=== PATIENT | male | born 1950 | race Caucasian/White ===

== ENCOUNTER 2018-12-04 14:00 | Inpatient (IN) | payer MEDICARE ==
[2018-12-04 21:46] LABS: Glucose,Whole Blood 82 mg/dL (75-99)
[2018-12-04] MEDS ORDERED: NITROGLYCERIN SL TABS 0.4 MG TAB SUBLINGUAL PRN (22:15)
[2018-12-04] MEDS ORDERED: HEPARIN SODIUM,PORCINE 5,000 UNIT/ML 1 ML VIAL IV PRN (22:59)
[2018-12-04] MEDS ORDERED: HEPARIN SOD,PORK IN 0.45% NACL 25,000 UNIT in 0.45% NACL 1 250ML.BAG IV SCH (23:00)
[2018-12-04 23:34] LABS: Basophils # (A) 0.1 k/uL (0-0.2); Basophils % (A) 1 %; Eosinophils # (A) 0.1 k/uL (0-0.7); Eosinophils % (A) 1 %; HCT 42.8 % (39.0-53.0); HGB 13.9 gm/dL (13.0-17.5); Lymphocytes # (A) 1.5 k/uL (1.0-4.8); Lymphocytes % (A) 23 %; MCH 29.4 pg (25.0-35.0); MCHC 32.4 g/dL (31.0-37.0); MCV 90.8 fL (80.0-100.0); Mean Platelet Volume 8.1; Monocytes # (A) 0.5 k/uL (0-1.0); Monocytes % (A) 7 %; Neutrophils # (A) 4.4 k/uL (1.3-7.7); Neutrophils % (A) 66 %; Platelet Count 186 k/uL (150-450); RBC 4.72 m/uL (4.30-5.90); RDW 13.9 % (11.5-15.5); WBC 6.7 k/uL (3.8-10.6)
[2018-12-04 23:40] LABS: Partial Thromboplastin Time 26.5 sec (22.0-30.0); Prothrombin Time 10.5 sec (9.0-12.0)
[2018-12-04 23:51] LABS: African American GFR (CKD) >90 (>60 ml/min/1.73 sqM); Anion Gap 9 mmol/L; Blood Urea Nitrogen 17 mg/dL (9-20); Calcium 9.2 mg/dL (8.4-10.2); Carbon Dioxide 25 mmol/L (22-30); Chloride 105 mmol/L (98-107); Glucose 84 mg/dL (74-99); Potassium 3.9 mmol/L (3.5-5.1); Sodium 139 mmol/L (137-145)
[2018-12-05 06:07] LABS: Basophils # (A) 0.1 k/uL (0-0.2); Basophils % (A) 1 %; Eosinophils # (A) 0.1 k/uL (0-0.7); Eosinophils % (A) 1 %; HCT 43.4 % (39.0-53.0); HGB 13.7 gm/dL (13.0-17.5); Lymphocytes # (A) 1.4 k/uL (1.0-4.8); Lymphocytes % (A) 19 %; MCH 28.2 pg (25.0-35.0); MCHC 31.5 g/dL (31.0-37.0); MCV 89.4 fL (80.0-100.0); Mean Platelet Volume 8.7; Monocytes # (A) 0.4 k/uL (0-1.0); Monocytes % (A) 6 %; Neutrophils # (A) 5.1 k/uL (1.3-7.7); Neutrophils % (A) 71 %; Platelet Count 184 k/uL (150-450); RBC 4.86 m/uL (4.30-5.90); RDW 15.2 % (11.5-15.5); WBC 7.1 k/uL (3.8-10.6)
[2018-12-05 06:21] LABS: Glucose,Whole Blood 128 mg/dL (75-99)
[2018-12-05] MEDS: INSULIN ASPART (NovoLOG) 100 UNIT/ML VIAL SQ SCH ×4 (06:22→21:18)
[2018-12-05] MEDS ORDERED: MD COMMUNICATION TO PHARMACY 1 EACH MISC PO ONE ×4 (06:31)
[2018-12-05 07:00] LABS: ALT 27 U/L (21-72); AST 28 U/L (17-59); African American GFR (CKD) >90 (>60 ml/min/1.73 sqM); Albumin 4.1 g/dL (3.5-5.0); Alkaline Phosphatase 118 U/L (38-126); Anion Gap 8 mmol/L; Blood Urea Nitrogen 13 mg/dL (9-20); Calcium 9.3 mg/dL (8.4-10.2); Carbon Dioxide 28 mmol/L (22-30); Chloride 105 mmol/L (98-107); Cholesterol 164 mg/dL (<200); Glucose 134 mg/dL (74-99); HDL Cholesterol 42 mg/dL (40-60); LDL Cholesterol,Calculated 95 mg/dL (0-99); Magnesium 2.1 mg/dL (1.6-2.3); Potassium 4.2 mmol/L (3.5-5.1); Prothrombin Time 10.9 sec (9.0-12.0); Sodium 141 mmol/L (137-145); Total Bilirubin 0.7 mg/dL (0.2-1.3); Total Protein 7.1 g/dL (6.3-8.2); Triglycerides 135 mg/dL (<150)
--- NOTE | 2018-12-05 08:08 | XR ---
EXAMINATION TYPE: XR chest 2V DATE OF EXAM: 12/05/2018 COMPARISON: NONE HISTORY: Shortness of breath TECHNIQUE: Frontal and lateral views of the chest are obtained. FINDINGS: Scattered senescent parenchymal changes noted. Hyperinflation compatible with COPD. No evidence for infiltrate. No evidence for atelectasis. Heart size is stable. Mediastinal structures are stable and grossly unremarkable. No evidence for hilar prominence. Degenerative changes dorsal spine. IMPRESSION: 1. No evidence for acute pulmonary disease.
[2018-12-05] MEDS ORDERED: METOPROLOL TARTRATE 12.5 MG TAB PO SCH (09:00)
[2018-12-05] MEDS ORDERED: MELOXICAM 7.5 MG TAB PO SCH (09:00)
[2018-12-05] MEDS ORDERED: HEPARIN SODIUM,PORCINE 5,000 UNIT/ML 1 ML VIAL SQ SCH (09:00)
[2018-12-05] MEDS: ASPIRIN 325 MG TAB PO SCH (09:12)
[2018-12-05] MEDS: PANTOPRAZOLE 40 MG TABLET PO SCH (09:12)
[2018-12-05] MEDS: GABAPENTIN 300 MG CAP PO SCH ×3 (09:12→21:19)
--- NOTE | 2018-12-05 11:23 | P.HPIM ---
History of Present Illness H&P Date: 12/05/18 Chief Complaint: Chest pain This is a 68-year-old male, a patient of Dr. Haddad. He has a known past medical history of diabetes mellitus type 2, hyperlipidemia, vitamin D d eficiency and a family history of coronary artery disease. Patient initially presented to [facility] emergency room yesterday with complaints of chest pain along the breast bone that had started earlier yesterday morning. Pain did not radiate. Symptoms have lasted for about a half hour and then recurred 2 more times. He then came to the ER. For further evaluation and treatment. Patient's first troponin was negative EKG showing a normal sinus rhythm with an old inferior infarct and chest x-ray showing scattered interstitial densities and peribronchial thickening without acute parenchymal infiltrate or vascular decompensation. No pneumothorax. Patient initially started on Rocephin and azithromycin in the ER for concerns of possible pneumonia. Cardiology also on consult regarding chest pain. Second troponin came back elevated and then patient went for a heart catheterization that revealed triple-vessel disease. He was then transferred to [facility] for further evaluation by cardiothoracic surgeon. Patient is currently on IV heparin. He currently has no chest pressure. The chest x-ray done here [facility] shows no acute pulmonary process. Patient is still on the Rocephin most likely due to bronchitis doubt pneumonia. Patient's also had had upper respiratory symptoms with the last 2 weeks with sinus congestion and drainage. He denies any fever, chills, sweats, nausea or vomiting, bowel movement changes or urinary symptoms. Review of Systems Please refer to HPI otherwise unremarkable Past Medical History Past Medical History: Diabetes Mellitus, Hearing Disorder / Deafness, Hyperlipidemia History of Any Multi-Drug Resistant Organisms: None Reported Past Surgical History: No Surgical Hx Reported Past Anesthesia/Blood Transfusion Reactions: No Reported Reaction Past Psychological History: No Psychological Hx Reported Smoking Status: Former smoker Past Alcohol Use History: None Reported Past Drug Use History: None Reported Medications and Allergies Home Medications Medication Instructions Recorded Confirmed Type Ergocalciferol (Vitamin D2) 50,000 units PO BONILLA 11/01/17 12/04/18 History [Vitamin D2] Meloxicam 15 mg PO DAILY 11/01/17 12/04/18 History sitaGLIPtin [Januvia] 100 mg PO DAILY 11/01/17 12/04/18 History Escitalopram [Lexapro] 5 mg PO DAILY 12/04/18 12/04/18 History Glimepiride [Amaryl] 2 mg PO DAILY 12/04/18 12/04/18 History Omeprazole [PriLOSEC] 20 mg PO DAILY 12/04/18 12/04/18 History Pioglitazone HCl [Actos] 30 mg PO DAILY 12/04/18 12/04/18 History Pravastatin Sodium [Pravachol] 20 mg PO HS 12/04/18 12/04/18 History Allergies Allergy/AdvReac Type Severity Reaction Status Date / Time No Known Allergies Allergy Verified 12/04/18 22:49 Physical Exam Vitals: Vital Signs Temp Pulse Resp BP Pulse Ox 12/05/18 09:10 97.8 F 70 16 143/78 93 L 12/05/18 04:00 62 16 134/78 96 12/05/18 00:00 97.9 F 68 18 127/73 98 12/04/18 21:40 98.2 F 71 18 141/68 97 Intake and Output 12/04/18 12/05/18 12/05/18 22:59 06:59 14:59 Intake Total 230.299 Balance 230.299 Intake: Intake, IV Titration 110.299 Amount Heparin Sod,Pork in 0.45% 110.299 NaCl 25,000 unit In 0.45 % NaCl 1 250ml.bag @ 12 UNITS/KG/HR 9.253 mls/hr IV .Q24H [facility] Rx#: [id number] Oral 120 Other: Voiding Method Toilet # Voids 2 Weight 77.111 kg 77 kg Head normocephalic Neck supple Lungs clear to auscultation bilaterally no wheezing or crackles Heart regular rate and rhythm S1-S2, no rub or gallop Abdomen is soft nontender nondistended positive bowel sounds no hepatosplenomegaly Extremities no edema Neuro alert and orientated to 3 Results CBC & Chem 7: 12/05/18 05:45 12/05/18 05:45 Labs: Abnormal Lab Results - Last 24 Hours (Table) 12/05/18 12/05/18 12/05/18 Range/Units 05:45 05:45 06:19 APTT 41.3 H (22.0-30.0) sec Glucose 134 H (74-99) mg/dL POC Glucose (mg/dL) 128 H (75-99) mg/dL Thrombosis Risk Factor Assmnt - Choose All That Apply Other Risk Factors: Yes Each Risk Factor Represents 2 Points: Age 61-74 years Other congenital or acquired thrombophilia - If yes, enter type in comment: No Thrombosis Risk Factor Assessment Total Risk Factor Score: 2 Thrombosis Risk Factor Assessment Level: Low Risk Assessment and Plan Assessment: 1. Chest pain with heart catheterization revealing triple-vessel disease. Patient was a transfer from [facility]. Cardiothoracic surgery and cardiology consult has been placed. Patient currently on IV heparin. Patient scheduled for echo arterial ultrasound carotid ultrasound and vein mapping ultrasound 2. Elevated d-dimer at [facility] with right calf pain: venous Doppler was negative for DVT and CTA of the chest was negative for PE. Calf pain now resolved 3. Acute tracheobronchitis: doubt pneumonia. chest x-ray from today showing no acute pulmonary process. Continue Rocephin. Check sputum culture. Consult pulmonary service for clearance for possible CABG 4. Diabetes mellitus type 2 resume patient's oral hypoglycemics and add sliding scale coverage 5. Hyperlipidemia continue statin 6. GI prophylaxis Protonix and DVT prophylaxis IV heparin Time with Patient: Greater than 30 (Greater than 50% of the total time spent in counseling and coordination of care.I performed an examination of the patient and discussed their management with the physician Pet House Sitter. I have reviewed the Physician Pet House Sitter's notes and agree with the documented findings and plan of care)
[2018-12-05 11:32] LABS: Glucose,Whole Blood 134 mg/dL (75-99)
[2018-12-05 11:47] LABS: Appearance,Urine Clear (Clear); Bilirubin,Urine Negative (Negative); Blood,Urine Negative (Negative); Color,Urine Light Yellow; Glucose,Urine (UA) 2+ (Negative); Ketones,Urine Negative (Negative); Leukocyte Esterase,Urine Negative (Negative); Nitrite,Urine Negative (Negative); PH, Urine 6.5 (5.0-8.0); Protein,Urine Negative (Negative); Specific Gravity,Urine 1.011 (1.001-1.035); Urobilinogen,Urine <2.0 mg/dL (<2.0)
[2018-12-05] MEDS: LINAGLIPTIN 5 MG TABLET PO SCH (12:00)
[2018-12-05 12:27] LABS: Hepatitis A Antibody IgM Non-Reactive (Non-Reactive); Hepatitis B Core IgM Non-Reactive (Non-Reactive)
--- NOTE | 2018-12-05 12:51 | ECHOF ---
Referral Reason:Pre op CABG MEASUREMENTS -------- HEIGHT: 167.6 cm WEIGHT: 76.7 kg BP: 134/78 RVIDd: 3.3 cm (< 3.3) IVSd: 1.5 cm (0.6 - 1.1) LVIDd: 4.0 cm (3.9 - 5.3) LVPWd: 1.3 cm (0.6 - 1.1) IVSs: 1.9 cm LVIDs: 2.5 cm LVPWs: 1.8 cm LAESV Index (A-L): 17.83 ml/m Ao Diam: 3.3 cm (2.0 - 3.7) AV Cusp: 1.9 cm (1.5 - 2.6) LA Diam: 3.7 cm (2.7 - 3.8) MV EXCURSION: 9.371 mm (> 18.000) MV EF SLOPE: 40 mm/s (70 - 150) EPSS: 1.1 cm MV E Charlie: 0.94 m/s MV DecT: 279 ms MV A Charlie: 1.14 m/s MV E/A Ratio: 0.82 RAP: 5.00 mmHg RVSP: 30.47 mmHg FINDINGS -------- Sinus rhythm. This was a technically adequate study. The left ventricular size is normal. There is moderate concentric left ventricular hypertrophy. O verall left ventricular systolic function is normal with, an EF between 55 - 60 %. The right ventricle is mildly enlarged. Normal LA size by volume 22+/-6 ml/m2. The right atrial size is normal. Interatrial and interventricular septum intact. The aortic valve is trileaflet and appears structurally normal. Mild mitral regurgitation is present. Mild tricuspid regurgitation present. There is no evidence of pulmonary hypertension. The right v entricular systolic pressure, as measured by Doppler, is 30.47mmHg. There is no pulmonic regurgitation present. The aortic root size is normal. Normal inferior vena cava with normal inspiratory collapse consistent with estimated right atrial pre ssure of 5 mmHg. There is no pericardial effusion. CONCLUSIONS -------- 1. Sinus rhythm. 2. This was a technically adequate study. 3. The left ventricular size is normal. 4. There is moderate concentric left ventricular hypertrophy. 5. Overall left ventricular systolic function is normal with, an EF between 55 - 60 %. 6. The right ventricle is mildly enlarged. 7. Normal LA size by volume 22+/-6 ml/m2. 8. The right atrial size is normal. 9. Interatrial and interventricular septum intact. 10. The aortic valve is trileaflet and appears structurally normal. 11. Mild mitral regurgitation is present. 12. Mild tricuspid regurgitation present. 13. There is no evidence of pulmonary hypertension. 14. The right ventricular systolic pressure, as measured by Doppler, is 30.47mmHg. 15. There is no pulmonic regurgitation present. 16. The aortic root size is normal. 17. Normal inferior vena cava with normal inspiratory collapse consistent with estimated right atrial pressure of 5 mmHg. 18. There is no pericardial effusion. MANAGER PRODUCTION: Olive Macario RDCS
--- NOTE | 2018-12-05 13:09 | PN ---
PROGRESS NOTE Mr. Solo is a 68-year-old gentleman, history of type 2 diabetes, hypertension, hyperlipidemia, who was seen and evaluated by Dr. Dolan at [facility]. He underwent a cardiac cath which revealed a triple-vessel disease. He has a right dominant system. No significant disease in the RCA. LAD, obtuse marginal and ramus have significant disease. He was advised aortocoronary bypass surgery and transferred here. He is going to be seen by Dr. Monroe for possible bypass surgery in the next couple of days. At this time, he is resting comfortably. Denies any chest discomfort. His vital signs are stable. S1-S2 heard normally. Lungs are clear. Abdomen and lower extremity exam unchanged. I am recommending that we switch him from IV heparin to subcu heparin. Continue his other medications, increase the beta reg to 25 mg in the morning and 12.5 mg in the evening. I discussed my thoughts in detail with the patient and I will await input from Dr. Monroe. MMODL / IJN: [id number] /
[2018-12-05] MEDS: ESCITALOPRAM 5 MG TAB PO SCH (13:38)
[2018-12-05] MEDS: PIOGLITAZONE 30 MG TAB PO SCH (13:38)
--- NOTE | 2018-12-05 14:33 | CONS ---
CONSULTATION This is a 68-year-old male who I am asked to see her for anticipation of a bypass grafting. He sees Dr. Haddad as a primary. He has a history of diabetes type 2, hyperlipidemia, vitamin D deficiency and a family history of CAD. He presented to [facility] with complaints of chest pain. It was mostly in the center of his chest. It did not radiate. They lasted a number of minutes, even to the point of 30 minutes or more. For that reason, he came to the ER. He apparently was evaluated there. EKG showed normal sinus rhythm with an old inferior wall [place]. He also had an negative 1st troponin. Subsequent to that, the patient was further evaluated by Cardiology. Second troponin came back elevated and the patient went for heart catheterization and revealed triple-vessel disease. He is transferred to [facility] for further evaluation and consultation by Cardiothoracic Surgery, I believe Dr. Monroe. The patient was placed on IV heparin and had a basic IV. Currently, he is sitting up in a chair. I asked him about lung issues. He denies any history of any lung disease. He only smoked 1 year when he was 18 years of age. 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 Denies any COPD, emphysema, asthma, or anything else for that matter. He is suffering from a bit of an upper respiratory tract infection. Apparently was treated at the other hospital for that. His past medical history is positive for hyperlipidemia, diabetes, vitamin D deficiency and deafness. SURGICAL HISTORY: Negative. SOCIAL HISTORY: Positive for one year of tobacco use when he was 18 years of age. Denies any alcohol or illicit drug use. Occupational history is noncontributory. 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 HOME MEDICATIONS: Include vitamin D, meloxicam, Januvia, Lexapro, Amaryl, Prilosec, Actos, Pravachol. ALLERGIES: Denied. FAMILY HISTORY: Essentially not too remarkable. Mother and father are both . There is a family history of cardiac disease. I believe in his father. Mother apparently did not have any heart disease. There was some arthritis in the family as well as according to the medical records. REVIEW OF SYSTEMS: CONSTITUTIONAL: Negative. NEUROLOGIC: Negative. HEENT: Negative. CARDIOVASCULAR: Chest pain. PULMONARY: Negative. GI: Negative. : Negative. RHEUMATOLOGIC: Negative. IMMUNOLOGIC: Negative. ENDOCRINOLOGIC: Negative. DERMATOLOGIC: Also negative, except for diabetes. Current vital signs are reviewed. Temperature is 97.8, heart rate 70, respiratory rate is 16, blood pressure 143/70, mean 99, room air saturation 97%. Appears in no acute distress. HEENT: Examination is grossly unremarkable. Mucous membranes are moist. No oral lesions. NECK: Supple. Full range of motion. No adenopathy. Neck veins are flat. CARDIOVASCULAR: Examination reveals regular rhythm and rate. S1, S2 normal. Heart rate 70. No murmur. LUNGS: Reveal clear breath sounds. No wheezes, rhonchi, or crackles. ABDOMEN: Soft. Bowel sounds are heard. EXTREMITIES: Intact. No cyanosis, clubbing, or edema. SKIN: Without rash. NEUROLOGIC: Examination is brief, but nonfocal. Patient had a chest x-ray. The chest x-ray was negative. LABS: Reviewed. CBC is completely normal. PT, INR normal. PTT is 41.3. Sodium, potassium, chloride, CO2 all normal. Anion gap normal, kidney function normal. His urine is negative. His hepatitis serologies are negative. His medications are reviewed. They are appropriate. The patient is on Rocephin. That can be discontinued. ASSESSMENT: 1. Three-vessel coronary artery disease, recently discovered. 2. History of hyperlipidemia. 3. History of diabetes mellitus. 4. Remote 1 year history of tobacco use without evidence of any chronic lung disease. 5. Mild upper respiratory tract infection, probably viral. 6. Deafness. PLAN: The patient doing well. He should have a bedside spirometry. I doubt any significant pulmonary disease. Will discontinue the IV antibiotics as I do not believe he needs him at this time. Additional recommendations and suggestions are forthcoming. Based on his history, the patient should do well after bypass grafting, should have her early extubation and should be able to be discharged relatively quickly from the hospital, if everything goes well. Will continue to follow. Prognosis is good. MMODL / IJN: [id number] /
[2018-12-05 14:36] LABS: Hemoglobin A1C 7.5 % (4.0-6.0)
--- NOTE | 2018-12-05 14:44 | US ---
EXAMINATION TYPE: US carotid duplex BILAT DATE OF EXAM: 12/05/2018 COMPARISON: NONE CLINICAL HISTORY: Pre-Op Cardiac Surgery. pre OP EXAM MEASUREMENTS: RIGHT: Peak Systolic Velocity (PSV) cm/sec ----- Right CCA: 111.4 ----- Right ICA: 88.7 ----- Right ECA: 125.3 ICA/CCA ratio: 0.8 RIGHT: End Diastole cm/sec ----- Right CCA: 14.0 ----- Right ICA: 31.1 ----- Right ECA: 5.8 LEFT: Peak Systolic Velocity (PSV) cm/sec ----- Left CCA: 107.4 ----- Left ICA: 77.0 ----- Left ECA: 110.2 ICA/CCA ratio: 0.7 LEFT: End Diastole cm/sec ----- Left CCA: 17.9 ----- Left ICA: 22.9 ----- Left ECA: 6.9 VERTEBRALS (direction of flow): Right Vertebral: Antegrade Left Vertebral: Antegrade Rhythm: Normal IMPRESSION: Mild homogeneous plaque seen with no stenosis Criteria for Assigning % of Stenosis / Diameter reduction (Estimation based on the indirect measurements of the internal carotid artery velocities (ICA PSV). 1. Normal (no stenosis)=ICA PSV < 125 cm/s: ratio < 2.0: ICA EDV<40 cm/s. 2. Less than 50% stenosis=ICA PSV < 125 cm/s: ratio < 2.0: ICA EDV<40 cm/s. 3. 50 to 69% stenosis=ICA PSV of 125 to 230 cm/s: ration 2.0 ? 4.0: ICA EDV 40-100 cm/s. 4. Greater than 70% stenosis to near occlusion= ICA PSV > 230 cm/s: ratio > 4.0: ICA EDV > 100 cm/s. 5. Near occlusion= ICA PSV velocities may be low or undetectable: variable ratio and ICA EDV. 6. Total occlusion=unable to detect flow.
[2018-12-05 16:43] LABS: Glucose,Whole Blood 160 mg/dL (75-99)
--- NOTE | 2018-12-05 17:35 | P.GSCN ---
History of Present Illness Consult date: 12/05/18 Reason for Consult: severe triple vessel coronary artery disease, non-ST elevated myocardial infarction. Requesting physician: David Dolan History of present illness: This is a 68-year-old gentleman who is followed by Dr. Haddad an outpatient basis. He is a past medical history significant for type 2 diabetes mellitus, hypertension, hyperlipidemia, family history of premature coronary artery disease with his mother being diagnosed with a myocardial infarction at age 52, vocal cord disorder, tinnitus and a very remote history of tobacco dependence. Yesterday morning on 12/04/2018 around 6:30 AM the patient developed some complaints of chest pressure. The patient reports the chest pressure came on while at rest and he initially thought it was indigestion. He denies any complaints of nausea, vomiting, presyncope, syncope or diaphoresis. Due to the chest pain and complains of pain to his right calf muscle, he decided to present to the emergency department at [facility]. In the emergency d epartment a 12-lead EKG was completed which showed the patient to be in normal sinus rhythm without any significant ST or T wave abnormalities. He also underwent a chest x-ray which was negative for any acute cardiopulmonary abnormalities. Lab work was completed which showed a WBC count of 6.2, Hgb 14.7, platelets 184, BUN 21, creatinine 0.8, random glucose 182 and an initial troponin of less than 0.017. A repeat troponin showed an elevation of 0.438 ruling the patient in for a non-ST elevated myocardial infarction. Due to the patient's presenting symptoms and elevated troponins a consult was placed to Dr. Dolan from cardiology associates.the patient was admitted to [facility] for further workup and evaluation and a cardiac catheterization was recommended. The patient underwent a cardiac catheterization which demonstrated severe triple-vessel coronary artery disease. The cardiac catheterization results were reviewed with the patient and his by Dr. Dolan. Dr. Dolan's recommendations were to transfer the patient to [facility] to be seen by a cardiothoracic surgery for further evaluation and treatment recommendations, the patient and his were agreeable. Review of Systems A 14 point review of systems was completed and was negative except as mentioned in the HPI. Past Medical History Past Medical History: Diabetes Mellitus, GERD/Reflux, Hearing Disorder / Deafness (tinnitus), Hyperlipidemia, Hypertension Additional Past Medical History / Comment(s): The patient reports she has been recently seen by an ear nose and throat doctor and was diagnosed with a paralyzed vocal cord. History of Any Multi-Drug Resistant Organisms: None Reported Past Surgical History: No Surgical Hx Reported Past Anesthesia/Blood Transfusion Reactions: No Reported Reaction Past Psychological History: No Psychological Hx Reported Smoking Status: Former smoker Past Alcohol Use History: None Reported Past Drug Use History: None Reported - Past Family History Mother Family Medical History: Diabetes Mellitus, Myocardial Infarction (PA) Additional Family Medical History / Comment(s): from a myocardial infa rction at age 52 Father Family Medical History: Diabetes Mellitus Brother(s) Family Medical History: Coronary Artery Disease (CAD) Medications and Allergies Home Medications Medication Instructions Recorded Confirmed Type Ergocalciferol (Vitamin D2) 50,000 units PO BONILLA 11/01/17 12/04/18 History [Vitamin D2] Meloxicam 15 mg PO DAILY 11/01/17 12/04/18 History sitaGLIPtin [Januvia] 100 mg PO DAILY 11/01/17 12/04/18 History Escitalopram [Lexapro] 5 mg PO DAILY 12/04/18 12/04/18 History Glimepiride [Amaryl] 2 mg PO DAILY 12/04/18 12/04/18 History Omeprazole [PriLOSEC] 20 mg PO DAILY 12/04/18 12/04/18 History Pioglitazone HCl [Actos] 30 mg PO DAILY 12/04/18 12/04/18 History Pravastatin Sodium [Pravachol] 20 mg PO HS 12/04/18 12/04/18 History Allergies Allergy/AdvReac Type Severity Reaction Status Date / Time No Known Allergies Allergy Verified 12/04/18 22:49 Surgical - Exam Vital Signs Temp Pulse Resp BP Pulse Ox 98.2 F 71 18 141/68 97 12/04/18 21:40 12/04/18 21:40 12/04/18 21:40 12/04/18 21:40 12/04/18 21:40 - General well developed, well nourished, no distress, no pain, obese - Eyes PERRL, normal ocular movement - ENT normal pinna, normal nares, normal mucosa, no hearing loss (ringing in the ears), no congestion - Neck neck is supple, no lymphadenopathy, no thyromegaly no masses, no bruits, trachea midline, no venous distension - Respiratory lung sounds are essentially clear throughout. Respirations are symmetrical and nonlabored. No wheezing, crackles or rhonchi. - Cardiovascular regular rhythm and rate. S1 and S2 present, negative for S3, gallop or murmur. No edema present. - Abdomen Abdomen is soft, nontender and nondistended. No guarding or rigidity. No organomegaly. Active bowel sounds all 4 abdominal quadrants. - Genitourinary deferred - Rectum deferred - Integumentary no rash, no growths, no abnormal pigmentation - Neurologic normal coordination, normal sensation - Musculoskeletal normal gait, normal posture - Psychiatric oriented to time, oriented to person, oriented to place, speech is normal, memory intact Results - Labs 12/05/18 05:45 12/05/18 05:45 Abnormal Lab Results - Last 24 Hours (Table) 12/05/18 12/05/18 12/05/18 Range/Units 05:45 05:45 06:19 APTT 41.3 H (22.0-30.0) sec Glucose 134 H (74-99) mg/dL POC Glucose (mg/dL) 128 H (75-99) mg/dL Urine Glucose (UA) (Negative) 12/05/18 12/05/18 Range/Units 11:05 11:29 APTT (22.0-30.0) sec Glucose (74-99) mg/dL POC Glucose (mg/dL) 134 H (75-99) mg/dL Urine Glucose (UA) 2+ H (Negative) Diabetes panel 12/04/18 12/05/18 Range/Units 23:06 05:45 Sodium 139 141 (137-145) mmol/L Potassium 3.9 4.2 (3.5-5.1) mmol/L Chloride 105 105 (98-107) mmol/L Carbon Dioxide 25 28 (22-30) mmol/L BUN 17 13 (9-20) mg/dL Creatinine 0.75 0.77 (0.66-1.25) mg/dL Glucose 84 134 H (74-99) mg/dL Calcium 9.2 9.3 (8.4-10.2) mg/dL AST 28 (17-59) U/L ALT 27 (21-72) U/L Alkaline Phosphatase 118 (38-126) U/L Total Protein 7.1 (6.3-8.2) g/dL Albumin 4.1 (3.5-5.0) g/dL Triglycerides 135 (<150) mg/dL HDL Cholesterol 42 (40-60) mg/dL Thyroid panel 12/05/18 Range/Units 05:45 TSH 1.170 (0.465-4.680) mIU/L Calcium panel 12/04/18 12/05/18 Range/Units 23:06 05:45 Calcium 9.2 9.3 (8.4-10.2) mg/dL Albumin 4.1 (3.5-5.0) g/dL Pituitary panel 12/04/18 12/05/18 Range/Units 23:06 05:45 Sodium 139 141 (137-145) mmol/L Potassium 3.9 4.2 (3.5-5.1) mmol/L Chloride 105 105 (98-107) mmol/L Carbon Dioxide 25 28 (22-30) mmol/L BUN 17 13 (9-20) mg/dL Creatinine 0.75 0.77 (0.66-1.25) mg/dL Glucose 84 134 H (74-99) mg/dL Calcium 9.2 9.3 (8.4-10.2) mg/dL TSH 1.170 (0.465-4.680) mIU/L Adrenal panel 12/04/18 12/05/18 Range/Units 23:06 05:45 Sodium 139 141 (137-145) mmol/L Potassium 3.9 4.2 (3.5-5.1) mmol/L Chloride 105 105 (98-107) mmol/L Carbon Dioxide 25 28 (22-30) mmol/L BUN 17 13 (9-20) mg/dL Creatinine 0.75 0.77 (0.66-1.25) mg/dL Glucose 84 134 H (74-99) mg/dL Calcium 9.2 9.3 (8.4-10.2) mg/dL Total Bilirubin 0.7 (0.2-1.3) mg/dL AST 28 (17-59) U/L ALT 27 (21-72) U/L Alkaline Phosphatase 118 (38-126) U/L Total Protein 7.1 (6.3-8.2) g/dL Albumin 4.1 (3.5-5.0) g/dL - Imaging EKG: image reviewed Additional studies: Cardiac catheterization report reviewed. Assessment and Plan Assessment: 1. Severe triple-vessel coronary artery disease 2. Non-ST elevated myocardial infarction 3. Hypertension 4. Hyperlipidemia 5. Diabetes mellitus type 2 6. Tinnitus 7. Family history of premature coronary artery disease 8. Remote history of nicotine dependence, in remission 9. Vocal cord disorder Plan: The patient was seen and examined at the bedside on the cardiac stepdown unit. His chart and diagnostics were reviewed. He was seen and examined by Dr. Sue Monroe from cardiothoracic surgery. The usual preoperative testing and preoperative teaching was initiated. Continue to optimize with the medical management, continue his statin and heparin drip. We will start the patient on metoprolol 12.5 mg by mouth twice a day and aspirin 325 mg by mouth daily. A 2- D echocardiogram has been ordered to evaluate his LV function and valves. A 5 minute walk test has been completed by cardiac rehab, time 1:4.0 seconds, time 2: 3.7 seconds, time 3:3.[address] Monroe met with the patient and his after risks viewing the hernia catheterization films. Dr. Monroe discussed the findings of the cardiac catheterization films with the patient and his and with Dr. Dolan. Dr. Dolan and Dr. Monroe are in agreement of repeating a heart catheterization and doing an FFR of the LAD. At this time it was felt the patient will better benefit from PCI over myocardial revascularization surgery. This has been discussed with the patient and his and they are in agreement and wish to proceed with the heart catheterization. More recommendations to follow based on patient's clinical course. Thank you Dr. Dolan for this consult and we will look for to working with you in the care of your patient. Time with Patient: Greater than 30
[2018-12-05] MEDS: HEPARIN SODIUM,PORCINE 5,000 UNIT/ML 1 ML VIAL SQ SCH (18:34)
[2018-12-05 21:16] LABS: Glucose,Whole Blood 92 mg/dL (75-99)
[2018-12-05] MEDS: MUPIROCIN 2% OINT 22 GM TUBE NASAL SCH (21:19)
[2018-12-05] MEDS: ATORVASTATIN 20 MG TAB PO SCH (21:19)
[2018-12-05] MEDS: METOPROLOL TARTRATE 12.5 MG TAB PO SCH (21:19)
[2018-12-05] MEDS ORDERED: HEPARIN SODIUM,PORCINE 5,000 UNIT/ML 1 ML VIAL ONE (23:47)
[2018-12-06] MEDS: HEPARIN SODIUM,PORCINE 5,000 UNIT/ML 1 ML VIAL SQ SCH ×3 (04:57→16:12)
[2018-12-06 06:12] LABS: Glucose,Whole Blood 152 mg/dL (75-99)
[2018-12-06] MEDS: MUPIROCIN 2% OINT 22 GM TUBE NASAL SCH ×2 (06:43→20:27)
[2018-12-06] MEDS: GABAPENTIN 300 MG CAP PO SCH ×3 (06:43→20:27)
[2018-12-06] MEDS: ESCITALOPRAM 5 MG TAB PO SCH (06:44)
[2018-12-06] MEDS: ASPIRIN 325 MG TAB PO SCH (06:44)
[2018-12-06] MEDS: METOPROLOL TARTRATE 25 MG TAB PO SCH (06:44)
[2018-12-06] MEDS: PANTOPRAZOLE 40 MG TABLET PO SCH (06:44)
[2018-12-06] MEDS: INSULIN ASPART (NovoLOG) 100 UNIT/ML VIAL SQ SCH ×4 (06:50→20:28)
[2018-12-06 07:58] LABS: Basophils # (A) 0.1 k/uL (0-0.2); Basophils % (A) 1 %; Eosinophils # (A) 0.1 k/uL (0-0.7); Eosinophils % (A) 1 %; HCT 44.4 % (39.0-53.0); HGB 14.5 gm/dL (13.0-17.5); Lymphocytes # (A) 1.4 k/uL (1.0-4.8); Lymphocytes % (A) 18 %; MCH 29.4 pg (25.0-35.0); MCHC 32.6 g/dL (31.0-37.0); MCV 89.9 fL (80.0-100.0); Mean Platelet Volume 8.8; Monocytes # (A) 0.5 k/uL (0-1.0); Monocytes % (A) 6 %; Neutrophils # (A) 5.6 k/uL (1.3-7.7); Neutrophils % (A) 73 %; Platelet Count 183 k/uL (150-450); RBC 4.94 m/uL (4.30-5.90); RDW 15.3 % (11.5-15.5); WBC 7.6 k/uL (3.8-10.6)
[2018-12-06 08:01] LABS: ALT 18 U/L (21-72); AST 25 U/L (17-59); African American GFR (CKD) >90 (>60 ml/min/1.73 sqM); Albumin 4.3 g/dL (3.5-5.0); Alkaline Phosphatase 115 U/L (38-126); Anion Gap 10 mmol/L; Blood Urea Nitrogen 19 mg/dL (9-20); Calcium 9.7 mg/dL (8.4-10.2); Carbon Dioxide 27 mmol/L (22-30); Chloride 103 mmol/L (98-107); Glucose 145 mg/dL (74-99); Potassium 4.4 mmol/L (3.5-5.1); Sodium 140 mmol/L (137-145); Total Bilirubin 0.7 mg/dL (0.2-1.3); Total Protein 7.4 g/dL (6.3-8.2)
--- NOTE | 2018-12-06 10:19 | P.PN ---
Subjective Progress Note Date: 12/06/18 This is a 68-year-old male, a patient of Dr. Haddad. He has a known past medical history of diabetes mellitus type 2, hyperlipidemia, vitamin D deficiency and a family history of coronary artery disease. Patient initially presented to [facility] emergency room yesterday with complaints of chest pain along the breast bone that had started earlier yesterday morning. Pain did not radiate. Symptoms have lasted for about a half hour and then recurred 2 more times. He then came to the ER. For further evaluation and treatment. Patient's first troponin was negative EKG showing a normal sinus rhythm with an old inferior infarct and chest x-ray showing scattered interstitial densities and peribronchial thickening without acute parenchymal infiltrate or vascular decompensation. No pneumothorax. Patient initially started on Rocephin and azithromycin in the ER for concerns of possible pneumonia. Cardiology also on consult regarding chest pain. Second troponin came back elevated and then patie nt went for a heart catheterization that revealed triple-vessel disease. He was then transferred to [facility] for further evaluation by cardiothoracic surgeon. Patient is currently on IV heparin. He currently has no chest pressure. The chest x-ray done here [facility] shows no acute pulmonary process. Patient is still on the Rocephin most likely due to bronchitis doubt pneumonia. Patient's also had had upper respiratory symptoms with the last 2 weeks with sinus congestion and drainage. He denies any fever, chills, sweats, nausea or vomiting, bowel movement changes or urinary symptoms. On 12/06/2018 patient is alert and oriented 3 resting comfortably in bed. Patient was evaluated by cardiothoracic surgery. Discussion held between crozer operator and cardiothoracic surgery plan to have cardiac cath today with possible PCI and FFR test. At this time patient denies chest pain or shortness of breath. Patient denies any urinary burning or frequency. Denies any nausea vomiting or diarrhea. Patient was evaluated by pulmonary services. Objective - Vital Signs Vital signs: Vital Signs Temp 97.7 F 12/06/18 07:56 Pulse 60 12/06/18 07:56 Resp 16 12/06/18 07:56 BP 128/75 12/06/18 07:56 Pulse Ox 95 12/06/18 07:56 Intake & Output 12/05/18 12/06/18 12/06/18 18:59 06:59 18:59 Intake Total 360 100 Balance 360 100 Weight 76.6 kg Intake: Oral 360 100 Other: Voiding Method Toilet Toilet # Voids 1 1 1 - Exam Head normocephalic Neck supple Lungs clear to auscultation bilaterally no wheezing or crackles Heart regular rate and rhythm S1-S2, no rub or gallop Abdomen is soft nontender nondistended positive bowel sounds no hepatosplenomegaly Extremities no edema Neuro alert and orientated to 3 - Labs CBC & Chem 7: 12/06/18 07:09 12/06/18 07:09 Labs: Abnormal Lab Results - Last 24 Hours (Table) 12/05/18 12/05/18 12/05/18 Range/Units 05:45 11:05 11:29 Glucose (74-99) mg/dL POC Glucose (mg/dL) 134 H (75-99) mg/dL Hemoglobin A1c 7.5 H (4.0-6.0) % ALT (21-72) U/L Urine Glucose (UA) 2+ H (Negative) 12/05/18 12/06/18 12/06/18 Range/Units 16:40 06:10 07:09 Glucose 145 H (74-99) mg/dL POC Glucose (mg/dL) 160 H 152 H (75-99) mg/dL Hemoglobin A1c (4.0-6.0) % ALT 18 L (21-72) U/L Urine Glucose (UA) (Negative) Microbiology - Last 24 Hours (Table) 12/05/18 11:05 Nasal Screen MRSA/MSSA - Preliminary Nasopharyngeal Swab 12/05/18 11:05 Urine Culture - Preliminary Urine,Voided Assessment and Plan Assessment: 1. Chest pain with heart catheterization revealing triple-vessel disease. Patient was a transfer from [facility]. Cardiothoracic surgery and cardiology consult has been placed. Patient currently on IV heparin. Patient scheduled for echo arterial ultrasound carotid ultrasound and vein mapping ultrasound. Patient was ago by cardiothoracic surgery and plan at this time to have patient undergo cardiac catheterization today with possible PCI. 2. Elevated d-dimer at [facility] with right calf pain: venous Doppler was negative for DVT and CTA of the chest was negative for PE. Calf pain now resolved 3. Acute tracheobronchitis: doubt pneumonia. chest x-ray from today showing no acute pulmonary process. Continue Rocephin. Check sputum culture. Consult pulmonary service for clearance for possible CABG. per pulmonary services antibiotics have been DC'd doubt any pulmonary disease. 4. Diabetes mellitus type 2 resume patient's oral hypoglycemics and add sliding scale coverage 5. Hyperlipidemia continue statin GI prophylaxis Protonix I performed an examination of the patient and discussed their management with the Nurse Practitioner. I have reviewed the Nurse Practitioner's notes and agree with the documented findings and plan of care
[2018-12-06] MEDS: GLIMEPIRIDE 2 MG TAB PO SCH (11:47)
[2018-12-06] MEDS: LINAGLIPTIN 5 MG TABLET PO SCH (11:47)
[2018-12-06] MEDS: PIOGLITAZONE 30 MG TAB PO SCH (11:47)
[2018-12-06 11:49] LABS: Glucose,Whole Blood 112 mg/dL (75-99)
[2018-12-06] MEDS ORDERED: IV FLUID CONTINUATION 1,000 ML IV ONE (13:35)
[2018-12-06] MEDS ORDERED: MIDAZOLAM (PF) 2 MG/2 ML VIAL IV ONE (13:45)
[2018-12-06] MEDS ORDERED: LIDOCAINE 1% INJ 10MG/ML (20 ML MDV) SQ ONE (13:47)
[2018-12-06] MEDS ORDERED: NITROGLYCERIN 1000MCG/10ML SYRINGE INTRACORON ONE (13:51)
[2018-12-06] MEDS ORDERED: BIVALIRUDIN BOLUS 250 MG/50 ML IV ONE (13:55)
[2018-12-06] MEDS ORDERED: BIVALIRUDIN 250 MG in SODIUM CHLORIDE 0.9% 50 ML IV ONE (13:57)
[2018-12-06] MEDS ORDERED: ADENOSINE 90 MG in SODIUM CHLORIDE 0.9% 60 ML IVP ONE (14:01)
[2018-12-06] MEDS ORDERED: IOPAMIDOL-370 125ML BTL INJ ONE (14:08)
[2018-12-06] MEDS ORDERED: RX INFO: IV CONTRAST WAS GIVEN 1 EACH MISC MISCELLANE PRN (14:22)
[2018-12-06] MEDS ORDERED: SODIUM CHLORIDE 0.9% 1,000 ML IV SCH (14:30)
--- NOTE | 2018-12-06 14:33 | P.ARTDOP ---
Arterial Doppler LOWER EXTREMITY ARTERIAL DOPPLER: DATE OF SERVICE: 12/05/2018 Reason for study: Preop CABG. Doppler waveforms: Multiphasic bilaterally throughout. Pulse volume recording: []. Pressure gradients: None. Ankle-brachial indices: Greater than 1 bilaterally. Toe pressures: 84 on the right, 82 on the left Impression: Normal study.
--- NOTE | 2018-12-06 14:35 | P.VSCSTY ---
Greater Saphenous Vein Mapping This is bilateral lower extremity greater saphenous vein mapping. Date of service 12/05/2018 Vein quality and ultrasound appearance no intraluminal thrombus or wall changes are seen. Vein size groin right 8.2 x 9.6 groin left 6.4 x 8.2 High thigh right 6.3 x 6.5 high thigh left 3.5 x 4.0 Mid thigh right 2.6 x 2.9 mid thigh left 2.4 x 3.1 Above-knee right 2.0 x 3.0 above- knee left 2.0 x 2.7 Below knee right 1.8 x 2.5 below-knee left 1.9 x 3.5 Mid calf right 1.5 x 2.6 mid calf left 1.5 x 2.1 Ankle right 1.3 x 1.5 ankle left 1.8 x 2.6 Impression usable bilateral greater saphenous veins at the thigh level. Lower legs may be a bit small for use..
[2018-12-06] MEDS ORDERED: ATROPINE SULFATE 0.1 MG/ML 10ML SYRINGE ONE (16:11)
[2018-12-06 16:45] LABS: Glucose,Whole Blood 82 mg/dL (75-99)
--- NOTE | 2018-12-06 19:05 | CC ---
CARDIAC CATHETERIZATION REPORT DATE OF SERVICE: December 06, 2018 PERFORMING PHYSICIAN: David Dolan MD, foreign service teacher. PROCEDURE PERFORMED: Fractional flow reserve FFR of the left anterior descending artery. INDICATION: This is a 68-year-old gentleman with diabetes, hypertension, and dyslipidemia, who presented initially to [facility] with chest discomfort and ruled in for acute non ST elevation myocardial infarction. Subsequently the patient underwent a heart catheterization over there and that revealed triple-vessel coronary artery disease with the LAD lesion was intermediate to severe. The patient was seen by cardiothoracic surgeon, Dr. Monroe who advised to pursue with an FFR of the LAD to further assess if the LAD lesion is ischemic or not. The patient was brought today to undergo an FFR of the LAD. APPROACH: Right common femoral artery. COMPLICATION: None. LEVEL OF SEDATION: Moderate with sedation length of 20 minutes. PROCEDURE DESCRIPTION: After obtaining an informed consent, the patient was brought to the cardiac shop laborer. The right common femoral artery was cannulated using micropuncture technique, the micropuncture wire passed easily. Then I placed a 6-Turkmen sheath in the right common femoral artery. After that, I did start anticoagulation using Angiomax. Subsequently, and after zeroing the Doppler wire and equalizing between the Doppler wire and the guiding catheter which was JL4 guiding catheter with an FFR per IV adenosine infusion. The FFR came in to be a 0.78, which is nonischemic. POSTPROCEDURE MANAGEMENT: 1. The patient will be evaluated for coronary artery bypass grafting. 2. Follow up with the patient. MMODL / IJN: [id number] /
[2018-12-06 19:57] LABS: Glucose,Whole Blood 117 mg/dL (75-99)
[2018-12-06] MEDS: ATORVASTATIN 20 MG TAB PO SCH (20:27)
[2018-12-06] MEDS: METOPROLOL TARTRATE 12.5 MG TAB PO SCH (20:28)
[2018-12-07] MEDS: HEPARIN SODIUM,PORCINE 5,000 UNIT/ML 1 ML VIAL SQ SCH ×4 (00:28→23:50)
[2018-12-07 06:24] LABS: Glucose,Whole Blood 108 mg/dL (75-99)
[2018-12-07 06:37] LABS: Basophils # (A) 0.1 k/uL (0-0.2); Basophils % (A) 1 %; Eosinophils # (A) 0.1 k/uL (0-0.7); Eosinophils % (A) 1 %; HCT 45.7 % (39.0-53.0); HGB 14.2 gm/dL (13.0-17.5); Lymphocytes # (A) 1.5 k/uL (1.0-4.8); Lymphocytes % (A) 20 %; MCH 28.4 pg (25.0-35.0); MCHC 31.2 g/dL (31.0-37.0); MCV 91.1 fL (80.0-100.0); Mean Platelet Volume 7.9; Monocytes # (A) 0.4 k/uL (0-1.0); Monocytes % (A) 6 %; Neutrophils # (A) 5.3 k/uL (1.3-7.7); Neutrophils % (A) 71 %; Platelet Count 204 k/uL (150-450); RBC 5.02 m/uL (4.30-5.90); RDW 13.8 % (11.5-15.5); WBC 7.4 k/uL (3.8-10.6)
[2018-12-07] MEDS: PANTOPRAZOLE 40 MG TABLET PO SCH (06:40)
[2018-12-07] MEDS: INSULIN ASPART (NovoLOG) 100 UNIT/ML VIAL SQ SCH ×4 (06:40→21:27)
[2018-12-07 06:47] LABS: ALT 21 U/L (21-72); AST 26 U/L (17-59); African American GFR (CKD) >90 (>60 ml/min/1.73 sqM); Albumin 4.2 g/dL (3.5-5.0); Alkaline Phosphatase 107 U/L (38-126); Anion Gap 10 mmol/L; Blood Urea Nitrogen 19 mg/dL (9-20); Calcium 9.4 mg/dL (8.4-10.2); Carbon Dioxide 27 mmol/L (22-30); Chloride 103 mmol/L (98-107); Glucose 127 mg/dL (74-99); Potassium 4.4 mmol/L (3.5-5.1); Sodium 140 mmol/L (137-145); Total Bilirubin 0.7 mg/dL (0.2-1.3); Total Protein 7.3 g/dL (6.3-8.2)
[2018-12-07] MEDS: MUPIROCIN 2% OINT 22 GM TUBE NASAL SCH ×2 (08:24→21:39)
[2018-12-07] MEDS: GLIMEPIRIDE 2 MG TAB PO SCH (08:24)
[2018-12-07] MEDS: GABAPENTIN 300 MG CAP PO SCH ×3 (08:24→21:39)
[2018-12-07] MEDS: LINAGLIPTIN 5 MG TABLET PO SCH (08:25)
[2018-12-07] MEDS: ESCITALOPRAM 5 MG TAB PO SCH (08:25)
[2018-12-07] MEDS: ASPIRIN 325 MG TAB PO SCH (08:25)
[2018-12-07] MEDS: METOPROLOL TARTRATE 25 MG TAB PO SCH (08:25)
[2018-12-07] MEDS: PIOGLITAZONE 30 MG TAB PO SCH (08:26)
[2018-12-07 11:41] LABS: Glucose,Whole Blood 77 mg/dL (75-99)
--- NOTE | 2018-12-07 12:07 | P.PN ---
Subjective Progress Note Date: 12/07/18 This is a 68-year-old male, a patient of Dr. Haddad. He has a known past medical history of diabetes mellitus type 2, hyperlipidemia, vitamin D deficiency and a family history of coronary artery disease. Patient initially presented to [facility] emergency room yesterday with complaints of chest pain along the breast bone that had started earlier yesterday morning. Pain did not radiate. Symptoms have lasted for about a half hour and then recurred 2 more times. He then came to the ER. For further evaluation and treatment. Patient's first troponin was negative EKG showing a normal sinus rhythm with an old inferior infarct and chest x-ray showing scattered interstitial densities and peribronchial thickening without acute parenchymal infiltrate or vascular decompensation. No pneumothorax. Patient initially started on Rocephin and azithromycin in the ER for concerns of possible pneumonia. Cardiology also on consult regarding chest pain. Second troponin came back elevated and then camila ent went for a heart catheterization that revealed triple-vessel disease. He was then transferred to [facility] for further evaluation by cardiothoracic surgeon. Patient is currently on IV heparin. He currently has no chest pressure. The chest x-ray done here [facility] shows no acute pulmonary process. Patient is still on the Rocephin most likely due to bronchitis doubt pneumonia. Patient's also had had upper respiratory symptoms with the last 2 weeks with sinus congestion and drainage. He denies any fever, chills, sweats, nausea or vomiting, bowel movement changes or urinary symptoms. On 12/06/2018 patient is alert and oriented 3 resting comfortably in bed. Patient was evaluated by cardiothoracic surgery. Discussion held between 3rd pressman and cardiothoracic surgery plan to have cardiac cath today with possible PCI and FFR test. At this time patient denies chest pain or shortness of breath. Patient denies any urinary burning or frequency. Denies any nausea vomiting or diarrhea. Patient was evaluated by pulmonary services. 12/07/2018 patient had heart catheterization yesterday. He is scheduled for CABG on Tuesday. Patient is currently chest pain-free. He is sitting up in bed comfortably. He denies any chest pain or shortness of breath at this time. D enies any nausea or vomiting. Reports having bowel movements. Objective - Vital Signs Vital signs: Vital Signs Temp 97.4 F L 12/07/18 08:00 Pulse 79 12/07/18 08:00 Resp 16 12/07/18 11:33 BP 120/65 12/07/18 08:00 Pulse Ox 93 L 12/07/18 08:00 Intake & Output 12/06/18 12/07/18 12/07/18 18:59 06:59 18:59 Intake Total 734.33 1210 480 Output Total 500 400 Balance 234.33 1210 80 Weight 76.6 kg Intake: IV 134.33 Intake, IV Titration 600 300 Amount Sodium Chloride 0.9% 1, 600 300 000 ml @ 75 mls/hr IV . [id number] NII Rx#:[id number] Oral 910 480 Output: Urine 500 400 Other: Voiding Method Toilet Toilet # Voids 2 2 - Exam Head normocephalic Neck supple Lungs clear to auscultation bilaterally no wheezing or crackles Heart regular rate and rhythm S1-S2, no rub or gallop Abdomen is soft nontender nondistended positive bowel sounds no hepatosplenomegaly Extremities no edema Neuro alert and orientated to 3 - Labs CBC & Chem 7: 12/07/18 06:16 12/07/18 06:16 Labs: Abnormal Lab Results - Last 24 Hours (Table) 12/06/18 12/07/18 12/07/18 Range/Units 19:55 06:16 06:22 Glucose 127 H (74-99) mg/dL POC Glucose (mg/dL) 117 H 108 H (75-99) mg/dL Microbiology - Last 24 Hours (Table) 12/05/18 11:05 Nasal Screen MRSA/MSSA - Final Nasopharyngeal Swab 12/05/18 11:05 Urine Culture - Final Urine,Voided Assessment and Plan Assessment: 1. Chest pain with heart catheterization revealing triple-vessel disease. Patient was a transfer from [facility]. Cardiothoracic surgery and c ardiology consult has been placed. Patient is scheduled for CABG on Tuesday 2. Elevated d-dimer at [facility] with right calf pain: venous Doppler was negative for DVT and CTA of the chest was negative for PE. Calf pain now resolved 3. Mild upper respiratory tract infection, probably viral. Patient seen by pulmonary service. No evidence of pneumonia. They recommended to discontinue antibiotics. 4. Diabetes mellitus type 2 resume patient's oral hypoglycemics and add sliding scale coverage 5. Hyperlipidemia continue statin 6. GI prophylaxis Protonix and DVT prophylaxis IV heparin I performed an examination of the patient and discussed their management with abdelrahman physician Theater Set Production Designer. I have reviewed the Physician Theater Set Production Designer's notes and agree with the documented findings and plan of care
--- NOTE | 2018-12-07 12:27 | P.PN ---
Subjective Progress Note Date: 12/07/18 Is a 68-year-old gentleman with past medical history significant for diabetes, hyperlipidemia, family history of premature coronary artery disease, presented to [facility] with symptoms of chest discomfort. He was taken to the cardiac catheterization lab by Dr. 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 Hence the patient was transferred here for possible bypass surgery, cardiothoracic surgery consultation was requested. Films were reviewed by cardiothoracic surgery, subsequent to that patient was taken back to the cardiac catheterization lab. By Dr. Dolan yesterday, cardiac catheterization revealed good caliber vessels, and recommendation now is for the patient to undergo coronary artery bypass grafting surgery on Tuesday. Overall the patient is doing well, he is hemodynamically stable. Denies any chest discomfort. Blood pressure 120/60 with a heart rate in the 60s, 93% on room air. White blood cell count 7.4, hemoglobin 14.2, platelet count 204. Sodium 140, potassium 4.4, BUN 19 and creatinine 0.8. Objective - Vital Signs Vital signs: Vital Signs Temp 97.4 F L 12/07/18 08:00 Pulse 68 12/07/18 12:00 Resp 16 12/07/18 12:00 BP 120/65 12/07/18 08:00 Pulse Ox 93 L 12/07/18 12:00 Intake & Output 12/06/18 12/07/18 12/07/18 18:59 06:59 18:59 Intake Total 734.33 1210 480 Output Total 500 400 Balance 234.33 1210 80 Weight 76.6 kg Intake: IV 134.33 Intake, IV Titration 600 300 Amount Sodium Chloride 0.9% 1, 600 300 000 ml @ 75 mls/hr IV . [id number] [facility] Rx#:[id number] Oral 910 480 Output: Urine 500 400 Other: Voiding Method Toilet Toilet # Voids 2 2 - Exam PHYSICAL EXAMINATION: GENERAL: 68-year-old gentleman in no acute distress at the time of my examination HEENT: Head is atraumatic, normocephalic. Pupils equal, round. Sclera anicteric. Conjunctiva are clear. Mucous membranes of the mouth are moist. Neck is supple. There is no elevated jugular venous pressure.] bruit is heard. HEART EXAMINATION: Heart S1, S2 normal. No murmur or gallop heard. CHEST EXAMINATION: Lungs are clear to auscultation and precussion. No chest wall tenderness is noted on palpation or with deep breathing. ABDOMEN: Soft, nontender. Bowel sounds are heard. No organomegaly noted. EXTREMITIES: 2+ peripheral pulses with no evidence of peripheral edema and no calf tenderness noted. Right groin soft, no evidence of any hematoma. NEUROLOGIC patient is awake, alert and oriented ?-3. . - Labs CBC & Chem 7: 12/07/18 06:16 12/07/18 06:16 Labs: Abnormal Lab Results - Last 24 Hours (Table) 12/06/18 12/07/18 12/07/18 Range/Units 19:55 06:16 06:22 Glucose 127 H (74-99) mg/dL POC Glucose (mg/dL) 117 H 108 H (75-99) mg/dL Microbiology - Last 24 Hours (Table) 12/05/18 11:05 Nasal Screen MRSA/MSSA - Final Nasopharyngeal Swab 12/05/18 11:05 Urine Culture - Final Urine,Voided Assessment and Plan Plan: Assessment and plan #1 chest pain, status post cardiac catheterization which revealed multivessel coronary artery disease. Subsequent cardiac catheterization did reveal good caliber vessels and patient will be scheduled to undergo coronary artery bypass grafting surgery on Tuesday. #2 hyperlipidemia #3 diabetes Plan Patient will be scheduled to undergo coronary artery bypass grafting surgery on Tuesday. From our perspective he may be able to go home and return for surgery, that decision to be made by cardiothoracic surgery. DNP note has been reviewed, I agree with a documented findings and plan of care. Patient was seen and examined.
--- NOTE | 2018-12-07 13:35 | P.PN ---
Subjective Progress Note Date: 12/07/18 Principal diagnosis: Severe triple-vessel coronary artery disease, non-ST elevated myocardial infarction, history of type 2 diabetes mellitus, hypertension, hyperlipidemia, family history of premature coronary artery disease with his mother being diagnosed with a myocardial infarction at age 52, vocal cord disorder, tinnitus and a very remote history of tobacco dependence quit at age 18. The patient is laying in bed on the cardiac stepdown unit. He is in no acute distress. The patient reports that he did have an episode of chest pressure around noon today which was self-limiting. Currently he denies any complaints of pain or shortness of breath. Oxygen saturation are 93% on room air. Achieving 2500 mL on his incentive spirometry. Patient underwent a cardiac catheterization with fractional flow reserve of the left anterior descending coronary artery yesterday performed by Dr. Dolan. The FFR demonstrated to be 0.78, which is nonischemic. Dr. Dolan and Dr. Monroe discussed the findings of the FFR and it was felt the patient would benefit from coronary artery bypass grafting surgery. Dr. Monroe met with the patient and his family yesterday and discussed the findings of the FFR and there is discussion with Dr. Dolan. Risks and benefits of myocardial revascularization surgery were discussed with the patient including the STS risk score and the patient wished to proceed with myocardial vascularization surgery which will be scheduled for 12/11/2018 to be performed by Dr. Sue Monroe. Objective - Vital Signs Vital signs: Vital Signs Temp 97.4 F L 12/07/18 08:00 Pulse 68 12/07/18 12:00 Resp 16 12/07/18 12:00 BP 120/65 12/07/18 08:00 Pulse Ox 93 L 12/07/18 12:00 Intake & Output 12/06/18 12/07/18 12/07/18 18:59 06:59 18:59 Intake Total 734.33 1210 480 Output Total 500 400 Balance 234.33 1210 80 Weight 76.6 kg Intake: IV 134.33 Intake, IV Titration 600 300 Amount Sodium Chloride 0.9% 1, 600 300 000 ml @ 75 mls/hr IV . [id number] [facility] Rx#:[id number] Oral 910 480 Output: Urine 500 400 Other: Voiding Method Toilet Toilet # Voids 2 2 - Constitutional General appearance: Present: cooperative, no acute distress, obese - Respiratory Details: Lung sounds are essentially clear throughout. Respirations are symmetrical and nonlabored. Achieving 2500 mL on his incentive spirometry. No wheezing, crackles or rhonchi heard. - Cardiovascular Details: Regular rhythm and rate. S1 and S2 present, negative for S3, gallop or murmur. No edema present. Remote telemetry showing normal sinus rhythm heart rate 69. - Gastrointestinal Gastrointestinal Comment(s): Abdomen is soft, nontender and nondistended. Active bowel sounds all 4 abdominal quadrants. No organomegaly. No guarding or rigidity. - Genitourinary Genitourinary Comment(s): Voiding clear yellow urine. - Integumentary Integumentary Comment(s): Skin is warm and dry. No clubbing or cyanosis present. No rash or abnormal pigmentation is present. - Neurologic Neurologic: Present: CNII-XII intact - Musculoskeletal Musculoskeletal: Present: gait normal, strength equal bilaterally - Psychiatric Psychiatric: Present: A&O x's 3, appropriate affect, intact judgment & insight - Allied health notes Allied health notes reviewed: nursing - Labs CBC & Chem 7: 12/07/18 06:16 12/07/18 06:16 Labs: Abnormal Lab Results - Last 24 Hours (Table) 12/06/18 12/07/18 12/07/18 Range/Units 19:55 06:16 06:22 Glucose 127 H (74-99) mg/dL POC Glucose (mg/dL) 117 H 108 H (75-99) mg/dL Microbiology - Last 24 Hours (Table) 12/05/18 11:05 Nasal Screen MRSA/MSSA - Final Nasopharyngeal Swab 12/05/18 11:05 Urine Culture - Final Urine,Voided Assessment and Plan Assessment: 1. Severe triple-vessel coronary artery disease 2. Non-ST elevated myocardial infarction 3. Hypertension 4. Hyperlipidemia 5. Diabetes mellitus type 2 6. Tinnitus 7. Family history of premature coronary artery disease 8. Remote history of nicotine dependence, in remission 9. Vocal cord disorder Plan: 1. Continue to maximize medical therapy with aspirin, statin, and beta reg. 2. The patient will be scheduled for a cardiac revascularization surgery for 12/11/2018 to be performed by Dr. Monroe with [facility], endoscopic left radial, endoscopic vein harvest. 3. Increase activity as tolerated. 4. Encourage use of his incentive spirometry every hour while awake. Bedside FEV1 completed by the respiratory therapist which showed a predicted value of 94%. 5. 5 to walk test completed by the cardiac rehab time 1:4.0 seconds, time 2: 3.7 seconds, time 3:3.4 seconds. 6. STS risk score was calculated and discussed with the patient by Dr. Sue Monroe. 7. Medical management recommendations per primary care service and cardiology. 8. Continue to discuss preoperative teaching. 9. More recommendations to follow based on patient's clinical course. Time with Patient: Greater than 30
[2018-12-07 16:53] LABS: Glucose,Whole Blood 92 mg/dL (75-99)
[2018-12-07 20:24] LABS: Glucose,Whole Blood 129 mg/dL (75-99)
[2018-12-07] MEDS: ATORVASTATIN 20 MG TAB PO SCH (21:39)
[2018-12-07] MEDS: METOPROLOL TARTRATE 12.5 MG TAB PO SCH (21:39)
[2018-12-08 06:03] LABS: Glucose,Whole Blood 130 mg/dL (75-99)
[2018-12-08] MEDS: INSULIN ASPART (NovoLOG) 100 UNIT/ML VIAL SQ SCH ×4 (06:09→20:35)
[2018-12-08 07:19] LABS: Basophils # (A) 0.1 k/uL (0-0.2); Basophils % (A) 1 %; Eosinophils # (A) 0.1 k/uL (0-0.7); Eosinophils % (A) 1 %; HCT 46.5 % (39.0-53.0); HGB 14.9 gm/dL (13.0-17.5); Lymphocytes # (A) 1.5 k/uL (1.0-4.8); Lymphocytes % (A) 19 %; MCH 29.3 pg (25.0-35.0); MCHC 32.1 g/dL (31.0-37.0); MCV 91.4 fL (80.0-100.0); Mean Platelet Volume 8.4; Monocytes # (A) 0.6 k/uL (0-1.0); Monocytes % (A) 7 %; Neutrophils # (A) 5.8 k/uL (1.3-7.7); Neutrophils % (A) 71 %; Platelet Count 182 k/uL (150-450); RBC 5.09 m/uL (4.30-5.90); RDW 13.8 % (11.5-15.5); WBC 8.2 k/uL (3.8-10.6)
[2018-12-08 07:37] LABS: ALT 29 U/L (21-72); AST 40 U/L (17-59); African American GFR (CKD) >90 (>60 ml/min/1.73 sqM); Albumin 4.7 g/dL (3.5-5.0); Alkaline Phosphatase 115 U/L (38-126); Anion Gap 12 mmol/L; Blood Urea Nitrogen 16 mg/dL (9-20); Calcium 10.1 mg/dL (8.4-10.2); Carbon Dioxide 25 mmol/L (22-30); Chloride 103 mmol/L (98-107); Glucose 128 mg/dL (74-99); Potassium 4.6 mmol/L (3.5-5.1); Sodium 140 mmol/L (137-145); Total Bilirubin 0.7 mg/dL (0.2-1.3); Total Protein 7.8 g/dL (6.3-8.2)
[2018-12-08] MEDS: MUPIROCIN 2% OINT 22 GM TUBE NASAL SCH ×2 (08:15→20:35)
[2018-12-08] MEDS: GABAPENTIN 300 MG CAP PO SCH ×3 (08:16→20:35)
[2018-12-08] MEDS: METOPROLOL TARTRATE 25 MG TAB PO SCH (08:16)
[2018-12-08] MEDS: GLIMEPIRIDE 2 MG TAB PO SCH (08:16)
[2018-12-08] MEDS: LINAGLIPTIN 5 MG TABLET PO SCH (08:16)
[2018-12-08] MEDS: ASPIRIN 325 MG TAB PO SCH (08:16)
[2018-12-08] MEDS: HEPARIN SODIUM,PORCINE 5,000 UNIT/ML 1 ML VIAL SQ SCH ×2 (08:17→16:32)
[2018-12-08] MEDS: PANTOPRAZOLE 40 MG TABLET PO SCH (08:17)
[2018-12-08] MEDS: ESCITALOPRAM 5 MG TAB PO SCH (08:17)
[2018-12-08] MEDS: PIOGLITAZONE 30 MG TAB PO SCH (08:17)
[2018-12-08 11:51] LABS: Glucose,Whole Blood 69 mg/dL (75-99)
--- NOTE | 2018-12-08 12:33 | P.PN ---
Subjective Progress Note Date: 12/08/18 This is a 68-year-old male, a patient of Dr. Haddad. He has a known past medical history of diabetes mellitus type 2, hyperlipidemia, vitamin D deficiency and a family history of coronary artery disease. Patient initially presented to [facility] emergency room yesterday with complaints of chest pain along the breast bone that had started earlier yesterday morning. Pain did not radiate. Symptoms have lasted for about a half hour and then recurred 2 more times. He then came to the ER. For further evaluation and treatment. Patient's first troponin was negative EKG showing a normal sinus rhythm with an old inferior infarct and chest x-ray showing scattered interstitial densities and peribronchial thickening without acute parenchymal infiltrate or vascular decompensation. No pneumothorax. Patient initially started on Rocephin and azithromycin in the ER for concerns of possible pneumonia. Cardiology also on consult regarding chest pain. Second troponin came back elevated and then camila ent went for a heart catheterization that revealed triple-vessel disease. He was then transferred to [facility] for further evaluation by cardiothoracic surgeon. Patient is currently on IV heparin. He currently has no chest pressure. The chest x-ray done here [facility] shows no acute pulmonary process. Patient is still on the Rocephin most likely due to bronchitis doubt pneumonia. Patient's also had had upper respiratory symptoms with the last 2 weeks with sinus congestion and drainage. He denies any fever, chills, sweats, nausea or vomiting, bowel movement changes or urinary symptoms. On 12/06/2018 patient is alert and oriented 3 resting comfortably in bed. Patient was evaluated by cardiothoracic surgery. Discussion held between photovoltaic solar cell designer and cardiothoracic surgery plan to have cardiac cath today with possible PCI and FFR test. At this time patient denies chest pain or shortness of breath. Patient denies any urinary burning or frequency. Denies any nausea vomiting or diarrhea. Patient was evaluated by pulmonary services. 12/07/2018 patient had heart catheterization yesterday. He is scheduled for CABG on Tuesday. Patient is currently chest pain-free. He is sitting up in bed comfortably. He denies any chest pain or shortness of breath at this time. D enies any nausea or vomiting. Reports having bowel movements. 12/08/2018 patient is comfortable. He is complaining of slight discomfort in the buttocks area and is requesting a cream. No skin breakdown noted. No sores. zinc oxide will be ordered and stay off the area. Patient denies any chest pain or shortness of breath. Denies any nausea or vomiting. Denies any bowel changes or urinary symptoms. Objective - Vital Signs Vital signs: Vital Signs Temp 97.2 F L 12/08/18 08:00 Pulse 74 12/08/18 08:00 Resp 16 12/08/18 08:00 BP 136/64 12/08/18 08:00 Pulse Ox 95 12/08/18 08:00 Intake & Output 12/07/18 12/08/18 12/08/18 18:59 06:59 18:59 Intake Total 1164 390 360 Output Total 800 Balance 364 390 360 Weight 76.5 kg Intake: Oral 1164 390 360 Output: Urine 800 Other: Voiding Method Toilet Toilet Toilet # Voids 2 - Exam Head normocephalic Neck supple Lungs clear to auscultation bilaterally no wheezing or crackles Heart regular rate and rhythm S1-S2, no rub or gallop Abdomen is soft nontender nondistended positive bowel sounds no hepatosplenomegaly Extremities no edema Neuro alert and orientated to 3 skin: Slight skin irritation to right buttocks. No skin breakdown no ulcers or lesions noted. - Labs CBC & Chem 7: 12/08/18 06:27 12/08/18 06:27 Labs: Abnormal Lab Results - Last 24 Hours (Table) 12/07/18 12/08/18 12/08/18 Range/Units 20:22 06:01 06:27 Glucose 128 H (74-99) mg/dL POC Glucose (mg/dL) 129 H 130 H (75-99) mg/dL 12/08/18 Range/Units 11:49 Glucose (74-99) mg/dL POC Glucose (mg/dL) 69 L (75-99) mg/dL Assessment and Plan Assessment: 1. Acute non-ST elevated myocardial infarction with heart catheterization revealing triple-vessel disease. Patient was a transfer from [facility]. Patient is scheduled for CABG on Tuesday. Patient followed closely by cardiothoracic surgeon and cardiology services 2. Elevated d-dimer at [facility] with right calf pain: venous Doppler was negative for DVT and CTA of the chest was negative for PE. Calf pain now resolved 3. Mild upper respiratory tract infection, probably viral. Patient seen by pulmonary service. No evidence of pneumonia. They recommended to discontinue antibiotics. 4. Diabetes mellitus type 2 resume patient's oral hypoglycemics and add sliding scale coverage 5. Hyperlipidemia continue statin 6. vocal cord disorder GI prophylaxis Protonix and DVT prophylaxis SC heparin I performed an examination of the patient and discussed their management with the physician Trim Attacher. I have reviewed the Physician Trim Attacher's notes and agree with the documented findings and plan of care
--- NOTE | 2018-12-08 14:35 | P.PN ---
Subjective Progress Note Date: 12/08/18 Principal diagnosis: Severe triple-vessel coronary artery disease, non-ST elevated myocardial infarction this admission. Previous medical history of hypertension, hyperlipidemia, type 2 diabetes mellitus with preoperative hemoglobin A1c 7.5%, family history of premature coronary artery disease with his mother being diagnosed with a myocardial infarction at age 52, vocal cord disorder, tinnitus, very remote history of tobacco dependence quit at age 18 with preoperative FEV1 94% of predicted, and depression. Patient currently sitting up in bed in no acute distress. Denies any pain or shortness of breath. Has been ambulating without difficulty. Hemodynamically stable, continues to be in sinus rhythm. No new complaints. Anticipating surgery Tuesday. Objective - Vital Signs Vital signs: Vital Signs Temp 97.2 F L 12/08/18 08:00 Pulse 70 12/08/18 12:00 Resp 16 12/08/18 12:00 BP 125/69 12/08/18 12:00 Pulse Ox 95 12/08/18 12:00 Intake & Output 12/07/18 12/08/18 12/08/18 18:59 06:59 18:59 Intake Total 1164 390 600 Output Total 800 Balance 364 390 600 Weight 76.5 kg Intake: Oral 1164 390 600 Output: Urine 800 Other: Voiding Method Toilet Toilet Toilet # Voids 2 1 - Constitutional General appearance: Present: cooperative, no acute distress - Respiratory Details: Lungs sounds clear bilaterally. Respirations even, nonlabored. Currently on room air with oxygen saturation 97%. Able to achieve 2500 mL on his incentive spirometry. - Cardiovascular Details: S1, S2 present. Regular rhythm, sinus rhythm on telemetry. Palpable peripheral pulses bilaterally. No edema present. No calf pain or tenderness noted. - Gastrointestinal Gastrointestinal Comment(s): Abdomen soft, nontender, nondistended. Active bowel sounds present 4 quadrants. Tolerating diet. - Genitourinary Genitourinary Comment(s): Continues to void clear, yellow urine. - Integumentary Integumentary Comment(s): Skin is warm and dry with evidence of good perfusion. - Neurologic Neurologic: Present: CNII-XII intact - Musculoskeletal Musculoskeletal: Present: gait normal, strength equal bilaterally - Psychiatric Psychiatric: Present: A&O x's 3, appropriate affect, intact judgment & insight - Allied health notes Allied health notes reviewed: nursing - Labs CBC & Chem 7: 12/08/18 06:27 12/08/18 06:27 Labs: Abnormal Lab Results - Last 24 Hours (Table) 12/07/18 12/08/18 12/08/18 Range/Units 20:22 06:01 06:27 Glucose 128 H (74-99) mg/dL POC Glucose (mg/dL) 129 H 130 H (75-99) mg/dL 12/08/18 Range/Units 11:49 Glucose (74-99) mg/dL POC Glucose (mg/dL) 69 L (75-99) mg/dL Assessment and Plan Assessment: 1. Severe triple-vessel coronary artery disease 2. Non-ST elevated myocardial infarction this admission 3. Hypertension 4. Hyperlipidemia 5. Type 2 diabetes mellitus with preoperative hemoglobin A1c 7.5% 6. Family history of premature coronary artery disease with his mother being diagnosed with a myocardial infarction at age 52 7. Vocal cord disorder 8. Tinnitus 9. Very remote history of tobacco dependence quit at age 18 with preoperative FEV1 94% of predicted 10. Depression. Plan: 1. Continue to maximize medical therapy with aspirin, statin, and beta reg. 2. Plan is for myocardial revascularization surgery 12/11/2018 to be performed by Dr. Monroe with [facility], endoscopic left radial and endoscopic vein harvest. 3. Increase activity as tolerated. 4. Encourage use of his incentive spirometry every hour while awake. 5. Continue supportive care. 6. Medical management recommendations per primary care service and cardiology. 7. More recommendations to follow based on patient's clinical course. Time with Patient: Greater than 30
[2018-12-08 16:45] LABS: Glucose,Whole Blood 96 mg/dL (75-99)
--- NOTE | 2018-12-08 17:55 | PN ---
PROGRESS NOTE DATE OF SERVICE: Mr. Solo is in sinus rhythm. He was seen by Dr. Monroe. He is going for surgery on Tuesday. He has triple-vessel disease and he will require probably 3 bypasses. His vitals are stable. There is no JVD or carotid bruit. S1, S2 heard normally. Lungs are clear. Abdomen and lower extremity exam unchanged. Plan is to increase activity and continue with subcutaneous heparin and surgery scheduled for Tuesday. MMODL / IJN: [id number] /
[2018-12-08] MEDS: ZINC OXIDE 20% OINT 28.4 GM TUBE TOPICAL SCH (20:34)
[2018-12-08] MEDS: METOPROLOL TARTRATE 12.5 MG TAB PO SCH (20:35)
[2018-12-08] MEDS: ATORVASTATIN 20 MG TAB PO SCH (20:35)
[2018-12-08 20:36] LABS: Glucose,Whole Blood 114 mg/dL (75-99)
[2018-12-09] MEDS: HEPARIN SODIUM,PORCINE 5,000 UNIT/ML 1 ML VIAL SQ SCH ×3 (00:05→18:14)
[2018-12-09 06:26] LABS: Glucose,Whole Blood 119 mg/dL (75-99)
[2018-12-09] MEDS: INSULIN ASPART (NovoLOG) 100 UNIT/ML VIAL SQ SCH ×4 (06:43→20:36)
[2018-12-09 07:11] LABS: Basophils # (A) 0.1 k/uL (0-0.2); Basophils % (A) 1 %; Eosinophils # (A) 0.2 k/uL (0-0.7); Eosinophils % (A) 2 %; HCT 48.4 % (39.0-53.0); HGB 15.4 gm/dL (13.0-17.5); Lymphocytes # (A) 1.6 k/uL (1.0-4.8); Lymphocytes % (A) 20 %; MCH 29.2 pg (25.0-35.0); MCHC 31.8 g/dL (31.0-37.0); MCV 91.9 fL (80.0-100.0); Mean Platelet Volume 7.9; Monocytes # (A) 0.5 k/uL (0-1.0); Monocytes % (A) 6 %; Neutrophils # (A) 5.7 k/uL (1.3-7.7); Neutrophils % (A) 70 %; Platelet Count 207 k/uL (150-450); RBC 5.26 m/uL (4.30-5.90); WBC 8.2 k/uL (3.8-10.6)
[2018-12-09 07:23] LABS: ALT 45 U/L (21-72); AST 72 U/L (17-59); African American GFR (CKD) >90 (>60 ml/min/1.73 sqM); Albumin 4.7 g/dL (3.5-5.0); Alkaline Phosphatase 111 U/L (38-126); Anion Gap 12 mmol/L; Blood Urea Nitrogen 18 mg/dL (9-20); Calcium 9.9 mg/dL (8.4-10.2); Carbon Dioxide 25 mmol/L (22-30); Chloride 103 mmol/L (98-107); Glucose 127 mg/dL (74-99); Potassium 4.6 mmol/L (3.5-5.1); Sodium 140 mmol/L (137-145); Total Bilirubin 0.8 mg/dL (0.2-1.3)
--- NOTE | 2018-12-09 09:11 | P.PN ---
Subjective Progress Note Date: 12/09/18 Principal diagnosis: Severe triple-vessel coronary artery disease, non-ST elevated myocardial infarction this admission. Previous medical history of hypertension, hyperlipidemia, type 2 diabetes mellitus with preoperative hemoglobin A1c 7.5%, family history of premature coronary artery disease with his mother being diagnosed with a myocardial infarction at age 52, vocal cord disorder, tinnitus, very remote history of tobacco dependence quit at age 18 with preoperative FEV1 94% of predicted, and depression. Patient currently up in the bathroom shaving after just getting out of the shower in no acute distress. Denies any pain or shortness of breath. Has been ambulating without difficulty. Hemodynamically stable, continues to be in sinus rhythm. No new complaints. Anticipating surgery Tuesday. Objective - Vital Signs Vital signs: Vital Signs Temp 97.5 F L 12/09/18 04:00 Pulse 75 12/09/18 04:00 Resp 20 12/09/18 04:00 BP 124/71 12/09/18 04:00 Pulse Ox 96 12/09/18 04:00 Intake & Output 12/08/18 12/09/18 12/09/18 18:59 06:59 18:59 Intake Total 840 450 Balance 840 450 Weight 76.1 kg Intake: Oral 840 450 Other: Voiding Method Toilet Toilet # Voids 1 1 - Constitutional General appearance: Present: cooperative, no acute distress - Respiratory Details: Lungs sounds clear bilaterally. Respirations even, nonlabored. Currently on room air with oxygen saturation 97%. Able to achieve 2500 mL on his incentive spirometry. - Cardiovascular Details: S1, S2 present. Regular rhythm, sinus rhythm on telemetry. Palpable peripheral pulses bilaterally. No edema present. No calf pain or tenderness noted. - Gastrointestinal Gastrointestinal Comment(s): Abdomen soft, nontender, nondistended. Active bowel sounds present 4 quadrants. Tolerating diet. - Genitourinary Genitourinary Comment(s): Continues to void clear, yellow urine. - Integumentary Integumentary Comment(s): Skin is warm and dry with evidence of good perfusion. - Neurologic Neurologic: Present: CNII-XII intact - Musculoskeletal Musculoskeletal: Present: gait normal, strength equal bilaterally - Psychiatric Psychiatric: Present: A&O x's 3, appropriate affect, intact judgment & insight - Allied health notes Allied health notes reviewed: nursing - Labs CBC & Chem 7: 06/29/19 06:56 12/09/18 06:56 Labs: Abnormal Lab Results - Last 24 Hours (Table) 12/08/18 12/08/18 12/09/18 Range/Units 11:49 20:35 06:11 Glucose (74-99) mg/dL POC Glucose (mg/dL) 69 L 114 H 119 H (75-99) mg/dL AST (17-59) U/L 12/09/18 Range/Units 06:56 Glucose 127 H (74-99) mg/dL POC Glucose (mg/dL) (75-99) mg/dL AST 72 H (17-59) U/L Assessment and Plan Assessment: 1. Severe triple-vessel coronary artery disease 2. Non-ST elevated myocardial infarction this admission 3. Hypertension 4. Hyperlipidemia 5. Type 2 diabetes mellitus with preoperative hemoglobin A1c 7.5% 6. Family history of premature coronary artery disease with his mother being diagnosed with a myocardial infarction at age 52 7. Vocal cord disorder 8. Tinnitus 9. Very remote history of tobacco dependence quit at age 18 with preoperative FEV1 94% of predicted 10. Depression. Plan: 1. Continue to maximize medical therapy with aspirin, statin, and beta reg. 2. Plan is for myocardial revascularization surgery 12/11/2018 to be performed by Dr. Monroe with [facility], endoscopic left radial and endoscopic vein harvest. 3. Increase activity as tolerated. 4. Encourage use of his incentive spirometry every hour while awake. 5. Continue supportive care. 6. Medical management recommendations per primary care service and cardiology. 7. More recommendations to follow based on patient's clinical course. Time with Patient: Greater than 30
[2018-12-09] MEDS ORDERED: ACETAMINOPHEN TAB 325 MG TAB PO PRN (10:03)
[2018-12-09] MEDS: GABAPENTIN 300 MG CAP PO SCH ×3 (10:09→20:36)
[2018-12-09] MEDS: ASPIRIN 325 MG TAB PO SCH (10:09)
[2018-12-09] MEDS: METOPROLOL TARTRATE 25 MG TAB PO SCH (10:09)
[2018-12-09] MEDS: LINAGLIPTIN 5 MG TABLET PO SCH (10:10)
[2018-12-09] MEDS: GLIMEPIRIDE 2 MG TAB PO SCH (10:10)
[2018-12-09] MEDS: ZINC OXIDE 20% OINT 28.4 GM TUBE TOPICAL SCH ×2 (10:12→20:36)
[2018-12-09] MEDS: MUPIROCIN 2% OINT 22 GM TUBE NASAL SCH ×2 (10:16→20:36)
[2018-12-09] MEDS: PIOGLITAZONE 30 MG TAB PO SCH (10:17)
[2018-12-09] MEDS: ESCITALOPRAM 5 MG TAB PO SCH (10:17)
--- NOTE | 2018-12-09 11:35 | PN ---
PROGRESS NOTE Mr. Solo complains of headache. He has significant CAD, going for surgery on Tuesday. Vital signs stable. No JVD or carotid bruit. S1-S2 heard normally. Lungs are clear. Abdomen and lower extremity exam unchanged. Plan is to continue current medications, increase activity and he is going for open heart surgery by Dr. Monroe on Tuesday. MMODL / IJN: [id number] /
[2018-12-09 11:53] LABS: Glucose,Whole Blood 102 mg/dL (75-99)
--- NOTE | 2018-12-09 12:27 | P.PN ---
Subjective Progress Note Date: 12/09/18 Kevin Solo is a 68-year-old gentleman with past medical history significant for diabetes, hyperlipidemia, family history of premature coronary artery disease, presented to [facility] with symptoms of chest discomfort. He was taken to the cardiac catheterization lab by Dr. 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 Hence the patient was transferred here for possible bypass surgery, cardiothoracic surgery consultation was requested. Films were reviewed by cardiothoracic surgery, subsequent to that patient was taken back to the cardiac catheterization lab. By Dr. Dolan yesterday, cardiac catheterization revealed good caliber vessels, and recommendation now is for the patient to undergo coronary artery bypass grafting surgery on Tuesday. Overall the patient is doing well, he is hemodynamically stable. Denies any chest discomfort. Blood pressure 120/60 with a heart rate in the 60s, 93% on room air. White blood cell count 7.4, hemoglobin 14.2, platelet count 204. Sodium 140, potassium 4.4, BUN 19 and creatinine 0.8. On 12/09/2018 Patient was seen and examined on the medical floor, he is alert and oriented in no distress he denies any symptoms. There is no fever or chills no headache or dizziness no chest pain no shortness of breath no cough no nausea or vomiting no abdominal pain no diarrhea and no urinary symptoms. Objective - Vital Signs Vital signs: Vital Signs Temp 97.5 F L 12/09/18 04:00 Pulse 75 12/09/18 04:00 Resp 20 12/09/18 04:00 BP 124/71 12/09/18 04:00 Pulse Ox 96 12/09/18 04:00 Intake & Output 12/08/18 12/09/18 12/09/18 18:59 06:59 18:59 Intake Total 840 450 360 Balance 840 450 360 Weight 76.1 kg Intake: Oral 840 450 360 Other: Voiding Method Toilet Toilet # Voids 1 1 - Exam In general patient is alert and oriented 3 in no apparent distress Head normocephalic and atraumatic Neck supple no JVD no goiter Lungs clear to auscultation bilaterally no wheezing or crackles Heart regular rate and rhythm S1-S2, no rub or gallop Abdomen is soft nontender nondistended positive bowel sounds no hepatosplenomegaly Extremities no edema no cyanosis or clubbing Neuro no gross focal deficit. - Labs CBC & Chem 7: 12/09/18 06:56 12/09/18 06:56 Labs: Abnormal Lab Results - Last 24 Hours (Table) 12/08/18 12/09/18 12/09/18 Range/Units 20:35 06:11 06:56 Glucose 127 H (74-99) mg/dL POC Glucose (mg/dL) 114 H 119 H (75-99) mg/dL AST 72 H (17-59) U/L 12/09/18 Range/Units 11:51 Glucose (74-99) mg/dL POC Glucose (mg/dL) 102 H (75-99) mg/dL AST (17-59) U/L Assessment and Plan Plan: 1. Acute non-ST elevated myocardial infarction with heart catheterization revealing triple-vessel disease. Patient was a transfer from [facility]. Patient is scheduled for CABG on Tuesday. Patient followed closely by cardiothoracic surgeon and cardiology services 2. Elevated d-dimer at [facility] with right calf pain: venous Doppler was negative for DVT and CTA of the chest was negative for PE. Calf pain now resolved 3. Mild upper respiratory tract infection, probably viral. Patient seen by pulmonary service. No evidence of pneumonia. They recommended to discontinue antibiotics. 4. Diabetes mellitus type 2 resume patient's oral hypoglycemics and add sliding scale coverage 5. Hyperlipidemia continue statin 6. vocal cord disorder GI prophylaxis Protonix and DVT prophylaxis SC heparin Plan for coronary artery bypass graft surgery on Tuesday
[2018-12-09 17:03] LABS: Glucose,Whole Blood 102 mg/dL (75-99)
[2018-12-09] MEDS: ATORVASTATIN 20 MG TAB PO SCH (20:36)
[2018-12-09] MEDS: METOPROLOL TARTRATE 12.5 MG TAB PO SCH (20:36)
[2018-12-09 20:39] LABS: Glucose,Whole Blood 106 mg/dL (75-99)
[2018-12-10] MEDS: HEPARIN SODIUM,PORCINE 5,000 UNIT/ML 1 ML VIAL SQ SCH ×4 (00:47→21:41)
[2018-12-10] MEDS: PANTOPRAZOLE 40 MG TABLET PO SCH (06:12)
[2018-12-10 06:27] LABS: Glucose,Whole Blood 128 mg/dL (75-99)
[2018-12-10] MEDS: INSULIN ASPART (NovoLOG) 100 UNIT/ML VIAL SQ SCH ×4 (06:29→21:40)
[2018-12-10 06:48] LABS: Basophils # (A) 0.1 k/uL (0-0.2); Basophils % (A) 1 %; Eosinophils # (A) 0.1 k/uL (0-0.7); Eosinophils % (A) 2 %; HCT 47.6 % (39.0-53.0); HGB 15.2 gm/dL (13.0-17.5); Lymphocytes # (A) 1.6 k/uL (1.0-4.8); Lymphocytes % (A) 19 %; MCH 28.9 pg (25.0-35.0); MCHC 31.9 g/dL (31.0-37.0); MCV 90.7 fL (80.0-100.0); Mean Platelet Volume 7.8; Monocytes # (A) 0.5 k/uL (0-1.0); Monocytes % (A) 6 %; Neutrophils # (A) 5.9 k/uL (1.3-7.7); Neutrophils % (A) 71 %; Platelet Count 207 k/uL (150-450); RBC 5.25 m/uL (4.30-5.90); WBC 8.3 k/uL (3.8-10.6)
--- NOTE | 2018-12-10 09:33 | P.PN ---
Subjective Progress Note Date: 12/10/18 Principal diagnosis: Severe triple-vessel coronary artery disease, non-ST elevated myocardial infarction this admission. Previous medical history of hypertension, hyperlipidemia, type 2 diabetes mellitus with preoperative hemoglobin A1c 7.5%, family history of premature coronary artery disease with his mother being diagnosed with a myocardial infarction at age 52, vocal cord disorder, tinnitus, very remote history of tobacco dependence quit at age 18 with preoperative FEV1 94% of predicted, and depression. Patient currently sitting up in the chair in no acute distress. is at the bedside. No new questions. Patient did have episode of chest pressure yesterday for a few seconds which abated on its own. Denies shortness of breath. Has been ambulating in the room. Anticipating surgery tomorrow. Objective - Vital Signs Vital signs: Vital Signs Temp 98.2 F 12/10/18 08:00 Pulse 102 H 12/10/18 08:00 Resp 18 12/10/18 08:00 BP 109/62 12/10/18 08:00 Pulse Ox 100 12/10/18 08:00 Intake & Output 12/09/18 12/10/18 12/10/18 18:59 06:59 18:59 Intake Total 1040 300 470 Balance 1040 300 470 Weight 75.4 kg Intake: Oral 1040 300 470 Other: Voiding Method Toilet # Voids 2 - Constitutional General appearance: Present: cooperative, no acute distress - Respiratory Details: Lungs sounds clear bilaterally. Respirations even, nonlabored. Currently on ro om air with oxygen saturation 97%. Able to achieve 2500 mL on his incentive spirometry. - Cardiovascular Details: S1, S2 present. Regular rhythm, sinus rhythm on telemetry. Palpable peripheral pulses bilaterally. No edema present. No calf pain or tenderness noted. - Gastrointestinal Gastrointestinal Comment(s): Abdomen soft, nontender, nondistended. Active bowel sounds present 4 quadrants. Tolerating diet. - Genitourinary Genitourinary Comment(s): Continues to void clear, yellow urine. - Integumentary Integumentary Comment(s): Skin is warm and dry with evidence of good perfusion. - Neurologic Neurologic: Present: CNII-XII intact - Musculoskeletal Musculoskeletal: Present: gait normal, strength equal bilaterally - Psychiatric Psychiatric: Present: A&O x's 3, appropriate affect, intact judgment & insight - Allied health notes Allied health notes reviewed: nursing - Labs CBC & Chem 7: 12/10/18 06:10 12/09/18 06:56 Labs: Abnormal Lab Results - Last 24 Hours (Table) 12/09/18 12/09/18 12/09/18 Range/Units 11:51 17:02 20:35 POC Glucose (mg/dL) 102 H 102 H 106 H (75-99) mg/dL Crossmatch 12/10/18 12/10/18 Range/Units 06:10 06:10 POC Glucose (mg/dL) 128 H (75-99) mg/dL Crossmatch See Detail Assessment and Plan Assessment: 1. Severe triple-vessel coronary artery disease 2. Non-ST elevated myocardial infarction this admission 3. Hypertension 4. Hyperlipidemia 5. Type 2 diabetes mellitus with preoperative hemoglobin A1c 7.5% 6. Family history of premature coronary artery disease with his mother being diagnosed with a myocardial infarction at age 52 7. Vocal cord disorder 8. Tinnitus 9. Very remote history of tobacco dependence quit at age 18 with preoperative FEV1 94% of predicted 10. Depression. Plan: 1. Continue to maximize medical therapy with aspirin, statin, and beta reg. 2. Plan is for myocardial revascularization surgery tomorrow to be performed by Dr. Monroe with BURNHAM, endoscopic left radial and endoscopic vein harvest. 3. Increase activity as tolerated. 4. Encourage use of his incentive spirometry every hour while awake. 5. Continue supportive care. 6. Medical management recommendations per primary care service and cardiology. 7. More recommendations to follow based on patient's clinical course. Time with Patient: Greater than 30
[2018-12-10] MEDS: GLIMEPIRIDE 2 MG TAB PO SCH (09:46)
[2018-12-10] MEDS: MUPIROCIN 2% OINT 22 GM TUBE NASAL SCH ×2 (09:46→21:39)
[2018-12-10] MEDS: ESCITALOPRAM 5 MG TAB PO SCH (09:46)
[2018-12-10] MEDS: LINAGLIPTIN 5 MG TABLET PO SCH (09:46)
[2018-12-10] MEDS: ASPIRIN 325 MG TAB PO SCH (09:46)
[2018-12-10] MEDS: METOPROLOL TARTRATE 25 MG TAB PO SCH (09:46)
[2018-12-10] MEDS: PIOGLITAZONE 30 MG TAB PO SCH (09:46)
[2018-12-10] MEDS: GABAPENTIN 300 MG CAP PO SCH ×3 (09:46→21:40)
[2018-12-10] MEDS: ZINC OXIDE 20% OINT 28.4 GM TUBE TOPICAL SCH ×2 (09:47→21:40)
--- NOTE | 2018-12-10 11:38 | P.PN ---
Subjective Progress Note Date: 12/10/18 Kevin Solo is a 68-year-old gentleman with past medical history significant for diabetes, hyperlipidemia, family history of premature coronary artery disease, presented to [facility] with symptoms of chest discomfort. He was taken to the cardiac catheterization lab by Dr. 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 Hence the patient was transferred here for possible bypass surgery, cardiothoracic surgery consultation was requested. Films were reviewed by cardiothoracic surgery, subsequent to that patient was taken back to the cardiac catheterization lab. By Dr. Dolan yesterday, cardiac catheterization revealed good caliber vessels, and recommendation now is for the patient to undergo coronary artery bypass grafting surgery on Tuesday. Overall the patient is doing well, he is hemodynamically stable. Denies any chest discomfort. Blood pressure 120/60 with a heart rate in the 60s, 93% on room air. White blood cell count 7.4, hemoglobin 14.2, platelet count 204. Sodium 140, potassium 4.4, BUN 19 and creatinine 0.8. On 12/09/2018 Patient was seen and examined on the medical floor, he is alert and oriented in no distress he denies any symptoms. There is no fever or chills no headache or dizziness no chest pain no shortness of breath no cough no nausea or vomiting no abdominal pain no diarrhea and no urinary symptoms. On 12/10/2018 patient is alert and oriented 3 in no apparent distress, he denies any symptoms at this time there is no fever or chills no headache or dizziness no chest pain no shortness of breath no cough no nausea or vomiting no abdominal pain no diarrhea and no urinary symptoms Objective - Vital Signs Vital signs: Vital Signs Temp 98.2 F 12/10/18 08:00 Pulse 102 H 12/10/18 08:00 Resp 18 12/10/18 08:00 BP 109/62 12/10/18 08:00 Pulse Ox 100 12/10/18 08:00 Intake & Output 12/09/18 12/10/18 12/10/18 18:59 06:59 18:59 Intake Total 1040 300 470 Balance 1040 300 470 Weight 75.4 kg Intake: Oral 1040 300 470 Other: Voiding Method Toilet # Voids 2 - Exam In general patient is alert and oriented 3 in no apparent distress Head normocephalic and atraumatic Neck supple no JVD no goiter Lungs clear to auscultation bilaterally no wheezing or crackles Heart regular rate and rhythm S1-S2, no rub or gallop Abdomen is soft nontender nondistended positive bowel sounds no hepatosplenomegaly Extremities no edema no cyanosis or clubbing Neuro no gross focal deficit. - Labs CBC & Chem 7: 12/10/18 06:10 12/09/18 06:56 Labs: Abnormal Lab Results - Last 24 Hours (Table) 12/09/18 12/09/18 12/09/18 Range/Units 11:51 17:02 20:35 POC Glucose (mg/dL) 102 H 102 H 106 H (75-99) mg/dL Crossmatch 12/10/18 12/10/18 Range/Units 06:10 06:10 POC Glucose (mg/dL) 128 H (75-99) mg/dL Crossmatch See Detail Assessment and Plan Plan: 1. Acute non-ST elevated myocardial infarction with heart catheterization revealing triple-vessel disease. Patient was a transfer from [facility]. Patient is scheduled for CABG on Tuesday. Patient followed closely by cardiothoracic surgeon and cardiology services 2. Elevated d-dimer at [facility] with right calf pain: venous Doppler was negative for DVT and CTA of the chest was negative for PE. Calf pain now resolved 3. Mild upper respiratory tract infection, probably viral. Patient seen by pulmonary service. No evidence of pneumonia. They recommended to discontinue antibiotics. 4. Diabetes mellitus type 2 resume patient's oral hypoglycemics and add sliding scale coverage 5. Hyperlipidemia continue statin 6. vocal cord disorder GI prophylaxis Protonix and DVT prophylaxis SC heparin Plan for coronary artery bypass graft surgery tomorrow
[2018-12-10 11:51] LABS: Glucose,Whole Blood 98 mg/dL (75-99)
[2018-12-10 16:56] LABS: Glucose,Whole Blood 92 mg/dL (75-99)
[2018-12-10] MEDS: METOPROLOL TARTRATE 12.5 MG TAB PO SCH (21:39)
[2018-12-10] MEDS: ATORVASTATIN 20 MG TAB PO SCH (21:40)
[2018-12-10 21:41] LABS: Glucose,Whole Blood 118 mg/dL (75-99)
[2018-12-10] MEDS ORDERED: ALPRAZolam 0.25 MG TAB PO SCH (22:00)
[2018-12-11] MEDS ORDERED: ALPRAZolam 0.25 MG TAB PO PRN (04:00)
[2018-12-11] MEDS ORDERED: METOPROLOL TARTRATE 12.5 MG TAB PO ONE (05:00)
[2018-12-11] MEDS ORDERED: ASPIRIN 325 MG TAB PO ONE (05:00)
[2018-12-11] MEDS ORDERED: ATORVASTATIN 10 MG TAB PO ONE (05:00)
[2018-12-11] MEDS ORDERED: PHENYLEPHRINE 40 MG in SODIUM CHLORIDE 0.9% 250 ML IV ONE (06:00)
[2018-12-11] MEDS ORDERED: CHLORHEXIDINE GLUCONATE 15 ML CUP MUCOUS MEM ONE (06:00)
[2018-12-11] MEDS ORDERED: ALBUMIN HUMAN 5% 500 ML in EMPTY BAG 1 BAG IVPB ONE ×6 (06:00)
[2018-12-11] MEDS ORDERED: ceFAZolin 2 GM in SODIUM CHLORIDE 0.9% 30 ML IVPB ONE (06:00)
[2018-12-11] MEDS ORDERED: TRANEXAMIC ACID 2,000 MG in SODIUM CHLORIDE 0.9% 80 ML IV ONE (06:00)
[2018-12-11] MEDS ORDERED: PROTAMINE SULFATE 250 MG in EMPTY BAG 1 BAG IV ONE (06:00)
[2018-12-11] MEDS ORDERED: CALCIUM CHLORIDE 100 MG/ML 10 ML SYRINGE IVP ONE (06:00)
[2018-12-11] MEDS ORDERED: DEXTROSE 5% IN WATER 1,000 ML with POTASSIUM CHLORIDE 110 MEQ, MAGNESIUM SULFATE 16 MEQ... IV SCH ×5 (06:00)
[2018-12-11] MEDS ORDERED: DILTIAZEM 125 MG in SODIUM CHLORIDE 0.9% 100 ML IV SCH (06:00)
[2018-12-11] MEDS ORDERED: NITROGLYCERIN-D5W PMX 25 MG/250 ML BTL IV ONE (06:00)
[2018-12-11] MEDS ORDERED: MANNITOL 25% 12.5 GM/50 ML VIAL IV ONE ×2 (06:00)
[2018-12-11] MEDS ORDERED: ALBUMIN HUMAN 25% 50 ML in EMPTY BAG 1 BAG IVPB ONE (06:00)
[2018-12-11] MEDS ORDERED: ceFAZolin 2,000 MG in SODIUM CHLORIDE 0.9% 30 ML IVPB ONE (06:00)
[2018-12-11] MEDS ORDERED: CLEVIDIPINE BUTYRATE 25 MG in EMPTY BAG 1 BAG IV SCH (06:00)
[2018-12-11] MEDS ORDERED: NOREPINEPHRINE 4 MG in SODIUM CHLORIDE 0.9% 250 ML IV SCH (06:00)
[2018-12-11] MEDS ORDERED: PROPOFOL 1,000 MG in EMPTY BAG 1 BAG IV PRN (06:00)
[2018-12-11] MEDS ORDERED: HEPARIN SODIUM 1,000 UN/ML (10ML VL) IV ONE (06:00)
[2018-12-11] MEDS ORDERED: MAGNESIUM SULFATE SYG 4.06 MEQ/ML SYRINGE IV ONE (06:00)
[2018-12-11] MEDS ORDERED: PHENYLEPHRINE 10 MG/ML VIAL IV ONE (06:00)
[2018-12-11] MEDS ORDERED: HEPARIN SODIUM,PORCINE 5,000 UNIT in SODIUM CHLORIDE 0.9% 500 ML 500 ML IV ONE (06:00)
[2018-12-11] MEDS ORDERED: PAPAVERINE 360 MG in SODIUM CHLORIDE 0.9% 90 ML IV ONE (06:00)
[2018-12-11] MEDS ORDERED: ceFAZolin 1,000 MG in SODIUM CHLORIDE 0.9% IRRIGATIO 1,000 ML IRRIGATION ONE (06:00)
[2018-12-11] MEDS ORDERED: PROTAMINE SULFATE 10 MG/ML 25 ML VIAL IV ONE ×2 (06:00→07:27)
[2018-12-11] MEDS ORDERED: DEXTROSE 5% IN WATER 1,000 ML with POTASSIUM CHLORIDE 25 MEQ, SODIUM CHLORIDE 2.5MEQ/ML... IV SCH ×6 (06:00)
[2018-12-11] MEDS ORDERED: SODIUM BICARB 8.4% 50 ML SYR (1 MEQ/ML) IV ONE (06:00)
[2018-12-11 06:13] LABS: Glucose,Whole Blood 145 mg/dL (75-99)
[2018-12-11] MEDS ORDERED: LACTATED RINGERS 1,000 ML IV ONE (06:17)
[2018-12-11] MEDS ORDERED: PROPOFOL 10 MG/ML 20 ML VIAL IV ONE (07:27)
[2018-12-11] MEDS ORDERED: LIDOCAINE 2% SYG (PF) 100 MG/5 ML ONE (07:27)
[2018-12-11] MEDS ORDERED: CALCIUM CHLORIDE 100 MG/ML 10 ML SYRINGE ONE (07:27)
[2018-12-11] MEDS ORDERED: TRANEXAMIC ACID 1,000 MG/10 ML VIAL ONE (07:27)
[2018-12-11] MEDS ORDERED: HEPARIN SODIUM,PORCINE 10,000 UNIT/ML 1 ML VIAL ONE (07:27)
[2018-12-11] MEDS ORDERED: SODIUM CHLORIDE 0.9% 250 ML BAG ONE (07:27)
[2018-12-11] MEDS ORDERED: NITROGLYCERIN-D5W PMX 50 MG/250 ML BOTTLE IV ONE (07:27)
[2018-12-11] MEDS ORDERED: POTASSIUM CHLORIDE 20 MEQ/100 ML BAG IVPB ONE (07:27)
[2018-12-11] MEDS ORDERED: fentaNYL (PF) 50 MCG/ML 50 ML VIAL ONE (07:27)
[2018-12-11] MEDS ORDERED: MIDAZOLAM 2 MG/2 ML VIAL ONE (07:27)
[2018-12-11] MEDS ORDERED: ALBUMIN HUMAN 5% (12.5gm) 250 ML BOTTLE IVPB ONE (07:27)
[2018-12-11] MEDS ORDERED: VECURONIUM 10 MG VIAL IV ONE (07:27)
[2018-12-11] MEDS ORDERED: MAGNESIUM SULFATE 4 MEQ/ML 10ML VIAL ONE (07:27)
[2018-12-11] MEDS ORDERED: ELECTROLYTE-R (PH 7.4) 1,000 ML IV.SOLN IV ONE (07:27)
[2018-12-11] MEDS ORDERED: LACTATED RINGERS 1,000 ML BAG IV ONE (07:27)
[2018-12-11] MEDS ORDERED: WATER FOR INJECTION, STERILE 10 ML VIAL IV ONE (07:27)
[2018-12-11 09:15] LABS: ABG Base Excess 1.3 mmol/L; ABG Glucose Whole Blood 133 mg/dL (75-99); ABG HCO3 25 mmol/L (21-25); ABG Hematocrit 43 % (34.0-46.0); ABG Ionized Calcium 4.8 mg/dL (4.5-5.3); ABG Lactic Acid Whole Blood 1.2 mmol/L (0.5-1.6); ABG PCO2 38 mmHg (35-45); ABG PH 7.44 (7.35-7.45); ABG PO2 213 mmHg (83-108); ABG Potassium Whole Blood 4.1 mmol/L (3.4-4.5); ABG Sodium Whole Blood 140 mmol/L (135-146); ABG TCO2 27 mmol/L (19-24)
[2018-12-11 10:56] VITALS: BMI 26.5
[2018-12-11 11:16] LABS: ABG Base Excess -0.1 mmol/L; ABG Glucose Whole Blood 153 mg/dL (75-99); ABG HCO3 25 mmol/L (21-25); ABG Hematocrit 40 % (34.0-46.0); ABG Ionized Calcium 4.8 mg/dL (4.5-5.3); ABG Lactic Acid Whole Blood 1.4 mmol/L (0.5-1.6); ABG Oxygen Saturation 99.7 % (94-97); ABG PCO2 40 mmHg (35-45); ABG PO2 172 mmHg (83-108); ABG Potassium Whole Blood 4.4 mmol/L (3.4-4.5); ABG Sodium Whole Blood 139 mmol/L (135-146); ABG TCO2 26 mmol/L (19-24)
[2018-12-11 11:50] LABS: ABG Base Excess 0.5 mmol/L; ABG Glucose Whole Blood 146 mg/dL (75-99); ABG HCO3 25 mmol/L (21-25); ABG Hematocrit 39 % (34.0-46.0); ABG Ionized Calcium 4.8 mg/dL (4.5-5.3); ABG Lactic Acid Whole Blood 0.9 mmol/L (0.5-1.6); ABG Oxygen Saturation 99.8 % (94-97); ABG PCO2 41 mmHg (35-45); ABG PO2 171 mmHg (83-108); ABG Potassium Whole Blood 4.2 mmol/L (3.4-4.5); ABG Sodium Whole Blood 139 mmol/L (135-146); ABG TCO2 27 mmol/L (19-24)
[2018-12-11 12:17] LABS: ABG Base Excess 0.2 mmol/L; ABG Glucose Whole Blood 131 mg/dL (75-99); ABG HCO3 24 mmol/L (21-25); ABG Hematocrit 35 % (34.0-46.0); ABG Ionized Calcium 4.3 mg/dL (4.5-5.3); ABG PCO2 37 mmHg (35-45); ABG PH 7.43 (7.35-7.45); ABG Potassium Whole Blood 4.3 mmol/L (3.4-4.5); ABG Sodium Whole Blood 136 mmol/L (135-146); ABG TCO2 26 mmol/L (19-24)
[2018-12-11 12:49] LABS: ABG Base Excess 0.7 mmol/L; ABG Glucose Whole Blood 195 mg/dL (75-99); ABG HCO3 25 mmol/L (21-25); ABG Hematocrit 33 % (34.0-46.0); ABG Ionized Calcium 4.4 mg/dL (4.5-5.3); ABG Lactic Acid Whole Blood 1.1 mmol/L (0.5-1.6); ABG PCO2 37 mmHg (35-45); ABG PH 7.43 (7.35-7.45); ABG PO2 303 mmHg (83-108); ABG Potassium Whole Blood 4.7 mmol/L (3.4-4.5); ABG Sodium Whole Blood 136 mmol/L (135-146); ABG TCO2 26 mmol/L (19-24)
[2018-12-11 13:25] LABS: ABG Base Excess 0.9 mmol/L; ABG Glucose Whole Blood 223 mg/dL (75-99); ABG HCO3 25 mmol/L (21-25); ABG Hematocrit 34 % (34.0-46.0); ABG Ionized Calcium 4.4 mg/dL (4.5-5.3); ABG Lactic Acid Whole Blood 1.2 mmol/L (0.5-1.6); ABG PCO2 38 mmHg (35-45); ABG PH 7.43 (7.35-7.45); ABG PO2 263 mmHg (83-108); ABG Potassium Whole Blood 4.4 mmol/L (3.4-4.5); ABG Sodium Whole Blood 136 mmol/L (135-146); ABG TCO2 26 mmol/L (19-24)
[2018-12-11 13:56] LABS: ABG Base Excess -0.4 mmol/L; ABG Glucose Whole Blood 195 mg/dL (75-99); ABG HCO3 25 mmol/L (21-25); ABG Hematocrit 32 % (34.0-46.0); ABG Ionized Calcium 4.5 mg/dL (4.5-5.3); ABG Lactic Acid Whole Blood 1.8 mmol/L (0.5-1.6); ABG PCO2 41 mmHg (35-45); ABG PH 7.39 (7.35-7.45); ABG PO2 358 mmHg (83-108); ABG Sodium Whole Blood 138 mmol/L (135-146); ABG TCO2 26 mmol/L (19-24)
[2018-12-11 14:09] LABS: ABG PO2 >420 mmHg (83-108)
[2018-12-11 14:50] LABS: ABG Glucose Whole Blood 148 mg/dL (75-99); ABG HCO3 25 mmol/L (21-25); ABG Hematocrit 35 % (34.0-46.0); ABG Ionized Calcium 4.2 mg/dL (4.5-5.3); ABG Oxygen Saturation 99.9 % (94-97); ABG PCO2 44 mmHg (35-45); ABG PH 7.36 (7.35-7.45); ABG PO2 241 mmHg (83-108); ABG Potassium Whole Blood 3.5 mmol/L (3.4-4.5); ABG Sodium Whole Blood 140 mmol/L (135-146); ABG TCO2 26 mmol/L (19-24)
[2018-12-11 15:01] LABS: ABG Lactic Acid Whole Blood 2.2 mmol/L (0.5-1.6)
[2018-12-11] MEDS ORDERED: CALCIUM GLUCONATE 2 GM in SODIUM CHLORIDE 0.9% 100 ML IVPB PRN (15:41)
[2018-12-11] MEDS ORDERED: Phosphorus Replacement Protoco 1 EACH MISC MISCELLANE PRN (15:41)
[2018-12-11] MEDS ORDERED: IPRATROPIUM-ALBUTEROL 3 ML NEB INHALATION PRN (15:41)
[2018-12-11] MEDS ORDERED: PROPOFOL 1,000 MG in EMPTY BAG 1 BAG IV SCH (15:41)
[2018-12-11] MEDS ORDERED: DEXTROSE 5% IN WATER 100 ML with AMIODARONE 150 MG IV PRN (15:41)
[2018-12-11] MEDS ORDERED: AMIODARONE 300 MG in DEXTROSE 5% IN WATER 250 ML IV PRN ×2 (15:41)
[2018-12-11] MEDS ORDERED: BENZOCAINE/MENTHOL LOZENG 1 EACH LOZENGE MUCOUS MEM PRN (15:41)
[2018-12-11] MEDS ORDERED: Potassium Replacement Protocol 1 EACH MISC MISCELLANE PRN (15:41)
[2018-12-11] MEDS ORDERED: METOCLOPRAMIDE 5 MG/ML 2 ML VIAL IVP PRN (15:41)
[2018-12-11] MEDS ORDERED: ONDANSETRON 4 MG/2 ML VIAL IVP PRN (15:41)
[2018-12-11] MEDS ORDERED: AMIODARONE 360 MG in DEXTROSE 5% IN WATER 200 ML IV PRN ×2 (15:41)
[2018-12-11] MEDS ORDERED: Magnesium Replacement Protocol 1 EACH MISC MISCELLANE PRN (15:41)
[2018-12-11 15:43] LABS: Glucose,Whole Blood 106 mg/dL (75-99)
[2018-12-11 16:01] LABS: INR 1.1 (<1.2); Prothrombin Time 11.7 sec (9.0-12.0)
--- NOTE | 2018-12-11 16:03 | XR ---
EXAMINATION TYPE: XR chest 1V portable DATE OF EXAM: 12/11/2018 COMPARISON: 12/05/2018 HISTORY: Cardiac surgery TECHNIQUE: Single frontal view of the chest is obtained. FINDINGS: ET tube approximately 2 cm above the sofia. NG tube coursing with the tip near the level the gastric fundus. Postsurgical changes are noted. Ephraim-Lit catheter seen with cirrhosis somewhat c oiled overlying the left upper heart border near the proximal pulmonary outflow tract on the left. Co rrelate clinically. Mediastinal drain and left-sided chest tube seen with no sizable pneumothorax. Th ere is subcutaneous emphysema on the left. Arthropathy of the shoulders. Basilar consolidation and sm all left effusion. IMPRESSION: 1. Bilateral consolidation and small effusion with no sizable pneumothorax. 2. Postoperative change.
--- NOTE | 2018-12-11 16:05 | OP ---
OPERATIVE REPORT DATE OF THE SURGERY: 12/11/2018. SURGEON: Dr. Sue Monroe. HEALTHCARE CONSULTING MANAGER: Ahsan Boland and Ambrose Hinds. PREOPERATIVE DIAGNOSES: Non ST-elevation myocardial infarction with triple-vessel coronary artery disease, preserved left ventricular function, hypertension, hyperlipidemia, diabetes. POSTOPERATIVE DIAGNOSES: Non ST-elevation myocardial infarction with triple-vessel coronary artery disease, preserved left ventricular function, hypertension, hyperlipidemia, diabetes. Evidence of diffuse coronary artery disease. PROCEDURE: 1. Triple coronary artery bypass grafting using the left internal mammary artery to the left anterior descending artery, the left radial artery from the aorta to the ramus intermedius artery, reverse saphenous vein graft from the aorta to the distal posterior descending artery.. 2. Endoscopic harvesting of the left radial artery. 3. Endoscopic harvesting of the left greater saphenous vein. 4. Intraoperative transesophageal echocardiogram and epiaortic scanning. 5. Intraoperative graft flow measurements using the [employer] system. INDICATION FOR SURGERY: Patient is a 68-year-old gentleman who presented to [facility] with a couple of episodes of chest pain. He was ruled in for non ST segment elevation myocardial infarction. Cardiac catheterization data showed evidence of significant mid posterior descending artery stenosis, questionable significant proximal left anterior descending artery stenosis and significant stenosis of the ramus intermedius artery and circumflex artery that led to a small marginal branch. The patient was transferred to [facility], where IVUS of the left anterior descending artery was undertaken and that showed significant stenosis. The patient was deemed a surgical candidate despite the small caliber and diffuse disease of the circumflex system. The SDS risk was discussed with him and his . He understood it and agreed to proceed. DESCRIPTION OF THE PROCEDURE: With the patient in supine position, right internal jugular Campbell-Lit catheter and a right radial arterial line were placed. He had normal PA pressure and good cardiac index. Subsequently, he was brought to the operating room where general endotracheal anesthesia was induced uneventfully. He received 2 g of cefazolin intravenously. A Mtz catheter was inserted. The chest, abdomen, both lower extremities and the left upper extremities were prepped and draped using ChloraPrep. Ioban was used to cover the skin. A midline sternotomy was performed and the bone was osteoporotic. No bone wax was used. The left chavez sternum was elevated and left internal mammary artery was harvested in a somewhat skeletonized fashion. The left pleura was intentionally opened in this process and was drained with a 19-German Kavon drain. In the same setting, the left radial artery was harvested endoscopically without using tourniquet after initially exposing it at the level of the wrist and performing a clamping trial that revealed preserved O2 pulsatile signal at the level of the left index saturation probe. The forearm incision was closed over a drain. The radial artery was prepared by incising the fascia all along its volar aspect and clipping all the branches. It was of moderate caliber around 2 mm in diameter, thin-walled. Also in the same setting, the left greater saphenous vein was harvested endoscopically from groin to above ankle level. That vein appeared to be of fair quality and only usable segment would be the lower leg segment. The leg incisions were closed over a drain. Transesophageal echocardiogram had showed the same preoperative finding of no significant valvular abnormality and preserved left ventricular function. Mediastinal fat was transected between 2 ties and epiaortic scanning revealed concentric intimal thickening but no protruding atheroma in the ascending aorta. After systemic heparinization and after placement of respective pledgeted pursestring, aortic cannulation with a 21-German soft flow cannula and venous cannulation with a 3- stage 29-German cannula was performed. Antegrade as well as retrograde cardioplegia catheters were placed. The mammary artery was clipped distally and transected, had excellent pulsatile flow in it and was around 1.75 mm in diameter. Cardiopulmonary bypass was initiated and with the heart empty and beating, we looked at the target. The LAD distally as it emerged from an intramyocardial course was identified and will be the site for bypass. The diagonal artery was diffusely diseased and is non bypassable in its distal aspect as it is very small. The ramus intermedius artery was identified as proximal as we can by the left atrial appendage and would be the site for bypass. The obtuse marginal artery , as predicted, was very small as it came out of the groove. Looking at the inferior wall, the distal aspect of the posterior descending artery beyond the diseased mid segment was identified and was also small, but would be bypassed. Aorta was clamped and during aortic clamping, myocardial protection was achieved. An initial dose of antegrade blood cardioplegia followed by dose of retrograde cold blood cardioplegia. All subsequent doses were given retrograde at 15 minutes interval. The 1st distal anastomosis was between a segment of reverse saphenous vein graft and 1.25 mm very distal aspect of the posterior descending artery after the diseased mid to distal segment, using Prolene 7-0 in continuous fashion. Heel and toe were probed before completion. The vein was cut to length and suspended. The 2nd distal anastomosis was between the left radial artery and ramus intermedius artery which was opened, was around 1.5 mm in diameter with a wall disease in it using Prolene 7- 0 in continuous fashion. Heel and toe were probed before completion. The 3rd distal anastomosis was between the left internal mammary artery and the mid to distal aspect of the left anterior descending artery which was around 1.75 mm in diameter with some wall disease using Prolene 7-0 in continuous fashion. The heel and toe were probed before completion. The mammary pedicle was affixed to the epicardium with 2 Prolene 6- 0 suture. Rewarming was started as we performed the 2 proximal anastomosis after punching 2 buttons of 4 mm each from the ascending aorta of the radial artery using Prolene 7-0 and the vein graft using Prolene 6-0 respectively. Patient was given lidocaine and magnesium and de-airing maneuvers were given. The patient was given around 1 L of retrograde blood as we performed the proximal anastomosis. The aorta was unclamped after giving the patient lidocaine and magnesium. The patient regained spontaneous sinus rhythm. After a period of reperfusion, we were able to wean off cardioplegia bypass without the need of any inotropic or vasopressor support. Decannulation followed. The arterial cannulation required reinforcement with one [id number] Prolene 4-0. The venous cannulation site was oversewn with a running 4- 0 Prolene. Two monopolar atrial pacing wires were affixed to the right atrial respective pursestring and 1 bipolar ventricular pacing wire was driven via the inferior aspect of the right ventricle. Two Kavon drain 19-German were placed, 1 substernally, 1 in the posterior pericardium. Pericardial fat was approximated loosely over the heart and all the graft and the aorta. After ensuring adequate hemostasis and hemodynamic and after correct sponge, instrument, and needle count, and after performing a graft flow measurements, which revealed a flow of 29 mL/minute with a pulsatility index of 3 and diastolic filling of 78% at the level of the left internal mammary artery, which showed an excellent graft. The flow measurements at the level of the radial artery showed a 26 mL/minute, pulsatility index 1.8 diastolic filling of 67% also showing excellent graft. The vein graft going to the very distal small posterior descending artery had a flow of 19 mL/minute, pulsatility index of 4.7 and diastolic filling of 52%, which showed an excellent functioning graft to a limited outflow. The sternum was closed using 5 [id number] pioneer cable after interposing fibular between the sternal edges. Thorough irrigation with cefazolin followed. The rest of the closure proceeded in layers. Skin glue was applied. Patient did not receive any blood bank product but received 500 mL of Cell Saver blood. He was transferred to the ICU in stable condition on low-dose nitroglycerin with a cardiac index of 3.1, PA pressure of 25/13, mean artery pressure 76, normal sinus rhythm at 87 with normal EKG. MMCHAZ / GOLDN: [id number] / MTDD
[2018-12-11 16:06] LABS: Basophils % (A) 0 %; Eosinophils % (A) 0 %; HCT 35.3 % (39.0-53.0); Lymphocytes # (A) 0.9 k/uL (1.0-4.8); Lymphocytes % (A) 6 %; MCH 28.8 pg (25.0-35.0); MCHC 31.9 g/dL (31.0-37.0); MCV 90.5 fL (80.0-100.0); Mean Platelet Volume 7.8; Monocytes # (A) 0.7 k/uL (0-1.0); Monocytes % (A) 5 %; Neutrophils # (A) 13.2 k/uL (1.3-7.7); Neutrophils % (A) 88 %; Platelet Count 110 k/uL (150-450); WBC 14.9 k/uL (3.8-10.6)
[2018-12-11 16:07] LABS: HGB 11.2 gm/dL (13.0-17.5)
[2018-12-11 16:08] LABS: Glucose,Whole Blood 90 mg/dL (75-99)
[2018-12-11] MEDS: NITROGLYCERIN-D5W PMX 50 MG in DEXTROSE/WATER 1 250ML.BAG IV SCH ×2 (16:11→17:10)
[2018-12-11] MEDS: ESCITALOPRAM 5 MG TAB PO SCH (16:11)
[2018-12-11 16:12] LABS: ABG Base Excess 0.7 mmol/L; ABG HCO3 28 mmol/L (21-25); ABG Oxygen Saturation 99.2 % (94-97); ABG PCO2 60 mmHg (35-45); ABG PH 7.27 (7.35-7.45); ABG PO2 310 mmHg (83-108); ABG TCO2 29 mmol/L (19-24); Allen Test Performed? Yes
[2018-12-11] MEDS: CLEVIDIPINE BUTYRATE 25 MG in EMPTY BAG 1 BAG IV SCH ×2 (16:12→21:43)
[2018-12-11] MEDS: LACTATED RINGERS 1,000 ML IV SCH (16:12)
[2018-12-11 16:13] LABS: ALT 50 U/L (21-72); AST 51 U/L (17-59); African American GFR (CKD) >90 (>60 ml/min/1.73 sqM); Albumin 2.9 g/dL (3.5-5.0); Alkaline Phosphatase 60 U/L (38-126); Anion Gap 7 mmol/L; Blood Urea Nitrogen 15 mg/dL (9-20); Calcium 8.2 mg/dL (8.4-10.2); Carbon Dioxide 26 mmol/L (22-30); Chloride 107 mmol/L (98-107); Glucose 104 mg/dL (74-99); Magnesium 2.8 mg/dL (1.6-2.3); Potassium 4.1 mmol/L (3.5-5.1); Sodium 140 mmol/L (137-145); Total Bilirubin 0.5 mg/dL (0.2-1.3); Total Protein 5.1 g/dL (6.3-8.2)
[2018-12-11] MEDS: MORPHINE SULFATE 2 MG/ML SYRINGE IVP PRN (16:18)
[2018-12-11] MEDS: ceFAZolin IN SWFI 2 GM/20 ML SYRINGE IVP SCH ×2 (16:21→23:10)
[2018-12-11] MEDS: IPRATROPIUM-ALBUTEROL 3 ML NEB INHALATION SCH ×3 (16:24→20:31)
--- NOTE | 2018-12-11 16:33 | P.PN ---
Subjective Progress Note Date: 12/11/18 cristobal Solo is a 68-year-old gentleman with past medical history significant for diabetes, hyperlipidemia, family history of premature coronary artery disease, presented to [facility] with symptoms of chest discomfort. He was taken to the cardiac catheterization lab by Dr. 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 Hence the patient was transferred here for possible bypass surgery, cardiothoracic surgery consultation was requested. Films were reviewed by cardiothoracic surgery, subsequent to that patient was taken back to the cardiac catheterization lab. By Dr. Dolan yesterday, cardiac catheterization revealed good caliber vessels, and recommendation now is for the patient to undergo coronary artery bypass grafting surgery on Tuesday. Overall the patient is doing well, he is hemodynamically stable. Denies any chest discomfort. Blood pressure 120/60 with a heart rate in the 60s, 93% on room air. White blood cell count 7.4, hemoglobin 14.2, platelet count 204. Sodium 140, potassium 4.4, BUN 19 and creatinine 0.8. On 12/09/2018 Patient was seen and examined on the medical floor, he is alert and oriented in no distress he denies any symptoms. There is no fever or chills no headache or dizziness no chest pain no shortness of breath no cough no nausea or vomiting no abdominal pain no diarrhea and no urinary symptoms. On 12/10/2018 patient is alert and oriented 3 in no apparent distress, he denies any symptoms at this time there is no fever or chills no headache or dizziness no chest pain no shortness of breath no cough no nausea or vomiting no abdominal pain no diarrhea and no urinary symptoms On 12/11/2018 patient is status post coronary artery bypass Surgery triple vessel. Patient currently resting on mechanical ventilation. Patient remains in the intensive care unit. Critical care services are following Objective - Vital Signs Vital signs: Vital Signs Temp 97.5 F L 12/11/18 06:08 Pulse 63 12/11/18 06:08 Resp 16 12/11/18 06:08 BP 120/70 12/11/18 06:08 Pulse Ox 95 12/11/18 06:08 Intake & Output 12/10/18 12/11/18 12/11/18 18:59 06:59 18:59 Intake Total 932 500 34 Output Total 2700 Balance 932 500 -5696 Weight 74.6 kg 74.6 kg Intake: IV 100 34 Oral 932 400 Output: Urine 900 Estimated Blood Loss 1800 Other: Voiding Method Toilet # Voids 1 - Exam Head normocephalic Neck supple Lungs clear to auscultation bilaterally no wheezing or crackles Heart regular rate and rhythm S1-S2, no rub or gallop Abdomen is soft nontender nondistended positive bowel sounds no hepatosplenomegaly Extremities no edema Neuro patient is currently under sedation on mechanical ventilation Chest tubes in place MIldline Dressing clean dry and intact - Labs CBC & Chem 7: 12/11/18 15:41 12/11/18 15:41 Labs: Abnormal Lab Results - Last 24 Hours (Table) 12/10/18 12/10/18 12/11/18 Range/Units 06:10 21:40 06:11 WBC (3.8-10.6) k/uL RBC (4.30-5.90) m/uL Hgb (13.0-17.5) gm/dL Hct (39.0-53.0) % Plt Count (150-450) k/uL Neutrophils # (1.3-7.7) k/uL Lymphocytes # (1.0-4.8) k/uL ABG pH (7.35-7.45) ABG pCO2 (35-45) mmHg ABG pO2 (83-108) mmHg ABG HCO3 (21-25) mmol/L ABG Total CO2 (19-24) mmol/L ABG O2 Saturation (94-97) % ABG Hematocrit (34.0-46.0) % ABG Potassium (3.4-4.5) mmol/L ABG Ionized Calcium (4.5-5.3) mg/dL ABG Glucose (75-99) mg/dL ABG Lactic Acid (0.5-1.6) mmol/L Hemoglobin (13.0-17.5) gm/dL Glucose (74-99) mg/dL POC Glucose (mg/dL) 118 H 145 H (75-99) mg/dL Calcium (8.4-10.2) mg/dL Magnesium (1.6-2.3) mg/dL Total Protein (6.3-8.2) g/dL Albumin (3.5-5.0) g/dL Arterial Blood Potassium (3.4-4.5) mmol/L Arterial Blood Glucose (75-99) mg/dL Crossmatch See Detail 12/11/18 12/11/18 12/11/18 Range/Units 09:16 11:17 11:51 WBC (3.8-10.6) k/uL RBC (4.30-5.90) m/uL Hgb (13.0-17.5) gm/dL Hct (39.0-53.0) % Plt Count (150-450) k/uL Neutrophils # (1.3-7.7) k/uL Lymphocytes # (1.0-4.8) k/uL ABG pH (7.35-7.45) ABG pCO2 (35-45) mmHg ABG pO2 213 H 172 H 171 H (83-108) mmHg ABG HCO3 (21-25) mmol/L ABG Total CO2 27 H 26 H 27 H (19-24) mmol/L ABG O2 Saturation 100.0 H 99.7 H 99.8 H (94-97) % ABG Hematocrit (34.0-46.0) % ABG Potassium (3.4-4.5) mmol/L ABG Ionized Calcium (4.5-5.3) mg/dL ABG Glucose 133 H 153 H 146 H (75-99) mg/dL ABG Lactic Acid (0.5-1.6) mmol/L Hemoglobin 12.8 L (13.0-17.5) gm/dL Glucose (74-99) mg/dL POC Glucose (mg/dL) (75-99) mg/dL Calcium (8.4-10.2) mg/dL Magnesium (1.6-2.3) mg/dL Total Protein (6.3-8.2) g/dL Albumin (3.5-5.0) g/dL Arterial Blood Potassium (3.4-4.5) mmol/L Arterial Blood Glucose 133 H 153 H 146 H (75-99) mg/dL Crossmatch 12/11/18 12/11/18 12/11/18 Range/Units 12:18 12:50 13:26 WBC (3.8-10.6) k/uL RBC (4.30-5.90) m/uL Hgb (13.0-17.5) gm/dL Hct (39.0-53.0) % Plt Count (150-450) k/uL Neutrophils # (1.3-7.7) k/uL Lymphocytes # (1.0-4.8) k/uL ABG pH (7.35-7.45) ABG pCO2 (35-45) mmHg ABG pO2 >420 H 303 H 263 H (83-108) mmHg ABG HCO3 (21-25) mmol/L ABG Total CO2 26 H 26 H 26 H (19-24) mmol/L ABG O2 Saturation 100.0 H 100.0 H 100.0 H (94-97) % ABG Hematocrit 33 L (34.0-46.0) % ABG Potassium 4.7 H (3.4-4.5) mmol/L ABG Ionized Calcium 4.3 L 4.4 L 4.4 L (4.5-5.3) mg/dL ABG Glucose 131 H 195 H 223 H (75-99) mg/dL ABG Lactic Acid (0.5-1.6) mmol/L Hemoglobin 11.3 L 10.8 L 11.0 L (13.0-17.5) gm/dL Glucose (74-99) mg/dL POC Glucose (mg/dL) (75-99) mg/dL Calcium (8.4-10.2) mg/dL Magnesium (1.6-2.3) mg/dL Total Protein (6.3-8.2) g/dL Albumin (3.5-5.0) g/dL Arterial Blood Potassium 4.7 H (3.4-4.5) mmol/L Arterial Blood Glucose 131 H 195 H 223 H (75-99) mg/dL Crossmatch 12/11/18 12/11/18 12/11/18 Range/Units 13:57 14:51 15:40 WBC (3.8-10.6) k/uL RBC (4.30-5.90) m/uL Hgb (13.0-17.5) gm/dL Hct (39.0-53.0) % Plt Count (150-450) k/uL Neutrophils # (1.3-7.7) k/uL Lymphocytes # (1.0-4.8) k/uL ABG pH (7.35-7.45) ABG pCO2 (35-45) mmHg ABG pO2 358 H 241 H (83-108) mmHg ABG HCO3 (21-25) mmol/L ABG Total CO2 26 H 26 H (19-24) mmol/L ABG O2 Saturation 100.0 H 99.9 H (94-97) % ABG Hematocrit 32 L (34.0-46.0) % ABG Potassium (3.4-4.5) mmol/L ABG Ionized Calcium 4.2 L (4.5-5.3) mg/dL ABG Glucose 195 H 148 H (75-99) mg/dL ABG Lactic Acid 1.8 H 2.2 H* (0.5-1.6) mmol/L Hemoglobin 10.4 L 11.5 L (13.0-17.5) gm/dL Glucose (74-99) mg/dL POC Glucose (mg/dL) 106 H (75-99) mg/dL Calcium (8.4-10.2) mg/dL Magnesium (1.6-2.3) mg/dL Total Protein (6.3-8.2) g/dL Albumin (3.5-5.0) g/dL Arterial Blood Potassium (3.4-4.5) mmol/L Arterial Blood Glucose 195 H 148 H (75-99) mg/dL Crossmatch 12/11/18 12/11/18 12/11/18 Range/Units 15:41 15:41 16:09 WBC 14.9 H (3.8-10.6) k/uL RBC 3.90 L (4.30-5.90) m/uL Hgb 11.2 L D (13.0-17.5) gm/dL Hct 35.3 L (39.0-53.0) % Plt Count 110 L (150-450) k/uL Neutrophils # 13.2 H (1.3-7.7) k/uL Lymphocytes # 0.9 L (1.0-4.8) k/uL ABG pH 7.27 L (7.35-7.45) ABG pCO2 60 H (35-45) mmHg ABG pO2 310 H (83-108) mmHg ABG HCO3 28 H (21-25) mmol/L ABG Total CO2 29 H (19-24) mmol/L ABG O2 Saturation 99.2 H (94-97) % ABG Hematocrit (34.0-46.0) % ABG Potassium (3.4-4.5) mmol/L ABG Ionized Calcium (4.5-5.3) mg/dL ABG Glucose (75-99) mg/dL ABG Lactic Acid (0.5-1.6) mmol/L Hemoglobin (13.0-17.5) gm/dL Glucose 104 H (74-99) mg/dL POC Glucose (mg/dL) (75-99) mg/dL Calcium 8.2 L (8.4-10.2) mg/dL Magnesium 2.8 H (1.6-2.3) mg/dL Total Protein 5.1 L (6.3-8.2) g/dL Albumin 2.9 L (3.5-5.0) g/dL Arterial Blood Potassium (3.4-4.5) mmol/L Arterial Blood Glucose (75-99) mg/dL Crossmatch Assessment and Plan Assessment: 1. Status post coronary artery bypass graft surgery triple vessel for coronary artery disease. Patient is currently postop day 0. Patient remains on mechanical ventilation postoperatively Pulmonary services are following 2. Elevated d-dimer at [facility] with right calf pain: venous Doppler was negative for DVT and CTA of the chest was negative for PE. Calf pain now resolved 3. Mild upper respiratory tract infection, probably viral. Patient seen by pulmonary service. No evidence of pneumonia. They recommended to discontinue antibiotics. 4. Diabetes mellitus type 2 resume patient's oral hypoglycemics and add sliding scale coverage 5. Hyperlipidemia continue statin 6. vocal cord disorder GI prophylaxis Protonix and DVT prophylaxis SC heparin Critical care services are following. Patient remains in the intensive care unit I performed an examination of the patient and discussed their management with the Nurse Practitioner. I have reviewed the Nurse Practitioner's notes and agree with the documented findings and plan of care
[2018-12-11 17:07] LABS: Glucose,Whole Blood 141 mg/dL (75-99)
[2018-12-11] MEDS: INSULIN REGULAR 100 UNIT in SODIUM CHLORIDE 0.9% 100 ML IV SCH (17:11)
[2018-12-11 17:51] LABS: Glucose,Whole Blood 144 mg/dL (75-99)
--- NOTE | 2018-12-11 18:49 | P.CNPUL ---
History of Present Illness Consult date: 12/11/18 Chief complaint: Coronary artery bypass surgery History of present illness: This is a pleasant 68-year-old male patient was involved in a non-ST segment elevation myocardial infarction the patient was found to have triple-vessel disease with a preserved LV function. His comorbidities include hypertension and hyperlipidemia and diabetes mellitus. The patient was taken to the operating room. The patient underwent triple-vessel bypass surgery with BURNHAM to LAD and left radial artery to ramus intermedius artery, reverse saphenous vein graft to PDA. The patient did extremely well intraoperatively. Currently is back in the ICU. His initial blood gases while being on an SIMV mode at the rate of 12 with a tidal volume of 400 and FiO2 100% with a PEEP of 5 showed a pH of 7.27 with a pCO2 of 59 and pO2 of 210. The necessity ventilator changes were done. Chest x-ray showed no acute abnormalities. All of the chest tubes are in place. ET tube is in a good location. The patient has a [place]-Lit catheter in place. The cardiac output currently is at 9.1 with an index of 4.9.. The patient has a PA pressure of 47/23. The patient has left pleural chest tube and mediastinal chest tube. I noted some minimal amount of air leak and the mediastinal chest tube. No evidence of any leak in the left pleural chest tube. The output from the left-sided pleural chest tube has been 171 mL and the mediastinal chest tube is 136 mL. Total amount of chest tube drainage since he arrived from the operating room is to 700 mL of bloody output. Patient is currently sedated. The patient is on nitroglycerin drip and the patient is also on clevidipine drip for blood pressure control. The patient has adequate urine output. No other significant events since arrival from the operating room. Review of Systems ROS unobtainable: due to endotracheal tube Past Medical History Past Medical History: Coronary Artery Disease (CAD), Diabetes Mellitus, GERD/Reflux, Hearing Disorder / Deafness (tinnitus), Hyperlipidemia, Hypertension Additional Past Medical History / Comment(s): Multivessel coronary artery disease, recent non-STEMI, The patient reports she has been recently seen by an ear nose and throat doctor and was diagnosed with a paralyzed vocal cord. History of Any Multi-Drug Resistant Organisms: None Reported Past Surgical History: No Surgical Hx Reported Past Anesthesia/Blood Transfusion Reactions: No Reported Reaction Past Psychological History: No Psychological Hx Reported Smoking Status: Former smoker Past Alcohol Use History: None Reported Past Drug Use History: None Reported - Past Family History Mother Family Medical History: Diabetes Mellitus, Myocardial Infarction (AR) Additional Family Medical History / Comment(s): from a myocardial infarction at age 52 Father Family Medical History: Diabetes Mellitus Brother(s) Family Medical History: Coronary Artery Disease (CAD) Medications and Allergies Home Medications Medication Instructions Recorded Confirmed Type Ergocalciferol (Vitamin D2) 50,000 units PO BONILLA 11/01/17 12/04/18 History [Vitamin D2] Meloxicam 15 mg PO DAILY 11/01/17 12/04/18 History sitaGLIPtin [Januvia] 100 mg PO DAILY 11/01/17 12/04/18 History Escitalopram [Lexapro] 5 mg PO DAILY 12/04/18 12/04/18 History Glimepiride [Amaryl] 2 mg PO DAILY 12/04/18 12/04/18 History Omeprazole [PriLOSEC] 20 mg PO DAILY 12/04/18 12/04/18 History Pioglitazone HCl [Actos] 30 mg PO DAILY 12/04/18 12/04/18 History Pravastatin Sodium [Pravachol] 20 mg PO HS 12/04/18 12/04/18 History Allergies Allergy/AdvReac Type Severity Reaction Status Date / Time No Known Allergies Allergy Verified 12/11/18 06:16 Physical Exam Vitals: Vital Signs Temp Pulse Pulse Resp BP BP Pulse Ox 12/11/18 16:46 100 12/11/18 16:25 98 12/11/18 06:08 97.5 F L 63 16 126/78 120/70 95 12/11/18 03:34 97.6 F 69 18 125/74 97 12/11/18 00:00 97.5 F L 72 18 129/77 95 12/10/18 23:20 69 18 12/10/18 20:00 98.2 F 69 18 132/78 94 L Intake and Output 12/11/18 12/11/18 12/11/18 06:59 14:59 22:59 Intake Total 250 34 327.8 Output Total 2700 962 Balance 250 -0399 -334.2 Intake: IV 100 34 316 CO/CI 80 Lactated Ringers 1,000 ml 200 @ 50 mls/hr IV .Q20H NII Rx#:[id number] Pressure Bag 36 Intake, IV Titration 11.8 Amount Clevidipine Butyrate 25 11.8 mg In Empty Bag 1 bag @ 1 MG/HR 2 mls/hr IV .Q24H NII Rx#:[id number] Oral 150 Output: Chest Tube Drainage 307 Left Pleural Chest Tube 171 Mediastinal Chest Tube 136 Urine 900 655 Estimated Blood Loss 1800 Other: Voiding Method Toilet Indwelling Catheter # Voids 1 Weight 74.6 kg 74.6 kg Gen. appearance, comfortable sedated on propofol. The patient is currently intubated on a mechanical ventilator. Orogastric and orotracheal tube are both in place. Head exam was generally normal. There was no scleral icterus or corneal arcus. Mucous membranes were moist. Neck was supple and without jugular venous distension, thyromegaly, or carotid bruits. Carotids were easily palpable bilaterally. There was no adenopathy. The patient has a right IJ [place]-Lit catheter in place. Orogastric and orotracheal tube are both in place. Lungs were clear to auscultation and percussion, and with normal diaphragmatic excursion. No wheezes or rales were noted. The sternal stable clean and intact and the patient has mediastinal and pleural chest tubes all of them are in place. Cardiac exam revealed the PMI to be normally situated and sized. The rhythm was regular and no extrasystoles were noted during several minutes of auscultation. The first and second heart sounds were normal and physiologic splitting of the second heart sound was noted. There were no murmurs, rubs, clicks, or gallops. Abdominal exam revealed normal bowel sounds. The abdomen was soft, non-tender, and without masses, organomegaly, or appreciable enlargement of the abdominal aorta. Examination of the extremities revealed easily palpable radial, femoral and pedal pulses. There was no cyanosis, clubbing or edema. Pulses are equal and symmetrical 4 extremities and the surgical wound site over the lower and upper extremities are all dry clean and intact. Examination of the skin revealed no evidence of significant rashes, suspicious appearing nevi or other concerning lesions. Neurologically the patient is still sedated with propofol. Results - Laboratory Findings CBC and BMP: 12/11/18 15:41 12/11/18 15:41 ABG ABG pH 7.27 (7.35-7.45) L 12/11/18 16:09 ABG pCO2 60 mmHg (35-45) H 12/11/18 16:09 ABG pO2 310 mmHg (83-108) H 12/11/18 16:09 ABG O2 Saturation 99.2 % (94-97) H 12/11/18 16:09 PT/INR, D-dimer PT 11.7 sec (9.0-12.0) 12/11/18 15:41 INR 1.1 (<1.2) 12/11/18 15:41 Abnormal lab findings: Abnormal Labs 12/05/18 12/05/18 12/05/18 05:45 05:45 05:45 WBC RBC Hgb Hct Plt Count Neutrophils # Lymphocytes # APTT 41.3 H ABG pH ABG pCO2 ABG pO2 ABG HCO3 ABG Total CO2 ABG O2 Saturation ABG Hematocrit ABG Potassium ABG Ionized Calcium ABG Glucose ABG Lactic Acid Hemoglobin Glucose 134 H POC Glucose (mg/dL) Hemoglobin A1c 7.5 H Calcium Magnesium AST ALT Total Protein Albumin Arterial Blood Potassium Arterial Blood Glucose Urine Glucose (UA) Crossmatch 12/05/18 12/05/18 12/05/18 06:19 11:05 11:29 WBC RBC Hgb Hct Plt Count Neutrophils # Lymphocytes # APTT ABG pH ABG pCO2 ABG pO2 ABG HCO3 ABG Total CO2 ABG O2 Saturation ABG Hematocrit ABG Potassium ABG Ionized Calcium ABG Glucose ABG Lactic Acid Hemoglobin Glucose POC Glucose (mg/dL) 128 H 134 H Hemoglobin A1c Calcium Magnesium AST ALT Total Protein Albumin Arterial Blood Potassium Arterial Blood Glucose Urine Glucose (UA) 2+ H Crossmatch 12/05/18 12/06/18 12/06/18 16:40 06:10 07:09 WBC RBC Hgb Hct Plt Count Neutrophils # Lymphocytes # APTT ABG pH ABG pCO2 ABG pO2 ABG HCO3 ABG Total CO2 ABG O2 Saturation ABG Hematocrit ABG Potassium ABG Ionized Calcium ABG Glucose ABG Lactic Acid Hemoglobin Glucose 145 H POC Glucose (mg/dL) 160 H 152 H Hemoglobin A1c Calcium Magnesium AST ALT 18 L Total Protein Albumin Arterial Blood Potassium Arterial Blood Glucose Urine Glucose (UA) Crossmatch 12/06/18 12/06/18 12/07/18 11:47 19:55 06:16 WBC RBC Hgb Hct Plt Count Neutrophils # Lymphocytes # APTT ABG pH ABG pCO2 ABG pO2 ABG HCO3 ABG Total CO2 ABG O2 Saturation ABG Hematocrit ABG Potassium ABG Ionized Calcium ABG Glucose ABG Lactic Acid Hemoglobin Glucose 127 H POC Glucose (mg/dL) 112 H 117 H Hemoglobin A1c Calcium Magnesium AST ALT Total Protein Albumin Arterial Blood Potassium Arterial Blood Glucose Urine Glucose (UA) Crossmatch 12/07/18 12/07/18 12/08/18 06:22 20:22 06:01 WBC RBC Hgb Hct Plt Count Neutrophils # Lymphocytes # APTT ABG pH ABG pCO2 ABG pO2 ABG HCO3 ABG Total CO2 ABG O2 Saturation ABG Hematocrit ABG Potassium ABG Ionized Calcium ABG Glucose ABG Lactic Acid Hemoglobin Glucose POC Glucose (mg/dL) 108 H 129 H 130 H Hemoglobin A1c Calcium Magnesium AST ALT Total Protein Albumin Arterial Blood Potassium Arterial Blood Glucose Urine Glucose (UA) Crossmatch 12/08/18 12/08/18 12/08/18 06:27 11:49 20:35 WBC RBC Hgb Hct Plt Count Neutrophils # Lymphocytes # APTT ABG pH ABG pCO2 ABG pO2 ABG HCO3 ABG Total CO2 ABG O2 Saturation ABG Hematocrit ABG Potassium ABG Ionized Calcium ABG Glucose ABG Lactic Acid Hemoglobin Glucose 128 H POC Glucose (mg/dL) 69 L 114 H Hemoglobin A1c Calcium Magnesium AST ALT Total Protein Albumin Arterial Blood Potassium Arterial Blood Glucose Urine Glucose (UA) Crossmatch 12/09/18 12/09/18 12/09/18 06:11 06:56 11:51 WBC RBC Hgb Hct Plt Count Neutrophils # Lymphocytes # APTT ABG pH ABG pCO2 ABG pO2 ABG HCO3 ABG Total CO2 ABG O2 Saturation ABG Hematocrit ABG Potassium ABG Ionized Calcium ABG Glucose ABG Lactic Acid Hemoglobin Glucose 127 H POC Glucose (mg/dL) 119 H 102 H Hemoglobin A1c Calcium Magnesium AST 72 H ALT Total Protein Albumin Arterial Blood Potassium Arterial Blood Glucose Urine Glucose (UA) Crossmatch 12/09/18 12/09/18 12/10/18 17:02 20:35 06:10 WBC RBC Hgb Hct Plt Count Neutrophils # Lymphocytes # APTT ABG pH ABG pCO2 ABG pO2 ABG HCO3 ABG Total CO2 ABG O2 Saturation ABG Hematocrit ABG Potassium ABG Ionized Calcium ABG Glucose ABG Lactic Acid Hemoglobin Glucose POC Glucose (mg/dL) 102 H 106 H Hemoglobin A1c Calcium Magnesium AST ALT Total Protein Albumin Arterial Blood Potassium Arterial Blood Glucose Urine Glucose (UA) Crossmatch See Detail 12/10/18 12/10/18 12/11/18 06:10 21:40 06:11 WBC RBC Hgb Hct Plt Count Neutrophils # Lymphocytes # APTT ABG pH ABG pCO2 ABG pO2 ABG HCO3 ABG Total CO2 ABG O2 Saturation ABG Hematocrit ABG Potassium ABG Ionized Calcium ABG Glucose ABG Lactic Acid Hemoglobin Glucose POC Glucose (mg/dL) 128 H 118 H 145 H Hemoglobin A1c Calcium Magnesium AST ALT Total Protein Albumin Arterial Blood Potassium Arterial Blood Glucose Urine Glucose (UA) Crossmatch 12/11/18 12/11/18 12/11/18 09:16 11:17 11:51 WBC RBC Hgb Hct Plt Count Neutrophils # Lymphocytes # APTT ABG pH ABG pCO2 ABG pO2 213 H 172 H 171 H ABG HCO3 ABG Total CO2 27 H 26 H 27 H ABG O2 Saturation 100.0 H 99.7 H 99.8 H ABG Hematocrit ABG Potassium ABG Ionized Calcium ABG Glucose 133 H 153 H 146 H ABG Lactic Acid Hemoglobin 12.8 L Glucose POC Glucose (mg/dL) Hemoglobin A1c Calcium Magnesium AST ALT Total Protein Albumin Arterial Blood Potassium Arterial Blood Glucose 133 H 153 H 146 H Urine Glucose (UA) Crossmatch 12/11/18 12/11/18 12/11/18 12:18 12:50 13:26 WBC RBC Hgb Hct Plt Count Neutrophils # Lymphocytes # APTT ABG pH ABG pCO2 ABG pO2 >420 H 303 H 263 H ABG HCO3 ABG Total CO2 26 H 26 H 26 H ABG O2 Saturation 100.0 H 100.0 H 100.0 H ABG Hematocrit 33 L ABG Potassium 4.7 H ABG Ionized Calcium 4.3 L 4.4 L 4.4 L ABG Glucose 131 H 195 H 223 H ABG Lactic Acid Hemoglobin 11.3 L 10.8 L 11.0 L Glucose POC Glucose (mg/dL) Hemoglobin A1c Calcium Magnesium AST ALT Total Protein Albumin Arterial Blood Potassium 4.7 H Arterial Blood Glucose 131 H 195 H 223 H Urine Glucose (UA) Crossmatch 12/11/18 12/11/18 12/11/18 13:57 14:51 15:40 WBC RBC Hgb Hct Plt Count Neutrophils # Lymphocytes # APTT ABG pH ABG pCO2 ABG pO2 358 H 241 H ABG HCO3 ABG Total CO2 26 H 26 H ABG O2 Saturation 100.0 H 99.9 H ABG Hematocrit 32 L ABG Potassium ABG Ionized Calcium 4.2 L ABG Glucose 195 H 148 H ABG Lactic Acid 1.8 H 2.2 H* Hemoglobin 10.4 L 11.5 L Glucose POC Glucose (mg/dL) 106 H Hemoglobin A1c Calcium Magnesium AST ALT Total Protein Albumin Arterial Blood Potassium Arterial Blood Glucose 195 H 148 H Urine Glucose (UA) Crossmatch 12/11/18 12/11/18 12/11/18 15:41 15:41 16:09 WBC 14.9 H RBC 3.90 L Hgb 11.2 L D Hct 35.3 L Plt Count 110 L Neutrophils # 13.2 H Lymphocytes # 0.9 L APTT ABG pH 7.27 L ABG pCO2 60 H ABG pO2 310 H ABG HCO3 28 H ABG Total CO2 29 H ABG O2 Saturation 99.2 H ABG Hematocrit ABG Potassium ABG Ionized Calcium ABG Glucose ABG Lactic Acid Hemoglobin Glucose 104 H POC Glucose (mg/dL) Hemoglobin A1c Calcium 8.2 L Magnesium 2.8 H AST ALT Total Protein 5.1 L Albumin 2.9 L Arterial Blood Potassium Arterial Blood Glucose Urine Glucose (UA) Crossmatch 12/11/18 12/11/18 16:52 17:48 WBC RBC Hgb Hct Plt Count Neutrophils # Lymphocytes # APTT ABG pH ABG pCO2 ABG pO2 ABG HCO3 ABG Total CO2 ABG O2 Saturation ABG Hematocrit ABG Potassium ABG Ionized Calcium ABG Glucose ABG Lactic Acid Hemoglobin Glucose POC Glucose (mg/dL) 141 H 144 H Hemoglobin A1c Calcium Magnesium AST ALT Total Protein Albumin Arterial Blood Potassium Arterial Blood Glucose Urine Glucose (UA) Crossmatch - Diagnostic Findings Chest x-ray: image reviewed Assessment and Plan Plan: 1 multivessel coronary artery disease status post non-ST segment elevation myocardial infarctions. The patient underwent three-vessel bypass surgery. Currently postop day #0 2 post thoracotomy and the patient is currently intubated on a mechanical ventilator 3 hypertension 4 hyperlipidemia 5 diabetes mellitus 6. Question history of vocal cord paralysis Plan Is hemodynamically stable. The necessary vent changes were done. FiO2 has been drop down to 60%. Increase the respiratory rate up to 18. Increase the tidal volume up to 500 and put the patient assist-control mode of ventilation. Continue the x Cleviprex Drip. Continue nitroglycerin drip. Monitor the output from the chest tube. Monitored the hemodynamic parameters. Gradually wean off propofol. I will for that should be able to extubate this patient with the next 6 hours. The patient is currently on insulin drip for blood sugar control. We'll check weaning parameters. We'll proceed with a spontaneous breathing trial. Anticipate extubation if his condition remains stable. Monitor the output from the chest tube. Monitored hemodynamics. We'll follow.
[2018-12-11 19:03] LABS: Glucose,Whole Blood 177 mg/dL (75-99)
[2018-12-11 19:32] LABS: Basophils # (A) 0.1 k/uL (0-0.2); Basophils % (A) 0 %; Eosinophils % (A) 0 %; HCT 37.4 % (39.0-53.0); HGB 12.1 gm/dL (13.0-17.5); Lymphocytes # (A) 1.2 k/uL (1.0-4.8); Lymphocytes % (A) 5 %; MCH 29.4 pg (25.0-35.0); MCHC 32.5 g/dL (31.0-37.0); MCV 90.5 fL (80.0-100.0); Mean Platelet Volume 8.5; Monocytes # (A) 1.2 k/uL (0-1.0); Monocytes % (A) 5 %; Neutrophils # (A) 21.4 k/uL (1.3-7.7); Neutrophils % (A) 89 %; Platelet Count 149 k/uL (150-450); RBC 4.13 m/uL (4.30-5.90)
[2018-12-11 19:50] LABS: Glucose,Whole Blood 176 mg/dL (75-99)
[2018-12-11] MEDS ORDERED: METOPROLOL TARTRATE 12.5 MG TAB PO SCH (21:00)
[2018-12-11 21:07] LABS: Glucose,Whole Blood 176 mg/dL (75-99)
[2018-12-11] MEDS ORDERED: DEXMEDETOMIDINE/0.9% NACL(PMX) 400 MCG in EMPTY BAG 1 BAG IV SCH (21:15)
[2018-12-11] MEDS: MUPIROCIN 2% OINT 22 GM TUBE NASAL SCH (21:17)
[2018-12-11 21:59] LABS: Basophils % (A) 0 %; Eosinophils % (A) 0 %; HCT 35.9 % (39.0-53.0); HGB 11.8 gm/dL (13.0-17.5); Lymphocytes # (A) 0.8 k/uL (1.0-4.8); Lymphocytes % (A) 4 %; MCH 29.7 pg (25.0-35.0); MCHC 32.9 g/dL (31.0-37.0); MCV 90.4 fL (80.0-100.0); Mean Platelet Volume 8.3; Monocytes # (A) 0.8 k/uL (0-1.0); Monocytes % (A) 4 %; Neutrophils # (A) 20.6 k/uL (1.3-7.7); Neutrophils % (A) 92 %; Platelet Count 159 k/uL (150-450); RBC 3.97 m/uL (4.30-5.90); WBC 22.3 k/uL (3.8-10.6)
[2018-12-11 22:20] LABS: Glucose,Whole Blood 162 mg/dL (75-99)
[2018-12-11 23:04] LABS: Glucose,Whole Blood 141 mg/dL (75-99)
[2018-12-11] MEDS: HEPARIN SODIUM,PORCINE 5,000 UNIT/ML 1 ML VIAL SQ SCH (23:10)
[2018-12-12] MEDS: MORPHINE SULFATE 2 MG/ML SYRINGE IVP PRN (01:14)
[2018-12-12 01:23] LABS: Glucose,Whole Blood 115 mg/dL (75-99)
[2018-12-12 02:18] LABS: Glucose,Whole Blood 92 mg/dL (75-99)
[2018-12-12] MEDS: CLEVIDIPINE BUTYRATE 25 MG in EMPTY BAG 1 BAG IV SCH (02:53)
[2018-12-12 03:04] LABS: Glucose,Whole Blood 98 mg/dL (75-99)
[2018-12-12 04:45] LABS: Glucose,Whole Blood 137 mg/dL (75-99)
[2018-12-12 06:00] LABS: Glucose,Whole Blood 123 mg/dL (75-99)
[2018-12-12] MEDS ORDERED: HYDROcodone/APAP 5-325MG 1 EACH TAB PO PRN (06:00)
[2018-12-12 06:19] LABS: Basophils % (A) 0 %; Eosinophils # (A) 0.1 k/uL (0-0.7); Eosinophils % (A) 0 %; HCT 34.1 % (39.0-53.0); HGB 11.3 gm/dL (13.0-17.5); Lymphocytes # (A) 0.6 k/uL (1.0-4.8); Lymphocytes % (A) 4 %; MCH 29.9 pg (25.0-35.0); MCHC 33.1 g/dL (31.0-37.0); MCV 90.3 fL (80.0-100.0); Mean Platelet Volume 9.6; Monocytes # (A) 0.6 k/uL (0-1.0); Monocytes % (A) 4 %; Neutrophils # (A) 14.7 k/uL (1.3-7.7); Neutrophils % (A) 92 %; Platelet Count 131 k/uL (150-450); RBC 3.78 m/uL (4.30-5.90); RDW 15.5 % (11.5-15.5); WBC 16.1 k/uL (3.8-10.6)
[2018-12-12 06:28] LABS: Ionized Calcium 3.9 mg/dL (4.5-5.3)
[2018-12-12 06:38] LABS: ALT 41 U/L (21-72); AST 33 U/L (17-59); African American GFR (CKD) >90 (>60 ml/min/1.73 sqM); Alkaline Phosphatase 43 U/L (38-126); Anion Gap 5 mmol/L; Blood Urea Nitrogen 10 mg/dL (9-20); Carbon Dioxide 20 mmol/L (22-30); Chloride 116 mmol/L (98-107); Glucose 91 mg/dL (74-99); Magnesium 1.4 mg/dL (1.6-2.3); Potassium 2.8 mmol/L (3.5-5.1); Sodium 141 mmol/L (137-145); Total Bilirubin 0.4 mg/dL (0.2-1.3); Total Protein 3.8 g/dL (6.3-8.2)
[2018-12-12 06:52] LABS: Calcium 5.7 mg/dL (8.4-10.2)
[2018-12-12] MEDS ORDERED: ALBUMIN HUMAN 5% 250 ML in EMPTY BAG 1 BAG IVPB STA (06:58)
[2018-12-12] MEDS ORDERED: METOPROLOL TARTRATE 5 MG/5 ML VIAL IVP ONE (06:58)
[2018-12-12] MEDS: ALBUMIN HUMAN 5% 250 ML in EMPTY BAG 1 BAG IVPB PRN ×4 (06:59→14:22)
--- NOTE | 2018-12-12 06:59 | P.ANPRN ---
Procedure Note - Anesthesia - Invasive Line Right [place] Lit Time Out Performed: Yes Date of Procedure: 12/11/18 Location of Patient Procedure: PACU Preparation: Sterile Prep, Sterile Dressing Narrative: Central line placement per sterile protocol utilized.
[2018-12-12 07:17] LABS: Glucose,Whole Blood 124 mg/dL (75-99)
[2018-12-12] MEDS: IPRATROPIUM-ALBUTEROL 3 ML NEB INHALATION SCH ×4 (07:40→19:42)
[2018-12-12 07:42] LABS: Ionized Calcium 4.7 mg/dL (4.5-5.3)
[2018-12-12 07:54] LABS: ALT 44 U/L (21-72); AST 47 U/L (17-59); African American GFR (CKD) >90 (>60 ml/min/1.73 sqM); Albumin 3.4 g/dL (3.5-5.0); Alkaline Phosphatase 62 U/L (38-126); Anion Gap 11 mmol/L; Blood Urea Nitrogen 14 mg/dL (9-20); Calcium 8.4 mg/dL (8.4-10.2); Carbon Dioxide 24 mmol/L (22-30); Chloride 105 mmol/L (98-107); Glucose 124 mg/dL (74-99); Potassium 3.9 mmol/L (3.5-5.1); Sodium 140 mmol/L (137-145); Total Bilirubin 0.6 mg/dL (0.2-1.3); Total Protein 5.7 g/dL (6.3-8.2)
[2018-12-12] MEDS: KETOROLAC 30 MG/ML 1 ML VIAL IVP SCH ×3 (08:00→17:05)
[2018-12-12] MEDS: ATORVASTATIN 40 MG TAB PO SCH (08:03)
[2018-12-12] MEDS: HEPARIN SODIUM,PORCINE 5,000 UNIT/ML 1 ML VIAL SQ SCH ×2 (08:03→16:02)
[2018-12-12] MEDS: ASPIRIN 325 MG TAB PO SCH (08:03)
[2018-12-12] MEDS: METOPROLOL TARTRATE 25 MG TAB PO SCH ×2 (08:03→20:17)
[2018-12-12] MEDS: amLODIPine 5 MG TAB PO SCH (08:03)
[2018-12-12] MEDS: CLOPIDOGREL 75 MG TAB PO SCH (08:03)
[2018-12-12] MEDS: ESCITALOPRAM 5 MG TAB PO SCH (08:04)
[2018-12-12 08:11] LABS: Glucose,Whole Blood 102 mg/dL (75-99)
--- NOTE | 2018-12-12 08:14 | XR ---
EXAMINATION TYPE: XR chest 1V portable DATE OF EXAM: 12/12/2018 Comparison: 12/11/2018 Clinical History: 68-year-old male Post Operative Cardiac Surgery Findings: Median sternotomy wires are present with post-CABG clips. Mediastinal drain is demonstrated as well a s left-sided chest tube. No appreciable pneumothorax. Heart upper limits of normal in size with mild interstitial prominence. Patchy retrocardiac opacity remains. Right IJ Squire-Lit catheter is excessiv [place] looped in the region of the main pulmonary outflow tract and may need to be repositioned. Interva l extubation and removal of NG tube. Impression: 1. Right IJ Squire-Lit catheter excessively looped probably in the region of the main pulmonary outflo w tract. It may need to be repositioned. 2. Left-sided chest tube without appreciable pneumothorax. 3. Possible residual mild pulmonary vascular congestion. Some patchy surgical retrocardiac atelectasi s.
[2018-12-12] MEDS: MUPIROCIN 2% OINT 22 GM TUBE NASAL SCH ×2 (08:18→20:17)
[2018-12-12] MEDS ORDERED: BISACODYL 10 MG SUPP RECTAL PRN (09:00)
[2018-12-12] MEDS ORDERED: MAGNESIUM HYDROXIDE 2,400 MG/10 ML CUP PO PRN (09:00)
[2018-12-12] MEDS ORDERED: METOPROLOL TARTRATE 12.5 MG TAB PO SCH (09:00)
[2018-12-12] MEDS ORDERED: PANTOPRAZOLE 40 MG/10 ML VIAL IVP SCH (09:00)
[2018-12-12 09:17] LABS: Glucose,Whole Blood 113 mg/dL (75-99)
[2018-12-12] MEDS ORDERED: Potassium Replacement Protocol 1 EACH MISC MISCELLANE PRN (09:42)
--- NOTE | 2018-12-12 09:49 | P.PN ---
Subjective Progress Note Date: 12/12/18 cristobal Solo is a 68-year-old gentleman with past medical history significant for diabetes, hyperlipidemia, family history of premature coronary artery disease, presented to [facility] with symptoms of chest discomfort. He was taken to the cardiac catheterization lab by Dr. 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 Hence the patient was transferred here for possible bypass surgery, cardiothoracic surgery consultation was requested. Films were reviewed by cardiothoracic surgery, subsequent to that patient was taken back to the cardiac catheterization lab. By Dr. Dolan yesterday, cardiac catheterization revealed good caliber vessels, and recommendation now is for the patient to undergo coronary artery bypass grafting surgery on Tuesday. Overall the patient is doing well, he is hemodynamically stable. Denies any chest discomfort. Blood pressure 120/60 with a heart rate in the 60s, 93% on room air. White blood cell count 7.4, hemoglobin 14.2, platelet count 204. Sodium 140, potassium 4.4, BUN 19 and creatinine 0.8. On 12/09/2018 Patient was seen and examined on the medical floor, he is alert and oriented in no distress he denies any symptoms. There is no fever or chills no headache or dizziness no chest pain no shortness of breath no cough no nausea or vomiting no abdominal pain no diarrhea and no urinary symptoms. On 12/10/2018 patient is alert and oriented 3 in no apparent distress, he denies any symptoms at this time there is no fever or chills no headache or dizziness no chest pain no shortness of breath no cough no nausea or vomiting no abdominal pain no diarrhea and no urinary symptoms On 12/11/2018 patient is status post coronary artery bypass Surgery triple vessel. Patient currently resting on mechanical ventilation. Patient remains in the intensive care unit. Critical care services are following On 12/12/2018 patient is currently postop day 2 status post coronary artery bypass graft surgery. Patient has been successfully extubated. Patient is currently resting comfortably in chair. Patient is complaining of some surgical discomfort. Chest tubes remain in place. Objective - Vital Signs Vital signs: Vital Signs Temp 100.2 F H 12/12/18 08:00 Pulse 101 H 12/12/18 09:00 Resp 23 12/12/18 09:00 BP 120/70 12/11/18 06:08 Pulse Ox 97 12/12/18 09:00 Intake & Output 12/11/18 12/12/18 12/12/18 18:59 06:59 18:59 Intake Total 032.758 6414.234 541.458 Output Total 3662 1270 155 Balance -3278.535 -70.766 386.458 Weight 74.6 kg 74.5 kg Intake: IV 350 890 433 Albumin Human 5% 250 ml 250 In Empty Bag 1 bag @ 250 mls/hr IVPB Q1HR PRN Rx#: [id number] CO/CI 80 140 Lactated Ringers 1,000 ml 200 600 150 @ 20 mls/hr IV .Q24H NII Rx#:[id number] Nitroglycerin-D5w Pmx 50 42 6 mg In Dextrose/Water 1 250ml.bag @ 5 MCG/MIN 1.5 mls/hr IV .Q24H NII Rx#: [id number] Pressure Bag 36 108 27 Intake, IV Titration 33.465 249.234 8.458 Amount Clevidipine Butyrate 25 11.8 121.0 mg In Empty Bag 1 bag @ 1 MG/HR 2 mls/hr IV .Q24H NII Rx#:[id number] Insulin Regular 100 unit 1.225 45.434 8.458 In Sodium Chloride 0.9% 100 ml @ Titrate IV .Q0M NII Rx#:[id number] Nitroglycerin-D5w Pmx 50 82.8 mg In Dextrose/Water 1 250ml.bag @ 5 MCG/MIN 1.5 mls/hr IV .Q24H NII Rx#: [id number] Propofol 1,000 mg In 20.44 Empty Bag 1 bag @ Titrate IV .Q0M NII Rx#: [id number] Oral 60 100 Output: Chest Tube Drainage 307 165 Left Pleural Chest Tube 171 62 Mediastinal Chest Tube 136 103 Drainage 50 Left Calf 20 Left Wrist 30 Urine 1555 1055 155 Estimated Blood Loss 1800 Other: Voiding Method Indwelling Catheter Indwelling Catheter ABP, PAP, CO, CI - Last Documented Arterial Blood Pressure 108/52 Pulmonary Artery Pressure 21/11 Cardiac Output 6.5 Cardiac Index 3.5 - Exam Head normocephalic Neck supple Lungs clear to auscultation bilaterally no wheezing or crackles Heart regular rate and rhythm S1-S2, no rub or gallop Abdomen is soft nontender nondistended positive bowel sounds no hepatosplenomegaly Extremities no edema Neuro patient is currently under sedation on mechanical ventilation Chest tubes in place MIldline Dressing clean dry and intact - Labs CBC & Chem 7: 12/12/18 05:55 12/12/18 07:17 Labs: Abnormal Lab Results - Last 24 Hours (Table) 12/10/18 12/11/18 12/11/18 Range/Units 06:10 09:16 11:17 WBC (3.8-10.6) k/uL RBC (4.30-5.90) m/uL Hgb (13.0-17.5) gm/dL Hct (39.0-53.0) % Plt Count (150-450) k/uL Neutrophils # (1.3-7.7) k/uL Lymphocytes # (1.0-4.8) k/uL Monocytes # (0-1.0) k/uL ABG pH (7.35-7.45) ABG pCO2 (35-45) mmHg ABG pO2 213 H 172 H (83-108) mmHg ABG HCO3 (21-25) mmol/L ABG Total CO2 27 H 26 H (19-24) mmol/L ABG O2 Saturation 100.0 H 99.7 H (94-97) % ABG Hematocrit (34.0-46.0) % ABG Potassium (3.4-4.5) mmol/L ABG Ionized Calcium (4.5-5.3) mg/dL ABG Glucose 133 H 153 H (75-99) mg/dL ABG Lactic Acid (0.5-1.6) mmol/L Hemoglobin (13.0-17.5) gm/dL Potassium (3.5-5.1) mmol/L Chloride (98-107) mmol/L Carbon Dioxide (22-30) mmol/L Creatinine (0.66-1.25) mg/dL Glucose (74-99) mg/dL POC Glucose (mg/dL) (75-99) mg/dL Calcium (8.4-10.2) mg/dL Ionized Calcium Guerda (4.5-5.3) mg/dL Magnesium (1.6-2.3) mg/dL Total Protein (6.3-8.2) g/dL Albumin (3.5-5.0) g/dL Arterial Blood Potassium (3.4-4.5) mmol/L Arterial Blood Glucose 133 H 153 H (75-99) mg/dL Crossmatch See Detail 12/11/18 12/11/18 12/11/18 Range/Units 11:51 12:18 12:50 WBC (3.8-10.6) k/uL RBC (4.30-5.90) m/uL Hgb (13.0-17.5) gm/dL Hct (39.0-53.0) % Plt Count (150-450) k/uL Neutrophils # (1.3-7.7) k/uL Lymphocytes # (1.0-4.8) k/uL Monocytes # (0-1.0) k/uL ABG pH (7.35-7.45) ABG pCO2 (35-45) mmHg ABG pO2 171 H >420 H 303 H (83-108) mmHg ABG HCO3 (21-25) mmol/L ABG Total CO2 27 H 26 H 26 H (19-24) mmol/L ABG O2 Saturation 99.8 H 100.0 H 100.0 H (94-97) % ABG Hematocrit 33 L (34.0-46.0) % ABG Potassium 4.7 H (3.4-4.5) mmol/L ABG Ionized Calcium 4.3 L 4.4 L (4.5-5.3) mg/dL ABG Glucose 146 H 131 H 195 H (75-99) mg/dL ABG Lactic Acid (0.5-1.6) mmol/L Hemoglobin 12.8 L 11.3 L 10.8 L (13.0-17.5) gm/dL Potassium (3.5-5.1) mmol/L Chloride (98-107) mmol/L Carbon Dioxide (22-30) mmol/L Creatinine (0.66-1.25) mg/dL Glucose (74-99) mg/dL POC Glucose (mg/dL) (75-99) mg/dL Calcium (8.4-10.2) mg/dL Ionized Calcium Guerda (4.5-5.3) mg/dL Magnesium (1.6-2.3) mg/dL Total Protein (6.3-8.2) g/dL Albumin (3.5-5.0) g/dL Arterial Blood Potassium 4.7 H (3.4-4.5) mmol/L Arterial Blood Glucose 146 H 131 H 195 H (75-99) mg/dL Crossmatch 12/11/18 12/11/18 12/11/18 Range/Units 13:26 13:57 14:51 WBC (3.8-10.6) k/uL RBC (4.30-5.90) m/uL Hgb (13.0-17.5) gm/dL Hct (39.0-53.0) % Plt Count (150-450) k/uL Neutrophils # (1.3-7.7) k/uL Lymphocytes # (1.0-4.8) k/uL Monocytes # (0-1.0) k/uL ABG pH (7.35-7.45) ABG pCO2 (35-45) mmHg ABG pO2 263 H 358 H 241 H (83-108) mmHg ABG HCO3 (21-25) mmol/L ABG Total CO2 26 H 26 H 26 H (19-24) mmol/L ABG O2 Saturation 100.0 H 100.0 H 99.9 H (94-97) % ABG Hematocrit 32 L (34.0-46.0) % ABG Potassium (3.4-4.5) mmol/L ABG Ionized Calcium 4.4 L 4.2 L (4.5-5.3) mg/dL ABG Glucose 223 H 195 H 148 H (75-99) mg/dL ABG Lactic Acid 1.8 H 2.2 H* (0.5-1.6) mmol/L Hemoglobin 11.0 L 10.4 L 11.5 L (13.0-17.5) gm/dL Potassium (3.5-5.1) mmol/L Chloride (98-107) mmol/L Carbon Dioxide (22-30) mmol/L Creatinine (0.66-1.25) mg/dL Glucose (74-99) mg/dL POC Glucose (mg/dL) (75-99) mg/dL Calcium (8.4-10.2) mg/dL Ionized Calcium Guerda (4.5-5.3) mg/dL Magnesium (1.6-2.3) mg/dL Total Protein (6.3-8.2) g/dL Albumin (3.5-5.0) g/dL Arterial Blood Potassium (3.4-4.5) mmol/L Arterial Blood Glucose 223 H 195 H 148 H (75-99) mg/dL Crossmatch 12/11/18 12/11/18 12/11/18 Range/Units 15:40 15:41 15:41 WBC 14.9 H (3.8-10.6) k/uL RBC 3.90 L (4.30-5.90) m/uL Hgb 11.2 L D (13.0-17.5) gm/dL Hct 35.3 L (39.0-53.0) % Plt Count 110 L (150-450) k/uL Neutrophils # 13.2 H (1.3-7.7) k/uL Lymphocytes # 0.9 L (1.0-4.8) k/uL Monocytes # (0-1.0) k/uL ABG pH (7.35-7.45) ABG pCO2 (35-45) mmHg ABG pO2 (83-108) mmHg ABG HCO3 (21-25) mmol/L ABG Total CO2 (19-24) mmol/L ABG O2 Saturation (94-97) % ABG Hematocrit (34.0-46.0) % ABG Potassium (3.4-4.5) mmol/L ABG Ionized Calcium (4.5-5.3) mg/dL ABG Glucose (75-99) mg/dL ABG Lactic Acid (0.5-1.6) mmol/L Hemoglobin (13.0-17.5) gm/dL Potassium (3.5-5.1) mmol/L Chloride (98-107) mmol/L Carbon Dioxide (22-30) mmol/L Creatinine (0.66-1.25) mg/dL Glucose 104 H (74-99) mg/dL POC Glucose (mg/dL) 106 H (75-99) mg/dL Calcium 8.2 L (8.4-10.2) mg/dL Ionized Calcium Guerda (4.5-5.3) mg/dL Magnesium 2.8 H (1.6-2.3) mg/dL Total Protein 5.1 L (6.3-8.2) g/dL Albumin 2.9 L (3.5-5.0) g/dL Arterial Blood Potassium (3.4-4.5) mmol/L Arterial Blood Glucose (75-99) mg/dL Crossmatch 12/11/18 12/11/18 12/11/18 Range/Units 16:09 16:52 17:48 WBC (3.8-10.6) k/uL RBC (4.30-5.90) m/uL Hgb (13.0-17.5) gm/dL Hct (39.0-53.0) % Plt Count (150-450) k/uL Neutrophils # (1.3-7.7) k/uL Lymphocytes # (1.0-4.8) k/uL Monocytes # (0-1.0) k/uL ABG pH 7.27 L (7.35-7.45) ABG pCO2 60 H (35-45) mmHg ABG pO2 310 H (83-108) mmHg ABG HCO3 28 H (21-25) mmol/L ABG Total CO2 29 H (19-24) mmol/L ABG O2 Saturation 99.2 H (94-97) % ABG Hematocrit (34.0-46.0) % ABG Potassium (3.4-4.5) mmol/L ABG Ionized Calcium (4.5-5.3) mg/dL ABG Glucose (75-99) mg/dL ABG Lactic Acid (0.5-1.6) mmol/L Hemoglobin (13.0-17.5) gm/dL Potassium (3.5-5.1) mmol/L Chloride (98-107) mmol/L Carbon Dioxide (22-30) mmol/L Creatinine (0.66-1.25) mg/dL Glucose (74-99) mg/dL POC Glucose (mg/dL) 141 H 144 H (75-99) mg/dL Calcium (8.4-10.2) mg/dL Ionized Calcium Guerda (4.5-5.3) mg/dL Magnesium (1.6-2.3) mg/dL Total Protein (6.3-8.2) g/dL Albumin (3.5-5.0) g/dL Arterial Blood Potassium (3.4-4.5) mmol/L Arterial Blood Glucose (75-99) mg/dL Crossmatch 07/07/0112/11/18 12/11/18 Range/Units 18:23 19:00 19:47 WBC 24.0 H (3.8-10.6) k/uL RBC 4.13 L (4.30-5.90) m/uL Hgb 12.1 L (13.0-17.5) gm/dL Hct 37.4 L (39.0-53.0) % Plt Count 149 L (150-450) k/uL Neutrophils # 21.4 H (1.3-7.7) k/uL Lymphocytes # (1.0-4.8) k/uL Monocytes # 1.2 H (0-1.0) k/uL ABG pH (7.35-7.45) ABG pCO2 (35-45) mmHg ABG pO2 (83-108) mmHg ABG HCO3 (21-25) mmol/L ABG Total CO2 (19-24) mmol/L ABG O2 Saturation (94-97) % ABG Hematocrit (34.0-46.0) % ABG Potassium (3.4-4.5) mmol/L ABG Ionized Calcium (4.5-5.3) mg/dL ABG Glucose (75-99) mg/dL ABG Lactic Acid (0.5-1.6) mmol/L Hemoglobin (13.0-17.5) gm/dL Potassium (3.5-5.1) mmol/L Chloride (98-107) mmol/L Carbon Dioxide (22-30) mmol/L Creatinine (0.66-1.25) mg/dL Glucose (74-99) mg/dL POC Glucose (mg/dL) 177 H 176 H (75-99) mg/dL Calcium (8.4-10.2) mg/dL Ionized Calcium Guerda (4.5-5.3) mg/dL Magnesium (1.6-2.3) mg/dL Total Protein (6.3-8.2) g/dL Albumin (3.5-5.0) g/dL Arterial Blood Potassium (3.4-4.5) mmol/L Arterial Blood Glucose (75-99) mg/dL Crossmatch 12/11/18 12/11/18 12/11/18 Range/Units 21:03 21:23 21:55 WBC 22.3 H (3.8-10.6) k/uL RBC 3.97 L (4.30-5.90) m/uL Hgb 11.8 L (13.0-17.5) gm/dL Hct 35.9 L (39.0-53.0) % Plt Count (150-450) k/uL Neutrophils # 20.6 H (1.3-7.7) k/uL Lymphocytes # 0.8 L (1.0-4.8) k/uL Monocytes # (0-1.0) k/uL ABG pH (7.35-7.45) ABG pCO2 (35-45) mmHg ABG pO2 (83-108) mmHg ABG HCO3 (21-25) mmol/L ABG Total CO2 (19-24) mmol/L ABG O2 Saturation (94-97) % ABG Hematocrit (34.0-46.0) % ABG Potassium (3.4-4.5) mmol/L ABG Ionized Calcium (4.5-5.3) mg/dL ABG Glucose (75-99) mg/dL ABG Lactic Acid (0.5-1.6) mmol/L Hemoglobin (13.0-17.5) gm/dL Potassium (3.5-5.1) mmol/L Chloride (98-107) mmol/L Carbon Dioxide (22-30) mmol/L Creatinine (0.66-1.25) mg/dL Glucose (74-99) mg/dL POC Glucose (mg/dL) 176 H 162 H (75-99) mg/dL Calcium (8.4-10.2) mg/dL Ionized Calcium Guerda (4.5-5.3) mg/dL Magnesium (1.6-2.3) mg/dL Total Protein (6.3-8.2) g/dL Albumin (3.5-5.0) g/dL Arterial Blood Potassium (3.4-4.5) mmol/L Arterial Blood Glucose (75-99) mg/dL Crossmatch 12/11/18 12/12/18 12/12/18 Range/Units 22:47 01:09 04:08 WBC (3.8-10.6) k/uL RBC (4.30-5.90) m/uL Hgb (13.0-17.5) gm/dL Hct (39.0-53.0) % Plt Count (150-450) k/uL Neutrophils # (1.3-7.7) k/uL Lymphocytes # (1.0-4.8) k/uL Monocytes # (0-1.0) k/uL ABG pH (7.35-7.45) ABG pCO2 (35-45) mmHg ABG pO2 (83-108) mmHg ABG HCO3 (21-25) mmol/L ABG Total CO2 (19-24) mmol/L ABG O2 Saturation (94-97) % ABG Hematocrit (34.0-46.0) % ABG Potassium (3.4-4.5) mmol/L ABG Ionized Calcium (4.5-5.3) mg/dL ABG Glucose (75-99) mg/dL ABG Lactic Acid (0.5-1.6) mmol/L Hemoglobin (13.0-17.5) gm/dL Potassium (3.5-5.1) mmol/L Chloride (98-107) mmol/L Carbon Dioxide (22-30) mmol/L Creatinine (0.66-1.25) mg/dL Glucose (74-99) mg/dL POC Glucose (mg/dL) 141 H 115 H 137 H (75-99) mg/dL Calcium (8.4-10.2) mg/dL Ionized Calcium Guerda (4.5-5.3) mg/dL Magnesium (1.6-2.3) mg/dL Total Protein (6.3-8.2) g/dL Albumin (3.5-5.0) g/dL Arterial Blood Potassium (3.4-4.5) mmol/L Arterial Blood Glucose (75-99) mg/dL Crossmatch 12/12/18 12/12/18 12/12/18 Range/Units 05:55 05:55 05:56 WBC 16.1 H (3.8-10.6) k/uL RBC 3.78 L (4.30-5.90) m/uL Hgb 11.3 L (13.0-17.5) gm/dL Hct 34.1 L (39.0-53.0) % Plt Count 131 L (150-450) k/uL Neutrophils # 14.7 H (1.3-7.7) k/uL Lymphocytes # 0.6 L (1.0-4.8) k/uL Monocytes # (0-1.0) k/uL ABG pH (7.35-7.45) ABG pCO2 (35-45) mmHg ABG pO2 (83-108) mmHg ABG HCO3 (21-25) mmol/L ABG Total CO2 (19-24) mmol/L ABG O2 Saturation (94-97) % ABG Hematocrit (34.0-46.0) % ABG Potassium (3.4-4.5) mmol/L ABG Ionized Calcium (4.5-5.3) mg/dL ABG Glucose (75-99) mg/dL ABG Lactic Acid (0.5-1.6) mmol/L Hemoglobin (13.0-17.5) gm/dL Potassium 2.8 L (3.5-5.1) mmol/L Chloride 116 H (98-107) mmol/L Carbon Dioxide 20 L (22-30) mmol/L Creatinine 0.46 L (0.66-1.25) mg/dL Glucose (74-99) mg/dL POC Glucose (mg/dL) 123 H (75-99) mg/dL Calcium 5.7 L* (8.4-10.2) mg/dL Ionized Calcium Guerda 3.9 L (4.5-5.3) mg/dL Magnesium 1.4 L (1.6-2.3) mg/dL Total Protein 3.8 L (6.3-8.2) g/dL Albumin 2.0 L (3.5-5.0) g/dL Arterial Blood Potassium (3.4-4.5) mmol/L Arterial Blood Glucose (75-99) mg/dL Crossmatch 12/12/18 12/12/18 12/12/18 Range/Units 07:15 07:17 08:09 WBC (3.8-10.6) k/uL RBC (4.30-5.90) m/uL Hgb (13.0-17.5) gm/dL Hct (39.0-53.0) % Plt Count (150-450) k/uL Neutrophils # (1.3-7.7) k/uL Lymphocytes # (1.0-4.8) k/uL Monocytes # (0-1.0) k/uL ABG pH (7.35-7.45) ABG pCO2 (35-45) mmHg ABG pO2 (83-108) mmHg ABG HCO3 (21-25) mmol/L ABG Total CO2 (19-24) mmol/L ABG O2 Saturation (94-97) % ABG Hematocrit (34.0-46.0) % ABG Potassium (3.4-4.5) mmol/L ABG Ionized Calcium (4.5-5.3) mg/dL ABG Glucose (75-99) mg/dL ABG Lactic Acid (0.5-1.6) mmol/L Hemoglobin (13.0-17.5) gm/dL Potassium (3.5-5.1) mmol/L Chloride (98-107) mmol/L Carbon Dioxide (22-30) mmol/L Creatinine (0.66-1.25) mg/dL Glucose 124 H (74-99) mg/dL POC Glucose (mg/dL) 124 H 102 H (75-99) mg/dL Calcium (8.4-10.2) mg/dL Ionized Calcium Guerda (4.5-5.3) mg/dL Magnesium (1.6-2.3) mg/dL Total Protein 5.7 L (6.3-8.2) g/dL Albumin 3.4 L (3.5-5.0) g/dL Arterial Blood Potassium (3.4-4.5) mmol/L Arterial Blood Glucose (75-99) mg/dL Crossmatch 12/12/18 Range/Units 09:14 WBC (3.8-10.6) k/uL RBC (4.30-5.90) m/uL Hgb (13.0-17.5) gm/dL Hct (39.0-53.0) % Plt Count (150-450) k/uL Neutrophils # (1.3-7.7) k/uL Lymphocytes # (1.0-4.8) k/uL Monocytes # (0-1.0) k/uL ABG pH (7.35-7.45) ABG pCO2 (35-45) mmHg ABG pO2 (83-108) mmHg ABG HCO3 (21-25) mmol/L ABG Total CO2 (19-24) mmol/L ABG O2 Saturation (94-97) % ABG Hematocrit (34.0-46.0) % ABG Potassium (3.4-4.5) mmol/L ABG Ionized Calcium (4.5-5.3) mg/dL ABG Glucose (75-99) mg/dL ABG Lactic Acid (0.5-1.6) mmol/L Hemoglobin (13.0-17.5) gm/dL Potassium (3.5-5.1) mmol/L Chloride (98-107) mmol/L Carbon Dioxide (22-30) mmol/L Creatinine (0.66-1.25) mg/dL Glucose (74-99) mg/dL POC Glucose (mg/dL) 113 H (75-99) mg/dL Calcium (8.4-10.2) mg/dL Ionized Calcium Guerda (4.5-5.3) mg/dL Magnesium (1.6-2.3) mg/dL Total Protein (6.3-8.2) g/dL Albumin (3.5-5.0) g/dL Arterial Blood Potassium (3.4-4.5) mmol/L Arterial Blood Glucose (75-99) mg/dL Crossmatch Assessment and Plan Assessment: 1. Status post coronary artery bypass graft surgery post non-ST segment elevation myocardial infarction. Patient underwent three-vessel bypass surgery Patient is currently postop day 1. Patient has been extubated. 2. Elevated d-dimer at [facility] with right calf pain: venous Doppler was negative for DVT and CTA of the chest was negative for PE. Calf pain now resolved 3. Mild upper respiratory tract infection, probably viral. Patient seen by pulmonary service. No evidence of pneumonia. They recommended to discontinue antibiotics. 4. Diabetes mellitus type 2 resume patient's oral hypoglycemics and add sliding scale coverage 5. Hyperlipidemia continue statin 6. vocal cord disorder 7. Essential hypertension GI prophylaxis Protonix and DVT prophylaxis SC heparin Critical care services are following. Patient remains in the intensive care unit I performed an examination of the patient and discussed their management with the Nurse Practitioner. I have reviewed the Nurse Practitioner's notes and agree with the documented findings and plan of care
[2018-12-12] MEDS: ceFAZolin IN SWFI 2 GM/20 ML SYRINGE IVP SCH (09:59)
[2018-12-12] MEDS ORDERED: POTASSIUM CHLORIDE ER 20 MEQ TAB.ER PO SCH (10:00)
[2018-12-12 10:21] LABS: Glucose,Whole Blood 141 mg/dL (75-99)
[2018-12-12] MEDS: LACTATED RINGERS 1,000 ML IV SCH (11:01)
[2018-12-12 11:23] LABS: Glucose,Whole Blood 134 mg/dL (75-99)
[2018-12-12 12:08] LABS: Glucose,Whole Blood 121 mg/dL (75-99)
--- NOTE | 2018-12-12 13:11 | P.PN ---
Subjective Progress Note Date: 12/12/18 Principal diagnosis: Non-ST elevation myocardial infarction this admission with triple-vessel diffuse coronary artery disease, preserved left ventricular function. Previous medical history of hypertension, hyperlipidemia, type 2 diabetes mellitus with preoperative hemoglobin A1c 7.5%, family history of premature coronary artery disease with his mother being diagnosed with a myocardial infarction at age 52, vocal cord disorder, tinnitus, very remote history of tobacco dependence quit at age 18 with preoperative FEV1 94% of predicted, and depression. POD #1 urgent triple coronary artery bypass grafting using the left internal mammary artery to the left anterior descending artery, the left radial artery from the aorta to the ramus intermedius artery, reverse saphenous vein graft from the aorta to the distal posterior descending artery. Endoscopic harvesting of the left radial artery. Endoscopic harvesting of the left greater saphenous vein from the groin to above the ankle level. Intraoperative transesophageal echocardiogram and epi-aortic scanning. Intraoperative graft flow measurements using the [employer] system. Postoperative acute blood loss anemia, expected outcome of surgery given hemodilution and cardiopulmonary bypass pump. Patient currently sitting up in bed in the intensive care unit in no acute distress. He was successfully extubated last night at 2305. Did complain of significant surgical pain this morning which is partially relieved with ordered pain management including IV Toradol. Denies shortness of breath. Remains in sinus rhythm. Hemodynamically stable on no inotropes or pressors. Mediastinal, left pleural chest tubes present. Patient actively using incentive spirometry but with minimal effort. Objective - Vital Signs Vital signs: Vital Signs Temp 96.9 F L 12/12/18 12:00 Pulse 77 12/12/18 12:00 Resp 27 H 12/12/18 12:00 BP 120/70 12/11/18 06:08 Pulse Ox 96 12/12/18 12:00 Intake & Output 12/11/18 12/12/18 12/12/18 18:59 06:59 18:59 Intake Total 909.756 8861.234 1348.149 Output Total 3662 1270 205 Balance -3278.535 -70.766 1143.149 Weight 74.6 kg 74.5 kg Intake: IV 126 812 2292 Albumin Human 5% 250 ml 750 In Empty Bag 1 bag @ 250 mls/hr IVPB Q1HR PRN Rx#: [id number] CO/CI 80 140 Lactated Ringers 1,000 ml 200 600 300 @ 20 mls/hr IV .Q24H NII Rx#:[id number] Nitroglycerin-D5w Pmx 50 42 6 mg In Dextrose/Water 1 250ml.bag @ 5 MCG/MIN 1.5 mls/hr IV .Q24H NII Rx#: [id number] Pressure Bag 36 108 51 Intake, IV Titration 33.465 249.234 21.149 Amount Clevidipine Butyrate 25 11.8 121.0 mg In Empty Bag 1 bag @ 1 MG/HR 2 mls/hr IV .Q24H NII Rx#:[id number] Insulin Regular 100 unit 1.225 45.434 16.399 In Sodium Chloride 0.9% 100 ml @ Titrate IV .Q0M NII Rx#:[id number] Nitroglycerin-D5w Pmx 50 82.8 4.75 mg In Dextrose/Water 1 250ml.bag @ 5 MCG/MIN 1.5 mls/hr IV .Q24H NII Rx#: [id number] Propofol 1,000 mg In 20.44 Empty Bag 1 bag @ Titrate IV .Q0M NII Rx#: [id number] Oral 60 220 Output: Chest Tube Drainage 307 165 25 Left Pleural Chest Tube 171 62 15 Mediastinal Chest Tube 136 103 10 Drainage 50 Left Calf 20 Left Wrist 30 Urine 1555 1055 180 Estimated Blood Loss 1800 Other: Voiding Method Indwelling Catheter Indwelling Catheter Indwelling Catheter ABP, PAP, CO, CI - Last Documented Arterial Blood Pressure 112/41 Pulmonary Artery Pressure 23/9 Cardiac Output 6.5 Cardiac Index 3.5 - Constitutional General appearance: Present: cooperative, no acute distress - Respiratory Details: Lungs sounds diminished bilaterally. Respirations even, nonlabored. Currently on 3 L nasal cannula with oxygen saturation 96%. Able to achieve 750 mL on his incentive spirometry. Weak cough. Mediastinal chest tube to continuous wall suction, 55 mL serosanguineous drainage overnight, 300 mL since surgery. Left pleural chest tube to continuous wall suction, 25 mL serosanguineous drainage overnight, 300 mL since surgery. Positive small intermittent air leak present to the mediastinal chest tube. - Cardiovascular Details: S1, S2 present. Regular rhythm, sinus rhythm on telemetry. Sternum stable. A/V epicardial pacemaker wires present, grounded. Palpable peripheral pulses bilaterally. No edema present. No calf pain or tenderness noted. Right internal jugular [place], right radial arterial line present. Last CO/CI 6.5/3.5 on no inotropes or pressors. Heart hugger in place with patient demonstrating appropriate use. Antiembolism seconds, SCDs present. - Gastrointestinal Gastrointestinal Comment(s): Abdomen soft, nontender, nondistended. Hypoactive bowel sounds present 4 quadrants. Tolerating diet. Positive flatus. - Genitourinary Genitourinary Comment(s): Mtz present draining clear, yellow urine. Output overnight 55-100 mL/h. - Integumentary Integumentary Comment(s): Skin is warm and dry with evidence of good perfusion. Anterior chest incision well approximated and covered with dry intact dressing. Left lower extremity EVH site well approximated, DONNIE drain present with minimal serosanguineous drainage. Left radial artery harvest site well approximated, DONNIE drain present with minimal serous and was drainage. 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 - Neurologic Neurologic: Present: CNII-XII intact - Musculoskeletal Musculoskeletal: Present: strength equal bilaterally - Psychiatric Psychiatric: Present: A&O x's 3, appropriate affect, intact judgment & insight - Allied health notes Allied health notes reviewed: nursing - Labs CBC & Chem 7: 12/12/18 05:55 12/12/18 07:17 Labs: Abnormal Lab Results - Last 24 Hours (Table) 12/10/18 12/11/18 12/11/18 Range/Units 06:10 09:16 11:17 WBC (3.8-10.6) k/uL RBC (4.30-5.90) m/uL Hgb (13.0-17.5) gm/dL Hct (39.0-53.0) % Plt Count (150-450) k/uL Neutrophils # (1.3-7.7) k/uL Lymphocytes # (1.0-4.8) k/uL Monocytes # (0-1.0) k/uL ABG pH (7.35-7.45) ABG pCO2 (35-45) mmHg ABG pO2 213 H 172 H (83-108) mmHg ABG HCO3 (21-25) mmol/L ABG Total CO2 27 H 26 H (19-24) mmol/L ABG O2 Saturation 100.0 H 99.7 H (94-97) % ABG Hematocrit (34.0-46.0) % ABG Potassium (3.4-4.5) mmol/L ABG Ionized Calcium (4.5-5.3) mg/dL ABG Glucose 133 H 153 H (75-99) mg/dL ABG Lactic Acid (0.5-1.6) mmol/L Hemoglobin (13.0-17.5) gm/dL Potassium (3.5-5.1) mmol/L Chloride (98-107) mmol/L Carbon Dioxide (22-30) mmol/L Creatinine (0.66-1.25) mg/dL Glucose (74-99) mg/dL POC Glucose (mg/dL) (75-99) mg/dL Calcium (8.4-10.2) mg/dL Ionized Calcium Guerda (4.5-5.3) mg/dL Magnesium (1.6-2.3) mg/dL Total Protein (6.3-8.2) g/dL Albumin (3.5-5.0) g/dL Arterial Blood Potassium (3.4-4.5) mmol/L Arterial Blood Glucose 133 H 153 H (75-99) mg/dL Crossmatch See Detail 12/11/18 12/11/18 12/11/18 Range/Units 11:51 12:18 12:50 WBC (3.8-10.6) k/uL RBC (4.30-5.90) m/uL Hgb (13.0-17.5) gm/dL Hct (39.0-53.0) % Plt Count (150-450) k/uL Neutrophils # (1.3-7.7) k/uL Lymphocytes # (1.0-4.8) k/uL Monocytes # (0-1.0) k/uL ABG pH (7.35-7.45) ABG pCO2 (35-45) mmHg ABG pO2 171 H >420 H 303 H (83-108) mmHg ABG HCO3 (21-25) mmol/L ABG Total CO2 27 H 26 H 26 H (19-24) mmol/L ABG O2 Saturation 99.8 H 100.0 H 100.0 H (94-97) % ABG Hematocrit 33 L (34.0-46.0) % ABG Potassium 4.7 H (3.4-4.5) mmol/L ABG Ionized Calcium 4.3 L 4.4 L (4.5-5.3) mg/dL ABG Glucose 146 H 131 H 195 H (75-99) mg/dL ABG Lactic Acid (0.5-1.6) mmol/L Hemoglobin 12.8 L 11.3 L 10.8 L (13.0-17.5) gm/dL Potassium (3.5-5.1) mmol/L Chloride (98-107) mmol/L Carbon Dioxide (22-30) mmol/L Creatinine (0.66-1.25) mg/dL Glucose (74-99) mg/dL POC Glucose (mg/dL) (75-99) mg/dL Calcium (8.4-10.2) mg/dL Ionized Calcium Guerda (4.5-5.3) mg/dL Magnesium (1.6-2.3) mg/dL Total Protein (6.3-8.2) g/dL Albumin (3.5-5.0) g/dL Arterial Blood Potassium 4.7 H (3.4-4.5) mmol/L Arterial Blood Glucose 146 H 131 H 195 H (75-99) mg/dL Crossmatch 12/11/18 12/11/18 12/11/18 Range/Units 13:26 13:57 14:51 WBC (3.8-10.6) k/uL RBC (4.30-5.90) m/uL Hgb (13.0-17.5) gm/dL Hct (39.0-53.0) % Plt Count (150-450) k/uL Neutrophils # (1.3-7.7) k/uL Lymphocytes # (1.0-4.8) k/uL Monocytes # (0-1.0) k/uL ABG pH (7.35-7.45) ABG pCO2 (35-45) mmHg ABG pO2 263 H 358 H 241 H (83-108) mmHg ABG HCO3 (21-25) mmol/L ABG Total CO2 26 H 26 H 26 H (19-24) mmol/L ABG O2 Saturation 100.0 H 100.0 H 99.9 H (94-97) % ABG Hematocrit 32 L (34.0-46.0) % ABG Potassium (3.4-4.5) mmol/L ABG Ionized Calcium 4.4 L 4.2 L (4.5-5.3) mg/dL ABG Glucose 223 H 195 H 148 H (75-99) mg/dL ABG Lactic Acid 1.8 H 2.2 H* (0.5-1.6) mmol/L Hemoglobin 11.0 L 10.4 L 11.5 L (13.0-17.5) gm/dL Potassium (3.5-5.1) mmol/L Chloride (98-107) mmol/L Carbon Dioxide (22-30) mmol/L Creatinine (0.66-1.25) mg/dL Glucose (74-99) mg/dL POC Glucose (mg/dL) (75-99) mg/dL Calcium (8.4-10.2) mg/dL Ionized Calcium Guerda (4.5-5.3) mg/dL Magnesium (1.6-2.3) mg/dL Total Protein (6.3-8.2) g/dL Albumin (3.5-5.0) g/dL Arterial Blood Potassium (3.4-4.5) mmol/L Arterial Blood Glucose 223 H 195 H 148 H (75-99) mg/dL Crossmatch 12/11/18 12/11/18 12/11/18 Range/Units 15:40 15:41 15:41 WBC 14.9 H (3.8-10.6) k/uL RBC 3.90 L (4.30-5.90) m/uL Hgb 11.2 L D (13.0-17.5) gm/dL Hct 35.3 L (39.0-53.0) % Plt Count 110 L (150-450) k/uL Neutrophils # 13.2 H (1.3-7.7) k/uL Lymphocytes # 0.9 L (1.0-4.8) k/uL Monocytes # (0-1.0) k/uL ABG pH (7.35-7.45) ABG pCO2 (35-45) mmHg ABG pO2 (83-108) mmHg ABG HCO3 (21-25) mmol/L ABG Total CO2 (19-24) mmol/L ABG O2 Saturation (94-97) % ABG Hematocrit (34.0-46.0) % ABG Potassium (3.4-4.5) mmol/L ABG Ionized Calcium (4.5-5.3) mg/dL ABG Glucose (75-99) mg/dL ABG Lactic Acid (0.5-1.6) mmol/L Hemoglobin (13.0-17.5) gm/dL Potassium (3.5-5.1) mmol/L Chloride (98-107) mmol/L Carbon Dioxide (22-30) mmol/L Creatinine (0.66-1.25) mg/dL Glucose 104 H (74-99) mg/dL POC Glucose (mg/dL) 106 H (75-99) mg/dL Calcium 8.2 L (8.4-10.2) mg/dL Ionized Calcium Guerda (4.5-5.3) mg/dL Magnesium 2.8 H (1.6-2.3) mg/dL Total Protein 5.1 L (6.3-8.2) g/dL Albumin 2.9 L (3.5-5.0) g/dL Arterial Blood Potassium (3.4-4.5) mmol/L Arterial Blood Glucose (75-99) mg/dL Crossmatch 12/11/18 12/11/18 12/11/18 Range/Units 16:09 16:52 17:48 WBC (3.8-10.6) k/uL RBC (4.30-5.90) m/uL Hgb (13.0-17.5) gm/dL Hct (39.0-53.0) % Plt Count (150-450) k/uL Neutrophils # (1.3-7.7) k/uL Lymphocytes # (1.0-4.8) k/uL Monocytes # (0-1.0) k/uL ABG pH 7.27 L (7.35-7.45) ABG pCO2 60 H (35-45) mmHg ABG pO2 310 H (83-108) mmHg ABG HCO3 28 H (21-25) mmol/L ABG Total CO2 29 H (19-24) mmol/L ABG O2 Saturation 99.2 H (94-97) % ABG Hematocrit (34.0-46.0) % ABG Potassium (3.4-4.5) mmol/L ABG Ionized Calcium (4.5-5.3) mg/dL ABG Glucose (75-99) mg/dL ABG Lactic Acid (0.5-1.6) mmol/L Hemoglobin (13.0-17.5) gm/dL Potassium (3.5-5.1) mmol/L Chloride (98-107) mmol/L Carbon Dioxide (22-30) mmol/L Creatinine (0.66-1.25) mg/dL Glucose (74-99) mg/dL POC Glucose (mg/dL) 141 H 144 H (75-99) mg/dL Calcium (8.4-10.2) mg/dL Ionized Calcium [place] (4.5-5.3) mg/dL Magnesium (1.6-2.3) mg/dL Total Protein (6.3-8.2) g/dL Albumin (3.5-5.0) g/dL Arterial Blood Potassium (3.4-4.5) mmol/L Arterial Blood Glucose (75-99) mg/dL Crossmatch 12/11/18 12/11/18 12/11/18 Range/Units 18:23 19:00 19:47 WBC 24.0 H (3.8-10.6) k/uL RBC 4.13 L (4.30-5.90) m/uL Hgb 12.1 L (13.0-17.5) gm/dL Hct 37.4 L (39.0-53.0) % Plt Count 149 L (150-450) k/uL Neutrophils # 21.4 H (1.3-7.7) k/uL Lymphocytes # (1.0-4.8) k/uL Monocytes # 1.2 H (0-1.0) k/uL ABG pH (7.35-7.45) ABG pCO2 (35-45) mmHg ABG pO2 (83-108) mmHg ABG HCO3 (21-25) mmol/L ABG Total CO2 (19-24) mmol/L ABG O2 Saturation (94-97) % ABG Hematocrit (34.0-46.0) % ABG Potassium (3.4-4.5) mmol/L ABG Ionized Calcium (4.5-5.3) mg/dL ABG Glucose (75-99) mg/dL ABG Lactic Acid (0.5-1.6) mmol/L Hemoglobin (13.0-17.5) gm/dL Potassium (3.5-5.1) mmol/L Chloride (98-107) mmol/L Carbon Dioxide (22-30) mmol/L Creatinine (0.66-1.25) mg/dL Glucose (74-99) mg/dL POC Glucose (mg/dL) 177 H 176 H (75-99) mg/dL Calcium (8.4-10.2) mg/dL Ionized Calcium Guerda (4.5-5.3) mg/dL Magnesium (1.6-2.3) mg/dL Total Protein (6.3-8.2) g/dL Albumin (3.5-5.0) g/dL Arterial Blood Potassium (3.4-4.5) mmol/L Arterial Blood Glucose (75-99) mg/dL Crossmatch 12/11/18 12/11/18 12/11/18 Range/Units 21:03 21:23 21:55 WBC 22.3 H (3.8-10.6) k/uL RBC 3.97 L (4.30-5.90) m/uL Hgb 11.8 L (13.0-17.5) gm/dL Hct 35.9 L (39.0-53.0) % Plt Count (150-450) k/uL Neutrophils # 20.6 H (1.3-7.7) k/uL Lymphocytes # 0.8 L (1.0-4.8) k/uL Monocytes # (0-1.0) k/uL ABG pH (7.35-7.45) ABG pCO2 (35-45) mmHg ABG pO2 (83-108) mmHg ABG HCO3 (21-25) mmol/L ABG Total CO2 (19-24) mmol/L ABG O2 Saturation (94-97) % ABG Hematocrit (34.0-46.0) % ABG Potassium (3.4-4.5) mmol/L ABG Ionized Calcium (4.5-5.3) mg/dL ABG Glucose (75-99) mg/dL ABG Lactic Acid (0.5-1.6) mmol/L Hemoglobin (13.0-17.5) gm/dL Potassium (3.5-5.1) mmol/L Chloride (98-107) mmol/L Carbon Dioxide (22-30) mmol/L Creatinine (0.66-1.25) mg/dL Glucose (74-99) mg/dL POC Glucose (mg/dL) 176 H 162 H (75-99) mg/dL Calcium (8.4-10.2) mg/dL Ionized Calcium [place] (4.5-5.3) mg/dL Magnesium (1.6-2.3) mg/dL Total Protein (6.3-8.2) g/dL Albumin (3.5-5.0) g/dL Arterial Blood Potassium (3.4-4.5) mmol/L Arterial Blood Glucose (75-99) mg/dL Crossmatch 12/11/18 12/12/18 12/12/18 Range/Units 22:47 01:09 04:08 WBC (3.8-10.6) k/uL RBC (4.30-5.90) m/uL Hgb (13.0-17.5) gm/dL Hct (39.0-53.0) % Plt Count (150-450) k/uL Neutrophils # (1.3-7.7) k/uL Lymphocytes # (1.0-4.8) k/uL Monocytes # (0-1.0) k/uL ABG pH (7.35-7.45) ABG pCO2 (35-45) mmHg ABG pO2 (83-108) mmHg ABG HCO3 (21-25) mmol/L ABG Total CO2 (19-24) mmol/L ABG O2 Saturation (94-97) % ABG Hematocrit (34.0-46.0) % ABG Potassium (3.4-4.5) mmol/L ABG Ionized Calcium (4.5-5.3) mg/dL ABG Glucose (75-99) mg/dL ABG Lactic Acid (0.5-1.6) mmol/L Hemoglobin (13.0-17.5) gm/dL Potassium (3.5-5.1) mmol/L Chloride (98-107) mmol/L Carbon Dioxide (22-30) mmol/L Creatinine (0.66-1.25) mg/dL Glucose (74-99) mg/dL POC Glucose (mg/dL) 141 H 115 H 137 H (75-99) mg/dL Calcium (8.4-10.2) mg/dL Ionized Calcium Guerda (4.5-5.3) mg/dL Magnesium (1.6-2.3) mg/dL Total Protein (6.3-8.2) g/dL Albumin (3.5-5.0) g/dL Arterial Blood Potassium (3.4-4.5) mmol/L Arterial Blood Glucose (75-99) mg/dL Crossmatch 12/12/18 12/12/18 12/12/18 Range/Units 05:55 05:55 05:56 WBC 16.1 H (3.8-10.6) k/uL RBC 3.78 L (4.30-5.90) m/uL Hgb 11.3 L (13.0-17.5) gm/dL Hct 34.1 L (39.0-53.0) % Plt Count 131 L (150-450) k/uL Neutrophils # 14.7 H (1.3-7.7) k/uL Lymphocytes # 0.6 L (1.0-4.8) k/uL Monocytes # (0-1.0) k/uL ABG pH (7.35-7.45) ABG pCO2 (35-45) mmHg ABG pO2 (83-108) mmHg ABG HCO3 (21-25) mmol/L ABG Total CO2 (19-24) mmol/L ABG O2 Saturation (94-97) % ABG Hematocrit (34.0-46.0) % ABG Potassium (3.4-4.5) mmol/L ABG Ionized Calcium (4.5-5.3) mg/dL ABG Glucose (75-99) mg/dL ABG Lactic Acid (0.5-1.6) mmol/L Hemoglobin (13.0-17.5) gm/dL Potassium 2.8 L (3.5-5.1) mmol/L Chloride 116 H (98-107) mmol/L Carbon Dioxide 20 L (22-30) mmol/L Creatinine 0.46 L (0.66-1.25) mg/dL Glucose (74-99) mg/dL POC Glucose (mg/dL) 123 H (75-99) mg/dL Calcium 5.7 L* (8.4-10.2) mg/dL Ionized Calcium Guerda 3.9 L (4.5-5.3) mg/dL Magnesium 1.4 L (1.6-2.3) mg/dL Total Protein 3.8 L (6.3-8.2) g/dL Albumin 2.0 L (3.5-5.0) g/dL Arterial Blood Potassium (3.4-4.5) mmol/L Arterial Blood Glucose (75-99) mg/dL Crossmatch 12/12/18 12/12/18 12/12/18 Range/Units 07:15 07:17 08:09 WBC (3.8-10.6) k/uL RBC (4.30-5.90) m/uL Hgb (13.0-17.5) gm/dL Hct (39.0-53.0) % Plt Count (150-450) k/uL Neutrophils # (1.3-7.7) k/uL Lymphocytes # (1.0-4.8) k/uL Monocytes # (0-1.0) k/uL ABG pH (7.35-7.45) ABG pCO2 (35-45) mmHg ABG pO2 (83-108) mmHg ABG HCO3 (21-25) mmol/L ABG Total CO2 (19-24) mmol/L ABG O2 Saturation (94-97) % ABG Hematocrit (34.0-46.0) % ABG Potassium (3.4-4.5) mmol/L ABG Ionized Calcium (4.5-5.3) mg/dL ABG Glucose (75-99) mg/dL ABG Lactic Acid (0.5-1.6) mmol/L Hemoglobin (13.0-17.5) gm/dL Potassium (3.5-5.1) mmol/L Chloride (98-107) mmol/L Carbon Dioxide (22-30) mmol/L Creatinine (0.66-1.25) mg/dL Glucose 124 H (74-99) mg/dL POC Glucose (mg/dL) 124 H 102 H (75-99) mg/dL Calcium (8.4-10.2) mg/dL Ionized Calcium Guerda (4.5-5.3) mg/dL Magnesium (1.6-2.3) mg/dL Total Protein 5.7 L (6.3-8.2) g/dL Albumin 3.4 L (3.5-5.0) g/dL Arterial Blood Potassium (3.4-4.5) mmol/L Arterial Blood Glucose (75-99) mg/dL Crossmatch 12/12/18 12/12/18 12/12/18 Range/Units 09:14 10:07 11:17 WBC (3.8-10.6) k/uL RBC (4.30-5.90) m/uL Hgb (13.0-17.5) gm/dL Hct (39.0-53.0) % Plt Count (150-450) k/uL Neutrophils # (1.3-7.7) k/uL Lymphocytes # (1.0-4.8) k/uL Monocytes # (0-1.0) k/uL ABG pH (7.35-7.45) ABG pCO2 (35-45) mmHg ABG pO2 (83-108) mmHg ABG HCO3 (21-25) mmol/L ABG Total CO2 (19-24) mmol/L ABG O2 Saturation (94-97) % ABG Hematocrit (34.0-46.0) % ABG Potassium (3.4-4.5) mmol/L ABG Ionized Calcium (4.5-5.3) mg/dL ABG Glucose (75-99) mg/dL ABG Lactic Acid (0.5-1.6) mmol/L Hemoglobin (13.0-17.5) gm/dL Potassium (3.5-5.1) mmol/L Chloride (98-107) mmol/L Carbon Dioxide (22-30) mmol/L Creatinine (0.66-1.25) mg/dL Glucose (74-99) mg/dL POC Glucose (mg/dL) 113 H 141 H 134 H (75-99) mg/dL Calcium (8.4-10.2) mg/dL Ionized Calcium Guerda (4.5-5.3) mg/dL Magnesium (1.6-2.3) mg/dL Total Protein (6.3-8.2) g/dL Albumin (3.5-5.0) g/dL Arterial Blood Potassium (3.4-4.5) mmol/L Arterial Blood Glucose (75-99) mg/dL Crossmatch 12/12/18 Range/Units 12:06 WBC (3.8-10.6) k/uL RBC (4.30-5.90) m/uL Hgb (13.0-17.5) gm/dL Hct (39.0-53.0) % Plt Count (150-450) k/uL Neutrophils # (1.3-7.7) k/uL Lymphocytes # (1.0-4.8) k/uL Monocytes # (0-1.0) k/uL ABG pH (7.35-7.45) ABG pCO2 (35-45) mmHg ABG pO2 (83-108) mmHg ABG HCO3 (21-25) mmol/L ABG Total CO2 (19-24) mmol/L ABG O2 Saturation (94-97) % ABG Hematocrit (34.0-46.0) % ABG Potassium (3.4-4.5) mmol/L ABG Ionized Calcium (4.5-5.3) mg/dL ABG Glucose (75-99) mg/dL ABG Lactic Acid (0.5-1.6) mmol/L Hemoglobin (13.0-17.5) gm/dL Potassium (3.5-5.1) mmol/L Chloride (98-107) mmol/L Carbon Dioxide (22-30) mmol/L Creatinine (0.66-1.25) mg/dL Glucose (74-99) mg/dL POC Glucose (mg/dL) 121 H (75-99) mg/dL Calcium (8.4-10.2) mg/dL Ionized Calcium Guerda (4.5-5.3) mg/dL Magnesium (1.6-2.3) mg/dL Total Protein (6.3-8.2) g/dL Albumin (3.5-5.0) g/dL Arterial Blood Potassium (3.4-4.5) mmol/L Arterial Blood Glucose (75-99) mg/dL Crossmatch - Imaging and Cardiology Chest x-ray: report reviewed, image reviewed Assessment and Plan Assessment: 1. Severe triple-vessel coronary artery disease, status post urgent triple vessel coronary artery bypass surgery 2. Non-ST elevated myocardial infarction this admission 3. Hypertension 4. Hyperlipidemia 5. Type 2 diabetes mellitus with preoperative hemoglobin A1c 7.5% 6. Family history of premature coronary artery disease with his mother being diagnosed with a myocardial infarction at age 52 7. Vocal cord disorder 8. Tinnitus 9. Very remote history of tobacco dependence quit at age 18 with preoperative FEV1 94% of predicted 10. Depression. 11. Postoperative acute blood loss anemia, expected Plan: 1. Continue to maximize medical therapy with aspirin, statin, and beta reg. Will increase beta reg therapy as tolerated, increase to 25 mg twice daily today. 2. Will initiate Norvasc for radial artery prophylaxis. Discontinue IV nitro half hour after Norvasc administered. Do not discontinue Norvasc without discussing with surgeon. 3. Wean O2 as tolerated. Encourage incentive spirometry use 10 times every hour while awake. 4. Increase activity, ambulate as tolerated. PT/OT/cardiac rehab following. 5. Will monitor daily labs and x-rays. Electrolyte replacement per protocol. No transfusion. 6. Pain control with current medication regimen. Toradol added. 7. Insulin management per primary care service. 8. GI/DVT prophylaxis. 9. Discontinue [place]. Cordis to continue CVP monitoring. 10. Will continue chest tubes, Mtz catheter for another 24 hours. 11. More recommendations to follow based on patient's clinical course. Time with Patient: Greater than 30
[2018-12-12 13:38] LABS: Glucose,Whole Blood 192 mg/dL (75-99)
[2018-12-12 14:32] LABS: Glucose,Whole Blood 152 mg/dL (75-99)
[2018-12-12 15:04] LABS: Glucose,Whole Blood 107 mg/dL (75-99)
[2018-12-12 16:10] LABS: Glucose,Whole Blood 112 mg/dL (75-99)
--- NOTE | 2018-12-12 17:15 | PN ---
PROGRESS NOTE DATE OF SERVICE: Mr. Solo underwent aortocoronary bypass surgery yesterday. He is doing well. He is not on any drips. He is in sinus rhythm, doing well. Vitals are stable. S1, S2 heard normally. Lungs reveal diminished air entry. Abdomen and lower extremity exam unchanged. Plan is to continue current medications, incentive spirometry, and gradual increase in activity. MMODL / IJN: [id number] /
[2018-12-12 17:37] LABS: Glucose,Whole Blood 128 mg/dL (75-99)
[2018-12-12 18:15] LABS: Glucose,Whole Blood 163 mg/dL (75-99)
--- NOTE | 2018-12-12 18:45 | P.PN ---
Subjective Progress Note Date: 12/12/182018 the patient is being seen in follow-up. The patient is known to have coronary artery disease, multivessel and the patient is involved in a non-STEMI and subsequently the patient was taken to the operating room and he underwent a three-vessel bypass surgery. Patient is postop day #1. The patient was extubated yesterday without any major difficulties. Today's postop day #1. On today's evaluation, the he is hemodynamically stable. He is off the nitroglycerin drip. He is off the Upper extremity. He is hemodynamically stable with a cardiac output of 6.5 with an index of 3.5. Pulmonary artery pressures were nonelevated. There Trinity-Lit catheter was subsequently removed. Chest tubes are in place. The left pleural chest tube was attached to wall suction and has drained around 300 mL since surgery. There is a small intermittent leak present in the mediastinal chest tube and has drained approximately 300 mL since surgery. The patient is producing adequate amount of urine output. The patient is using incentive spirometer. Urine output is somewhat between 20-30 mL an hour. He is using incentive spirometer for now., Based on his lower urine output, the patient was given albumin, 12.5 mg 3 his urine output improved subsequently following that. Otherwise, the patient is d oing well. He is alert and awake and conscious. His cardiac rhythm is sinus. Is on oral metoprolol. No other significant events overnight. Objective - Vital Signs Vital signs: Vital Signs Temp 98.6 F 12/12/18 16:00 Pulse 96 12/12/18 18:00 Resp 35 H 12/12/18 18:00 BP 120/70 12/11/18 06:08 Pulse Ox 93 L 12/12/18 18:00 Intake & Output 12/11/18 12/12/18 12/12/18 18:59 06:59 18:59 Intake Total 343.688 4720.234 2489.557 Output Total 3662 1270 535 Balance -3278.535 -70.766 1954.557 Weight 74.6 kg 74.5 kg Intake: IV 400 373 9270 Albumin Human 5% 250 ml 1000 In Empty Bag 1 bag @ 250 mls/hr IVPB Q1HR PRN Rx#: [id number] CO/CI 80 140 Lactated Ringers 1,000 ml 200 600 600 @ 20 mls/hr IV .Q24H NII Rx#:[id number] Nitroglycerin-D5w Pmx 50 42 6 mg In Dextrose/Water 1 250ml.bag @ 5 MCG/MIN 1.5 mls/hr IV .Q24H NII Rx#: [id number] Pressure Bag 36 108 87 Intake, IV Titration 33.465 249.234 36.557 Amount Clevidipine Butyrate 25 11.8 121.0 mg In Empty Bag 1 bag @ 1 MG/HR 2 mls/hr IV .Q24H NII Rx#:[id number] Insulin Regular 100 unit 1.225 45.434 31.807 In Sodium Chloride 0.9% 100 ml @ Titrate IV .Q0M NII Rx#:[id number] Nitroglycerin-D5w Pmx 50 82.8 4.75 mg In Dextrose/Water 1 250ml.bag @ 5 MCG/MIN 1.5 mls/hr IV .Q24H NII Rx#: [id number] Propofol 1,000 mg In 20.44 Empty Bag 1 bag @ Titrate IV .Q0M NII Rx#: [id number] Oral 60 760 Output: Chest Tube Drainage 307 165 145 Left Pleural Chest Tube 171 62 85 Mediastinal Chest Tube 136 103 60 Drainage 50 Left Calf 20 Left Wrist 30 Urine 1555 1055 390 Estimated Blood Loss 1800 Other: Voiding Method Indwelling Catheter Indwelling Catheter Indwelling Catheter ABP, PAP, CO, CI - Last Documented Arterial Blood Pressure 119/39 Pulmonary Artery Pressure 23/9 Cardiac Output 6.5 Cardiac Index 3.5 - Exam - Constitutional General appearance: Present: cooperative, no acute distress - Respiratory Details: Lungs sounds diminished bilaterally. Respirations even, nonlabored. Currently on 3 L nasal cannula with oxygen saturation 96%. Able to achieve 750 mL on his incentive spirometry. Weak cough. Mediastinal chest tube to continuous wall suction, 55 mL serosanguineous drainage overnight, 300 mL since surgery. Left pleural chest tube to continuous wall suction, 25 mL serosanguineous drainage overnight, 300 mL since surgery. Positive small intermittent air leak present to the mediastinal chest tube. - Cardiovascular Details: S1, S2 present. Regular rhythm, sinus rhythm on telemetry. Sternum stable. A/V epicardial pacemaker wires present, grounded. Palpable peripheral pulses bilaterally. No edema present. No calf pain or tenderness noted. Right internal jugular Trinity/Cordis, right radial arterial line present. Last CO/CI 6.5/3.5 on no inotropes or pressors. Heart hugger in place with patient demons trating appropriate use. Antiembolism seconds, SCDs present. - Gastrointestinal Gastrointestinal Comment(s): Abdomen soft, nontender, nondistended. Hypoactive bowel sounds present 4 quadrants. Tolerating diet. Positive flatus. - Genitourinary Genitourinary Comment(s): Mtz present draining clear, yellow urine. Output overnight 55-100 mL/h. - Integumentary Integumentary Comment(s): Skin is warm and dry with evidence of good perfusion. Anterior chest incision well approximated and covered with dry intact dressing. Left lower extremity EVH site well approximated, DONNIE drain present with minimal serosanguineous drainage. Left radial artery harvest site well approximated, DONNIE drain present with minimal serous and was drainage. 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 - Neurologic Neurologic: Present: CNII-XII intact - Musculoskeletal Musculoskeletal: Present: strength equal bilaterally - Psychiatric Psychiatric: Present: A&O x's 3, appropriate affect, intact judgment & insight - Labs CBC & Chem 7: 12/12/18 05:55 12/12/18 07:17 Labs: Abnormal Lab Results - Last 24 Hours (Table) 12/10/18 12/11/18 12/11/18 Range/Units 06:10 18:23 19:00 WBC 24.0 H (3.8-10.6) k/uL RBC 4.13 L (4.30-5.90) m/uL Hgb 12.1 L (13.0-17.5) gm/dL Hct 37.4 L (39.0-53.0) % Plt Count 149 L (150-450) k/uL Neutrophils # 21.4 H (1.3-7.7) k/uL Lymphocytes # (1.0-4.8) k/uL Monocytes # 1.2 H (0-1.0) k/uL Potassium (3.5-5.1) mmol/L Chloride (98-107) mmol/L Carbon Dioxide (22-30) mmol/L Creatinine (0.66-1.25) mg/dL Glucose (74-99) mg/dL POC Glucose (mg/dL) 177 H (75-99) mg/dL Calcium (8.4-10.2) mg/dL Ionized Calcium Guerda (4.5-5.3) mg/dL Magnesium (1.6-2.3) mg/dL Total Protein (6.3-8.2) g/dL Albumin (3.5-5.0) g/dL Crossmatch See Detail 12/11/18 12/11/18 12/11/18 Range/Units 19:47 21:03 21:23 WBC 22.3 H (3.8-10.6) k/uL RBC 3.97 L (4.30-5.90) m/uL Hgb 11.8 L (13.0-17.5) gm/dL Hct 35.9 L (39.0-53.0) % Plt Count (150-450) k/uL Neutrophils # 20.6 H (1.3-7.7) k/uL Lymphocytes # 0.8 L (1.0-4.8) k/uL Monocytes # (0-1.0) k/uL Potassium (3.5-5.1) mmol/L Chloride (98-107) mmol/L Carbon Dioxide (22-30) mmol/L Creatinine (0.66-1.25) mg/dL Glucose (74-99) mg/dL POC Glucose (mg/dL) 176 H 176 H (75-99) mg/dL Calcium (8.4-10.2) mg/dL Ionized Calcium Guerda (4.5-5.3) mg/dL Magnesium (1.6-2.3) mg/dL Total Protein (6.3-8.2) g/dL Albumin (3.5-5.0) g/dL Crossmatch 12/11/18 12/11/18 12/12/18 Range/Units 21:55 22:47 01:09 WBC (3.8-10.6) k/uL RBC (4.30-5.90) m/uL Hgb (13.0-17.5) gm/dL Hct (39.0-53.0) % Plt Count (150-450) k/uL Neutrophils # (1.3-7.7) k/uL Lymphocytes # (1.0-4.8) k/uL Monocytes # (0-1.0) k/uL Potassium (3.5-5.1) mmol/L Chloride (98-107) mmol/L Carbon Dioxide (22-30) mmol/L Creatinine (0.66-1.25) mg/dL Glucose (74-99) mg/dL POC Glucose (mg/dL) 162 H 141 H 115 H (75-99) mg/dL Calcium (8.4-10.2) mg/dL Ionized Calcium Guerda (4.5-5.3) mg/dL Magnesium (1.6-2.3) mg/dL Total Protein (6.3-8.2) g/dL Albumin (3.5-5.0) g/dL Crossmatch 12/12/18 12/12/18 12/12/18 Range/Units 04:08 05:55 05:55 WBC 16.1 H (3.8-10.6) k/uL RBC 3.78 L (4.30-5.90) m/uL Hgb 11.3 L (13.0-17.5) gm/dL Hct 34.1 L (39.0-53.0) % Plt Count 131 L (150-450) k/uL Neutrophils # 14.7 H (1.3-7.7) k/uL Lymphocytes # 0.6 L (1.0-4.8) k/uL Monocytes # (0-1.0) k/uL Potassium 2.8 L (3.5-5.1) mmol/L Chloride 116 H (98-107) mmol/L Carbon Dioxide 20 L (22-30) mmol/L Creatinine 0.46 L (0.66-1.25) mg/dL Glucose (74-99) mg/dL POC Glucose (mg/dL) 137 H (75-99) mg/dL Calcium 5.7 L* (8.4-10.2) mg/dL Ionized Calcium Guerda 3.9 L (4.5-5.3) mg/dL Magnesium 1.4 L (1.6-2.3) mg/dL Total Protein 3.8 L (6.3-8.2) g/dL Albumin 2.0 L (3.5-5.0) g/dL Crossmatch 12/12/18 12/12/18 12/12/18 Range/Units 05:56 07:15 07:17 WBC (3.8-10.6) k/uL RBC (4.30-5.90) m/uL Hgb (13.0-17.5) gm/dL Hct (39.0-53.0) % Plt Count (150-450) k/uL Neutrophils # (1.3-7.7) k/uL Lymphocytes # (1.0-4.8) k/uL Monocytes # (0-1.0) k/uL Potassium (3.5-5.1) mmol/L Chloride (98-107) mmol/L Carbon Dioxide (22-30) mmol/L Creatinine (0.66-1.25) mg/dL Glucose 124 H (74-99) mg/dL POC Glucose (mg/dL) 123 H 124 H (75-99) mg/dL Calcium (8.4-10.2) mg/dL Ionized Calcium Guerda (4.5-5.3) mg/dL Magnesium (1.6-2.3) mg/dL Total Protein 5.7 L (6.3-8.2) g/dL Albumin 3.4 L (3.5-5.0) g/dL Crossmatch 12/12/18 12/12/18 12/12/18 Range/Units 08:09 09:14 10:07 WBC (3.8-10.6) k/uL RBC (4.30-5.90) m/uL Hgb (13.0-17.5) gm/dL Hct (39.0-53.0) % Plt Count (150-450) k/uL Neutrophils # (1.3-7.7) k/uL Lymphocytes # (1.0-4.8) k/uL Monocytes # (0-1.0) k/uL Potassium (3.5-5.1) mmol/L Chloride (98-107) mmol/L Carbon Dioxide (22-30) mmol/L Creatinine (0.66-1.25) mg/dL Glucose (74-99) mg/dL POC Glucose (mg/dL) 102 H 113 H 141 H (75-99) mg/dL Calcium (8.4-10.2) mg/dL Ionized Calcium Guerda (4.5-5.3) mg/dL Magnesium (1.6-2.3) mg/dL Total Protein (6.3-8.2) g/dL Albumin (3.5-5.0) g/dL Crossmatch 12/12/18 12/12/18 12/12/18 Range/Units 11:17 12:06 13:06 WBC (3.8-10.6) k/uL RBC (4.30-5.90) m/uL Hgb (13.0-17.5) gm/dL Hct (39.0-53.0) % Plt Count (150-450) k/uL Neutrophils # (1.3-7.7) k/uL Lymphocytes # (1.0-4.8) k/uL Monocytes # (0-1.0) k/uL Potassium (3.5-5.1) mmol/L Chloride (98-107) mmol/L Carbon Dioxide (22-30) mmol/L Creatinine (0.66-1.25) mg/dL Glucose (74-99) mg/dL POC Glucose (mg/dL) 134 H 121 H 192 H (75-99) mg/dL Calcium (8.4-10.2) mg/dL Ionized Calcium Guerda (4.5-5.3) mg/dL Magnesium (1.6-2.3) mg/dL Total Protein (6.3-8.2) g/dL Albumin (3.5-5.0) g/dL Crossmatch 12/12/18 12/12/18 12/12/18 Range/Units 14:00 15:00 15:56 WBC (3.8-10.6) k/uL RBC (4.30-5.90) m/uL Hgb (13.0-17.5) gm/dL Hct (39.0-53.0) % Plt Count (150-450) k/uL Neutrophils # (1.3-7.7) k/uL Lymphocytes # (1.0-4.8) k/uL Monocytes # (0-1.0) k/uL Potassium (3.5-5.1) mmol/L Chloride (98-107) mmol/L Carbon Dioxide (22-30) mmol/L Creatinine (0.66-1.25) mg/dL Glucose (74-99) mg/dL POC Glucose (mg/dL) 152 H 107 H 112 H (75-99) mg/dL Calcium (8.4-10.2) mg/dL Ionized Calcium Guerda (4.5-5.3) mg/dL Magnesium (1.6-2.3) mg/dL Total Protein (6.3-8.2) g/dL Albumin (3.5-5.0) g/dL Crossmatch 12/12/18 12/12/18 Range/Units 17:01 18:11 WBC (3.8-10.6) k/uL RBC (4.30-5.90) m/uL Hgb (13.0-17.5) gm/dL Hct (39.0-53.0) % Plt Count (150-450) k/uL Neutrophils # (1.3-7.7) k/uL Lymphocytes # (1.0-4.8) k/uL Monocytes # (0-1.0) k/uL Potassium (3.5-5.1) mmol/L Chloride (98-107) mmol/L Carbon Dioxide (22-30) mmol/L Creatinine (0.66-1.25) mg/dL Glucose (74-99) mg/dL POC Glucose (mg/dL) 128 H 163 H (75-99) mg/dL Calcium (8.4-10.2) mg/dL Ionized Calcium Guerda (4.5-5.3) mg/dL Magnesium (1.6-2.3) mg/dL Total Protein (6.3-8.2) g/dL Albumin (3.5-5.0) g/dL Crossmatch Assessment and Plan Plan: 1 multivessel coronary artery disease status post non-ST segment elevation myocardial infarctions. The patient underwent three-vessel bypass surgery. Currently postop day #1 2 post thoracotomy and the patient is currently off the mechanical ventilator. Chest tubes are all in place. The patient was weaned off and currently is on oxygen at 3 L per minute nasal cannula. Chest x-ray from today shows some atelectatic changes small effusion the lung bases bilaterally. There is a tiny amount of air leak from the mediastinal chest tube. Otherwise, the output from the chest tubes are minimal for now and the patient is quite comfortable using incentive spirometer. No other significant events overnight. 3 hypertension 4 hyperlipidemia 5 diabetes mellitus 6. Question history of vocal cord paralysis Plan Serum supportive care. Monitor urine output. IV albumin was given. Hemoglobin is stable. Monitor the output from the chest tube. Monitored daily for the mediastinal chest tube. Repeat chest x-ray in the morning. Continue using los ntive spirometer. We'll continue to follow make further recommendations based on his overall progress.
[2018-12-12] MEDS: SENNOSIDES-DOCUSATE SODIUM 1 EACH TAB PO SCH (20:17)
[2018-12-12 20:48] LABS: Glucose,Whole Blood 121 mg/dL (75-99)
[2018-12-12 22:02] LABS: Glucose,Whole Blood 89 mg/dL (75-99)
[2018-12-13] MEDS: INSULIN REGULAR 100 UNIT in SODIUM CHLORIDE 0.9% 100 ML IV SCH ×2
[2018-12-13 00:03] LABS: Glucose,Whole Blood 115 mg/dL (75-99)
[2018-12-13] MEDS: HEPARIN SODIUM,PORCINE 5,000 UNIT/ML 1 ML VIAL SQ SCH ×4 (00:47→17:16)
[2018-12-13] MEDS: KETOROLAC 30 MG/ML 1 ML VIAL IVP SCH ×4 (00:47→17:16)
[2018-12-13] MEDS: HYDROcodone/APAP 5-325MG 1 EACH TAB PO PRN ×2 (00:50→08:45)
[2018-12-13 02:12] LABS: Glucose,Whole Blood 123 mg/dL (75-99)
[2018-12-13 04:15] LABS: Glucose,Whole Blood 104 mg/dL (75-99)
[2018-12-13 05:24] LABS: Glucose,Whole Blood 99 mg/dL (75-99)
[2018-12-13 06:04] LABS: Glucose,Whole Blood 102 mg/dL (75-99)
[2018-12-13 06:12] LABS: Basophils # (A) 0.1 k/uL (0-0.2); Basophils % (A) 1 %; Eosinophils # (A) 0.1 k/uL (0-0.7); Eosinophils % (A) 1 %; HCT 25.1 % (39.0-53.0); Lymphocytes # (A) 1.2 k/uL (1.0-4.8); Lymphocytes % (A) 10 %; MCH 30.5 pg (25.0-35.0); MCHC 33.4 g/dL (31.0-37.0); MCV 91.2 fL (80.0-100.0); Mean Platelet Volume 9.4; Monocytes # (A) 0.7 k/uL (0-1.0); Monocytes % (A) 6 %; Neutrophils # (A) 9.7 k/uL (1.3-7.7); Neutrophils % (A) 82 %; RBC 2.75 m/uL (4.30-5.90); RDW 14.9 % (11.5-15.5); WBC 11.9 k/uL (3.8-10.6)
[2018-12-13 06:13] LABS: HGB 8.4 gm/dL (13.0-17.5)
[2018-12-13 06:15] LABS: Ionized Calcium 4.9 mg/dL (4.5-5.3)
[2018-12-13 06:31] LABS: Platelet Count 99 k/uL (150-450)
[2018-12-13 06:34] LABS: AST 33 U/L (17-59); African American GFR (CKD) >90 (>60 ml/min/1.73 sqM); Albumin 3.2 g/dL (3.5-5.0); Anion Gap 8 mmol/L; Blood Urea Nitrogen 16 mg/dL (9-20); Calcium 8.4 mg/dL (8.4-10.2); Carbon Dioxide 26 mmol/L (22-30); Chloride 103 mmol/L (98-107); Glucose 92 mg/dL (74-99); Potassium 4.1 mmol/L (3.5-5.1); Sodium 137 mmol/L (137-145); Total Bilirubin 1.1 mg/dL (0.2-1.3); Total Protein 5.3 g/dL (6.3-8.2)
[2018-12-13 06:35] LABS: ALT 34 U/L (21-72); Alkaline Phosphatase 52 U/L (38-126)
[2018-12-13 07:10] LABS: HCT 25.2 % (39.0-53.0); HGB 8.4 gm/dL (13.0-17.5); MCH 30.2 pg (25.0-35.0); MCHC 33.3 g/dL (31.0-37.0); MCV 90.9 fL (80.0-100.0); Mean Platelet Volume 9.9; RBC 2.77 m/uL (4.30-5.90); RDW 14.8 % (11.5-15.5); WBC 12.2 k/uL (3.8-10.6)
[2018-12-13 07:11] LABS: Platelet Count 92 k/uL (150-450)
[2018-12-13 07:20] LABS: Glucose,Whole Blood 120 mg/dL (75-99)
[2018-12-13 07:52] LABS: Glucose,Whole Blood 131 mg/dL (75-99)
[2018-12-13] MEDS ORDERED: FUROSEMIDE 10 MG/ML 2 ML VIAL IV ONE (07:58)
--- NOTE | 2018-12-13 08:08 | PN ---
PROGRESS NOTE Mr. Solo is a 68-year-old male status post coronary artery bypass grafting who is doing well this morning. He is complaining of musculoskeletal chest discomfort, but no significant dyspnea. He denies any dizziness or palpitation. He underwent surgical intervention on the first december and received a BURNHAM to LAD, left radial to the ramus and saphenous vein graft to the PDA. He is hemodynamically stable in sinus mechanism. He has no evidence of tachycardia or bradycardia. He continues to use the incentive spirometry. He continued be on aspirin once a day, amlodipine 5 mg daily, Lipitor 40 mg daily, Plavix 75 mg daily, Lexapro 5 mg daily and metoprolol tartrate 25 mg twice a day. PHYSICAL EXAMINATION: Blood pressure 124/50 with the heart rate in the 90s. LUNGS: With mild crackles at the bases. HEART: Regular rate and rhythm. S1, S2. No S3. No rub appreciated. ABDOMEN: Soft, nontender. Positive bowel sounds. No organomegaly. EXTREMITIES: No significant edema. His urine output has been stable. LAB DATA: His lab data revealed a hemoglobin of 8.4. His BUN and creatinine 16 and 0.7. Potassium 4.1. IMPRESSION: 1. Status post coronary artery bypass grafting, stable. 2. Hyperlipidemia, treated. 3. Hypertension. 4. Diabetes mellitus. RECOMMENDATION: From the cardiac standpoint, he is stable. Will continue incentive spirometry, increase his physical activity and depending on his progress, further recommendation will be made. MMODL / IJN: [id number] /
--- NOTE | 2018-12-13 08:19 | XR ---
EXAMINATION TYPE: XR chest 1V portable DATE OF EXAM: 12/13/2018 HISTORY: Shortness of breath. COMPARISON: December 12, 2018 TECHNIQUE: Single view of the chest is submitted. FINDINGS: Left basilar chest tube remains in place. No evidence for sizable pneumothorax. Mediastinal drains re main in place. Patchy basilar density persists which may reflect atelectasis. [place]-Lit catheter has been removed with right IJ shunt central sheath remaining in place. Hilar and mediastinal structures are within normal limits. Degenerative changes are seen of the dorsal spine. IMPRESSION: 1. Postoperative changes of CABG. Basilar atelectasis noted as well as indwelling tubes and catheter s.
[2018-12-13] MEDS: ASPIRIN 325 MG TAB PO SCH ×2 (08:45→11:00)
[2018-12-13] MEDS: PANTOPRAZOLE 40 MG TABLET PO SCH ×2 (08:45→11:01)
[2018-12-13] MEDS: ATORVASTATIN 40 MG TAB PO SCH (08:45)
[2018-12-13] MEDS: CLOPIDOGREL 75 MG TAB PO SCH (08:45)
[2018-12-13] MEDS: METOPROLOL TARTRATE 50 MG TAB PO SCH ×2 (08:45→22:14)
[2018-12-13] MEDS: amLODIPine 5 MG TAB PO SCH (08:45)
[2018-12-13] MEDS: INSULIN ASPART (NovoLOG) 100 UNIT/ML VIAL SQ SCH ×5 (08:46→22:14)
[2018-12-13] MEDS: MUPIROCIN 2% OINT 22 GM TUBE NASAL SCH ×2 (08:46→22:15)
[2018-12-13] MEDS: ESCITALOPRAM 5 MG TAB PO SCH (08:46)
--- NOTE | 2018-12-13 09:14 | P.PN ---
Subjective Progress Note Date: 12/13/18 Principal diagnosis: Non-ST elevation myocardial infarction this admission with severe triple-vessel coronary artery disease, preserved left ventricular function with an ejection f raction of 55-60%. History of hypertension, hyperlipidemia, type 2 diabetes mellitus with preoperative hemoglobin A1c 7.5%, family history of premature coronary artery disease with his mother being diagnosed with a myocardial infarction at age 52, vocal cord disorder, tinnitus, very remote history of tobacco dependence quit at age 18 with preoperative FEV1 94% of predicted and depression. POD #2 urgent triple vessel coronary artery bypass grafting using the left internal mammary artery to the left anterior descending coronary artery, left radial artery from the aorta to the ramus intermedius coronary artery, a reverse greater saphenous vein graft from the aorta to the distal posterior descending coronary artery. Endoscopic harvesting of the left radial artery. Endoscopic harvesting of the left greater saphenous vein from the groin to above the ankle level. Intraoperative transesophageal echocardiogram and epi-aortic scanning. Intraoperative graft flow measurements using the [employer] system. Postoperative acute blood loss anemia, an expected outcome of surgery given hemodilution and cardiopulmonary bypass pump. The patient is currently sitting up to the bedside chair in the intensive care unit. He is in no acute distress. Complaining of surgical type pain to his left chest tube insertion site, denies any complaints of shortness of breath. Oxygen saturations are 95% on room air. He is achieving 500 mL on his incentive spirometry. He remains hemodynamically stable and is on no inotropic or pressor support. Mediastinal and left pleural chest tubes remain in place draining thin serosanguineous drainage. Continuous air leak present to his left mediastinal chest tube. Patient currently sitting up in bed in the intensive care unit in no acute distress. He was successfully extubated last night at 2305. Did complain of significant surgical pain this morning which is partially relieved with ordered pain management including IV Toradol. Denies shortness of breath. Remains in sinus rhythm. Hemodynamically stable on no inotropes or pressors. Mediastinal, left pleural chest tubes present. Patient actively using incentive spirometry but with minimal effort. Chest x-ray this morning demonstrates basilar atelectasis, no pneumothorax is present. Objective - Vital Signs Vital signs: Vital Signs Temp 98.1 F 12/13/18 04:00 Pulse 97 12/13/18 07:00 Resp 18 12/13/18 07:00 BP 120/70 12/11/18 06:08 Pulse Ox 94 L 12/13/18 07:00 Intake & Output 12/12/18 12/13/18 12/13/18 18:59 06:59 18:59 Intake Total 2489.557 859.301 33 Output Total 535 662 75 Balance 1954.557 197.301 -42 Weight 77.1 kg Intake: IV 1693 509 33 Albumin Human 5% 250 ml 1000 In Empty Bag 1 bag @ 250 mls/hr IVPB Q1HR PRN Rx#: [id number] Lactated Ringers 1,000 ml 600 440 30 @ 20 mls/hr IV .Q24H NII Rx#:[id number] Nitroglycerin-D5w Pmx 50 6 mg In Dextrose/Water 1 250ml.bag @ 5 MCG/MIN 1.5 mls/hr IV .Q24H NII Rx#: [id number] Pressure Bag 87 69 3 Intake, IV Titration 36.557 30.301 Amount Insulin Regular 100 unit 31.807 30.301 In Sodium Chloride 0.9% 100 ml @ Titrate IV .Q0M NII Rx#:[id number] Nitroglycerin-D5w Pmx 50 4.75 mg In Dextrose/Water 1 250ml.bag @ 5 MCG/MIN 1.5 mls/hr IV .Q24H NII Rx#: [id number] Oral 760 320 Output: Chest Tube Drainage 145 130 75 Left Pleural Chest Tube 85 40 40 Mediastinal Chest Tube 60 90 35 Urine 390 532 Other: Voiding Method Indwelling Catheter Indwelling Catheter ABP, PAP, CO, CI - Last Documented Arterial Blood Pressure 124/47 Pulmonary Artery Pressure 23/9 Cardiac Output 6.5 Cardiac Index 3.5 - Constitutional General appearance: Present: cooperative, no acute distress, obese - Respiratory Details: Lung sounds essentially clear throughout, diminished to his bilateral bases. Respirations are symmetrical and nonlabored. Oxygen saturation are 95% on room air. Achieving 500 mL on his incentive spirometry. Mediastinal and left pleural chest tubes in place to low continuous wall suction -20 cm H2O. Draining thin serosanguineous drainage with 150 mL out of his mediastinal chest tubes in the last 24 hours, 170 mL out of his left pleural chest tube in the last 24 hours. Continuous air leak present to his left mediastinal chest tube. - Cardiovascular Details: Regular rhythm and tachycardic rate. S1 and S2 present, negative for S3, gallop or murmur. Sternum is stable. Right IJ Cordis in place to continue CVP monitoring. Arterial line in place and functioning. Atrial and ventricular epicardial pacemaker wires in place and are grounded. Heart hugger is in place and he is demonstrating appropriate use. Knee-high HILTON hose and sequential co mpression devices in place to his bilateral lower extremities. No edema present. - Gastrointestinal Gastrointestinal Comment(s): Abdomen is soft, nontender and nondistended. Active bowel sounds all 4 abdominal quadrants. No guarding or rigidity. No organomegaly. Tolerating oral intake. - Genitourinary Genitourinary Comment(s): Voiding clear yellow urine. - Integumentary Integumentary Comment(s): Skin is warm and dry. No clubbing or cyanosis is present. Midline sternal incision is clean, dry and approximated. No drainage or redness is present. Gauze dressing is clean, dry and intact. Left radial harvest sites are clean, dry and approximated. No drainage or redness is present. Left lower extremity EVH sites clean, dry and approximated. No drainage or redness is present. Ecchymosis present to his bilateral groins, soft and nontender. - Neurologic Neurologic: Present: CNII-XII intact - Musculoskeletal Musculoskeletal: Present: gait normal, generalized weakness, strength equal bilaterally - Psychiatric Psychiatric: Present: A&O x's 3, appropriate affect, intact judgment & insight - Allied health notes Allied health notes reviewed: nursing - Labs CBC & Chem 7: 12/13/18 06:49 12/13/18 05:40 Labs: Abnormal Lab Results - Last 24 Hours (Table) 12/12/18 12/12/18 12/12/18 Range/Units 09:14 10:07 11:17 WBC (3.8-10.6) k/uL RBC (4.30-5.90) m/uL Hgb (13.0-17.5) gm/dL Hct (39.0-53.0) % Plt Count (150-450) k/uL Neutrophils # (1.3-7.7) k/uL POC Glucose (mg/dL) 113 H 141 H 134 H (75-99) mg/dL Total Protein (6.3-8.2) g/dL Albumin (3.5-5.0) g/dL 12/12/18 12/12/18 12/12/18 Range/Units 12:06 13:06 14:00 WBC (3.8-10.6) k/uL RBC (4.30-5.90) m/uL Hgb (13.0-17.5) gm/dL Hct (39.0-53.0) % Plt Count (150-450) k/uL Neutrophils # (1.3-7.7) k/uL POC Glucose (mg/dL) 121 H 192 H 152 H (75-99) mg/dL Total Protein (6.3-8.2) g/dL Albumin (3.5-5.0) g/dL 12/12/18 12/12/18 12/12/18 Range/Units 15:00 15:56 17:01 WBC (3.8-10.6) k/uL RBC (4.30-5.90) m/uL Hgb (13.0-17.5) gm/dL Hct (39.0-53.0) % Plt Count (150-450) k/uL Neutrophils # (1.3-7.7) k/uL POC Glucose (mg/dL) 107 H 112 H 128 H (75-99) mg/dL Total Protein (6.3-8.2) g/dL Albumin (3.5-5.0) g/dL 12/12/18 12/12/18 12/12/18 Range/Units 18:11 20:10 23:58 WBC (3.8-10.6) k/uL RBC (4.30-5.90) m/uL Hgb (13.0-17.5) gm/dL Hct (39.0-53.0) % Plt Count (150-450) k/uL Neutrophils # (1.3-7.7) k/uL POC Glucose (mg/dL) 163 H 121 H 115 H (75-99) mg/dL Total Protein (6.3-8.2) g/dL Albumin (3.5-5.0) g/dL 12/13/18 12/13/18 12/13/18 Range/Units 02:09 04:01 05:40 WBC 11.9 H (3.8-10.6) k/uL RBC 2.75 L (4.30-5.90) m/uL Hgb 8.4 L D (13.0-17.5) gm/dL Hct 25.1 L (39.0-53.0) % Plt Count 99 L (150-450) k/uL Neutrophils # 9.7 H (1.3-7.7) k/uL POC Glucose (mg/dL) 123 H 104 H (75-99) mg/dL Total Protein (6.3-8.2) g/dL Albumin (3.5-5.0) g/dL 12/13/18 12/13/18 12/13/18 Range/Units 05:40 06:02 06:49 WBC 12.2 H (3.8-10.6) k/uL RBC 2.77 L (4.30-5.90) m/uL Hgb 8.4 L (13.0-17.5) gm/dL Hct 25.2 L (39.0-53.0) % Plt Count 92 L (150-450) k/uL Neutrophils # (1.3-7.7) k/uL POC Glucose (mg/dL) 102 H (75-99) mg/dL Total Protein 5.3 L (6.3-8.2) g/dL Albumin 3.2 L (3.5-5.0) g/dL 12/13/18 12/13/18 Range/Units 06:52 07:49 WBC (3.8-10.6) k/uL RBC (4.30-5.90) m/uL Hgb (13.0-17.5) gm/dL Hct (39.0-53.0) % Plt Count (150-450) k/uL Neutrophils # (1.3-7.7) k/uL POC Glucose (mg/dL) 120 H 131 H (75-99) mg/dL Total Protein (6.3-8.2) g/dL Albumin (3.5-5.0) g/dL - Imaging and Cardiology Chest x-ray: report reviewed, image reviewed Assessment and Plan Assessment: 1. Severe triple-vessel coronary artery disease, status post urgent triple vess el coronary artery bypass surgery 2. Non-ST elevated myocardial infarction this admission 3. Hypertension 4. Hyperlipidemia 5. Type 2 diabetes mellitus with preoperative hemoglobin A1c 7.5% 6. Family history of premature coronary artery disease with his mother being diagnosed with a myocardial infarction at age 52 7. Vocal cord disorder 8. Tinnitus 9. Very remote history of tobacco dependence quit at age 18 with preoperative FEV1 94% of predicted 10. Depression. 11. Postoperative acute blood loss anemia, expected Plan: 1. Continue to maximize medical therapy with aspirin, statin, and beta reg. Will increase metoprolol tartrate 50 mg by mouth twice a day. 2. Continue Norvasc 5 mg by mouth daily for radial artery spasm prophylaxis. Do not discontinue Norvasc without discussing with surgeon. 3. Wean O2 as tolerated. Encourage incentive spirometry use 10 times every hour while awake. 4. Increase activity, ambulate as tolerated. PT/OT/cardiac rehab following. 5. Will monitor daily labs and x-rays. Electrolyte replacement per protocol. 6. Pain control with current medication regimen. Continue Toradol. 7. Insulin management per primary care service. 8. GI/DVT prophylaxis. 9. Discontinue right IJ Cordis, right radial arterial line and mediastinal and left pleural chest tubes. 10. We order a 2 view chest x-ray for tomorrow a.m. 11. Transfer to 3 cardiac stepdown unit when a bed available. 12. More recommendations to follow based on patient's clinical course. Time with Patient: Greater than 30
[2018-12-13] MEDS: IPRATROPIUM-ALBUTEROL 3 ML NEB INHALATION SCH ×4 (09:23→19:30)
--- NOTE | 2018-12-13 09:46 | P.PN ---
Subjective Progress Note Date: 12/13/18 cristobal Solo is a 68-year-old gentleman with past medical history significant for diabetes, hyperlipidemia, family history of premature coronary artery disease, presented to [facility] with symptoms of chest discomfort. He was taken to the cardiac catheterization lab by Dr. 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 Hence the patient was transferred here for possible bypass surgery, cardiothoracic surgery consultation was requested. Films were reviewed by cardiothoracic surgery, subsequent to that patient was taken back to the cardiac catheterization lab. By Dr. Dolan yesterday, cardiac catheterization revealed good caliber vessels, and recommendation now is for the patient to undergo coronary artery bypass grafting surgery on Tuesday. Overall the patient is doing well, he is hemodynamically stable. Denies any chest discomfort. Blood pressure 120/60 with a heart rate in the 60s, 93% on room air. White blood cell count 7.4, hemoglobin 14.2, platelet count 204. Sodium 140, potassium 4.4, BUN 19 and creatinine 0.8. On 12/09/2018 Patient was seen and examined on the medical floor, he is alert and oriented in no distress he denies any symptoms. There is no fever or chills no headache or dizziness no chest pain no shortness of breath no cough no nausea or vomiting no abdominal pain no diarrhea and no urinary symptoms. On 12/10/2018 patient is alert and oriented 3 in no apparent distress, he denies any symptoms at this time there is no fever or chills no headache or dizziness no chest pain no shortness of breath no cough no nausea or vomiting no abdominal pain no diarrhea and no urinary symptoms On 12/11/2018 patient is status post coronary artery bypass Surgery triple vessel. Patient currently resting on mechanical ventilation. Patient remains in the intensive care unit. Critical care services are following On 12/12/2018 patient is currently postop day 2 status post coronary artery bypass graft surgery. Patient has been successfully extubated. Patient is currently resting comfortably in chair. Patient is complaining of some surgical discomfort. Chest tubes remain in place. On 12/13/2018 patient remains in the intensive care unit. patient is currently postop day 3. Patient is currently sitting up in chair. Patient is complaining of some discomfort around chest tube site. Patient denies shortness of breath. patient denies nausea, vomiting or diarrhea. Objective - Vital Signs Vital signs: Vital Signs Temp 98.1 F 12/13/18 04:00 Pulse 115 H 12/13/18 09:37 Resp 18 12/13/18 07:00 BP 120/70 12/11/18 06:08 Pulse Ox 94 L 12/13/18 07:00 Intake & Output 12/12/18 12/13/18 12/13/18 18:59 06:59 18:59 Intake Total 2489.557 859.301 296 Output Total 535 662 175 Balance 1954.557 197.301 121 Weight 77.1 kg Intake: IV 1693 509 56 Albumin Human 5% 250 ml 1000 In Empty Bag 1 bag @ 250 mls/hr IVPB Q1HR PRN Rx#: [id number] Lactated Ringers 1,000 ml 600 440 50 @ 20 mls/hr IV .Q24H NII Rx#:[id number] Nitroglycerin-D5w Pmx 50 6 mg In Dextrose/Water 1 250ml.bag @ 5 MCG/MIN 1.5 mls/hr IV .Q24H NII Rx#: [id number] Pressure Bag 87 69 6 Intake, IV Titration 36.557 30.301 Amount Insulin Regular 100 unit 31.807 30.301 In Sodium Chloride 0.9% 100 ml @ Titrate IV .Q0M NII Rx#:[id number] Nitroglycerin-D5w Pmx 50 4.75 mg In Dextrose/Water 1 250ml.bag @ 5 MCG/MIN 1.5 mls/hr IV .Q24H NII Rx#: [id number] Oral 760 320 240 Output: Chest Tube Drainage 145 130 75 Left Pleural Chest Tube 85 40 40 Mediastinal Chest Tube 60 90 35 Urine 390 532 100 Other: Voiding Method Indwelling Catheter Indwelling Catheter ABP, PAP, CO, CI - Last Documented Arterial Blood Pressure 124/47 Pulmonary Artery Pressure 23/9 Cardiac Output 6.5 Cardiac Index 3.5 - Exam Head normocephalic Neck supple Lungs clear to auscultation bilaterally no wheezing or crackles Heart regular rate and rhythm S1-S2, no rub or gallop Abdomen is soft nontender nondistended positive bowel sounds no hepatosplenomegaly Extremities no edema Neuro patient is alert and orientated x3 Chest tubes in place MIldline Dressing clean dry and intact - Labs CBC & Chem 7: 12/13/18 06:49 12/13/18 05:40 Labs: Abnormal Lab Results - Last 24 Hours (Table) 12/12/18 12/12/18 12/12/18 Range/Units 10:07 11:17 12:06 WBC (3.8-10.6) k/uL RBC (4.30-5.90) m/uL Hgb (13.0-17.5) gm/dL Hct (39.0-53.0) % Plt Count (150-450) k/uL Neutrophils # (1.3-7.7) k/uL POC Glucose (mg/dL) 141 H 134 H 121 H (75-99) mg/dL Total Protein (6.3-8.2) g/dL Albumin (3.5-5.0) g/dL 12/12/18 12/12/18 12/12/18 Range/Units 13:06 14:00 15:00 WBC (3.8-10.6) k/uL RBC (4.30-5.90) m/uL Hgb (13.0-17.5) gm/dL Hct (39.0-53.0) % Plt Count (150-450) k/uL Neutrophils # (1.3-7.7) k/uL POC Glucose (mg/dL) 192 H 152 H 107 H (75-99) mg/dL Total Protein (6.3-8.2) g/dL Albumin (3.5-5.0) g/dL 12/12/18 12/12/18 12/12/18 Range/Units 15:56 17:01 18:11 WBC (3.8-10.6) k/uL RBC (4.30-5.90) m/uL Hgb (13.0-17.5) gm/dL Hct (39.0-53.0) % Plt Count (150-450) k/uL Neutrophils # (1.3-7.7) k/uL POC Glucose (mg/dL) 112 H 128 H 163 H (75-99) mg/dL Total Protein (6.3-8.2) g/dL Albumin (3.5-5.0) g/dL 12/12/18 12/12/18 12/13/18 Range/Units 20:10 23:58 02:09 WBC (3.8-10.6) k/uL RBC (4.30-5.90) m/uL Hgb (13.0-17.5) gm/dL Hct (39.0-53.0) % Plt Count (150-450) k/uL Neutrophils # (1.3-7.7) k/uL POC Glucose (mg/dL) 121 H 115 H 123 H (75-99) mg/dL Total Protein (6.3-8.2) g/dL Albumin (3.5-5.0) g/dL 12/13/18 12/13/18 12/13/18 Range/Units 04:01 05:40 05:40 WBC 11.9 H (3.8-10.6) k/uL RBC 2.75 L (4.30-5.90) m/uL Hgb 8.4 L D (13.0-17.5) gm/dL Hct 25.1 L (39.0-53.0) % Plt Count 99 L (150-450) k/uL Neutrophils # 9.7 H (1.3-7.7) k/uL POC Glucose (mg/dL) 104 H (75-99) mg/dL Total Protein 5.3 L (6.3-8.2) g/dL Albumin 3.2 L (3.5-5.0) g/dL 12/13/18 12/13/18 12/13/18 Range/Units 06:02 06:49 06:52 WBC 12.2 H (3.8-10.6) k/uL RBC 2.77 L (4.30-5.90) m/uL Hgb 8.4 L (13.0-17.5) gm/dL Hct 25.2 L (39.0-53.0) % Plt Count 92 L (150-450) k/uL Neutrophils # (1.3-7.7) k/uL POC Glucose (mg/dL) 102 H 120 H (75-99) mg/dL Total Protein (6.3-8.2) g/dL Albumin (3.5-5.0) g/dL 12/13/18 Range/Units 07:49 WBC (3.8-10.6) k/uL RBC (4.30-5.90) m/uL Hgb (13.0-17.5) gm/dL Hct (39.0-53.0) % Plt Count (150-450) k/uL Neutrophils # (1.3-7.7) k/uL POC Glucose (mg/dL) 131 H (75-99) mg/dL Total Protein (6.3-8.2) g/dL Albumin (3.5-5.0) g/dL Assessment and Plan Assessment: 1. Status post coronary artery bypass graft surgery post non-ST segment elevation myocardial infarction. Patient underwent three-vessel bypass surgery Patient is currently postop day 2. Patient has been extubated. 2. Elevated d-dimer at [facility] with right calf pain: venous Doppler was negative for DVT and CTA of the chest was negative for PE. Calf pain now resolved 3. Mild upper respiratory tract infection, probably viral. Patient seen by pulmonary service. No evidence of pneumonia. They recommended to discontinue antibiotics. 4. Diabetes mellitus type 2 resume patient's oral hypoglycemics and add sliding scale coverage 5. Hyperlipidemia continue statin 6. vocal cord disorder 7. Essential hypertension GI prophylaxis Protonix and DVT prophylaxis SC heparin Critical care services are following. Patient remains in the intensive care unit incentive spirometer encouraged I performed an examination of the patient and discussed their management with the Nurse Practitioner. I have reviewed the Nurse Practitioner's notes and agree with the documented findings and plan of care
[2018-12-13] MEDS: GABAPENTIN 300 MG CAP PO SCH (10:59)
[2018-12-13] MEDS: GLIMEPIRIDE 2 MG TAB PO SCH (11:01)
[2018-12-13] MEDS: LINAGLIPTIN 5 MG TABLET PO SCH (11:01)
[2018-12-13] MEDS: METOPROLOL TARTRATE 25 MG TAB PO SCH (11:02)
[2018-12-13] MEDS: ZINC OXIDE 20% OINT 28.4 GM TUBE TOPICAL SCH (11:02)
[2018-12-13] MEDS: PIOGLITAZONE 30 MG TAB PO SCH (11:02)
[2018-12-13] MEDS ORDERED: ACETAMINOPHEN TAB 500 MG TAB PO PRN (11:09)
[2018-12-13 12:47] LABS: Glucose,Whole Blood 198 mg/dL (75-99)
--- NOTE | 2018-12-13 15:36 | P.PN ---
Subjective Progress Note Date: 12/13/18 On 12/13/2018 the patient is postop day #2. Doing well. On room air oxygen. Using incentive spirometer. All of the chest tube removed today. Chest x-ray is not showing any acute abnormalities and its typical of postsurgical changes post thoracotomy and bypass surgery. There is no evidence of any pneumothorax. Some limited bibasilar atelectatic changes are seen. Cardiac rhythm is sinus. Patient is alert and awake. The patient is following commands. Tolerating diet. No nausea. No vomiting. Urine output is improved. No other significant events overnight. Pulse ox is 94% on room air. The mediastinal leak that was seen earlier was related to a tear in the mediastinal chest tube. Objective - Vital Signs Vital signs: Vital Signs Temp 98.2 F 12/13/18 08:00 Pulse 104 H 12/13/18 15:17 Resp 28 H 12/13/18 09:00 BP 101/57 12/13/18 09:00 Pulse Ox 94 L 12/13/18 09:00 Intake & Output 12/12/18 12/13/18 12/13/18 18:59 06:59 18:59 Intake Total 2489.557 859.301 319 Output Total 535 662 715 Balance 1954.557 197.301 -396 Weight 77.1 kg Intake: IV 1693 509 79 Albumin Human 5% 250 ml 1000 In Empty Bag 1 bag @ 250 mls/hr IVPB Q1HR PRN Rx#: [id number] Lactated Ringers 1,000 ml 600 440 70 @ 20 mls/hr IV .Q24H [facility] Rx#:[id number] Nitroglycerin-D5w Pmx 50 6 mg In Dextrose/Water 1 250ml.bag @ 5 MCG/MIN 1.5 mls/hr IV .Q24H [facility] Rx#: [id number] Pressure Bag 87 69 9 Intake, IV Titration 36.557 30.301 Amount Insulin Regular 100 unit 31.807 30.301 In Sodium Chloride 0.9% 100 ml @ Titrate IV .Q0M [facility] Rx#:[id number] Nitroglycerin-D5w Pmx 50 4.75 mg In Dextrose/Water 1 250ml.bag @ 5 MCG/MIN 1.5 mls/hr IV .Q24H [facility] Rx#: [id number] Oral 760 320 240 Output: Chest Tube Drainage 145 130 95 Left Pleural Chest Tube 85 40 50 Mediastinal Chest Tube 60 90 45 Drainage 20 Left Calf 10 Left Wrist 10 Urine 390 532 600 Other: Voiding Method Indwelling Catheter Indwelling Catheter ABP, PAP, CO, CI - Last Documented Arterial Blood Pressure 128/40 Pulmonary Artery Pressure 23/9 Cardiac Output 6.5 Cardiac Index 3.5 - Exam - Constitutional General appearance: Present: cooperative, no acute distress, obese - Respiratory Details: Lung sounds essentially clear throughout, diminished to his bilateral bases. Respirations are symmetrical and nonlabored. Oxygen saturation are 95% on room air. Achieving 500 mL on his incentive spirometry. Mediastinal and left pleural chest tubes in place to low continuous wall suction -20 cm H2O. Draining thin serosanguineous drainage with 150 mL out of his mediastinal chest tubes in the last 24 hours, 170 mL out of his left pleural chest tube in the last 24 hours. Continuous air leak present to his left mediastinal chest tube. - Cardiovascular Details: Regular rhythm and tachycardic rate. S1 and S2 present, negative for S3, gallop or murmur. Sternum is stable. Right IJ Cordis in place to continue CVP monitoring. Arterial line in place and functioning. Atrial and ventricular epicardial pacemaker wires in place and are grounded. Heart hugger is in place and he is demonstrating appropriate use. Knee-high HILTON hose and sequential compression devices in place to his bilateral lower extremities. No edema present. - Gastrointestinal Gastrointestinal Comment(s): Abdomen is soft, nontender and nondistended. Active bowel sounds all 4 abdominal quadrants. No guarding or rigidity. No organomegaly. Tolerating oral intake. - Genitourinary Genitourinary Comment(s): Voiding clear yellow urine. - Integumentary Integumentary Comment(s): Skin is warm and dry. No clubbing or cyanosis is present. Midline sternal incision is clean, dry and approximated. No drainage or redness is present. Gauze dressing is clean, dry and intact. Left radial harvest sites are clean, dry and approximated. No drainage or redness is present. Left lower extremity EVH sites clean, dry and approximated. No drainage or redness is present. Ecchymosis present to his bilateral groins, soft and nontender. - Neurologic Neurologic: Present: CNII-XII intact - Musculoskeletal Musculoskeletal: Present: gait normal, generalized weakness, strength equal bilaterally - Psychiatric Psychiatric: Present: A&O x's 3, appropriate affect, intact judgment & insight - Labs CBC & Chem 7: 12/13/18 06:49 12/13/18 05:40 Labs: Abnormal Lab Results - Last 24 Hours (Table) 12/12/18 12/12/18 12/12/18 Range/Units 15:56 17:01 18:11 WBC (3.8-10.6) k/uL RBC (4.30-5.90) m/uL Hgb (13.0-17.5) gm/dL Hct (39.0-53.0) % Plt Count (150-450) k/uL Neutrophils # (1.3-7.7) k/uL POC Glucose (mg/dL) 112 H 128 H 163 H (75-99) mg/dL Total Protein (6.3-8.2) g/dL Albumin (3.5-5.0) g/dL 12/12/18 12/12/18 12/13/18 Range/Units 20:10 23:58 02:09 WBC (3.8-10.6) k/uL RBC (4.30-5.90) m/uL Hgb (13.0-17.5) gm/dL Hct (39.0-53.0) % Plt Count (150-450) k/uL Neutrophils # (1.3-7.7) k/uL POC Glucose (mg/dL) 121 H 115 H 123 H (75-99) mg/dL Total Protein (6.3-8.2) g/dL Albumin (3.5-5.0) g/dL 12/13/18 12/13/18 12/13/18 Range/Units 04:01 05:40 05:40 WBC 11.9 H (3.8-10.6) k/uL RBC 2.75 L (4.30-5.90) m/uL Hgb 8.4 L D (13.0-17.5) gm/dL Hct 25.1 L (39.0-53.0) % Plt Count 99 L (150-450) k/uL Neutrophils # 9.7 H (1.3-7.7) k/uL POC Glucose (mg/dL) 104 H (75-99) mg/dL Total Protein 5.3 L (6.3-8.2) g/dL Albumin 3.2 L (3.5-5.0) g/dL 12/13/18 12/13/18 12/13/18 Range/Units 06:02 06:49 06:52 WBC 12.2 H (3.8-10.6) k/uL RBC 2.77 L (4.30-5.90) m/uL Hgb 8.4 L (13.0-17.5) gm/dL Hct 25.2 L (39.0-53.0) % Plt Count 92 L (150-450) k/uL Neutrophils # (1.3-7.7) k/uL POC Glucose (mg/dL) 102 H 120 H (75-99) mg/dL Total Protein (6.3-8.2) g/dL Albumin (3.5-5.0) g/dL 12/13/18 12/13/18 Range/Units 07:49 11:36 WBC (3.8-10.6) k/uL RBC (4.30-5.90) m/uL Hgb (13.0-17.5) gm/dL Hct (39.0-53.0) % Plt Count (150-450) k/uL Neutrophils # (1.3-7.7) k/uL POC Glucose (mg/dL) 131 H 198 H (75-99) mg/dL Total Protein (6.3-8.2) g/dL Albumin (3.5-5.0) g/dL Assessment and Plan Plan: 1 multivessel coronary artery disease status post non-ST segment elevation myocardial infarctions. The patient underwent three-vessel bypass surgery. Currently postop day #2. The patient is post non-ST segment elevation myocardial infarction. 2 post thoracotomy and the patient is currently off the mechanical ventilator. The patient is improved and the patient is currently on room air oxygen. His chest tube will be removed. Pleural chest tube will be removed. 3 hypertension 4 hyperlipidemia 5 diabetes mellitus 6. Question history of vocal cord paralysis/disorder 7 depression 8 postoperative acute blood loss anemia, expected outcome of surgery Plan Remove the chest tubes. Used incentive spirometer. Deep breathing. Ambulate in the hallway. Transfer this patient to a medical floor with telemetry. Continue metoprolol 50 mg twice a day. Continue Norvasc 5 mg by mouth daily. Advance diet as tolerated. Adequate pain control with Toradol. We'll follow. He is being transferred to a cardiac stepdown unit for now.
[2018-12-13 16:33] LABS: Glucose,Whole Blood 233 mg/dL (75-99)
[2018-12-13 21:00] LABS: Glucose,Whole Blood 170 mg/dL (75-99)
[2018-12-13] MEDS: SENNOSIDES-DOCUSATE SODIUM 1 EACH TAB PO SCH (22:15)
[2018-12-14] MEDS: KETOROLAC 30 MG/ML 1 ML VIAL IVP SCH ×5 (01:08→23:01)
[2018-12-14] MEDS: HEPARIN SODIUM,PORCINE 5,000 UNIT/ML 1 ML VIAL SQ SCH ×4 (01:09→23:00)
[2018-12-14 02:18] LABS: Glucose,Whole Blood 128 mg/dL (75-99)
[2018-12-14] MEDS: INSULIN ASPART (NovoLOG) 100 UNIT/ML VIAL SQ SCH ×5 (03:38→21:08)
[2018-12-14] MEDS: PANTOPRAZOLE 40 MG TABLET PO SCH (05:39)
[2018-12-14 05:58] LABS: Glucose,Whole Blood 159 mg/dL (75-99)
[2018-12-14 06:02] LABS: HCT 24.6 % (39.0-53.0); MCH 29.3 pg (25.0-35.0); MCHC 32.4 g/dL (31.0-37.0); MCV 90.4 fL (80.0-100.0); Mean Platelet Volume 8.8; Platelet Count 120 k/uL (150-450); RBC 2.72 m/uL (4.30-5.90); RDW 14.2 % (11.5-15.5); WBC 10.2 k/uL (3.8-10.6)
[2018-12-14 06:09] LABS: African American GFR (CKD) >90 (>60 ml/min/1.73 sqM); Anion Gap 7 mmol/L; Blood Urea Nitrogen 19 mg/dL (9-20); Calcium 8.4 mg/dL (8.4-10.2); Carbon Dioxide 27 mmol/L (22-30); Chloride 102 mmol/L (98-107); Glucose 146 mg/dL (74-99); Potassium 4.1 mmol/L (3.5-5.1); Sodium 136 mmol/L (137-145)
--- NOTE | 2018-12-14 07:49 | XR ---
EXAMINATION TYPE: XR chest 2V DATE OF EXAM: 12/14/2018 COMPARISON: 12/14/2019 TECHNIQUE: PA and lateral views submitted. HISTORY: Post-CABG FINDINGS: Chest tube is been removed. No sizable pneumothorax. Bilateral consolidation and tiny effusion noted. Postsurgical changes and mild cardiomegaly. Arthropathy of the shoulders. Degenerative change of the spine. IMPRESSION: 1. Postoperative change with bilateral atelectasis or infiltrate and small effusion stable. No sizabl e pneumothorax post chest tube removal.
[2018-12-14] MEDS ORDERED: MAGNESIUM HYDROXIDE 2,400 MG/10 ML CUP PO ONE (07:53)
[2018-12-14] MEDS: ATORVASTATIN 40 MG TAB PO SCH (08:24)
[2018-12-14] MEDS: CLOPIDOGREL 75 MG TAB PO SCH (08:24)
[2018-12-14] MEDS: METOPROLOL TARTRATE 50 MG TAB PO SCH ×2 (08:24→20:32)
[2018-12-14] MEDS: amLODIPine 5 MG TAB PO SCH (08:24)
[2018-12-14] MEDS: ASPIRIN 325 MG TAB PO SCH (08:24)
[2018-12-14] MEDS: MUPIROCIN 2% OINT 22 GM TUBE NASAL SCH ×2 (08:26→20:32)
[2018-12-14] MEDS: ESCITALOPRAM 5 MG TAB PO SCH (08:26)
[2018-12-14 08:44] VITALS: RESP 18
--- NOTE | 2018-12-14 08:47 | P.PN ---
Subjective Progress Note Date: 12/14/18 Principal diagnosis: Non-ST elevation myocardial infarction this admission with triple-vessel diffuse coronary artery disease, preserved left ventricular function. Previous medical history of hypertension, hyperlipidemia, type 2 diabetes mellitus with preoperative hemoglobin A1c 7.5%, family history of premature coronary artery disease with his mother being diagnosed with a myocardial infarction at age 52, vocal cord disorder, tinnitus, very remote history of tobacco dependence quit at age 18 with preoperative FEV1 94% of predicted, and depression. POD #3 urgent triple coronary artery bypass grafting using the left internal mammary artery to the left anterior descending artery, the left radial artery from the aorta to the ramus intermedius artery, reverse saphenous vein graft from the aorta to the distal posterior descending artery. Endoscopic harvesting of the left radial artery. Endoscopic harvesting of the left greater saphenous vein from the groin to above the ankle level. Intraoperative transesophageal echocardiogram and epi-aortic scanning. Intraoperative graft flow measurements using the [employer] system. Postoperative acute blood loss anemia, expected outcome of surgery given hemodilution and cardiopulmonary bypass pump. Patient currently sitting up in bed in no acute distress. He was transferred out of ICU to the cardiac step-down unit yesterday. Does complain of surgical pain with deep inspiration, mostly controlled with ordered pain medication. Denies shortness of breath. Remains in sinus rhythm. Hemodynamically stable. Mediastinal, left pleural chest tubes, cordis, arterial line, sierra catheter, DONNIE drains discontinued yesterday. Patient actively using incentive spirometry. Has been actively walking in the hallway. Patient complains that the food is inedible, that he doesn't want to wear a hospital gown, and that he doesn't want to where his SCDs or heart hugger. Objective - Vital Signs Vital signs: Vital Signs Temp 98.2 F 12/14/18 03:49 Pulse 100 12/14/18 03:49 Resp 16 12/14/18 03:49 BP 115/55 12/14/18 03:49 Pulse Ox 97 12/14/18 03:49 Intake & Output 12/13/18 12/14/18 12/14/18 18:59 06:59 18:59 Intake Total 319 Output Total 1215 Balance -896 Weight 79.4 kg Intake: IV 79 Lactated Ringers 1,000 ml 70 @ 20 mls/hr IV .Q24H [facility] Rx#:[id number] Pressure Bag 9 Oral 240 Output: Chest Tube Drainage 95 Left Pleural Chest Tube 50 Mediastinal Chest Tube 45 Drainage 20 Left Calf 10 Left Wrist 10 Urine 1100 Other: Voiding Method Toilet Toilet ABP, PAP, CO, CI - Last Documented Arterial Blood Pressure 128/40 Pulmonary Artery Pressure 23/9 Cardiac Output 6.5 Cardiac Index 3.5 - Constitutional General appearance: Present: no acute distress - Respiratory Details: Lungs sounds diminished bilaterally. Respirations even, nonlabored. Currently on room air with oxygen saturation 97%. Able to achieve 750 mL on his incentive spirometry. Strong, productive cough. - Cardiovascular Details: S1, S2 present. Regular rhythm, sinus rhythm on telemetry. Sternum stable. A/V epicardial pacemaker wires present, grounded. Palpable peripheral pulses bilaterally. Trace left lower extremity edema present. No calf pain or tenderness noted. Heart hugger placed back on patient with demonstration of appropriate use. Antiembolism stockings present, patient instructed to replace SCDs once done walking in the hallway. - Gastrointestinal Gastrointestinal Comment(s): Abdomen soft, nontender, nondistended. Active bowel sounds present 4 quadrants. Tolerating diet, although doesn't like the food. Positive flatus, negative bowel movement. - Genitourinary Genitourinary Comment(s): Continues to void clear yellow urine per patient. - Integumentary Integumentary Comment(s): Skin is warm and dry with evidence of good perfusion. Anterior chest incision well approximated and covered with dry intact dressing. Left lower extremity EVH site well approximated. Left radial artery harvest site well approximated. Able to move all fingers on his left hand, strong thermospray operator, good cap refill. - Neurologic Neurologic: Present: CNII-XII intact - Musculoskeletal Musculoskeletal: Present: gait normal, strength equal bilaterally - Psychiatric Psychiatric: Present: A&O x's 3, appropriate affect, intact judgment & insight - Allied health notes Allied health notes reviewed: nursing - Labs CBC & Chem 7: 12/14/18 05:42 12/14/18 05:42 Labs: Abnormal Lab Results - Last 24 Hours (Table) 12/13/18 12/13/18 12/13/18 Range/Units 11:36 16:32 20:59 RBC (4.30-5.90) m/uL Hgb (13.0-17.5) gm/dL Hct (39.0-53.0) % Plt Count (150-450) k/uL Sodium (137-145) mmol/L Glucose (74-99) mg/dL POC Glucose (mg/dL) 198 H 233 H 170 H (75-99) mg/dL 12/14/18 12/14/18 12/14/18 Range/Units 02:17 05:42 05:42 RBC 2.72 L (4.30-5.90) m/uL Hgb 8.0 L (13.0-17.5) gm/dL Hct 24.6 L (39.0-53.0) % Plt Count 120 L (150-450) k/uL Sodium 136 L (137-145) mmol/L Glucose 146 H (74-99) mg/dL POC Glucose (mg/dL) 128 H (75-99) mg/dL 12/14/18 Range/Units 05:58 RBC (4.30-5.90) m/uL Hgb (13.0-17.5) gm/dL Hct (39.0-53.0) % Plt Count (150-450) k/uL Sodium (137-145) mmol/L Glucose (74-99) mg/dL POC Glucose (mg/dL) 159 H (75-99) mg/dL - Imaging and Cardiology Chest x-ray: report reviewed, image reviewed Assessment and Plan Assessment: 1. Severe triple-vessel coronary artery disease, status post urgent triple vessel coronary artery bypass surgery 2. Non-ST elevated myocardial infarction this admission 3. Hypertension 4. Hyperlipidemia 5. Type 2 diabetes mellitus with preoperative hemoglobin A1c 7.5% 6. Family history of premature coronary artery disease with his mother being diagnosed with a myocardial infarction at age 52 7. Vocal cord disorder 8. Tinnitus 9. Very remote history of tobacco dependence quit at age 18 with preoperative FEV1 94% of predicted 10. Depression. 11. Postoperative acute blood loss anemia, expected Plan: 1. Continue to maximize medical therapy with aspirin, statin, and beta reg. Will increase beta reg therapy as tolerated. 2. Continue Norvasc for radial artery prophylaxis. Do not discontinue Norvasc without discussing with surgeon. 3. Encourage incentive spirometry use 10 times every hour while awake. 4. Increase activity, ambulate as tolerated. PT/OT/cardiac rehab following. 5. Will monitor daily labs and x-rays. Electrolyte replacement per protocol. No transfusion. 6. Pain control with current medication regimen. 7. Insulin management per primary care service. 8. GI/DVT prophylaxis. 9. Will add nutrition supplement. Family may bring food from home. 10. Discharge planning in progress. Anticipate discharge to home with home care in the next 24-48 hours. 11. More recommendations to follow based on patient's clinical course. Time with Patient: Greater than 30
[2018-12-14] MEDS: IPRATROPIUM-ALBUTEROL 3 ML NEB INHALATION SCH ×4 (09:12→19:48)
--- NOTE | 2018-12-14 09:38 | P.PN ---
Subjective Progress Note Date: 12/14/18 cristobal Solo is a 68-year-old gentleman with past medical history significant for diabetes, hyperlipidemia, family history of premature coronary artery disease, presented to [facility] with symptoms of chest discomfort. He was taken to the cardiac catheterization lab by Dr. 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 Hence the patient was transferred here for possible bypass surgery, cardiothoracic surgery consultation was requested. Films were reviewed by cardiothoracic surgery, subsequent to that patient was taken back to the cardiac catheterization lab. By Dr. Dolan yesterday, cardiac catheterization revealed good caliber vessels, and recommendation now is for the patient to undergo coronary artery bypass grafting surgery on Tuesday. Overall the patient is doing well, he is hemodynamically stable. Denies any chest discomfort. Blood pressure 120/60 with a heart rate in the 60s, 93% on room air. White blood cell count 7.4, hemoglobin 14.2, platelet count 204. Sodium 140, potassium 4.4, BUN 19 and creatinine 0.8. On 12/09/2018 Patient was seen and examined on the medical floor, he is alert and oriented in no distress he denies any symptoms. There is no fever or chills no headache or dizziness no chest pain no shortness of breath no cough no nausea or vomiting no abdominal pain no diarrhea and no urinary symptoms. On 12/10/2018 patient is alert and oriented 3 in no apparent distress, he denies any symptoms at this time there is no fever or chills no headache or dizziness no chest pain no shortness of breath no cough no nausea or vomiting no abdominal pain no diarrhea and no urinary symptoms On 12/11/2018 patient is status post coronary artery bypass Surgery triple vessel. Patient currently resting on mechanical ventilation. Patient remains in the intensive care unit. Critical care services are following On 12/12/2018 patient is currently postop day 2 status post coronary artery bypass graft surgery. Patient has been successfully extubated. Patient is currently resting comfortably in chair. Patient is complaining of some surgical discomfort. Chest tubes remain in place. On 12/13/2018 patient remains in the intensive care unit. patient is currently postop day 3. Patient is currently sitting up in chair. Patient is complaining of some discomfort around chest tube site. Patient denies shortness of breath. patient denies nausea, vomiting or diarrhea. On 12/14/2018 patient has been out of the intensive care unit to cardiac stepdown. Patient is currently postop day 4. Chest tubes have been removed. Patient has been up ambulating. Patient denies any chest pain or shortness of breath. Patient denies nausea vomiting or diarrhea. Patient denies urinary burning or frequency Objective - Vital Signs Vital signs: Vital Signs Temp 98.8 F 12/14/18 08:43 Pulse 100 12/14/18 09:23 Resp 18 12/14/18 08:44 BP 114/63 12/14/18 08:43 Pulse Ox 94 L 12/14/18 08:43 Intake & Output 12/13/18 12/14/18 12/14/18 18:59 06:59 18:59 Intake Total 319 Output Total 1215 325 Balance -896 -325 Weight 79.4 kg Intake: IV 79 Lactated Ringers 1,000 ml 70 @ 20 mls/hr IV .Q24H [facility] Rx#:[id number] Pressure Bag 9 Oral 240 Output: Chest Tube Drainage 95 Left Pleural Chest Tube 50 Mediastinal Chest Tube 45 Drainage 20 Left Calf 10 Left Wrist 10 Urine 1100 325 Other: Voiding Method Toilet Toilet Toilet # Voids 1 ABP, PAP, CO, CI - Last Documented Arterial Blood Pressure 128/40 Pulmonary Artery Pressure 23/9 Cardiac Output 6.5 Cardiac Index 3.5 - Exam Head normocephalic Neck supple Lungs clear to auscultation bilaterally no wheezing or crackles Heart regular rate and rhythm S1-S2, no rub or gallop Abdomen is soft nontender nondistended positive bowel sounds no hepatosplenomegaly Extremities no edema Neuro patient is alert and orientated x3 MIldline Dressing clean dry and intact - Labs CBC & Chem 7: 12/14/18 05:42 12/14/18 05:42 Labs: Abnormal Lab Results - Last 24 Hours (Table) 12/13/18 12/13/18 12/13/18 Range/Units 11:36 16:32 20:59 RBC (4.30-5.90) m/uL Hgb (13.0-17.5) gm/dL Hct (39.0-53.0) % Plt Count (150-450) k/uL Sodium (137-145) mmol/L Glucose (74-99) mg/dL POC Glucose (mg/dL) 198 H 233 H 170 H (75-99) mg/dL 12/14/18 12/14/18 12/14/18 Range/Units 02:17 05:42 05:42 RBC 2.72 L (4.30-5.90) m/uL Hgb 8.0 L (13.0-17.5) gm/dL Hct 24.6 L (39.0-53.0) % Plt Count 120 L (150-450) k/uL Sodium 136 L (137-145) mmol/L Glucose 146 H (74-99) mg/dL POC Glucose (mg/dL) 128 H (75-99) mg/dL 12/14/18 Range/Units 05:58 RBC (4.30-5.90) m/uL Hgb (13.0-17.5) gm/dL Hct (39.0-53.0) % Plt Count (150-450) k/uL Sodium (137-145) mmol/L Glucose (74-99) mg/dL POC Glucose (mg/dL) 159 H (75-99) mg/dL Assessment and Plan Assessment: 1. Status post coronary artery bypass graft surgery post non-ST segment elevation myocardial infarction. Patient underwent three-vessel bypass surgery Patient is currently postop day 4. Chest tubes have been removed 2. Elevated d-dimer at [facility] with right calf pain: venous Doppler was negative for DVT and CTA of the chest was negative for PE. Calf pain now resolved 3. Mild upper respiratory tract infection, probably viral. Patient seen by pulmonary service. No evidence of pneumonia. They recommended to discontinue antibiotics. 4. Diabetes mellitus type 2 maintained on sliding scale coverage 5. Hyperlipidemia continue statin 6. vocal cord disorder 7. Essential hypertension 8. Postoperative acute blood loss anemia expected. Hemoglobin 8.0 will continue to monitor GI prophylaxis Protonix and DVT prophylaxis SC heparin Patient has been moved out of the intensive care unit Incentive spirometer encourage Heart hugger in place Possible discharge home with home healthcare in 24-48 hours I performed an examination of the patient and discussed their management with the Nurse Practitioner. I have reviewed the Nurse Practitioner's notes and agree with the documented findings and plan of care
--- NOTE | 2018-12-14 11:34 | PN ---
PROGRESS NOTE Mr. Solo is a 68-year-old male with known history of coronary artery disease status post coronary artery bypass grafting. He is doing well this morning. His breathing is stable. He has been ambulating. He is denying any chest pain. No dizziness. No palpitation. He denies any nausea. He continues to be on aspirin once a day, Plavix 75 mg daily, Lipitor 40 mg daily, metoprolol tartrate 50 mg twice a day. PHYSICAL EXAMINATION: Blood pressure 114/60 with a heart rate in the 90s. Lungs with few crackles at the bases. HEART: Regular rate and rhythm S1, S2. No S3. No rub. ABDOMEN: Soft, nontender. EXTREMITIES: Trace edema on the left side. LAB DATA: Lab data revealed BUN and creatinine of 19 and 0.7, hemoglobin of 8. IMPRESSION: 1. Status post coronary artery bypass grafting, stable. 2. Hypertension. 3. Hyperlipidemia. RECOMMENDATION: From the cardiac standpoint, he is stable. Continue to increase his level of activity. If he remains stable, I am hopeful he will be able to be discharged home in the next 24 to 48 hours. MMODL / IJN: [id number] /
[2018-12-14 12:10] LABS: Glucose,Whole Blood 157 mg/dL (75-99)
[2018-12-14 17:08] LABS: Glucose,Whole Blood 144 mg/dL (75-99)
[2018-12-14] MEDS: SENNOSIDES-DOCUSATE SODIUM 1 EACH TAB PO SCH (20:28)
[2018-12-14 21:08] LABS: Glucose,Whole Blood 228 mg/dL (75-99)
[2018-12-15 02:16] LABS: Glucose,Whole Blood 188 mg/dL (75-99)
[2018-12-15] MEDS: INSULIN ASPART (NovoLOG) 100 UNIT/ML VIAL SQ SCH ×2 (02:20→06:43)
[2018-12-15 04:23] VITALS: TEMP 97.4
[2018-12-15 06:09] LABS: Glucose,Whole Blood 132 mg/dL (75-99)
[2018-12-15] MEDS: PANTOPRAZOLE 40 MG TABLET PO SCH (06:43)
[2018-12-15] MEDS: KETOROLAC 30 MG/ML 1 ML VIAL IVP SCH (06:43)
[2018-12-15 07:06] LABS: HCT 27.2 % (39.0-53.0); MCHC 33.1 g/dL (31.0-37.0); MCV 90.6 fL (80.0-100.0); Mean Platelet Volume 9.1; Platelet Count 161 k/uL (150-450); RBC 3.01 m/uL (4.30-5.90); RDW 14.7 % (11.5-15.5); WBC 8.8 k/uL (3.8-10.6)
[2018-12-15 07:17] LABS: African American GFR (CKD) >90 (>60 ml/min/1.73 sqM); Anion Gap 11 mmol/L; Blood Urea Nitrogen 22 mg/dL (9-20); Calcium 8.9 mg/dL (8.4-10.2); Carbon Dioxide 26 mmol/L (22-30); Chloride 101 mmol/L (98-107); Glucose 145 mg/dL (74-99); Potassium 3.8 mmol/L (3.5-5.1); Sodium 138 mmol/L (137-145)
--- NOTE | 2018-12-15 07:58 | P.PN ---
Subjective Progress Note Date: 12/15/18 Principal diagnosis: Non-ST elevation myocardial infarction this admission with triple-vessel diffuse coronary artery disease, preserved left ventricular function. Previous medical history of hypertension, hyperlipidemia, type 2 diabetes mellitus with preoperative hemoglobin A1c 7.5%, family history of premature coronary artery disease with his mother being diagnosed with a myocardial infarction at age 52, vocal cord disorder, tinnitus, very remote history of tobacco dependence quit at age 18 with preoperative FEV1 94% of predicted, and depression. POD #4 urgent triple coronary artery bypass grafting using the left internal mammary artery to the left anterior descending artery, the left radial artery from the aorta to the ramus intermedius artery, reverse saphenous vein graft from the aorta to the distal posterior descending artery. Endoscopic harvesting of the left radial artery. Endoscopic harvesting of the left greater saphenous vein from the groin to above the ankle level. Intraoperative transesophageal echocardiogram and epi-aortic scanning. Intraoperative graft flow measurements using the [employer] system. Postoperative acute blood loss anemia, expected outcome of surgery given hemodilution and cardiopulmonary bypass pump. Patient currently sitting up in a recliner in no acute distress eating breakfast. Denies pain, shortness of breath. Remains in sinus rhythm. Hemodynamically stable. Patient actively using incentive spirometry. Has been a ctively walking in the hallway. No new concerns. Objective - Vital Signs Vital signs: Vital Signs Temp 97.4 F L 12/15/18 04:00 Pulse 80 12/15/18 04:00 Resp 18 12/15/18 04:00 BP 110/64 12/15/18 04:00 Pulse Ox 95 12/15/18 04:00 Intake & Output 12/14/18 12/15/18 12/15/18 18:59 06:59 18:59 Intake Total 65 Output Total 1050 400 Balance -985 -400 Weight 78.4 kg Intake: Oral 65 Output: Urine 1050 400 Other: Voiding Method Toilet Toilet # Voids 1 1 # Bowel Movements 0 ABP, PAP, CO, CI - Last Documented Arterial Blood Pressure 128/40 Pulmonary Artery Pressure 23/9 Cardiac Output 6.5 Cardiac Index 3.5 - Constitutional General appearance: Present: cooperative, no acute distress - Respiratory Details: Lungs sounds diminished bilaterally. Respirations even, nonlabored. Currently on room air with oxygen saturation 95%. Able to achieve 1000 mL on his incentive spirometry. Strong, productive cough. - Cardiovascular Details: S1, S2 present. Regular rhythm, sinus rhythm on telemetry. Sternum stable. A/V epicardial pacemaker wires present, grounded. Palpable peripheral pulses bilaterally. No edema present. No calf pain or tenderness noted. Heart hugger present with patient demonstrating appropriate use. Antiembolism stockings, SCDs present. - Gastrointestinal Gastrointestinal Comment(s): Abdomen soft, nontender, nondistended. Active bowel sounds present 4 quadrants. Tolerating diet. Positive bowel movement this morning per patient. - Genitourinary Genitourinary Comment(s): Continues to void clear yellow urine per patient. - Integumentary Integumentary Comment(s): Skin is warm and dry with evidence of good perfusion. Anterior chest incision well approximated and covered with dry intact dressing. Left lower extremity EVH site well approximated. Left radial artery harvest site well approximated. Able to move all fingers on his left hand, strong machine filler, good cap refill. - Neurologic Neurologic: Present: CNII-XII intact - Musculoskeletal Musculoskeletal: Present: gait normal, strength equal bilaterally - Psychiatric Psychiatric: Present: A&O x's 3, appropriate affect, intact judgment & insight - Allied health notes Allied health notes reviewed: nursing - Labs CBC & Chem 7: 12/15/18 06:18 12/15/18 06:18 Labs: Abnormal Lab Results - Last 24 Hours (Table) 12/14/18 12/14/18 12/14/18 Range/Units 12:09 17:06 21:06 RBC (4.30-5.90) m/uL Hgb (13.0-17.5) gm/dL Hct (39.0-53.0) % BUN (9-20) mg/dL Glucose (74-99) mg/dL POC Glucose (mg/dL) 157 H 144 H 228 H (75-99) mg/dL 12/15/18 12/15/18 12/15/18 Range/Units 02:15 06:08 06:18 RBC 3.01 L (4.30-5.90) m/uL Hgb 9.0 L (13.0-17.5) gm/dL Hct 27.2 L (39.0-53.0) % BUN (9-20) mg/dL Glucose (74-99) mg/dL POC Glucose (mg/dL) 188 H 132 H (75-99) mg/dL 12/15/18 Range/Units 06:18 RBC (4.30-5.90) m/uL Hgb (13.0-17.5) gm/dL Hct (39.0-53.0) % BUN 22 H (9-20) mg/dL Glucose 145 H (74-99) mg/dL POC Glucose (mg/dL) (75-99) mg/dL - Imaging and Cardiology Chest x-ray: report reviewed, image reviewed Assessment and Plan Assessment: 1. Severe triple-vessel coronary artery disease, status post urgent triple vessel coronary artery bypass surgery 2. Non-ST elevated myocardial infarction this admission 3. Hypertension 4. Hyperlipidemia 5. Type 2 diabetes mellitus with preoperative hemoglobin A1c 7.5% 6. Family history of premature coronary artery disease with his mother being diagnosed with a myocardial infarction at age 52 7. Vocal cord disorder 8. Tinnitus 9. Very remote history of tobacco dependence quit at age 18 with preoperative FEV1 94% of predicted 10. Depression. 11. Postoperative acute blood loss anemia, expected Plan: 1. Continue to maximize medical therapy with aspirin, statin, and beta reg. Will increase beta reg therapy as tolerated. 2. Continue Norvasc for radial artery prophylaxis. Do not discontinue Norvasc without discussing with surgeon. 3. Encourage incentive spirometry use 10 times every hour while awake. 4. Increase activity, ambulate as tolerated. PT/OT/cardiac rehab following. 5. Will monitor daily labs and x-rays. Electrolyte replacement per protocol. No transfusion. 6. Pain control with current medication regimen. 7. Insulin management per primary care service. 8. GI/DVT prophylaxis. 9. Family may bring food from home. 10. Will discontinue epicardial pacemaker wires. Patient to be on bedrest for 1 hour post-wire removal. 11. Discharge planning in progress. Anticipate discharge to home with home care later today. 12. More recommendations to follow based on patient's clinical course. Time with Patient: Greater than 30
--- NOTE | 2018-12-15 08:09 | XR ---
EXAMINATION TYPE: XR chest 2V DATE OF EXAM: 12/15/2018 COMPARISON: 12/14/2018 HISTORY: Shortness of breath TECHNIQUE: Frontal and lateral views of the chest are obtained. FINDINGS: Scattered senescent parenchymal changes noted. Hyperinflation compatible with COPD. Basilar atelectasis persists. No evidence for pneumothorax. Median sternotomy change. Heart size is stable. Mediastinal structures are stable and grossly unremarkable. No evidence for hilar prominence. Degenerative changes dorsal spine. IMPRESSION: 1. Stable chest.
[2018-12-15] MEDS: IPRATROPIUM-ALBUTEROL 3 ML NEB INHALATION SCH ×2 (08:23→11:35)
[2018-12-15 08:51] VITALS: BP 108/62; PULSE 87
[2018-12-15] MEDS: CLOPIDOGREL 75 MG TAB PO SCH (08:52)
[2018-12-15] MEDS: METOPROLOL TARTRATE 50 MG TAB PO SCH (08:52)
[2018-12-15] MEDS: ASPIRIN 325 MG TAB PO SCH (08:52)
[2018-12-15] MEDS: ESCITALOPRAM 5 MG TAB PO SCH (08:52)
[2018-12-15] MEDS: amLODIPine 5 MG TAB PO SCH (08:52)
[2018-12-15] MEDS: ATORVASTATIN 40 MG TAB PO SCH (08:52)
[2018-12-15] MEDS: HEPARIN SODIUM,PORCINE 5,000 UNIT/ML 1 ML VIAL SQ SCH (08:53)
--- NOTE | 2018-12-15 09:22 | P.DS ---
Providers Date of admission: 12/04/18 21:27 Expected date of discharge: 12/15/18 Attending physician: Sue Monroe Consults: 12/04/18 22:12 Consult Physician Urgent Consulting Provider: Sue Monroe Consult Reason/Comments: triple vessel disease Do you want consulting provider notified?: Yes, Notify in am Consult Physician Urgent Consulting Provider: David Dolan Consult Reason/Comments: cath patient at [facility] Do you want consulting provider notified?: Yes, Notify in am 12/05/18 11:22 Consult Physician Routine Consulting Provider: Florian Farmer Consult Reason/Comments: pulmonary clearance Do you want consulting provider notified?: Yes 12/07/18 08:00 Consult to Anesthesia Routine Consulting Provider: Anesthesia,Services Consult Reason/Comments: Cardiac Surgery Pre-Op 12/11/18 15:41 Consult Physician Routine Consulting Provider: Yumi Marlow Consult Reason/Comments: med mgmt Do you want consulting provider notified?: Already Contacted 12/11/18 18:41 Consult Physician Routine Consulting Provider: Henry Cavazos Consult Reason/Comments: ICU management Do you want consulting provider notified?: Yes, Notify in am Primary care physician: Sue Monroe Hospital Course: FINAL DIAGNOSIS: 1. Non-ST elevation myocardial infarction this admission 2. Triple vessel diffuse coronary artery disease 3. Preserved left ventricular function 4. Hypertension 5. Hyperlipidemia 6. Type 2 diabetes mellitus with preoperative hemoglobin A1c 7.5% 7. Family history of premature coronary artery disease 8. Vocal cord disorder 9. Tendinitis 10. Remote history of tobacco dependence with preoperative FEV1 94% of predicted 11. Depression 12. Postoperative acute blood loss anemia, expected PRINCIPAL PROCEDURE: 1. Urgent triple coronary artery bypass grafting using the left internal mammary artery to the left anterior descending artery, left radial artery from the aorta to the ramus intermedius artery, reverse saphenous vein graft from the aorta to the distal posterior descending artery 2. Endoscopic harvesting of the left radial artery 3. Endoscopic harvesting of the left greater saphenous vein from the groin to above the ankle level 4. Intraoperative transesophageal echocardiogram 5. Epi-aortic scanning 6. Intraoperative graft flow measurements using the [employer] system HISTORY OF PRESENT ILLNESS: This is a 68-year-old gentleman who follows with Dr. Dowling on an outpatient basis. He presented to [facility] with complaints of chest pressure at rest which he initially thought was indigestion. In the emergency room he had a 12-lead EKG EKG reporting normal sinus rhythm without ischemic changes. Lab work was completed with initial troponin negative, however second troponin was elevated to 0.438 ruling the patient in for non-STEMI. He was recommended to undergo heart catheterization which was completed at [facility] and which demonstrated severe diffuse triple-vessel coronary artery disease with LAD lesion felt to be intermediate to severe. Dr. Dolan reviewed the heart catheterization results with the patient and his with recommendations for transfer to [facility] for cardiothoracic surgery consultation. They were agreeable, the patient was transferred, and consultation was placed for Dr. Monroe from cardiothoracic surgery. Initially we recommended repeat heart catheterization to evaluate fractional flow reserve which measured at 0.78. It was felt that he would benefit from coronary artery bypass graft surgery. The usual perioperative c ourse was discussed in detail with the patient and his family, all risks and benefits were explained, all questions were answered, and consent was obtained to proceed with surgery. The patient was kept inpatient due to the nature of his disease process. HOSPITAL COURSE: The patient was taken to the preoperative area on 12/11/2018, prepared in the usual fashion, and subsequently taken to the operating room where Dr. Monroe performed urgent triple coronary artery bypass grafting using the left internal mammary artery to the left anterior descending artery, left radial artery from the aorta to the ramus intermedius artery, reverse saphenous vein graft from the aorta to the distal posterior descending artery, endoscopic harvesting of the left radial artery, endoscopic harvesting of the left greater saphenous vein from the groin to above the ankle level, intraoperative transesophageal echocardiogram, epi-aortic scanning, and intraoperative graft flow measurements using the [employer] system. Upon completion of surgery the patient was transferred to the cardiovascular intensive care unit where he was recovered, monitored hemodynamically, and where he progressed to cardiac rehabilitation phase 1. He was extubated, all lines, tubes, and drips were discontinued when appropriate, and he was transferred to 3 cardiac stepdown unit for further monitoring and rehabilitation. His oxygen was titrated down, he continued to work with physical and occupational therapy, he was tolerating oral diet, his pain was controlled, and he was ready to be discharged to home with [facility] on postoperative day #4. He received written and verbal instruction regarding his medications, activity restrictions, signs and symptoms requiring physician notification, and follow-up appointments. COMPLICATIONS: The patient experienced no postoperative complications. Patient Condition at Discharge: Stable Plan - Discharge Summary Discharge Rx Participant: Yes New Discharge Prescriptions: New Aspirin 325 mg PO DAILY #30 tab Atorvastatin [Lipitor] 40 mg PO DAILY #30 tab Metoprolol Tartrate [Lopressor] 50 mg PO BID #60 tab amLODIPine [Norvasc] 5 mg PO DAILY #30 tab Clopidogrel [Plavix] 75 mg PO DAILY #30 tab Pantoprazole [Protonix] 40 mg PO AC-BRKFST #[address] tablet[address] Benson-Docusate Sodium [Senokot-S] 2 each PO HS PRN #14 tab PRN Reason: Constipation Acetaminophen Tab [Tylenol] 1,000 mg PO Q6HR PRN #120 tab PRN Reason: Fever And/ Or Pain Continue sitaGLIPtin [Januvia] 100 mg PO DAILY Ergocalciferol (Vitamin D2) [Vitamin D2] 50,000 units PO BONILLA Pioglitazone HCl [Actos] 30 mg PO DAILY Glimepiride [Amaryl] 2 mg PO DAILY Escitalopram [Lexapro] 5 mg PO DAILY Discontinued Meloxicam 15 mg PO DAILY Pravastatin Sodium [Pravachol] 20 mg PO HS Omeprazole [PriLOSEC] 20 mg PO DAILY Discharge Medication List Ergocalciferol (Vitamin D2) [Vitamin D2] 50,000 units PO BONILLA 11/01/17 [History] sitaGLIPtin [Januvia] 100 mg PO DAILY 11/01/17 [History] Escitalopram [Lexapro] 5 mg PO DAILY 12/04/18 [History] Glimepiride [Amaryl] 2 mg PO DAILY 12/04/18 [History] Pioglitazone HCl [Actos] 30 mg PO DAILY 12/04/18 [History] Acetaminophen Tab [Tylenol] 1,000 mg PO Q6HR PRN #120 tab 12/15/18 [Rx] Aspirin 325 mg PO DAILY #30 tab 12/15/18 [Rx] Atorvastatin [Lipitor] 40 mg PO DAILY #30 tab 12/15/18 [Rx] Clopidogrel [Plavix] 75 mg PO DAILY #30 tab 12/15/18 [Rx] Metoprolol Tartrate [Lopressor] 50 mg PO BID #60 tab 12/15/18 [Rx] Pantoprazole [Protonix] 40 mg PO AC-BRKFST #30 tablet. 12/15/18 [Rx] Sennosides-Docusate Sodium [Senokot-S] 2 each PO HS PRN #14 tab 12/15/18 [Rx] amLODIPine [Norvasc] 5 mg PO DAILY #30 tab 12/15/18 [Rx] Follow up Appointment(s)/Referral(s): Oliva Cheng NPC [Nurse Practitioner] - 12/19/18 10:45 am (Tuesday) [facility], [NON-STAFF] - 1-2 Days David Dolan MD [STAFF PHYSICIAN] - 12/26/18 1:45 pm Sue Monroe MD [Primary Care Provider] - 12/29/18 11:15 am (Tuesday) Rufina Haddad DO [REFERRING] - 01/04/19 8:15 am Bernice Ramirez NPC [Nurse Practitioner] - 01/04/19 3:15 pm Ambulatory/Diagnostic Orders: Complete Blood Count w/diff [LAB.AMB] Time Frame: 3 Days, Location: None Sandra cted Comprehensive Metabolic Panel [LAB.AMB] Time Frame: 3 Days, Location: None Selected Patient Instructions/Handouts: Sternal Precautions (GEN), CABG (Coronary Artery Bypass Graft) (DC) Activity/Diet/Wound Care/Special Instructions: DISCHARGE INSTRUCTIONS: 1. No driving for 4 weeks, or until physician gives their ok. 2. The patient should sleep in their own bed, no medical bed needed. 3. Stairs are not an issue. If the bedroom is upstairs, it is advised that the patient go up at night and down in the morning for the first week. Go slowly, using handrail and take 1 step at a time. 4. HILTON hose are to be worn for 30 days or until physician discontinues. 5. Heart hugger is to be worn 100% of the time until physician discontinues .(except when showering) 6. No lifting, pushing, or pulling more than 10 pounds for 12 weeks. The physician will advise of any restriction changes. 7. The patient is expected to continue the prescribed walking program. 8. Continue pain control per as needed orders. 9. Continue with incentive spirometry and splinting/heart hugger until otherwise directed by the physician. 10. Must shower daily using liquid antibacterial soap and a separate white washcloth for each individual incision. 11. Routine sternal incision care. No powders, lotions, ointments on incisions. 12. Please call surgeon/REFRIGERATING OILER for temp greater than 101 F or purulent drainage from incisions. 13. All prescriptions given by surgeon for 30 days. Refills need to be filled through construction carpenter/primary care physician. 14. A Red armband has been placed on the patient. It should be worn for 30 days post surgery and will be removed by the cardiac surgeons. If an ER visit is necessary, please make sure the number on the Red armband is called. HOME HEALTH SERVICES TO PROVIDE: RN SKILLED HOME CARE SERVICES FOR POST-OP SURGICAL PATIENTS WITH THE FOLLOWING: Coronary Artery Bypass Surgery (CABG), Mitral Valve Replacement/Repair ( MVR), Aortic Valve Replacement/Repair (AVR) RN TO CONTINUE EDUCATION FROM ``ROAD TO A HEALTH HEART PATIENT EDUCATION MANUAL (GIVEN TO PATIENT IN THE HOSPITAL) MEDICATION RECONCILIATION WITH EDUCATION NEEDED ON FIRST HOME VISIT EMPHASIZE IMPORTANCE OF WEARING BREAST SUPPORT/HEART HUGGER ENCOURAGE USE OF INCENTIVE SPIROMETER 10 X EVERY HOUR WHILE AWAKE ENCOURAGE UTILIZATION OF LOWER EXTREMITY COMPRESSION STOCKINGS/HILTON HOSE and ELEVATE LEGS ABOVE LEVEL OF HEART WHILE AT REST. ENCOURAGE AMBULATION 3-5x/day INCREASING TOLERATES, WHILE AVOID EXTREMES IN TEMPERATURE FREQUENCY: RN TO OPEN THE PATIENT WITHIN 24 HOURS OF DISCHARGE FROM THE HOSPITAL WITH TELEHEALTH INSTALLED AT [facility] – [place], RN TO VISIT 2-3 X A WEEK FOR 4 WEEKS ESTABLISHED BY PATIENT NEEDS. LABORATORY: CBC, CMP TO BE DRAWN ON THE THIRD DAY HOME, (RAN STAT) FAX RESULTS TO [phone]. TELEHEALTH PARAMETERS: WEIGHT: NOTIFY MD OF WEIGHT GAIN OF 2 LBS IN 24 HOURS OR 5 LBS IN ONE WEEK HR: NOTIFY MD OF HR <55 BPM OR HR>100 BPM BP: NOTIFY MD IF BP <90/55 OR BP>140/100 O2 SAT: NOTIFY MD IF PO2<93% ON ROOM AIR SEND TELEHEALTH REPORT TO DENTAL ASSISTANT AND CARDIOVASCULAR SURGEON THE FIRST WEEK OF CARE AND THEN BI-WEEKLY. PLEASE ADDITIONALLY COMMUNICATE ANY ABNORMALS AND NEW FINDINGS TO THE SURGEONS OFFICE. Discharge Disposition: HOME WITH HOME HEALTH SERVICES
--- NOTE | 2018-12-15 11:24 | P.PN ---
Subjective Progress Note Date: 12/15/18 cristobal Solo is a 68-year-old gentleman with past medical history significant for diabetes, hyperlipidemia, family history of premature coronary artery disease, presented to [facility] with symptoms of chest discomfort. He was taken to the cardiac catheterization lab by Dr. 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 Hence the patient was transferred here for possible bypass surgery, cardiothoracic surgery consultation was requested. Films were reviewed by cardiothoracic surgery, subsequent to that patient was taken back to the cardiac catheterization lab. By Dr. Dolan yesterday, cardiac catheterization revealed good caliber vessels, and recommendation now is for the patient to undergo coronary artery bypass grafting surgery on Tuesday. Overall the patient is doing well, he is hemodynamically stable. Denies any chest discomfort. Blood pressure 120/60 with a heart rate in the 60s, 93% on room air. White blood cell count 7.4, hemoglobin 14.2, platelet count 204. Sodium 140, potassium 4.4, BUN 19 and creatinine 0.8. On 12/09/2018 Patient was seen and examined on the medical floor, he is alert and oriented in no distress he denies any symptoms. There is no fever or chills no headache or dizziness no chest pain no shortness of breath no cough no nausea or vomiting no abdominal pain no diarrhea and no urinary symptoms. On 12/10/2018 patient is alert and oriented 3 in no apparent distress, he denies any symptoms at this time there is no fever or chills no headache or dizziness no chest pain no shortness of breath no cough no nausea or vomiting no abdominal pain no diarrhea and no urinary symptoms On 12/11/2018 patient is status post coronary artery bypass Surgery triple vessel. Patient currently resting on mechanical ventilation. Patient remains in the intensive care unit. Critical care services are following On 12/12/2018 patient is currently postop day 2 status post coronary artery bypass graft surgery. Patient has been successfully extubated. Patient is currently resting comfortably in chair. Patient is complaining of some surgical discomfort. Chest tubes remain in place. On 12/13/2018 patient remains in the intensive care unit. patient is currently postop day 3. Patient is currently sitting up in chair. Patient is complaining of some discomfort around chest tube site. Patient denies shortness of breath. patient denies nausea, vomiting or diarrhea. On 12/14/2018 patient has been out of the intensive care unit to cardiac stepdown. Patient is currently postop day 4. Chest tubes have been removed. Patient has been up ambulating. Patient denies any chest pain or shortness of breath. Patient denies nausea vomiting or diarrhea. Patient denies urinary burning or frequency On 12/15/2017 patient is alert and oriented 3 patient is being discharge per cardiothoracic surgery. Patient discusses he is very eager to go home. Patient denies chest pain or shortness of breath. Patient denies nausea vomiting or diarrhea. Patient denies any urinary burning or frequency. Objective - Vital Signs Vital signs: Vital Signs Temp 97.4 F L 12/15/18 04:00 Pulse 87 12/15/18 08:00 Resp 18 12/15/18 08:00 BP 108/62 12/15/18 08:00 Pulse Ox 94 L 12/15/18 08:00 Intake & Output 12/14/18 12/15/18 12/15/18 18:59 06:59 18:59 Intake Total 65 360 Output Total 1050 400 Balance -985 -400 360 Weight 78.4 kg Intake: Oral 65 360 Output: Urine 1050 400 Other: Voiding Method Toilet Toilet Toilet # Voids 1 1 # Bowel Movements 0 ABP, PAP, CO, CI - Last Documented Arterial Blood Pressure 128/40 Pulmonary Artery Pressure 23/9 Cardiac Output 6.5 Cardiac Index 3.5 - Exam Head normocephalic Neck supple Lungs clear to auscultation bilaterally no wheezing or crackles Heart regular rate and rhythm S1-S2, no rub or gallop Abdomen is soft nontender nondistended positive bowel sounds no hepatosplenomegaly Extremities no edema Neuro patient is alert and orientated x3 MIldline Dressing clean dry and intact - Labs CBC & Chem 7: 12/15/18 06:18 12/15/18 06:18 Labs: Abnormal Lab Results - Last 24 Hours (Table) 12/14/18 12/14/18 12/14/18 Range/Units 12:09 17:06 21:06 RBC (4.30-5.90) m/uL Hgb (13.0-17.5) gm/dL Hct (39.0-53.0) % BUN (9-20) mg/dL Glucose (74-99) mg/dL POC Glucose (mg/dL) 157 H 144 H 228 H (75-99) mg/dL 12/15/18 12/15/18 12/15/18 Range/Units 02:15 06:08 06:18 RBC 3.01 L (4.30-5.90) m/uL Hgb 9.0 L (13.0-17.5) gm/dL Hct 27.2 L (39.0-53.0) % BUN (9-20) mg/dL Glucose (74-99) mg/dL POC Glucose (mg/dL) 188 H 132 H (75-99) mg/dL 12/15/18 Range/Units 06:18 RBC (4.30-5.90) m/uL Hgb (13.0-17.5) gm/dL Hct (39.0-53.0) % BUN 22 H (9-20) mg/dL Glucose 145 H (74-99) mg/dL POC Glucose (mg/dL) (75-99) mg/dL Assessment and Plan Assessment: 1. Status post coronary artery bypass graft surgery post non-ST segment elevation myocardial infarction. Patient underwent three-vessel bypass surgery Patient is currently postop day 5. Chest tubes have been removed 2. Elevated d-dimer at [facility] with right calf pain: venous Doppler was negative for DVT and CTA of the chest was negative for PE. Calf pain now resolved 3. Mild upper respiratory tract infection, probably viral. Patient seen by pulmonary service. No evidence of pneumonia. They recommended to discontinue antibiotics. 4. Diabetes mellitus type 2 maintained on sliding scale coverage 5. Hyperlipidemia continue statin 6. vocal cord disorder 7. Essential hypertension 8. Postoperative acute blood loss anemia expected. Hemoglobin 8.0 will continue to monitor GI prophylaxis Protonix and DVT prophylaxis SC heparin Incentive spirometer encouraged Heart hugger in place Patient has been cleared for discharge from cardiothoracic. Patient advised to follow-up closely with his PCP I performed an examination of the patient and discussed their management with the Nurse Practitioner. I have reviewed the Nurse Practitioner's notes and agree with the documented findings and plan of care
--- NOTE | 2018-12-15 11:55 | PN ---
PROGRESS NOTE Mr. Solo is a 68-year-old male, status post coronary artery bypass grafting. He is doing well this morning. Ambulating without difficulty. Remains in sinus mechanism. Hemodynamically, he is stable. Denying any chest pain or dizziness. No palpitation. He continues on aspirin once a day, Plavix 75 mg daily, Lipitor 40 mg daily, metoprolol tartrate 50 mg twice a day, amlodipine 5 mg daily, Lexapro 5 mg daily. PHYSICAL EXAMINATION: Blood pressure 108/60 with a heart rate in the 80s. LUNGS: Clear. HEART: Regular rate and rhythm. S1, S2. No S3. No rub appreciated. ABDOMEN: Soft, nontender. EXTREMITIES: No edema. LAB DATA: Revealed BUN and creatinine 22 and 0.7, potassium 3.8, hemoglobin of 9. IMPRESSION: 1. Status post coronary artery bypass grafting, stable. 2. Hypertension. 3. Hyperlipidemia. RECOMMENDATION: Patient should be able to be discharged home today and followed as an outpatient. MMODL / IJN: [id number] /
[2018-12-15 12:02] LABS: Glucose,Whole Blood 165 mg/dL (75-99)
--- NOTE | 2018-12-15 15:03 | P.PN ---
Subjective Progress Note Date: 12/15/18 Principal diagnosis: CAD, status post three-vessel bypass surgery On 12/15/2016 patient seen in follow-up on selective care unit, he is awake and alert, in no acute distress, vital signs are stable, patient is on room air, afebrile, respirations are even and nonlabored, patient has been working on his incentive spirometer, today's chest x-ray has been reviewed showing basilar atelectasis, no evidence of pneumothorax. Stable chest, no acute events overnight, patient is tolerating ambulation, today's labs have been reviewed, and the labs are unremarkable. Patient is being discharged home today, Objective - Vital Signs Vital signs: Vital Signs Temp 97.4 F L 12/15/18 04:00 Pulse 87 12/15/18 08:00 Resp 18 12/15/18 08:00 BP 108/62 12/15/18 08:00 Pulse Ox 94 L 12/15/18 08:00 Intake & Output 12/14/18 12/15/18 12/15/18 18:59 06:59 18:59 Intake Total 65 360 Output Total 1050 400 Balance -985 -400 360 Weight 78.4 kg Intake: Oral 65 360 Output: Urine 1050 400 Other: Voiding Method Toilet Toilet Toilet # Voids 1 1 # Bowel Movements 0 ABP, PAP, CO, CI - Last Documented Arterial Blood Pressure 128/40 Pulmonary Artery Pressure 23/9 Cardiac Output 6.5 Cardiac Index 3.5 - Exam GENERAL EXAM: Alert, pleasant, 68-year-old comfortable in no apparent distress. HEAD: Normocephalic/atraumatic. EYES: Normal reaction of pupils, equal size. Conjunctiva pink, sclera white. NOSE: Clear with pink turbinates. THROAT: No erythema or exudates. NECK: No masses, no JVD, no thyroid enlargement, no adenopathy. CHEST: No chest wall deformity. Symmetrical expansion. Median sternotomy incisions clean dry and intact, chest tube sites are clean dry and intact LUNGS: Equal air entry with no crackles, wheeze, rhonchi or dullness. CVS: Regular rate and rhythm, normal S1 and S2, no gallops, no murmurs, no rubs ABDOMEN: Soft, nontender. No hepatosplenomegaly, normal bowel sounds, no guarding or rigidity. EXTREMITIES: No clubbing, no edema, no cyanosis, 2+ pulses and upper and lower extremities. MUSCULOSKELETAL: Muscle strength and tone normal. SPINE: No scoliosis or deformity SKIN: No rashes CENTRAL NERVOUS SYSTEM: Alert and oriented -3. No focal deficits, tone is nor mal in all 4 extremities. PSYCHIATRIC: Alert and oriented -3. Appropriate affect. Intact judgment and insight. - Labs CBC & Chem 7: 12/15/18 06:18 12/15/18 06:18 Labs: Abnormal Lab Results - Last 24 Hours (Table) 12/14/18 12/14/18 12/15/18 Range/Units 17:06 21:06 02:15 RBC (4.30-5.90) m/uL Hgb (13.0-17.5) gm/dL Hct (39.0-53.0) % BUN (9-20) mg/dL Glucose (74-99) mg/dL POC Glucose (mg/dL) 144 H 228 H 188 H (75-99) mg/dL 12/15/18 12/15/18 12/15/18 Range/Units 06:08 06:18 06:18 RBC 3.01 L (4.30-5.90) m/uL Hgb 9.0 L (13.0-17.5) gm/dL Hct 27.2 L (39.0-53.0) % BUN 22 H (9-20) mg/dL Glucose 145 H (74-99) mg/dL POC Glucose (mg/dL) 132 H (75-99) mg/dL 12/15/18 Range/Units 11:50 RBC (4.30-5.90) m/uL Hgb (13.0-17.5) gm/dL Hct (39.0-53.0) % BUN (9-20) mg/dL Glucose (74-99) mg/dL POC Glucose (mg/dL) 165 H (75-99) mg/dL Assessment and Plan Plan: 1 multivessel coronary artery disease status post non-ST segment elevation myocardial infarctions. The patient underwent three-vessel bypass surgery. Currently postop day #4. The patient is post non-ST segment elevation myocardial infarction. 2 post thoracotomy and the patient is currently off the mechanical ventilator. The patient is improved and the patient is currently on room air oxygen. His chest tube will be removed. Pleural chest tube will be removed. 3 hypertension 4 hyperlipidemia 5 diabetes mellitus 6. Question history of vocal cord paralysis/disorder 7 depression 8 postoperative acute blood loss anemia, expected outcome of surgery Plan: Patient is stable from pulmonary perspective, today's chest x-ray has been reviewed, showing basilar atelectasis, no acute pulmonary findings, continue encouraging deep breathing and coughing, patient is ambulating, vital signs are stable room air pulse ox is 94%, stable for discharge home today. Follow-up with Dr. Cavazos in the office in 7-10 days. I performed a history & physical examination of the patient and discussed their management with my nurse practitioner, Pinky Portillo. I reviewed the nurse practitioner's note and agree with the documented findings and plan of care. Lung sounds are positive for bibasilar crackles. The findings and the impression was discussed with the patient. I attest to the documentation by the nurse practitioner. Time with Patient: Less than 30
== END 2018-12-15 12:53 | disposition home health service (06) | DRG 234 ==
LOC: 3SCARD 21:27 → 2SICU 12-11 06:38 → 3SCARD 12-13 11:10
PROVIDERS: ADMIT Surgery; ATTEND Surgery
PROC: 4A023N7 Measurement of Cardiac Sampling and Pressure, Left Heart, Percutaneous Approach (ICD-10-PCS; principal; 2018-12-06 13:30)
PROC: B2111ZZ Fluoroscopy of Multiple Coronary Arteries using Low Osmolar Contrast (ICD-10-PCS; principal; 2018-12-06 13:30)
PROC: 02100AW Bypass Coronary Artery, One Artery from Aorta with Autologous Arterial Tissue, Open Approach (ICD-10-PCS; 2018-12-11 08:00)
PROC: 02100Z9 Bypass Coronary Artery, One Artery from Left Internal Mammary, Open Approach (ICD-10-PCS; 2018-12-11 08:00)
PROC: 06BQ4ZZ Excision of Left Saphenous Vein, Percutaneous Endoscopic Approach (ICD-10-PCS; 2018-12-11 08:00)
PROC: B246ZZ4 Ultrasonography of Right and Left Heart, Transesophageal (ICD-10-PCS; 2018-12-11 08:00)
PROC: 021009W Bypass Coronary Artery, One Artery from Aorta with Autologous Venous Tissue, Open Approach (ICD-10-PCS; 2018-12-11 08:00)
PROC: 03BC4ZZ Excision of Left Radial Artery, Percutaneous Endoscopic Approach (ICD-10-PCS; 2018-12-11 08:00)
PROC: 5A1221Z Performance of Cardiac Output, Continuous (ICD-10-PCS; 2018-12-11 08:00)
DX: I21.4 Non-ST elevation (NSTEMI) myocardial infarction (principal); D62 Acute posthemorrhagic anemia; J98.11 Atelectasis; I25.10 Atherosclerotic heart disease of native coronary artery without angina pectoris; E11.9 Type 2 diabetes mellitus without complications; E78.5 Hyperlipidemia, unspecified; F32.9 Major depressive disorder, single episode, unspecified; H91.90 Unspecified hearing loss, unspecified ear; H93.19 Tinnitus, unspecified ear; I10 Essential (primary) hypertension; J06.9 Acute upper respiratory infection, unspecified; J20.9 Acute bronchitis, unspecified; K21.9 Gastro-esophageal reflux disease without esophagitis; M77.9 Enthesopathy, unspecified; Z87.891 Personal history of nicotine dependence; Z79.02 Long term (current) use of antithrombotics/antiplatelets; Z79.1 Long term (current) use of non-steroidal anti-inflammatories (NSAID); Z79.84 Long term (current) use of oral hypoglycemic drugs; Z79.899 Other long term (current) drug therapy; Z82.49 Family history of ischemic heart disease and other diseases of the circulatory system; Z83.3 Family history of diabetes mellitus
CPT/HCPCS: 71045; 71046; 80048; 80053; 80061; 80074; 81003; 82330; 82805; 83036; 83735; 84443; 85025; 85027; 85520; 85610; 85730; 86850; 86891; 86900; 86901; 86920; 87070; 87086; 93306; 93454; 93571; 93880; 93922; 93970; 94150; 94640; 94760

== ENCOUNTER → 2019-01-20 | Outpatient (CLI) | payer MEDICARE ==
--- NOTE | 2019-01-20 11:00 | MR ---
EXAMINATION TYPE: MR brain wo/w con DATE OF EXAM: 01/20/2019 COMPARISON: None HISTORY: Memory loss CONTRAST: Performed utilizing 7.5 mL intravenous Gadavist gadolinium contrast. TECHNIQUE: Multiplanar, multiecho imaging on a 3.0 Jessica magnet is performed through the brain. Stud y is performed within 24 hours of arrival to the hospital. The craniovertebral junction is normal. The pituitary is normal. Diffusion-weighted imaging is performed. No abnormal hyperintensity is present to suggest an acute i ntracranial infarct or acute ischemic change. No suspicious signal changes are evident. Ventricles and sulci are slightly prominent for the patient age. Mucosal thickening is within the bilateral maxillary sinuses and left ethmoid air cells. No suspicious enhancement is evident. IMPRESSIONS: 1. Mild age-related atrophy.
== END | disposition home or self-care (01) ==
LOC: RADMRIMAIN 09:53
PROVIDERS: ATTEND Family Medicine
DX: G31.1 Senile degeneration of brain, not elsewhere classified (principal); R41.3 Other amnesia; R42 Dizziness and giddiness
CPT/HCPCS: 70553; A9585

== ENCOUNTER → 2019-06-18 | Outpatient (CLI) | payer MEDICARE ==
--- NOTE | 2019-06-18 13:42 | MR ---
EXAMINATION TYPE: MR shoulder RT wo con DATE OF EXAM: 06/18/2019 COMPARISON: Outside x-ray 04/23/2019 HISTORY: PAIN IN RIGHT SHOULDER TECHNIQUE: Multiplanar, multisequence imaging of the right shoulder is performed without contrast. FINDINGS: There is a chronic appearing deformity of the humerus most likely related to previous traum a. If there is no history of trauma then correlate for osteochondroma. There is a through thickness tear measuring 2.5 cm in transverse dimension of the supraspinatus tendo n compatible with a complete through thickness tear and retraction to the level of the AC joint. Atro phy of the supraspinatus muscle noted. There is a tear involving the anterior fibers of the insertion of the infraspinatus tendon. No retrac tion. There is atrophy of the subscapularis muscle insertion is not well seen and suspected to be torn. Add itionally within the rotator interval the biceps tendon is not seen and there appears to be evidence of a SLAP tear. Arthropathy of the AC joint with hypertrophic spurring noted. Glenohumeral joint arthropathy seen. Inferior glenohumeral ligament is intact. No diagnostic evidence of bone marrow edema or contusion. N o osteonecrosis. IMPRESSION: 1. Impingement with complete through thickness tear of the supraspinatus tendon with retraction to th e level of the AC joint. Muscular atrophy noted. 2. Muscular atrophy of the subscapularis with poor visualization of its insertion. Suspicion for tear at the level of the insertion. 3. Partial through thickness tear anterior fibers infraspinatus tendon measuring approximately 1 cm. 4. SLAP tear. Additionally, there is nonvisualization of the biceps tendon within the rotator interva l and a tear is suspected. 5. There is deformity of the right proximal humerus a pattern which could been the basis of a small o steochondroma. Correlate with history to exclude prior trauma. Finding was not seen with certainty on the chest x-ray of 12/11/2018. If necessary bone scan could BE obtained.
== END | disposition home or self-care (01) ==
LOC: RADMRIMAIN 08:31
PROVIDERS: ATTEND Orthopaedic Surgery
DX: S43.431A Superior glenoid labrum lesion of right shoulder, initial encounter (principal); M75.121 Complete rotator cuff tear or rupture of right shoulder, not specified as traumatic; M62.50 Muscle wasting and atrophy, not elsewhere classified, unspecified site; M21.831 Other specified acquired deformities of right forearm

== ENCOUNTER → 2019-11-09 | Outpatient (CLI) | payer MEDICARE | END | disposition home or self-care (01) | LOC: LABWHC1 09:43 | PROVIDERS: ATTEND Orthopaedic Surgery | DX: Z11.59 Encounter for screening for other viral diseases (principal) ==

== ENCOUNTER → 2019-11-13 | Day surgery (SDC) | payer MEDICARE ==
[2019-11-08 13:33] VITALS: BMI 27.7
--- NOTE | 2019-11-12 11:07 | HP ---
HISTORY AND PHYSICAL CHIEF COMPLAINT: Right shoulder pain. HISTORY OF PRESENT ILLNESS: The patient is a 69-year-old, right-hand dominant, retired male who presents with progressive right shoulder pain for the past 6 months. He is having pain with overhead use and at night. He has tried medications, injections, and therapy without much relief. He notes the pain persists. PAST MEDICAL HISTORY: Significant for coronary artery disease, hypertension, and type 2 diabetes. PAST SURGICAL HISTORY: Significant for coronary artery bypass grafting. CURRENT MEDICATIONS: Amlodipine, aspirin, atorvastatin, Plavix, glimepiride, losartan, metoprolol. He denies drug allergies. FAMILY HISTORY: Significant for heart disease and Alzheimer's. SOCIAL HISTORY: Significant for previous tobacco use and intermittent alcohol use. 16 POINT REVIEW OF SYSTEMS: Otherwise reviewed and is noncontributory. PHYSICAL EXAMINATION: On examination, the patient is approximately 5 foot 6, 175 pounds of mesomorphic habitus. HEENT: Exam is nonfocal. Neck is supple. On examination of his right shoulder, he is tender about the anterior subacromial space in the bicipital groove. He does have a mild Hang deformity. He has moderate subacromial crepitus. Active range of motion of the right shoulder. Forward elevation 145 degrees external rotation, with arm at side 60 degrees, internal rotation to L3. Motor strength is 4/5 for external rotation with arm at the side, 4 minus over 5 for abduction. Impingement test, Neer test, and Speed test are positive. He does have some pain with cross-body abduction. His distal neurovascular appears intact in the right upper extremity. MRI report right shoulder 06/18/2019 shows evidence of supraspinatus tear with some atrophy along with a superior labral tear. There is degenerative changes involve the acromioclavicular joint. IMPRESSION: 1. Right shoulder impingement with symptomatic rotator cuff tear. 2. Right shoulder superior labral tear. 3. Right acromioclavicular joint osteoarthrosis. RECOMMENDATIONS: I talked to the patient at length regarding his condition and treatment options. At this point, he remains quite symptomatic despite conservative measures. After a thorough discussion, he opts to proceed with surgery. We will plan to proceed with arthroscopic evaluation with probable subacromial decompression, rotator cuff debridement versus repair, biceps tenotomy, possible distal clavicular resection. We will likely perform that as an outpatient procedure. Risks and benefits were discussed at length in layman's terms. MMODL / IJN: [id number] /
[~2019-11-13] MED LIST: DEXAMETHASONE SOD PHOSPHATE 10 MG/ML 1 ML VIAL IV ONE; EPINEPHrine (PF) 1 ML in SODIUM CHLORIDE 0.9% IRRIGATIO 3,000 ML IRRIGATION ONE; HYDROmorphone 0.5 MG/0.5 ML SYRINGE IVP PRN; LACTATED RINGERS 1,000 ML IV ONE; LACTATED RINGERS 1,000 ML IV SCH; LIDOCAINE 1% (10MG/ML) FOR IV START INTRADERMA PRN; LIDOCAINE 1% INJ 10MG/ML (20 ML MDV) ONE; MIDAZOLAM 2 MG/2 ML VIAL IVP ONE; ONDANSETRON 4 MG/2 ML VIAL IVP ONE; PHENYLEPHRINE-0.9% NACL SYG 1 MG/10 ML SYRINGE ONE; PROPOFOL 10 MG/ML 20 ML VIAL IV ONE; ROPIVACAINE 5 MG/ML 30 ML VIAL ONE; SCOPOLAMINE 1.5MG/72HR PATCH TRANSDERM ONE; SUCCINYLCHOLINE CHLORIDE 100 MG/5 ML SYR IV ONE; fentaNYL (PF) 50 MCG/ML 2 ML AMP IVP ONE; fentaNYL (PF) 50 MCG/ML 2 ML AMP ONE
[2019-11-13 07:28] LABS: Glucose,Whole Blood 101 mg/dL (75-99)
[2019-11-13 07:38] LABS: Basophils % (A) 1 %; Eosinophils # (A) 0.1 k/uL (0-0.7); Eosinophils % (A) 1 %; HCT 41.2 % (39.0-53.0); HGB 13.4 gm/dL (13.0-17.5); Lymphocytes # (A) 1.4 k/uL (1.0-4.8); Lymphocytes % (A) 22 %; MCH 30.4 pg (25.0-35.0); MCHC 32.6 g/dL (31.0-37.0); MCV 93.5 fL (80.0-100.0); Mean Platelet Volume 8.1; Monocytes # (A) 0.4 k/uL (0-1.0); Monocytes % (A) 6 %; Neutrophils # (A) 4.4 k/uL (1.3-7.7); Neutrophils % (A) 69 %; Platelet Count 169 k/uL (150-450); RDW 13.6 % (11.5-15.5); WBC 6.3 k/uL (3.8-10.6)
[2019-11-13 07:53] LABS: African American GFR (CKD) >90 (>60 ml/min/1.73 sqM); Anion Gap 8 mmol/L; Blood Urea Nitrogen 17 mg/dL (9-20); Calcium 9.1 mg/dL (8.4-10.2); Carbon Dioxide 25 mmol/L (22-30); Chloride 105 mmol/L (98-107); Glucose 102 mg/dL (74-99); Non-African American GFR(CKD) >90 (>60 ml/min/1.73 sqM); Potassium 4.3 mmol/L (3.5-5.1); Sodium 138 mmol/L (137-145)
--- NOTE | 2019-11-13 10:04 | P.OP ---
Date of Procedure: 11/13/19 Preoperative Diagnosis: Symptomatic right rotator cuff tear Postoperative Diagnosis: 4 cm retracted rotator cuff tear/acromioclavicular joint arthritis/impingement Procedure(s) Performed: Right shoulder arthroscopic subacromial decompression/distal clavicular resection/rotator cuff repair Implants: Arthrex 5.5 mm swivel lock anchor 4 Anesthesia: dillan FARR Surgeon: Federico Godoy Sloop Captain #1: Carlton Krishnan Estimated Blood Loss (ml): 20 Pathology: none sent Condition: stable Disposition: PACU Indications for Procedure: The patient's a 69-year-old gentleman who presents with progressive right shoulder pain despite conservative measures. A discussion of the risks and benefits of operative intervention versus continued conservative measures was made with the patient. He opted to proceed with surgery. Operative risks to include infection, neurovascular injury, development of blood clots, possible tendon rerupture, possible need for subsequent procedures was discussed. Informed consent was obtained. Operative Findings: As below Description of Procedure: The patient was brought to the operating room, and after induction of general anesthesia was placed in a beachchair position. A preoperative interscalene block was placed for postoperative analgesia. I examined the right shoulder. There was no gross block to passive motion or gross glenohumeral instability. The right upper extremity was prepped and draped in normal fashion. The bony outlines the acromion, distal clavicle, and coracoid process were outlined with a skin marker. The glenohumeral joint was inflated with 50 mL of saline utilizing a spinal needle from posterior approach. A posterior portal was made through a 5 mm skin incision 1 cm medial and inferior to the posterior lateral border time. A blunt trocar was used to easily into the joint. Diagnostic arthroscopy was performed. An anterior portal was made just lateral to the coracoid process entering the joint above the subscapularis tendon. The subscapularis tendon appeared to be intact. Anterior labrum was intact. The inferior recess was inspected. The posterior labrum was intact. The long head of the biceps appeared to be ruptured off the superior labrum previously. On inspection the rotator cuff, a 4 cm tear was noted with retraction. A lateral portal was made 2 centimeters inferior to the anterior lateral border of the acromion. The rotator cuff was then mobilized with a traction suture. This was then brought back to the greater tuberosity. The soft tissue on the undersurface of the acromion was debrided with a motorized shaver and electrocautery clearly defining the anterior medial and lateral borders as well as the distal clavicle. An anterior inferior acromioplasty was performed with a motorized alfa starting anterolateral, then extending this posteriorly, then extending this medially. I converted to a flat acromion and this was verified in the posterior and lateral viewing portals. The distal 4 mm of the clavicle was resected with a motorized alfa. The greater tuberosity was lightly decorticating with a shaver down to a bleeding bony surface. An accessory superior lateral portal was made just off the lateral edge of the acromion for anchor placement. 2 anchors were then placed just off the articular surface with the appropriate starting awl. 5.5 mm swivel lock anchors with #2 fiber tape were placed. Good purchase was obtained. These fiber tapes were then passed the rotator cuff with a scorpion suture passer. A lateral row was created crisscrossing these tapes. 5.5 mm swivel lock anchors x2 were placed laterally. One initial anchor was placed and did not obtained purchase. This was removed and additional anchors were placed with the appropriate starting awl. Final arthroscopic view showed adequate compression at the footprint. The arthroscope was then removed. The portals were closed with simple 3-0 nylon sutures. A sterile dressing was applied in addition to an abductor brace. The patient was then awoken from general anesthesia and transferred to recovery room in good condition. Blood loss was estimated at 20 mL. No complications were incurred. Sponge and needle counts were correct in the case. Bishnu GARCIA assisted and the major components of the case to include arm positioning, anchor placement, and rotator cuff repair.
[2019-11-13 10:19] VITALS: TEMP 96.9
[2019-11-13 10:48] VITALS: RESP 16
[2019-11-13 11:47] VITALS: BP 108/78; PULSE 69
--- NOTE | 2019-11-13 11:47 | P.ANPRN ---
Procedure Note - Anesthesia - Nerve Block Performed Right Interscalene Single Time Out Performed: Yes ([id number]) Date of Procedure: 11/13/19 Procedure Start Time: 07:39 Procedure Stop Time: 07:45 Location of Patient: PreOp Indication: Acute Post-Operative Pain, Requested by Surgeon Specifically requested for management of pain by : Federico Godoy Sedation Type: Sedate with meaningful contact maintained Preparation: Sterile Prep Position: Supine Catheter: None Needle Types: Pajunk Needle Gauge: 21 Ultrasound used to visualize needle placement: Yes Ultrasound used to observe medication spread: Yes Injectate: 0.5% Ropivacaine (see comment for volume) (20cc) Blood Aspirated: No Pain Paresthesia on Injection Noted: No Resistance on Injection: Normal Image Stored and Saved: Yes Events: Uneventful and Well Tolerated
== END | disposition home or self-care (01) ==
LOC: OR 06:17
PROVIDERS: ATTEND Orthopaedic Surgery
DX: M75.121 Complete rotator cuff tear or rupture of right shoulder, not specified as traumatic (principal); M19.011 Primary osteoarthritis, right shoulder; M75.41 Impingement syndrome of right shoulder; I25.10 Atherosclerotic heart disease of native coronary artery without angina pectoris; I11.0 Hypertensive heart disease with heart failure; I50.9 Heart failure, unspecified; I10 Essential (primary) hypertension; E11.40 Type 2 diabetes mellitus with diabetic neuropathy, unspecified; Z95.1 Presence of aortocoronary bypass graft; Z82.49 Family history of ischemic heart disease and other diseases of the circulatory system; Z81.8 Family history of other mental and behavioral disorders; N40.0 Benign prostatic hyperplasia without lower urinary tract symptoms; I07.1 Rheumatic tricuspid insufficiency; I49.9 Cardiac arrhythmia, unspecified; Z79.84 Long term (current) use of oral hypoglycemic drugs; Z79.02 Long term (current) use of antithrombotics/antiplatelets; Z79.82 Long term (current) use of aspirin; Z79.899 Other long term (current) drug therapy
CPT/HCPCS: 64415; 76942; 80048; 85025; 29826; 29827; 29824; C1713 ×3; J2250; J1100; J0690; J2405; J0171; J2001; J3010; J2795; J2370; J0330; J2704

== ENCOUNTER 2020-05-30 11:21 | Emergency (ER) | payer MEDICARE ==
[2020-05-30 11:26] VITALS: BP 138/69; PULSE 83; RESP 20; TEMP 97.8
--- NOTE | 2020-05-30 11:42 | ED ---
General Adult HPI - General Chief complaint: Headache Stated complaint: head pain Time Seen by Provider: 05/30/20 11:27 Source: patient, RN notes reviewed Mode of arrival: ambulatory Limitations: no limitations - History of Present Illness Initial comments: This a 69-year-old male presents emergency Department chief complaint of intermittent sharp stabbing pain left side of his head. Patient states his left ear. He states it comes and goes very quickly he states nothing really exacerbates it and states it's not continuous. Patient denies any lower upper extremity symptoms no facial numbness, weakness. Patient suffers from shortness breath no trauma. No fevers chills no neck pain or neck stiffness. Patient states he just been for crutches that he never had any like this in the past - Related Data Home Medications Medication Instructions Recorded Confirmed Ergocalciferol (Vitamin D2) 50,000 units PO BONILLA 11/01/17 11/13/19 [Vitamin D2] Escitalopram [Lexapro] 5 mg PO DAILY 12/04/18 11/13/19 Glimepiride [Amaryl] 2 mg PO DAILY 12/04/18 11/13/19 Pioglitazone HCl [Actos] 30 mg PO DAILY 12/04/18 11/13/19 Aspirin [Adult Low Dose Aspirin EC] 81 mg PO DAILY 11/08/19 11/13/19 Dulaglutide [Trulicity] 1.5 mg SQ WE 11/08/19 11/13/19 Losartan [Cozaar] 50 mg PO DAILY 11/08/19 11/13/19 Previous Rx's Medication Instructions Recorded Atorvastatin [Lipitor] 40 mg PO DAILY #30 tab 12/15/18 Clopidogrel [Plavix] 75 mg PO DAILY #30 tab 12/15/18 Metoprolol Tartrate [Lopressor] 50 mg PO BID #60 tab 12/15/18 amLODIPine [Norvasc] 5 mg PO DAILY #30 tab 12/15/18 HYDROcodone/APAP 7.5-325MG [[place] 1 each PO Q6HR PRN #28 tab 11/13/19 7.5] Allergies Allergy/AdvReac Type Severity Reaction Status Date / Time No Known Allergies Allergy Verified 05/30/20 11:26 Review of Systems ROS Statement: Those systems with pertinent positive or pertinent negative responses have been documented in the HPI. ROS Other: All systems not noted in ROS Statement are negative. Past Medical History Past Medical History: Coronary Artery Disease (CAD), Diabetes Mellitus, GERD/Reflux, Hearing Disorder / Deafness, Hyperlipidemia, Hypertension Additional Past Medical History / Comment(s): Multivessel coronary artery disease, recent non-STEMI, The patient reports she has been recently seen by an ear nose and throat doctor and was diagnosed with a paralyzed vocal cord. History of Any Multi-Drug Resistant Organisms: None Reported Past Surgical History: No Surgical Hx Reported Past Anesthesia/Blood Transfusion Reactions: No Reported Reaction Past Psychological History: No Psychological Hx Reported Smoking Status: Former smoker Past Alcohol Use History: None Reported Past Drug Use History: None Reported - Past Family History Mother Family Medical History: Myocardial Infarction (DC) Additional Family Medical History / Comment(s): from a myocardial infarction at age 52 Father Family Medical History: Diabetes Mellitus Brother(s) Family Medical History: Coronary Artery Disease (CAD) General Exam Limitations: no limitations General appearance: alert, in no apparent distress Head exam: Present: atraumatic, normocephalic, normal inspection Eye exam: Present: normal appearance, PERRL, EOMI. Absent: scleral icterus, conjunctival injection, periorbital swelling ENT exam: Present: normal exam, normal oropharynx, mucous membranes moist Neck exam: Present: normal inspection, full ROM. Absent: tenderness, meningis mus, lymphadenopathy Respiratory exam: Present: normal lung sounds bilaterally. Absent: respiratory distress, wheezes, rales, rhonchi, stridor Cardiovascular Exam: Present: regular rate, normal rhythm, normal heart sounds. Absent: systolic murmur, diastolic murmur, rubs, gallop, clicks GI/Abdominal exam: Present: soft, normal bowel sounds. Absent: distended, tenderness, guarding, rebound, rigid Extremities exam: Present: other (Upper and lower extremity strength equal bilaterally) Neurological exam: Present: alert, oriented X3, CN II-XII intact, normal gait (Patient ambulated into the room and ambulated to CT and back without difficulty. No ataxia.), reflexes normal, other (Finger to nose intact bilaterally without over shooting). Absent: motor sensory deficit Skin exam: Present: warm, dry, intact, normal color. Absent: rash Course Vital Signs 05/30/20 11:23 Temperature 97.8 F Pulse Rate 83 Respiratory 20 Rate Blood Pressure 138/69 O2 Sat by Pulse 98 Oximetry Medical Decision Making - Medical Decision Making 69-year-old presented for intermittent stabbing pain in the left side of his scalp. Patient is asymptomatic nonreproducible symptoms at this point. He has no neurological deficits no ataxia. Patient we discharged in stable condition. CT is unremarkable. Disposition Clinical Impression: Intermittent headache Disposition: HOME SELF-CARE Condition: Stable Instructions (If sedation given, give patient instructions): Acute Headache (ED) Additional Instructions: Please return to the Emergency Department if symptoms worsen or any other concerns. Is patient prescribed a controlled substance at d/c from ED?: No Referrals: Rufina Haddad DO [Primary Care Provider] - 1-2 days Steven Ellsworth DO [STAFF PHYSICIAN] - 1-2 days Time of Disposition: 12:16
--- NOTE | 2020-05-30 11:48 | CT ---
EXAMINATION TYPE: CT brain wo con DATE OF EXAM: 05/30/2020 COMPARISON: None HISTORY: Left sided intermittent headache. CT DLP: 1178.[address] of the brain was performed. The ventricles, basal cisterns and sulci overlying the cerebral convexities demonstrate mild enlargem ent. There is no evidence for intracranial hemorrhage or sulcal effacement. There is decreased attenuation about the periventricular white matter and deep white matter of both c erebral hemispheres, compatible with chronic small vessel ischemia. Differential diagnosis does inclu de demyelination. No mass effects are seen.No midline shift. Osseous calvarium is intact. If symptoms persist consider MRI. IMPRESSION: 1. Age related atrophic and chronic small vessel ischemic change without acute intracranial process s een at this time.
== END 2020-05-30 12:20 | disposition home or self-care (01) ==
LOC: EC 11:21
DX: R51.9 Headache, unspecified (principal); I25.10 Atherosclerotic heart disease of native coronary artery without angina pectoris; I10 Essential (primary) hypertension; E78.5 Hyperlipidemia, unspecified; E11.9 Type 2 diabetes mellitus without complications; I25.2 Old myocardial infarction; K21.9 Gastro-esophageal reflux disease without esophagitis; Z79.84 Long term (current) use of oral hypoglycemic drugs; Z79.82 Long term (current) use of aspirin; Z79.899 Other long term (current) drug therapy; Z87.891 Personal history of nicotine dependence
CPT/HCPCS: 70450; 99284

== ENCOUNTER → 2021-08-18 | Outpatient (CLI) | payer MEDICARE ==
[2021-08-18 15:24] LABS: HCT 48.9 % (39.6-50.0); HGB 15.7 g/dL (13.0-17.0); MCH 29.6 pg (27.0-32.0); MCHC 32.1 g/dL (32.0-37.0); MCV 92.1 fL (80.0-97.0); Mean Platelet Volume 11.7 fL (9.5-12.2); NRBC Per 100 WBC 0 /100 WBCS (0.0-0.0); Platelet Count 200 X 10*3/uL (140-440); RBC 5.31 X 10*6/uL (4.40-5.60); RDW 13.2 % (11.5-14.5); WBC 6.76 X 10*3/uL (4.50-10.00)
[2021-08-18 15:58] LABS: ALT 31 U/L (10-49); AST 26 U/L (14-35); Albumin 4.6 g/dL (3.8-4.9); Albumin/Globulin Ratio 1.68 (1.60-3.17); Alkaline Phosphatase 135 U/L (41-126); BUN/Creat Ratio 14.67 Ratio (12.00-20.00); Blood Urea Nitrogen 11.5 mg/dL (9.0-27.0); Calcium 9.2 mg/dL (8.7-10.3); Carbon Dioxide 22.3 mmol/L (20.0-27.5); Chloride 103 mmol/L (96-109); Chol/HDL Ratio 2.15 Ratio; Globulin 2.8 g/dL (1.6-3.3); Glucose 127 mg/dL (70-110); LDL Cholesterol,Calculated 33.7 mg/dL (0.0-131.0); Non-African American GFR(CKD) 90.6 (60.0-200.0); Potassium 4.5 mmol/L (3.5-5.5); Sodium 138 mmol/L (135-145); Total Protein 7.4 g/dL (6.2-8.2); VLDL Calculation 14.88 mg/dL (5.00-40.00)
== END | disposition home or self-care (01) ==
LOC: LABWHC1 08:53
PROVIDERS: ATTEND Physician Assistant Medical
DX: I10 Essential (primary) hypertension (principal); E11.40 Type 2 diabetes mellitus with diabetic neuropathy, unspecified; I25.10 Atherosclerotic heart disease of native coronary artery without angina pectoris
CPT/HCPCS: 36415; 80053; 80061; 83036; 84443; 85027

== ENCOUNTER 2023-09-13 23:56 | Observation (INO) | payer MEDICARE ==
[2023-09-14] MEDS: DIPH,PERTUS(ACELL)TETVAC-LF 0.5 ML VIAL IM ONE (00:32)
[2023-09-14 00:51] LABS: Basophils # (A) 0.1 k/uL (0-0.2); Basophils % (A) 1 %; Eosinophils # (A) 0.1 k/uL (0-0.7); Eosinophils % (A) 1 %; HCT 46.3 % (39.0-53.0); HGB 15.2 gm/dL (13.0-17.5); Lymphocytes # (A) 1.8 k/uL (1.0-4.8); Lymphocytes % (A) 22 %; MCH 29.8 pg (25.0-35.0); MCHC 32.7 g/dL (31.0-37.0); MCV 91.1 fL (80.0-100.0); Mean Platelet Volume 8.4; Monocytes # (A) 0.6 k/uL (0-1.0); Monocytes % (A) 7 %; Neutrophils # (A) 5.3 k/uL (1.3-7.7); Neutrophils % (A) 66 %; Platelet Count 188 k/uL (150-450); RBC 5.09 m/uL (4.30-5.90); RDW 12.8 % (11.5-15.5)
[2023-09-14 00:55] LABS: Partial Thromboplastin Time 26.8 sec (22.0-30.0); Prothrombin Time 10.9 sec (10.0-12.5)
[2023-09-14 00:59] LABS: ALT 25 U/L (4-49); AST 24 U/L (17-59); African American GFR (CKD) >90 (>60 ml/min/1.73 sqM); Albumin 4.4 g/dL (3.5-5.0); Alkaline Phosphatase 144 U/L (38-126); Anion Gap 9 mmol/L; Blood Urea Nitrogen 14 mg/dL (9-20); Calcium 9.3 mg/dL (8.4-10.2); Carbon Dioxide 26 mmol/L (22-30); Chloride 104 mmol/L (98-107); Glucose 101 mg/dL (74-99); Non-African American GFR(CKD) >90 (>60 ml/min/1.73 sqM); Potassium 3.8 mmol/L (3.5-5.1); Sodium 139 mmol/L (137-145); Total Protein 7.4 g/dL (6.3-8.2)
--- NOTE | 2023-09-14 01:13 | CT ---
EXAM: CT Head Without Intravenous Contrast CLINICAL HISTORY: ITS.REASON CT Reason: fall, head injury TECHNIQUE: Axial computed tomography images of the head/brain without intravenous contrast. CTDI is 10.5 mGy and DLP is 323.8 mGy-cm. This CT exam was performed using one or more of the following dose reduction techniques: automated exposure control, adjustment of the mA and/or kV according to patient size, and/or use of iterative reconstruction technique. COMPARISON: No relevant prior studies available. FINDINGS: Brain: No hemorrhage or mass effect. Ventricles: No hydrocephalus. Bones/joints: Unremarkable. Soft tissues: Unremarkable. Sinuses: No air fluid level. Mastoid air cells: Clear. IMPRESSION: No acute hemorrhage, hydrocephalus, or mass effect. EXAM: CT Cervical Spine Without Intravenous Contrast CLINICAL HISTORY: ITS.REASON CT Reason: fall, head injury TECHNIQUE: Axial computed tomography images of the cervical spine without intravenous contrast. CTDI is 10.5 mGy and DLP is 323.8 mGy-cm. This CT exam was performed using one or more of the following dose reduction techniques: automated exposure control, adjustment of the mA and/or kV according to patient size, and/or use of iterative reconstruction technique. COMPARISON: No relevant prior studies available. FINDINGS: Vertebrae: No acute fracture. Discs/spinal canal/neural foramina: degenerative changes. Soft tissues: No prevertebral swelling. IMPRESSION: No acute fracture or subluxation.
--- NOTE | 2023-09-14 01:19 | ED ---
Head Injury HPI - General Chief complaint: Head Injury Stated complaint: Fall, head injury Time Seen by Provider: 09/14/23 00:16 Source: patient Mode of arrival: ambulatory Limitations: no limitations - History of Present Illness Initial comments: Kevin is a very pleasant 73-year-old gentleman who was brought to the ER today by his for evaluation of a head injury. reports that 1115 she told him that she was feeling tired and was going to bed and he stated that he would come to bed 2. His typical routine would be to walk down the hallway walk into the guest bedroom where he has a cane or for his hearing aids and then walking to the bedroom where they sleep. Patient states that she was laying in bed when she heard a commotion and found him tangled up on the floor with a rocking chair. Apparently when he turned into the guest bedroom he caught his leg on the rocking chair and fell. She noted some bleeding from his scalp, she applied a wet rag and was talking to him but he had no idea what happened seem to be quite confused so she decided bring him to the hospital for evaluation. - Related Data Home Medications Medication Instructions Recorded Confirmed Ergocalciferol (Vitamin D2) 50,000 units PO BONILLA 11/01/17 11/13/19 [Vitamin D2] Escitalopram [Lexapro] 5 mg PO DAILY 12/04/18 11/13/19 Glimepiride [Amaryl] 2 mg PO DAILY 12/04/18 11/13/19 Pioglitazone HCl [Actos] 30 mg PO DAILY 12/04/18 11/13/19 Aspirin [Adult Low Dose Aspirin EC] 81 mg PO DAILY 11/08/19 11/13/19 Dulaglutide [Trulicity] 1.5 mg SQ WE 11/08/19 11/13/19 Losartan [Cozaar] 50 mg PO DAILY 11/08/19 11/13/19 Previous Rx's Medication Instructions Recorded Atorvastatin [Lipitor] 40 mg PO DAILY #30 tab 12/15/18 Clopidogrel [Plavix] 75 mg PO DAILY #30 tab 12/15/18 Metoprolol Tartrate [Lopressor] 50 mg PO BID #60 tab 12/15/18 amLODIPine [Norvasc] 5 mg PO DAILY #30 tab 12/15/18 HYDROcodone/APAP 7.5-325MG [[place] 1 each PO Q6HR PRN #28 tab 11/13/19 7.5] Allergies/Adverse reactions: Allergies Allergy/AdvReac Type Severity Reaction Status Date / Time No Known Allergies Allergy Verified 09/14/23 00:02 Review of Systems ROS Statement: Those systems with pertinent positive or pertinent negative responses have been documented in the HPI. ROS Other: All systems not noted in ROS Statement are negative. Past Medical History Past Medical History: Coronary Artery Disease (CAD), Diabetes Mellitus, GERD/Reflux, Hearing Disorder / Deafness, Hyperlipidemia, Hypertension Additional Past Medical History / Comment(s): Multivessel coronary artery disease, recent non-STEMI, The patient reports she has been recently seen by an ear nose and throat doctor and was diagnosed with a paralyzed vocal cord. History of Any Multi-Drug Resistant Organisms: None Reported Past Surgical History: Coronary Bypass/CABG Past Anesthesia/Blood Transfusion Reactions: No Reported Reaction Past Psychological History: No Psychological Hx Reported Smoking Status: Former smoker Past Alcohol Use History: None Reported Past Drug Use History: None Reported - Past Family History Mother Family Medical History: Myocardial Infarction (DC) Additional Family Medical History / Comment(s): from a myocardial infarction at age 52 Father Family Medical History: Diabetes Mellitus Brother(s) Family Medical History: Coronary Artery Disease (CAD) General Exam - General Exam Comments Initial Comments: Physical Exam GENERAL: Elderly gentleman in no acute distress HENT: Laceration on the crown of the scalp approximately 3 cm in length, EYES: PERRL, EOMI PULMONARY: Unlabored respirations. No audible rales rhonchi or wheezing was noted. CARDIOVASCULAR: Warm and well-perfused extremities ABDOMEN: Nondistended SKIN: Laceration on scalp, skin tear on left elbow : Deferred NEUROLOGIC: Patient is alert and oriented to person, able to identify that he is in the hospital however confused about events leading up to hospitalization does not recall falling Moving all extremities spontaneously MUSCULOSKELETAL: Normal extremities with adequate strength and full range of motion. No lower extremity swelling or edema. No calf tenderness. Limitations: no limitations Course Vital Signs 09/14/23 09/14/23 09/14/23 00:02 02:07 04:25 Temperature 98.2 F Pulse Rate 64 75 71 Respiratory 16 18 18 Rate Blood Pressure 135/78 102/61 101/63 O2 Sat by Pulse 98 100 96 Oximetry Procedures - Laceration Laceration #1 Consent Obtained: verbal consent Indication: laceration Site: scalp Size (cm): 3 Description: linear Depth: simple, single layer Pre-repair: wound explored Type of Sutures: other (skin glue) Patient Tolerated Procedure: well, no complications Medical Decision Making - Medical Decision Making Was pt. sent in by a medical professional or institution ([facility], [facility], urgent care, hospital, or detention...) When possible be specific @ -No Did you speak to anyone other than the patient for history (EMS, parent, family, police, friend...)? What history was obtained from this source @ - Did you review nursing and triage notes (agree or disagree)? Why? @ -I reviewed and agree with nursing and triage notes Were old charts reviewed (outside hosp., previous admission, EMS record, old EKG, old radiological studies, urgent care reports/EKG's, detention records)? Report findings @ -No old charts were reviewed Differential Diagnosis (chest pain, altered mental status, abdominal pain women, abdominal pain men, vaginal bleeding, weakness, fever, dyspnea, syncope, headache, dizziness, GI bleed, back pain, seizure, CVA, palpatations, mental health)? @ -Differential includes brain bleed, concussion closed head injury EKG interpreted by me (3pts min.). @ -As above X-rays interpreted by me (1pt min.). @ -None done CT interpreted by me (1pt min.). @ -I see no masses or bleeding on head CT U/S interpreted by me (1pt. min.). @ -None done What testing was considered but not performed or refused? (CT, X-rays, U/S, labs)? Why? @ -None What meds were considered but not given or refused? Why? @ -None Did you discuss the management of the patient with other professionals (professionals i.e. [facility], [facility], lab, RT, psych nurse, executive secretary social welfare, natural gas field processing supervisor, teacher, chief business officer, continuous pillowcase cutter)? Give summary @ -No Was smoking cessation discussed for >3mins.? @ -No Was critical care preformed (if so, how long)? @ -No Were there social determinants of health that impacted care today? How? (Homelessness, low income, unemployed, alcoholism, drug addiction, transportat ion, low edu. Level, literacy, decrease access to med. care, nursing home, rehab)? @ -No Was there de-escalation of care discussed even if they declined (Discuss DNR or withdrawal of care, Hospice)? DNR status @ -No What co-morbidities impacted this encounter? (DM, HTN, Smoking, COPD, CAD, Cancer, CVA, ARF, Chemo, Hep., AIDS, mental health diagnosis, sleep apnea, morbid obesity)? @ -None Was patient admitted / discharged? Hospital course, mention meds given and route, prescriptions, significant lab abnormalities, going to OR and other pertinent info. @ -Admit The patient was seen and evaluated, history is obtained from the as the patient has no recall of the fall. Head CT was obtained and was negative labs are baseline for the patient. Upon reevaluation patient continues to have no recall of the fall but also does not recall arriving at the hospital or having a CT scan. At this time it is clear the patient is significantly concussed, we will plan to keep the patient for observation evaluation by neurology. Patient and were agreeable to this. Dr. Basurto accepted the admission. Undiagnosed new problem with uncertain prognosis? @ -No Drug Therapy requiring intensive monitoring for toxicity (Heparin, Nitro, Insulin, Cardizem)? @ -No Were any procedures done? @ -Yes, laceration repair Diagnosis/symptom? @ -Fall at home, closed head injury, concussion, scalp laceration Acute, or Chronic, or Acute on Chronic? @ -Acute Uncomplicated (without systemic symptoms) or Complicated (systemic symptoms)? @ -Default Side effects of treatment? @ -No Exacerbation, Progression, or Severe Exacerbation? @ -No Poses a threat to life or bodily function? How? (Chest pain, USA, DC, pneumonia, PE, COPD, DKA, ARF, appy, cholecystitis, CVA, Diverticulitis, Homicidal, Suicidal, threat to staff... and all critical care pts) @ -Unlikely - Lab Data Result diagrams: 09/14/23 00:21 09/14/23 00:21 Lab Results 09/14/23 09/14/23 09/14/23 Range/Units 00:21 00:21 00:21 WBC 8.0 (3.8-10.6) k/uL RBC 5.09 (4.30-5.90) m/uL Hgb 15.2 (13.0-17.5) gm/dL Hct 46.3 (39.0-53.0) % MCV 91.1 (80.0-100.0) fL MCH 29.8 (25.0-35.0) pg MCHC 32.7 (31.0-37.0) g/dL RDW 12.8 (11.5-15.5) % Plt Count 188 (150-450) k/uL MPV 8.4 Neutrophils % 66 % Lymphocytes % 22 % Monocytes % 7 % Eosinophils % 1 % Basophils % 1 % Neutrophils # 5.3 (1.3-7.7) k/uL Lymphocytes # 1.8 (1.0-4.8) k/uL Monocytes # 0.6 (0-1.0) k/uL Eosinophils # 0.1 (0-0.7) k/uL Basophils # 0.1 (0-0.2) k/uL PT 10.9 (10.0-12.5) sec INR 1.0 (<1.2) APTT 26.8 (22.0-30.0) sec Sodium 139 (137-145) mmol/L Potassium 3.8 (3.5-5.1) mmol/L Chloride 104 (98-107) mmol/L Carbon Dioxide 26 (22-30) mmol/L Anion Gap 9 mmol/L BUN 14 (9-20) mg/dL Creatinine 0.76 (0.66-1.25) mg/dL Est GFR (CKD-EPI)AfAm >90 (>60 ml/min/1.73 sqM) Est GFR (CKD-EPI)NonAf >90 (>60 ml/min/1.73 sqM) Glucose 101 H (74-99) mg/dL Calcium 9.3 (8.4-10.2) mg/dL Total Bilirubin 1.0 (0.2-1.3) mg/dL AST 24 (17-59) U/L ALT 25 (4-49) U/L Alkaline Phosphatase 144 H (38-126) U/L Total Protein 7.4 (6.3-8.2) g/dL Albumin 4.4 (3.5-5.0) g/dL Disposition Clinical Impression: Closed head injury, Concussion without loss of consciousness, Scalp laceration, Fall at home Disposition: ADMITTED IP TO THIS HOSP Is patient prescribed a controlled substance at d/c from ED?: No Referrals: Jason Haddad MD [Primary Care Provider] - 1-2 days
[2023-09-14] MEDS: TOPICAL SKIN ADHESIVE 1 EACH AMP TOPICAL ONE (03:31)
[2023-09-14] MEDS ORDERED: NALOXONE 0.4 MG/ML 1 ML VIAL IV PRN (03:42)
[2023-09-14] MEDS ORDERED: ACETAMINOPHEN TAB 325 MG TAB PO PRN (08:19)
[2023-09-14] MEDS: ATORVASTATIN 40 MG TAB PO SCH ×2 (10:00→20:18)
[2023-09-14] MEDS: METOPROLOL TARTRATE 50 MG TAB PO SCH (10:00)
[2023-09-14] MEDS: PIOGLITAZONE 30 MG TAB PO SCH (10:03)
--- NOTE | 2023-09-14 11:58 | XR ---
EXAMINATION TYPE: XR shoulder complete LT DATE OF EXAM: 09/14/2023 CLINICAL HISTORY: pain COMPARISON: NONE TECHNIQUE: Three views of the left shoulder are obtained. FINDINGS: There is no acute fracture/dislocation evident. The acromioclavicular and glenohumeral tiffani int spaces appear moderately narrowed. The visualized ribs are intact and unremarkable. IMPRESSION: 1. There is no acute fracture or dislocation. ICD 10 NO FRACTURE, INITIAL EVALUATION
--- NOTE | 2023-09-14 11:59 | XR ---
EXAMINATION TYPE: XR ankle complete RT DATE OF EXAM: 09/14/2023 COMPARISON: NONE HISTORY: Pain TECHNIQUE: Frontal, lateral and oblique images of the right ankle are obtained. COMPARISON: None. FINDINGS: There is no acute fracture/dislocation evident. Well-corticated lucency along the medial m alleolus likely reflective of healed nonacute fracture. The joint spaces appear within normal limits . The overlying soft tissue appears unremarkable. IMPRESSION: There is no acute fracture or dislocation seen.
--- NOTE | 2023-09-14 13:32 | P.GSCN ---
History of Present Illness Consult date: 09/14/23 History of present illness: CHIEF COMPLAINT: Fall HISTORY OF PRESENT ILLNESS: This is a 73-year-old male who had a trip and fall yesterday evening. Patient does not recall the event. History was obtained from the patient's . Patient's was in the bedroom and heard a commotion. She went out to the front room and found her on the ground with the rocking chair knocked over. Patient had hit his head that was bleeding involved. They are unsure if he lost consciousness. He denies any nausea or vomiting. But he is still unable to recall the evening. The first thing he remembers is getting into the ambulance. He has a laceration on the scalp that was glued. Patient is also complaining of pain in the left shoulder and right ankle. CT scan of the head and neck showed no acute injury. He does take Plavix at home. Thank you very much PAST MEDICAL HISTORY: coronary Artery Disease (CAD), Diabetes Mellitus, GERD/Reflux, Hearing Disorder / Deafness, Hyperlipidemia, Hypertension PAST SURGICAL HISTORY: CABG MEDICATIONS: See below ALLERGIES: See below SOCIAL HISTORY: No illicit drug use. REVIEW OF SYSTEMS: CONSTITUTIONAL: Denies fever or chills. HEENT: Denies blurred vision, vision changes, or eye pain. Denies hemoptysis CARDIOVASCULAR: Denies chest pain or pressure. RESPIRATORY: No shortness of breath. GASTROINTESTINAL: See HPI for pertinent findings HEMATOLOGIC: Denies bleeding disorders. GENITOURINARY: Denies any blood in urine or increased urinary frequency. SKIN: Denies pruitis. Denies rash. PHYSICAL EXAM: VITAL SIGNS: Reviewed GENERAL: Well-developed in no acute distress. HEENT: Pupils equal round reactive. Laceration posterior left scalp about 3 cm in size. Laceration glued. No bleeding at this time. No drainage from nose ABDOMEN: Soft. Nondistended. nontender NEUROLOGIC: Alert and oriented. Cranial nerves II through XII grossly intact. Extremities: Patient has tenderness palpation of the left shoulder and right ankle LABORATORY DATA: WBC 8.0 Hgb 15.2 platelets 188 INR 1.0 Sodium 139 potassium 3.8 creatinine 0.76 Total bili 1.0 AST 24 ALT 25 alk phos 144 IMAGING: CT scan of head and cervical spine no acute hemorrhage, hydrocephalus or mass effect no acute fracture or subluxation Left shoulder x-ray no acute fracture or dislocation X-ray right ankle no fracture or dislocation ASSESSMENT: 1. Fall 2. Consussion 3. Left shoulder pain 4. Right ankle pain 5. Scalp laceration PLAN: -Neurology consulted for possible concussion -Medicine service consult for medical management -Consult orthopedic service regarding left shoulder and right ankle pain with fall -Continue Tylenol as needed for pain -Continue regular diet -Continue supportive care -GI prophylaxis Pepcid and DVT prophylaxis subcu heparin Physician Helicopter Engineer note has been reviewed by physician. Signing provider agrees with the documented findings, assessment, and plan of care. Past Medical History Past Medical History: Coronary Artery Disease (CAD), Diabetes Mellitus, GERD/Reflux, Hearing Disorder / Deafness, Hyperlipidemia, Hypertension Additional Past Medical History / Comment(s): Multivessel coronary artery disease, recent non-STEMI, The patient reports she has been recently seen by an ear nose and throat doctor and was diagnosed with a paralyzed vocal cord. History of Any Multi-Drug Resistant Organisms: None Reported Past Surgical History: Coronary Bypass/CABG Past Anesthesia/Blood Transfusion Reactions: No Reported Reaction Past Psychological History: No Psychological Hx Reported Smoking Status: Former smoker Past Alcohol Use History: None Reported Past Drug Use History: None Reported - Past Family History Mother Family Medical History: Myocardial Infarction ([place]) Additional Family Medical History / Comment(s): from a myocardial infarction at age 52 Father Family Medical History: Diabetes Mellitus Brother(s) Family Medical History: Coronary Artery Disease (CAD) Medications and Allergies Home Medications Medication Instructions Recorded Confirmed Type Escitalopram [Lexapro] 5 mg PO DAILY 12/04/18 09/14/23 History Glimepiride [Amaryl] 1 mg PO DAILY 12/04/18 09/14/23 History Clopidogrel [Plavix] 75 mg PO DAILY #30 tab 12/15/18 09/14/23 Rx Metoprolol Tartrate [Lopressor] 50 mg PO BID #60 tab 12/15/18 09/14/23 Rx amLODIPine [Norvasc] 5 mg PO DAILY #30 tab 12/15/18 09/14/23 Rx Aspirin [Adult Low Dose Aspirin EC] 81 mg PO DAILY 11/08/19 09/14/23 History Losartan [Cozaar] 50 mg PO DAILY 11/08/19 09/14/23 History Atorvastatin Calcium [Lipitor] 40 mg PO HS 09/14/23 09/14/23 History Empagliflozin [Jardiance] 25 mg PO DAILY 09/14/23 09/14/23 History Ergocalciferol [Vitamin D2 (1250 1,250 mcg PO BONILLA 09/14/23 09/14/23 History Mcg = 65027 Iu)] Glimepiride [Amaryl] 2 mg PO HS 09/14/23 09/14/23 History Oxybutynin Xl [Ditropan XL] 5 mg PO HS 09/14/23 09/14/23 History Pantoprazole Sodium [Protonix] 40 mg PO HS 09/14/23 09/14/23 History Semaglutide [Ozempic] 1 mg SQ SA 09/14/23 09/14/23 History Allergies Allergy/AdvReac Type Severity Reaction Status Date / Time No Known Allergies Allergy Verified 09/14/23 08:57 Surgical - Exam Vital Signs Temp Pulse Resp BP Pulse Ox 98.2 F 64 16 135/78 98 09/14/23 00:02 09/14/23 00:02 09/14/23 00:02 09/14/23 00:02 09/14/23 00:02 Patient Seen Date: 09/14/23 Patient Seen Time: 08:45 Results - Labs 09/14/23 00:21 09/14/23 00:21 Abnormal Lab Results - Last 24 Hours (Table) 09/14/23 Range/Units 00:21 Glucose 101 H (74-99) mg/dL Alkaline Phosphatase 144 H (38-126) U/L Diabetes panel 09/14/23 Range/Units 00:21 Sodium 139 (137-145) mmol/L Potassium 3.8 (3.5-5.1) mmol/L Chloride 104 (98-107) mmol/L Carbon Dioxide 26 (22-30) mmol/L BUN 14 (9-20) mg/dL Creatinine 0.76 (0.66-1.25) mg/dL Glucose 101 H (74-99) mg/dL Calcium 9.3 (8.4-10.2) mg/dL AST 24 (17-59) U/L ALT 25 (4-49) U/L Alkaline Phosphatase 144 H (38-126) U/L Total Protein 7.4 (6.3-8.2) g/dL Albumin 4.4 (3.5-5.0) g/dL Calcium panel 09/14/23 Range/Units 00:21 Calcium 9.3 (8.4-10.2) mg/dL Albumin 4.4 (3.5-5.0) g/dL Pituitary panel 09/14/23 Range/Units 00:21 Sodium 139 (137-145) mmol/L Potassium 3.8 (3.5-5.1) mmol/L Chloride 104 (98-107) mmol/L Carbon Dioxide 26 (22-30) mmol/L BUN 14 (9-20) mg/dL Creatinine 0.76 (0.66-1.25) mg/dL Glucose 101 H (74-99) mg/dL Calcium 9.3 (8.4-10.2) mg/dL Adrenal panel 09/14/23 Range/Units 00:21 Sodium 139 (137-145) mmol/L Potassium 3.8 (3.5-5.1) mmol/L Chloride 104 (98-107) mmol/L Carbon Dioxide 26 (22-30) mmol/L BUN 14 (9-20) mg/dL Creatinine 0.76 (0.66-1.25) mg/dL Glucose 101 H (74-99) mg/dL Calcium 9.3 (8.4-10.2) mg/dL Total Bilirubin 1.0 (0.2-1.3) mg/dL AST 24 (17-59) U/L ALT 25 (4-49) U/L Alkaline Phosphatase 144 H (38-126) U/L Total Protein 7.4 (6.3-8.2) g/dL Albumin 4.4 (3.5-5.0) g/dL
--- NOTE | 2023-09-14 13:41 | P.CNNES ---
History of Present Illness Consult date: 09/14/23 Requesting physician: Teresa Juan Reason for Consult: Concussion History of Present Illness: Patient is a 73-year-old right-handed male with history of hypertension, diabetes, was brought to the hospital for a fall and concussion. Patient's was also present, who also provided with a history. Apparently patient and his were watching TV late last night. At around 11:10 PM, they decided to go to the bed. Patient's went to the bedroom, whereas patient was somewhat dozing off in the recliner, told her that he may be going to the restroom and then coming to the bedroom as well. Shortly after, while patient's was in her bedroom, she heard a crash, and when she went in, saw him laying on the floor. She is not sure if he tripped over the rocker chair and fell, as he was laying on the floor on his left side. Patient did not have any tongue bite, or lost control of urine or any convulsive activity noticed by his . When she came in, he was responding, but patient has no memory of the fall or subsequent events afterwards. His brought him to the ER. Patient does not remember the ride to the ER. He is not sure as a reason he fell, although he believes that he may have stood up and twisted his ankle and fell on the rocker chair. 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 He also moves very quickly. Patient states that he fell few months ago while walking in the grass, and another time while walking on the sidewalk. He also has developed memory problems for last few years. He forgets names, although remembers faces very well. Patient states that this has been always for him. No hallucinations or wandering. He often repeats what he has said, and forgets what was told. Sometimes he would forget vacations or conversations until he is told. Patient has history of open heart surgery in November 2019, although the patient had an MRI of the brain performed previously on 01/20/2019 for "memory loss", which showed no acute process, indicating his memory disturbance has been going on for quite some time. Patient's vital signs on arrival blood pressure 135/78, pulse rate 64 temperatur e 98.2. Blood test shows normal CBC, PT PTT, normal CMP. CT head showed no acute hemorrhage, hydrocephalus or mass effect. I personally reviewed CT head, agree with the findings. CT of the cervical spine showed no acute fracture or subluxation. EKG shows sinus rhythm with occasional ventricular premature complexes. Left shoulder, and right ankle x-rays showed no fracture. Patient had an MRI of the brain performed on 01/20/2019 for "memory loss", which revealed mild age-related atrophy. I personally reviewed MRI agree with the findings. No history of tobacco or alcohol use or marijuana. He has hypertension and diabetes. He does take aspirin and Plavix every day. Patient states his father also developed dementia in her early 80s, at age 83. Review of Systems Constitutional: Reports chills, Denies fever Eyes: denies blurred vision, denies diplopia, denies pain, denies loss of vision Ears: bilateral: decreased hearing, tinnitus, deny: earache Ears, nose, mouth and throat: Reports vertigo (Lately, not frequent, believes from blood sugars, eats and then is OK. He believes from exhaustion), Denies headache, Denies sore throat Cardiovascular: Denies chest pain, Denies lightheadedness, Denies shortness of breath Respiratory: Denies cough, Denies excessive sputum Gastrointestinal: Denies abdominal pain, Denies diarrhea, Denies nausea, Denies vomiting Genitourinary: Denies dysuria, Denies flank pain, Denies incontinence Musculoskeletal: Denies low back pain, Denies neck pain Integumentary: Denies pruritus, Denies rash Neurological: Reports as per HPI Psychiatric: Reports anxiety, Reports depression, Reports memory loss Hematologic/Lymphatic: Reports easy bruising, Denies easy bleeding Past Medical History Past Medical History: Coronary Artery Disease (CAD), Diabetes Mellitus, GERD/Reflux, Hearing Disorder / Deafness, Hyperlipidemia, Hypertension Additional Past Medical History / Comment(s): Multivessel coronary artery disease, recent non-STEMI, The patient reports she has been recently seen by an ear nose and throat doctor and was diagnosed with a paralyzed vocal cord. History of Any Multi-Drug Resistant Organisms: None Reported Past Surgical History: Coronary Bypass/CABG Past Anesthesia/Blood Transfusion Reactions: No Reported Reaction Past Psychological History: No Psychological Hx Reported Smoking Status: Former smoker Past Alcohol Use History: None Reported Past Drug Use History: None Reported - Past Family History Mother Family Medical History: Myocardial Infarction ([place]) Additional Family Medical History / Comment(s): from a myocardial in farction at age 52 Father Family Medical History: Diabetes Mellitus Brother(s) Family Medical History: Coronary Artery Disease (CAD) Medications and Allergies Home Medications Medication Instructions Recorded Confirmed Type Escitalopram [Lexapro] 5 mg PO DAILY 12/04/18 09/14/23 History Glimepiride [Amaryl] 1 mg PO DAILY 12/04/18 09/14/23 History Clopidogrel [Plavix] 75 mg PO DAILY #30 tab 12/15/18 09/14/23 Rx Metoprolol Tartrate [Lopressor] 50 mg PO BID #60 tab 12/15/18 09/14/23 Rx amLODIPine [Norvasc] 5 mg PO DAILY #30 tab 12/15/18 09/14/23 Rx Aspirin [Adult Low Dose Aspirin EC] 81 mg PO DAILY 11/08/19 09/14/23 History Losartan [Cozaar] 50 mg PO DAILY 11/08/19 09/14/23 History Atorvastatin Calcium [Lipitor] 40 mg PO HS 09/14/23 09/14/23 History Empagliflozin [Jardiance] 25 mg PO DAILY 09/14/23 09/14/23 History Ergocalciferol [Vitamin D2 (1250 1,250 mcg PO BONILLA 09/14/23 09/14/23 History Mcg = 67831 Iu)] Glimepiride [Amaryl] 2 mg PO HS 09/14/23 09/14/23 History Oxybutynin Xl [Ditropan XL] 5 mg PO HS 09/14/23 09/14/23 History Pantoprazole Sodium [Protonix] 40 mg PO HS 09/14/23 09/14/23 History Semaglutide [Ozempic] 1 mg SQ SA 09/14/23 09/14/23 History Allergies Allergy/AdvReac Type Severity Reaction Status Date / Time No Known Allergies Allergy Verified 09/14/23 08:57 Physical Examination - Vital Signs Vital Signs: Vital Signs Temp Pulse Resp BP Pulse Ox 09/14/23 10:02 81 18 104/70 95 09/14/23 06:22 71 16 104/70 95 09/14/23 04:25 71 18 101/63 96 09/14/23 02:07 75 18 102/61 100 09/14/23 00:02 98.2 F 64 16 135/78 98 Intake and Output 09/13/23 09/14/23 09/14/23 22:59 06:59 14:59 Other: Weight 68.039 kg Patient is an elderly male, very pleasant, in no acute distress. Patient is alert awake oriented to time place and person. Patient knows it is 09/14/2023 and that he is in [facility] imported on [place] in [facility]. He knows name of the current president. Speech and language functions are normal. Patient can name and repeat very well. No aphasia or dysarthria. Attention, concentration and fund of knowledge is adequate. Detailed cognitive function testing deferred. On cranial nerve examination, pupils are equal, round and reacting to light, visual zaragoza are full on confrontation, with no neglect on double simultaneous stimulation. Extraocular muscles are intact with no nystagmus. Face is sy mmetric, tongue protrudes to the midline. Palatal elevation and sensation normal, hearing and shoulder shrug normal, facial sensation normal. On muscle strength testing, there is no pronator drift and the strength is normal in arms and legs distally and proximally. Patient's left shoulder is pa inful from recent fall. Deep tendon reflexes are symmetric but diminished and plantars are downgoing. Sensory to touch is equal with no neglect on double simultaneous stimulation. Cerebellar function showed no ataxia for [id number] testing. No dysdiadochokinesia. No ataxia for [id number] testing on either side. Tone and bulk of muscles normal. Gait: Patient able to get up from the chair without any problem. He is somewhat impulsive, walks very fast. He turned around very fast and was somewhat losing balance. Patient's base and armswing normal. No parkinsonian features. On general examination, there is no carotid bruit or murmur, S1-S2 audible. Chest is clear on consultation. Abdomen is soft nontender. No organomegaly, bowel sounds present. Peripheral pulses are present. No peripheral edema. Results - Laboratory Findings CBC and BMP: 09/14/23 00:21 09/14/23 00:21 Abnormal Lab Findings: Abnormal Labs 09/14/23 00:21 Glucose 101 H Alkaline Phosphatase 144 H Assessment and Plan Assessment: * Status post unwitnessed fall with concussion. Patient has significant amnesia from the fall. * Laceration scalp from the fall. * Hypertension * Diabetes * Hyperlipidemia * History of memory loss, possible mild cognitive impairment versus early stage dementia. * History of coronary artery bypass surgery Plan: * Patient will undergo syncopal workup. * Carotid Doppler * 2D echo * EEG * B12, folate, TSH, A1c. * May resume antiplatelet medications. * Neurology will follow. Thank you for the consult.
[2023-09-14] MEDS ORDERED: DEXTROSE 50% SYRINGE 50 ML IVP PRN ×2 (15:12)
[2023-09-14] MEDS: CLOPIDOGREL 75 MG TAB PO SCH (16:05)
[2023-09-14] MEDS: ESCITALOPRAM 5 MG TAB PO SCH (16:05)
[2023-09-14 17:38] LABS: Glucose,Whole Blood 102 mg/dL (70-110)
[2023-09-14] MEDS: INSULIN ASPART (NovoLOG) 100 UNIT/ML VIAL SQ SCH (17:41)
[2023-09-14] MEDS: PANTOPRAZOLE 40 MG TABLET PO SCH (20:17)
[2023-09-14] MEDS: HEPARIN SODIUM,PORCINE 5,000 UNIT/ML 1 ML VIAL SQ SCH (20:18)
[2023-09-14] MEDS: FAMOTIDINE 20 MG TAB PO SCH (20:18)
--- NOTE | 2023-09-14 20:29 | EEG ---
ELECTROENCEPHALOGRAM REPORT PREAMBLE: A 73-year-old male who had a fall with concussion with loss of memory. EEG FINDINGS: This is a 21-channel digital EEG recorded with video component, utilizing 10/20 international system with referential and bipolar montages. The recording starts with the patient being asleep, with presence of diffuse slow waves, and sleep spindles with vertex waves. Before photic stimulation, the patient did wake up and was alert, in which there was normal appearing background, 9 hertz, posterior dominant, reactive to eye opening and closing. Photic driving response was not seen. The patient then again became drowsy and then stage 2 sleep during most of the study. No focal or generalized epileptiform activity was seen. EKG channel showed no obvious arrhythmia. IMPRESSION: This is a normal EEG, mainly during drowsiness and stage 2 sleep. Some brief periods of wakefulness revealed normal-appearing background rhythm. No focal, lateralized or epileptiform activity was seen. MMODL / IJN: [id number] /
[2023-09-14 22:11] LABS: Glucose,Whole Blood 149 mg/dL (70-110)
[2023-09-14 22:35] VITALS: RESP 16
--- NOTE | 2023-09-15 00:29 | US ---
EXAMINATION TYPE: US carotid duplex BILAT DATE OF EXAM: 09/14/2023 COMPARISON: NONE CLINICAL INDICATION: Male, 73 years old with history of Syncope, concussion; syncope TECHNIQUE: Carotid duplex ultrasound examination. Indirect Doppler criteria was utilized. FINDINGS: EXAM MEASUREMENTS: RIGHT: Peak Systolic Velocity (PSV) cm/sec ----- Right CCA: 100 ----- Right ICA: 86.2 ----- Right ECA: 133 ICA/CCA ratio: 0.86 RIGHT: End Diastole cm/sec ----- Right CCA: 20.2 ----- Right ICA: 12.0 ----- Right ECA: 6.6 LEFT: Peak Systolic Velocity (PSV) cm/sec ----- Left CCA: 108 ----- Left ICA: 85.5 ----- Left ECA: 105 ICA/CCA ratio: 0.8 LEFT: End Diastole cm/sec ----- Left CCA: 24.4 ----- Left ICA: 31.5 ----- Left ECA: 18.7 VERTEBRALS (direction of flow): Right Vertebral: Antegrade Left Vertebral: Antegrade Rhythm: Questionably irregularly irregular rhythm. ADJUNCT PSYCHOLOGY FACULTY MEMBER NOTES: Mild intimal thickening in the common carotid arteries, small amounts of shadowing plaque seen in frank ateral bulbs. No elevated velocities. IMPRESSION: 1. Mild atherosclerotic changes bilaterally. 2. No elevated flow velocities to suggest hemodynamically significant stenosis in the carotid arteri es in the neck. 3. Antegrade flow in both vertebral arteries. 4. Questionably irregular irregular heart rhythm, please correlate with EKG.
[2023-09-15 06:09] LABS: Glucose,Whole Blood 131 mg/dL (70-110)
[2023-09-15 07:36] VITALS: BP 120/78; PULSE 74; TEMP 97.7
--- NOTE | 2023-09-15 08:54 | P.CNOR ---
History of Present Illness - HPI Consult reason: joint pain (Left shoulder, right ankle pain.) History of present illness: This is a 73-year-old male who presented to the emergency department after a fall in his home and sustaining a head injury. The patient's found him on the floor in the bedroom. The patient has no memory of the incident. He states he woke up in the hospital. He complains of left shoulder pain and right ankle pain since the fall. He does admit to some left shoulder pain prior to the fall. He has history of rotator cuff surgery on the right shoulder in the past. He states that he has been able to ambulate to and from the bathroom without difficulty. He is having a little bit of ankle soreness on the lateral side. We are consulted for orthopedic evaluation of the left shoulder and right ankle. Past Medical History Past Medical History: Coronary Artery Disease (CAD), Diabetes Mellitus, GERD/Reflux, Hearing Disorder / Deafness, Hyperlipidemia, Hypertension Additional Past Medical History / Comment(s): Multivessel coronary artery disease, recent non-STEMI, The patient reports she has been recently seen by an ear nose and throat doctor and was diagnosed with a paralyzed vocal cord. History of Any Multi-Drug Resistant Organisms: None Reported Past Surgical History: Coronary Bypass/CABG, Orthopedic Surgery Additional Past Surgical History / Comment(s): shoulder repair Past Anesthesia/Blood Transfusion Reactions: No Reported Reaction Past Psychological History: No Psychological Hx Reported Smoking Status: Former smoker Past Alcohol Use History: None Reported Past Drug Use History: None Reported - Past Family History Mother Family Medical History: Myocardial Infarction ([place]) Additional Family Medical History / Comment(s): from a myocardial infarction at age 52 Father Family Medical History: Diabetes Mellitus Brother(s) Family Medical History: Coronary Artery Disease (CAD) Medications and Allergies Home Medications Medication Instructions Recorded Confirmed Type Escitalopram [Lexapro] 5 mg PO DAILY 12/04/18 09/14/23 History Glimepiride [Amaryl] 1 mg PO DAILY 12/04/18 09/14/23 History Clopidogrel [Plavix] 75 mg PO DAILY #30 tab 12/15/18 09/14/23 Rx Metoprolol Tartrate [Lopressor] 50 mg PO BID #60 tab 12/15/18 09/14/23 Rx amLODIPine [Norvasc] 5 mg PO DAILY #30 tab 12/15/18 09/14/23 Rx Aspirin [Adult Low Dose Aspirin EC] 81 mg PO DAILY 11/08/19 09/14/23 History Losartan [Cozaar] 50 mg PO DAILY 11/08/19 09/14/23 History Atorvastatin Calcium [Lipitor] 40 mg PO HS 09/14/23 09/14/23 History Empagliflozin [Jardiance] 25 mg PO DAILY 09/14/23 09/14/23 History Ergocalciferol [Vitamin D2 (1250 1,250 mcg PO BONILLA 09/14/23 09/14/23 History Mcg = 45671 Iu)] Glimepiride [Amaryl] 2 mg PO HS 09/14/23 09/14/23 History Oxybutynin Xl [Ditropan XL] 5 mg PO HS 09/14/23 09/14/23 History Pantoprazole Sodium [Protonix] 40 mg PO HS 09/14/23 09/14/23 History Semaglutide [Ozempic] 1 mg SQ SA 09/14/23 09/14/23 History Allergies Allergy/AdvReac Type Severity Reaction Status Date / Time No Known Allergies Allergy Verified 09/14/23 08:57 Physical Examination This is a pleasant 73-year-old male in no acute distress. He is alert and oriented at this time. He does have memory loss surrounding the fall. He is sitting at the bedside eating breakfast. He has no new complaints or concerns at this time. He does state that his shoulder pain is improved slightly. Exam of the head neck revealed no obvious deformity. He appears to be moving freely in the chair without difficulty. Exam of the upper extremities reveals no obvious deformity or areas of swelling. He has left shoulder forward flexion to about 100 degrees actively. I passively can get him to about 150 degrees with pain. He does have positive impingement sign with increased pain dropping the arm. He has fairly good external rotation and internal rotation of the arm with mild pain. He has full elbow, wrist and finger motion bilaterally. Neurovascular status to the upper extremities grossly intact. Exam of the lower extremities reveals no obvious deformity. The right ankle has minimal soft tissue swelling. He has fairly good motion of the ankle. There is direct tenderness about the anterior lateral soft tissue of the ankle. He is nontender over the medial malleolus. He is nontender over the lateral myelitis . Neurovascular status to the lower extremities grossly intact. Results X-rays of the left shoulder reveal degenerative changes with acromioclavicular arthritis and spurring. There is mild glenohumeral arthritis noted. There are findings consistent with chronic rotator cuff pathology. No acute fracture noted. X-rays of the right ankle reveal no acute bony abnormality. I do not see a definite fracture that correlates clinically with his symptoms. He may possibly have a small avulsion off the lateral talus or APC. - Labs Labs: Abnormal Lab Results - Last 24 Hours (Table) 09/14/23 09/14/23 09/15/23 Range/Units 00:21 22:09 06:02 POC Glucose (mg/dL) 149 H 131 H (70-110) mg/dL Hemoglobin A1c 8.3 H (<=6.0) % H & H 09/14/23 Range/Units 00:21 Hgb 15.2 (13.0-17.5) gm/dL Hct 46.3 (39.0-53.0) % Coagulation 09/14/23 Range/Units 00:21 INR 1.0 (<1.2) Result Diagrams: 09/14/23 00:21 09/14/23 00:21 Assessment and Plan (1) Right ankle sprain Current Visit: Yes Status: Acute Code(s): S93.401A - SPRAIN OF UNSPECIFIED LIGAMENT OF RIGHT ANKLE, INIT ENCNTR SNOMED Code(s): 52500785900044592 (2) Rotator cuff arthropathy of left shoulder Current Visit: Yes Status: Acute Code(s): M12.812 - OTH SPECIFIC ARTHROPATHIES, NEC, LEFT SHOULDER SNOMED Code(s): 80970516376645254 (3) Degenerative arthritis of left shoulder region Current Visit: Yes Status: Acute Code(s): M19.012 - PRIMARY OSTEOARTHRITIS, LEFT SHOULDER SNOMED Code(s): 762620055521757 (4) Closed head injury Current Visit: Yes Status: Acute Code(s): S09.90XA - UNSPECIFIED INJURY OF HEAD, INITIAL ENCOUNTER SNOMED Code(s): 089610653993 (5) Concussion without loss of consciousness Current Visit: Yes Status: Acute Code(s): S06.0X0A - CONCUSSION WITHOUT LOSS OF CONSCIOUSNESS, INITIAL ENCOUNTER SNOMED Code(s): 48477497 (6) Scalp laceration Current Visit: Yes Status: Acute Code(s): S01.01XA - LACERATION WITHOUT FOREIGN BODY OF SCALP, INITIAL ENCOUNTER SNOMED Code(s): 033789081 Plan: The clinical and x-ray findings are discussed with the patient. Regarding the right ankle he is offered a boot which he declines at this time. He may ambulat e and bear weight as tolerated. With regard to the left shoulder it is recommended he have a course of physical therapy. We discussed possibility of cortisone injection in the future if symptoms do not continue to improve. He may follow-up in our office in 3 to 4 weeks or sooner if necessary.
[2023-09-15] MEDS: LOSARTAN 50 MG TAB PO SCH (09:25)
[2023-09-15] MEDS: ASPIRIN 81 MG PO SCH (09:25)
--- NOTE | 2023-09-15 09:30 | P.HPIM ---
History of Present Illness H&P Date: 09/14/23 Kevin Cid is a 73 yo M with PMH of HTN, CAD, CABG who presented to the ED after an unwitnessed fall and subsequent concussion at home. Pt and his were at home watching TV and pt got up to use the bathroom before going to bed. His was already in the bedroom and heard a crash, and when she went in saw him laying on the floor. Patient did not have any tongue bite, or lost control of urine or any convulsive activity noticed by his . When she came in, he was responding, but patient has no memory of the fall or subsequent events afterwards. His brought him to the ER. Patient does not remember the ride to the ER. Pt has been dealing with memory disturbances recently and notes he frequently forgets conversations. On presentation vitals stable, CT head/C spine with no acute process. Review of Systems All systems: negative Constitutional: Denies chills, Denies fever Eyes: denies blurred vision, denies pain Ears, nose, mouth and throat: Denies headache, Denies sore throat Cardiovascular: Denies chest pain, Denies shortness of breath Respiratory: Denies cough Gastrointestinal: Denies abdominal pain, Denies diarrhea, Denies nausea, Denies vomiting Musculoskeletal: Denies myalgias Integumentary: Denies pruritus, Denies rash Neurological: Reports syncope, Denies numbness, Denies weakness Psychiatric: Denies anxiety, Denies depression Endocrine: Denies fatigue, Denies weight change Past Medical History Past Medical History: Coronary Artery Disease (CAD), Diabetes Mellitus, GERD/Reflux, Hearing Disorder / Deafness, Hyperlipidemia, Hypertension Additional Past Medical History / Comment(s): Multivessel coronary artery disease, recent non-STEMI, The patient reports she has been recently seen by an ear nose and throat doctor and was diagnosed with a paralyzed vocal cord. History of Any Multi-Drug Resistant Organisms: None Reported Past Surgical History: Coronary Bypass/CABG, Orthopedic Surgery Additional Past Surgical History / Comment(s): shoulder repair Past Anesthesia/Blood Transfusion Reactions: No Reported Reaction Past Psychological History: No Psychological Hx Reported Smoking Status: Former smoker Past Alcohol Use History: None Reported Past Drug Use History: None Reported - Past Family History Mother Family Medical History: Myocardial Infarction ([place]) Additional Family Medical History / Comment(s): from a myocardial infarction at age 52 Father Family Medical History: Diabetes Mellitus Brother(s) Family Medical History: Coronary Artery Disease (CAD) Medications and Allergies Home Medications Medication Instructions Recorded Confirmed Type Escitalopram [Lexapro] 5 mg PO DAILY 12/04/18 09/14/23 History Glimepiride [Amaryl] 1 mg PO DAILY 12/04/18 09/14/23 History Clopidogrel [Plavix] 75 mg PO DAILY #30 tab 12/15/18 09/14/23 Rx Metoprolol Tartrate [Lopressor] 50 mg PO BID #60 tab 12/15/18 09/14/23 Rx amLODIPine [Norvasc] 5 mg PO DAILY #30 tab 12/15/18 09/14/23 Rx Aspirin [Adult Low Dose Aspirin EC] 81 mg PO DAILY 11/08/19 09/14/23 History Losartan [Cozaar] 50 mg PO DAILY 11/08/19 09/14/23 History Atorvastatin Calcium [Lipitor] 40 mg PO HS 09/14/23 09/14/23 History Empagliflozin [Jardiance] 25 mg PO DAILY 09/14/23 09/14/23 History Ergocalciferol [Vitamin D2 (1250 1,250 mcg PO BONILLA 09/14/23 09/14/23 History Mcg = 67871 Iu)] Glimepiride [Amaryl] 2 mg PO HS 09/14/23 09/14/23 History Oxybutynin Xl [Ditropan XL] 5 mg PO HS 09/14/23 09/14/23 History Pantoprazole Sodium [Protonix] 40 mg PO HS 09/14/23 09/14/23 History Semaglutide [Ozempic] 1 mg SQ SA 09/14/23 09/14/23 History Allergies Allergy/AdvReac Type Severity Reaction Status Date / Time No Known Allergies Allergy Verified 09/14/23 08:57 Physical Exam Vitals: Vital Signs Temp Pulse Pulse Resp BP BP Pulse Ox 09/15/23 07:00 97.7 F 74 16 120/78 96 09/15/23 02:00 98 F 79 16 104/68 98 09/14/23 19:18 97.8 F 71 16 122/66 97 09/14/23 13:10 98.1 F 61 17 125/72 98 09/14/23 12:40 68 19 109/72 97 09/14/23 10:02 81 18 104/70 95 Intake and Output 09/14/23 09/15/23 09/15/23 22:59 06:59 14:59 Other: # Voids 2 Weight 68.039 kg General: well developed, well nourished, NAD HEENT: NC/AT, mmm Neck: supple, no JVD or thyromegaly CV: RRR, no murmur Lungs: normal effort, clear throughout Abd; soft, nontender, no distended Ext: TTP L shoulder Neuro: alert and oriented x3, no focal deficit Results CBC & Chem 7: 09/14/23 00:21 09/14/23 00:21 Labs: Abnormal Lab Results - Last 24 Hours (Table) 09/14/23 09/14/23 09/15/23 Range/Units 00:21 22:09 06:02 POC Glucose (mg/dL) 149 H 131 H (70-110) mg/dL Hemoglobin A1c 8.3 H (<=6.0) % Assessment and Plan Plan: Syncope and collapse. Concussion with loss of consciousness. Resume home medications, neurology consult. Obtain EEG and Echo Ortho consult for shoulder and ankle pain s/p fall
--- NOTE | 2023-09-15 12:16 | CA ---
Transthoracic Echo Report Name: Kevin Solo Age: 73 Gender: M : 1950 Exam Date: 09/14/2023 13:27 Exam Location: [facility] Ht (in): 66 Wt (lb): 150 Ordering Physician: Rubi Olmstead MD Attending/Referring Phys: Drywall Worker Chuy Kat RDC Procedure CPT: Indications: Syncope. consucssion Cardiac Hx: Technical Quality: Contrast 1: Total Dose (mL): Contrast 2: Total Dose (mL): MEASUREMENTS (Male / Female) Normal Values 2D ECHO LV Diastolic Diameter PLAX 4.3 cm 4.2 - 5.9 / 3.9 - 5.3 cm LV Systolic Diameter PLAX 2.9 cm IVS Diastolic Thickness 1.3 cm 0.6 - 1.0 / 0.6 - 0.9 cm LVPW Diastolic Thickness 0.9 cm 0.6 - 1.0 / 0.6 - 0.9 cm LV Relative Wall Thickness 0.5 LVOT Diameter 2.4 cm Aortic Root Diameter 3.3 cm LA Systolic Diameter LX 4.3 cm 3.0 - 4.0 / 2.7 - 3.8 cm DOPPLER AV Peak Velocity 128.4 cm/s AV Peak Gradient 6.6 mmHg AV Mean Velocity 85.8 cm/s AV Mean Gradient 3.4 mmHg AV Velocity Time Integral 25.7 cm LVOT Peak Velocity 79.8 cm/s LVOT Peak Gradient 2.6 mmHg LVOT Velocity Time Integral 17.0 cm LVOT Stroke Volume 77.5 cm??? LVOT Stroke Volume Index 43.8 ml/m??? LVOT Cardiac Index 2948.6 cm???/min???m??? AV Area Cont Eq vti 3.0 cm??? AV Area Cont Eq pk 2.8 cm??? MV Area PHT 1.8 cm??? Mitral E Point Velocity 68.0 cm/s Mitral A Point Velocity 98.7 cm/s Mitral E to A Ratio 0.7 MV Deceleration Time 423.8 ms TR Peak Velocity 232.9 cm/s TR Peak Gradient 21.7 mmHg PV Peak Velocity 54.9 cm/s PV Peak Gradient 1.2 mmHg FINDINGS Left Ventricle Mildly increased septal wall thickness. Left ventricular ejection fraction is estimated at 55-60 %. Moderate concentric left ventricular hypertrophy. Right Ventricle Normal right ventricular size. Unable to estimate the right ventricular systolic pressure. Right Atrium Normal right atrial pressure. Left Atrium Mildly increased left atrial diameter. Mitral Valve Mild mitral regurgitation. Aortic Valve No aortic valve stenosis or regurgitation. Tricuspid Valve Mild tricuspid regurgitation. Pulmonic Valve No pulmonic regurgitation. Pericardium No pericardial effusion. Aorta Normal size aortic root and proximal ascending aorta. CONCLUSIONS Left ventricular ejection fraction 55-60% Moderate increased left ventricular thickness Left ventricular ejection fraction 55-60% Mild mitral regurgitation and mild tricuspid regurgitation Previewed by: Dr. Prabhu Gardner DO (Electronically Signed) Final Date: 15 September 2023 12:15
== END 2023-09-15 10:58 | disposition home or self-care (01) ==
LOC: EC 23:56 → 6NMEDSUR 09-14 03:43
PROVIDERS: ADMIT Family Medicine; ATTEND Family Medicine
DX: S01.01XA Laceration without foreign body of scalp, initial encounter (principal); S06.0X0A Concussion without loss of consciousness, initial encounter; S93.401A Sprain of unspecified ligament of right ankle, initial encounter; W01.0XXA Fall on same level from slipping, tripping and stumbling without subsequent striking against object, initial encounter; Y92.009 Unspecified place in unspecified non-institutional (private) residence as the place of occurrence of the external cause; M19.012 Primary osteoarthritis, left shoulder; I25.10 Atherosclerotic heart disease of native coronary artery without angina pectoris; E11.9 Type 2 diabetes mellitus without complications; K21.9 Gastro-esophageal reflux disease without esophagitis; E78.5 Hyperlipidemia, unspecified; I10 Essential (primary) hypertension; I25.2 Old myocardial infarction; Z95.1 Presence of aortocoronary bypass graft; Z87.891 Personal history of nicotine dependence; Z79.899 Other long term (current) drug therapy; Z79.84 Long term (current) use of oral hypoglycemic drugs; Z79.82 Long term (current) use of aspirin; Z79.85 Long-term (current) use of injectable non-insulin antidiabetic drugs; Z79.02 Long term (current) use of antithrombotics/antiplatelets; Z23 Encounter for immunization
CPT/HCPCS: 12002; 36415; 70450; 72125; 80053; 82607; 82746; 83036; 84443; 85025; 85610; 85730; 90471; 90715; 93005; 93306; 93880; 95816; 96372; 99285

== ENCOUNTER → 2024-03-20 | Outpatient (CLI) | payer MEDICARE ==
--- NOTE | 2024-03-20 09:30 | MR ---
EXAMINATION TYPE: MR brain wo con DATE OF EXAM: 03/20/2024 7:00 AM COMPARISON: CT brain 05/30/2020, MR brain 01/20/2019. CLINICAL INDICATION:Male, 73 years old with history of R42 dizziness and giddiness; [facility], TECHNIQUE: Multi planar, multi sequence imaging was performed through the brain. No gadolinium was gi yovana. FINDINGS: The loving-white junctions, ventricular system, and cisterns appear unremarkable. Couple of punctate a reas of high T2/FLAIR signal intensity are seen within the bilateral frontal lobe periventricular and subcortical white matter. Midline structures show no abnormality. Diffusion-weighted imaging shows n o evidence of restricted diffusion. The susceptibility weighted images do not reveal any evidence for micro-hemorrhage. Mild cerebral volume loss which is age appropriate. The bone marrow signal is within normal limits. The paranasal sinuses and globes are unremarkable. IMPRESSION: 1. No evidence of intracranial mass or acute/subacute infarct. 2. Couple of punctate nonspecific white matter changes, likely secondary to small vessel ischemic dis ease. [facility], , 03/20/2024 9:28 AM
== END | disposition home or self-care (01) ==
LOC: RADMRIMAIN 06:20
PROVIDERS: ATTEND Family Medicine
DX: R90.82 White matter disease, unspecified (principal); R42 Dizziness and giddiness; R68.89 Other general symptoms and signs
CPT/HCPCS: 70551

== ENCOUNTER 2024-03-26 10:02 | Emergency (ER) | payer MEDICARE ==
[2024-03-26 11:03] LABS: Basophils # (A) 0.1 k/uL (0-0.2); Basophils % (A) 1 %; Eosinophils % (A) 1 %; HCT 45.6 % (39.0-53.0); HGB 14.9 gm/dL (13.0-17.5); Lymphocytes % (A) 17 %; MCH 30.3 pg (25.0-35.0); MCHC 32.7 g/dL (31.0-37.0); MCV 92.5 fL (80.0-100.0); Monocytes # (A) 0.3 k/uL (0-1.0); Monocytes % (A) 5 %; Neutrophils # (A) 4.6 k/uL (1.3-7.7); Neutrophils % (A) 75 %; Platelet Count 197 k/uL (150-450); RBC 4.93 m/uL (4.30-5.90); RDW 13.1 % (11.5-15.5); WBC 6.1 k/uL (3.8-10.6)
--- NOTE | 2024-03-26 11:06 | XR ---
EXAMINATION TYPE: XR chest 2V DATE OF EXAM: 03/26/2024 11:03 AM COMPARISON: Chest radiographs from 01/04/2019 TECHNIQUE: XR chest 2V Frontal and lateral views of the chest. CLINICAL INDICATION:Male, 73 years old with history of Chest Pain; FINDINGS: Lungs/Pleura: There is no evidence of pleural effusion, focal consolidation, or pneumothorax. Pulmonary vascularity: Unremarkable. Heart/mediastinum: Cardiomediastinal silhouette is stable. Atherosclerotic calcifications are seen i n the aorta. Musculoskeletal: No acute osseous pathology. Midline sternotomy wires are noted and stable. IMPRESSION: No acute cardiopulmonary disease/process. [facility], , 03/26/2024 11:03 AM
[2024-03-26 11:16] LABS: ALT 51 U/L (4-49); AST 41 U/L (17-59); African American GFR (CKD) >90 (>60 ml/min/1.73 sqM); Albumin 4.3 g/dL (3.5-5.0); Alkaline Phosphatase 129 U/L (38-126); Anion Gap 8 mmol/L; Blood Urea Nitrogen 14 mg/dL (9-20); Calcium 9.4 mg/dL (8.4-10.2); Carbon Dioxide 24 mmol/L (22-30); Chloride 108 mmol/L (98-107); Glucose 170 mg/dL (74-99); Non-African American GFR(CKD) 87 (>60 ml/min/1.73 sqM); Potassium 4.1 mmol/L (3.5-5.1); Sodium 140 mmol/L (137-145); Total Bilirubin 1.1 mg/dL (0.2-1.3); Total Protein 6.9 g/dL (6.3-8.2)
[2024-03-26 11:20] LABS: Partial Thromboplastin Time 26.2 sec (22.0-30.0); Prothrombin Time 11.1 sec (10.0-12.5)
--- NOTE | 2024-03-26 12:07 | ED ---
General Adult HPI - General Chief complaint: Chest Pain Stated complaint: chest pain Time Seen by Provider: 03/26/24 10:14 Source: patient, RN notes reviewed, old records reviewed Mode of arrival: ambulatory Limitations: no limitations - History of Present Illness Initial comments: 73-year-old male presenting with left lateral chest pain which began this morning. No associated dyspnea. No cough. No fever. Pain does not radiate. No associated vomiting or diaphoresis. Patient is able to localize the pain location with 1 finger. - Related Data Home Medications Medication Instructions Recorded Confirmed Escitalopram [Lexapro] 5 mg PO DAILY 12/04/18 03/26/24 Glimepiride [Amaryl] 2 mg PO DAILY 12/04/18 03/26/24 Aspirin [Adult Low Dose Aspirin EC] 81 mg PO DAILY 11/08/19 03/26/24 Atorvastatin Calcium [Lipitor] 40 mg PO HS 09/14/23 03/26/24 Empagliflozin [Jardiance] 25 mg PO DAILY 09/14/23 03/26/24 Ergocalciferol [Vitamin D2 (1250 1,250 mcg PO BONILLA 09/14/23 03/26/24 Mcg = 37613 Iu)] Oxybutynin Xl [Ditropan XL] 5 mg PO HS 09/14/23 03/26/24 Pantoprazole Sodium [Protonix] 40 mg PO HS 09/14/23 03/26/24 Semaglutide [Ozempic] 1 mg SQ SA 09/14/23 03/26/24 lisinopriL [Zestril] 2.5 mg PO DAILY 03/26/24 03/26/24 Previous Rx's Medication Instructions Recorded Clopidogrel [Plavix] 75 mg PO DAILY #30 tab 12/15/18 Metoprolol Tartrate [Lopressor] 50 mg PO BID #60 tab 12/15/18 Allergies Allergy/AdvReac Type Severity Reaction Status Date / Time No Known Allergies Allergy Verified 03/26/24 10:39 Review of Systems ROS Statement: Those systems with pertinent positive or pertinent negative responses have been documented in the HPI. ROS Other: All systems not noted in ROS Statement are negative. Past Medical History Past Medical History: Coronary Artery Disease (CAD), Diabetes Mellitus, GERD/Reflux, Hearing Disorder / Deafness, Hyperlipidemia, Hypertension Additional Past Medical History / Comment(s): Multivessel coronary artery disease, recent non-STEMI, The patient reports she has been recently seen by an ear nose and throat doctor and was diagnosed with a paralyzed vocal cord. History of Any Multi-Drug Resistant Organisms: None Reported Past Surgical History: Coronary Bypass/CABG Additional Past Surgical History / Comment(s): shoulder repair Past Anesthesia/Blood Transfusion Reactions: No Reported Reaction Past Psychological History: No Psychological Hx Reported Smoking Status: Former smoker Past Alcohol Use History: Rare Past Drug Use History: None Reported - Past Family History Mother Family Medical History: Myocardial Infarction ([place]) Additional Family Medical History / Comment(s): from a myocardial infarction at age 52 Father Family Medical History: Diabetes Mellitus Brother(s) Family Medical History: Coronary Artery Disease (CAD) General Exam Limitations: no limitations General appearance: alert, in no apparent distress Head exam: Present: atraumatic, normocephalic Eye exam: Present: normal appearance, PERRL ENT exam: Present: normal exam Neck exam: Present: normal inspection. Absent: tenderness, meningismus Respiratory exam: Present: normal lung sounds bilaterally, chest wall tenderness (Point tenderness at the location of pain complaint). Absent: respiratory distress, wheezes Cardiovascular Exam: Present: regular rate, normal rhythm GI/Abdominal exam: Present: soft. Absent: distended, tenderness, guarding, rebound Extremities exam: Present: normal inspection, normal capillary refill. Absent: pedal edema, calf tenderness Neurological exam: Present: alert, oriented X3, CN II-XII intact. Absent: motor sensory deficit Psychiatric exam: Present: normal affect, normal mood Skin exam: Present: warm, dry, intact. Absent: cyanosis, diaphoretic Course Vital Signs 03/26/24 03/26/24 03/26/24 10:09 11:18 12:47 Temperature 97.6 F Pulse Rate 79 73 72 Respiratory 18 18 18 Rate Blood Pressure 112/61 94/63 96/67 O2 Sat by Pulse 97 95 Oximetry Medical Decision Making - Medical Decision Making Was pt. sent in by a medical professional or institution (, PA, LOCAL DELIVERY TRUCK DRIVER, urgent care, hospital, or alf...) When possible be specific @ -No Did you speak to anyone other than the patient for history (EMS, parent, family, police, friend...)? What history was obtained from this source @ -No Did you review nursing and triage notes (agree or disagree)? Why? @ -I reviewed and agree with nursing and triage notes Were old charts reviewed (outside hosp., previous admission, EMS record, old EKG, old radiological studies, urgent care reports/EKG's, alf records)? Report findings @ -No old charts were reviewed Differential Chest Pain: Stable Angina, Unstable Angina, STEMI, NSTEMI Aortic Dissection, Pneumothorax, Musculoskeletal, Esophageal Spasm GERD, Cholecystitis, Pancreatitis, Zoster, this is not meant to be an all-inclusive list. EKG interpreted by me (3pts min.). @EKG: Sinus rhythm rate of 75, WV interval 193, QRS duration 106, QTc [address] segment elevation. X-rays interpreted by me (1pt min.). @Chest x-ray negative for acute cardiopulmonary findings CT interpreted by me (1pt min.). @ -None done U/S interpreted by me (1pt. min.). @ -None done What testing was considered but not performed or refused? (CT, X-rays, U/S, labs)? Why? @ -None What meds were considered but not given or refused? Why? @ -None Did you discuss the management of the patient with other professionals (professionals i.e. , PA, LOCAL DELIVERY TRUCK DRIVER, lab, RT, psych nurse, clinical social work therapist, hogshead liner, teacher, youth liaison officer, case resource manager)? Give summary @ -No Was smoking cessation discussed for >3mins.? @ -No Was critical care preformed (if so, how long)? @ -No Were there social determinants of health that impacted care today? How? (Rizwan elessness, low income, unemployed, alcoholism, drug addiction, transportation, low edu. Level, literacy, decrease access to med. care, retirement, rehab)? @ -No Was there de-escalation of care discussed even if they declined (Discuss DNR or withdrawal of care, Hospice)? DNR status @ -No What co-morbidities impacted this encounter? (DM, HTN, Smoking, COPD, CAD, Cancer, CVA, ARF, Chemo, Hep., AIDS, mental health diagnosis, sleep apnea, morbid obesity)? @ -[Coronary artery disease Was patient admitted / discharged? Hospital course, mention meds given and route, prescriptions, significant lab abnormalities, going to OR and other pertinent info. @73-year-old male with atypical chest pain without typical features. EKG is sinus rhythm without ST segment elevation. Chest x-ray unremarkable. Patient has normal CBC, normal CMP, negative D-dimer, negative initial troponin. We did discuss admission for further cardiac evaluation. Patient prefers discharge but is agreeable to second troponin. This is obtained in the emergency department and is again negative. Patient will monitor symptoms closely and return with any worsening or changing symptoms. Follow-up with primary care. Undiagnosed new problem with uncertain prognosis? @ -No Drug Therapy requiring intensive monitoring for toxicity (Heparin, Nitro, Insulin, Cardizem)? @ -No Were any procedures done? @ -No Diagnosis/symptom? @ -[Atypical chest pain Acute, or Chronic, or Acute on Chronic? @Acute Uncomplicated (without systemic symptoms) or Complicated (systemic symptoms)? @ -Default Side effects of treatment? @ -No Exacerbation, Progression, or Severe Exacerbation? @ -No Poses a threat to life or bodily function? How? (Chest pain, [place], [place], pneumonia, PE, COPD, DKA, ARF, appy, cholecystitis, CVA, Diverticulitis, Homicidal, Suicidal, threat to staff... and all critical care pts) @ -[Low risk at this time - Lab Data Result diagrams: 03/26/24 10:44 03/26/24 10:44 Lab Results 03/26/24 03/26/24 03/26/24 Range/Units 10:44 10:44 10:44 WBC 6.1 (3.8-10.6) k/uL RBC 4.93 (4.30-5.90) m/uL Hgb 14.9 (13.0-17.5) gm/dL Hct 45.6 (39.0-53.0) % MCV 92.5 (80.0-100.0) fL MCH 30.3 (25.0-35.0) pg MCHC 32.7 (31.0-37.0) g/dL RDW 13.1 (11.5-15.5) % Plt Count 197 (150-450) k/uL MPV 8.0 Neutrophils % 75 % Lymphocytes % 17 % Monocytes % 5 % Eosinophils % 1 % Basophils % 1 % Neutrophils # 4.6 (1.3-7.7) k/uL Lymphocytes # 1.0 (1.0-4.8) k/uL Monocytes # 0.3 (0-1.0) k/uL Eosinophils # 0.0 (0-0.7) k/uL Basophils # 0.1 (0-0.2) k/uL PT 11.1 (10.0-12.5) sec INR 1.0 (<1.2) APTT 26.2 (22.0-30.0) sec D-Dimer (<0.60) mg/L FEU Sodium 140 (137-145) mmol/L Potassium 4.1 (3.5-5.1) mmol/L Chloride 108 H (98-107) mmol/L Carbon Dioxide 24 (22-30) mmol/L Anion Gap 8 mmol/L BUN 14 (9-20) mg/dL Creatinine 0.84 (0.66-1.25) mg/dL Est GFR (CKD-EPI)AfAm >90 (>60 ml/min/1.73 sqM) Est GFR (CKD-EPI)NonAf 87 (>60 ml/min/1.73 sqM) Glucose 170 H (74-99) mg/dL Calcium 9.4 (8.4-10.2) mg/dL Magnesium 2.0 (1.6-2.3) mg/dL Total Bilirubin 1.1 (0.2-1.3) mg/dL AST 41 (17-59) U/L ALT 51 H (4-49) U/L Alkaline Phosphatase 129 H (38-126) U/L Troponin I (0.000-0.034) ng/mL Total Protein 6.9 (6.3-8.2) g/dL Albumin 4.3 (3.5-5.0) g/dL 03/26/24 03/26/24 03/26/24 Range/Units 10:44 12:32 12:32 WBC (3.8-10.6) k/uL RBC (4.30-5.90) m/uL Hgb (13.0-17.5) gm/dL Hct (39.0-53.0) % MCV (80.0-100.0) fL MCH (25.0-35.0) pg MCHC (31.0-37.0) g/dL RDW (11.5-15.5) % Plt Count (150-450) k/uL MPV Neutrophils % % Lymphocytes % % Monocytes % % Eosinophils % % Basophils % % Neutrophils # (1.3-7.7) k/uL Lymphocytes # (1.0-4.8) k/uL Monocytes # (0-1.0) k/uL Eosinophils # (0-0.7) k/uL Basophils # (0-0.2) k/uL PT (10.0-12.5) sec INR (<1.2) APTT (22.0-30.0) sec D-Dimer 0.30 (<0.60) mg/L FEU Sodium (137-145) mmol/L Potassium (3.5-5.1) mmol/L Chloride (98-107) mmol/L Carbon Dioxide (22-30) mmol/L Anion Gap mmol/L BUN (9-20) mg/dL Creatinine (0.66-1.25) mg/dL Est GFR (CKD-EPI)AfAm (>60 ml/min/1.73 sqM) Est GFR (CKD-EPI)NonAf (>60 ml/min/1.73 sqM) Glucose (74-99) mg/dL Calcium (8.4-10.2) mg/dL Magnesium (1.6-2.3) mg/dL Total Bilirubin (0.2-1.3) mg/dL AST (17-59) U/L ALT (4-49) U/L Alkaline Phosphatase (38-126) U/L Troponin I <0.012 <0.012 (0.000-0.034) ng/mL Total Protein (6.3-8.2) g/dL Albumin (3.5-5.0) g/dL Disposition Clinical Impression: Atypical chest pain Disposition: HOME SELF-CARE Condition: Fair Instructions (If sedation given, give patient instructions): Chest Pain (ED) Is patient prescribed a controlled substance at d/c from ED?: No Referrals: Jeremias Haddad MD [Primary Care Provider] - 1-2 days Time of Disposition: 13:17
[2024-03-26] MEDS: SODIUM CHLORIDE 0.9% 500 ML 500 ML IV ONE (12:49)
[2024-03-26 13:35] VITALS: BP 92/63; PULSE 66; RESP 20; TEMP 98.2
== END 2024-03-26 13:41 | disposition home or self-care (01) ==
LOC: EC 10:02
CPT/HCPCS: 36415; 71046; 80053; 83735; 84484; 85025; 85379; 85610; 85730; 93005; 96360; 99285

== ENCOUNTER → 2024-09-10 | Outpatient (CLI) | payer MEDICARE ==
[2024-09-10 15:16] LABS: Chol/HDL Ratio 2.23 Ratio; LDL Cholesterol,Calculated 39.8 mg/dL (0.0-131.0); VLDL Calculation 16.42 mg/dL (5.00-40.00)
[2024-09-10 15:17] LABS: ALT 44 U/L (10-49); AST 36 U/L (14-35)
== END | disposition home or self-care (01) ==
LOC: LABWHC1 09:14
PROVIDERS: ATTEND Internal Medicine Interventional Cardiology
DX: E78.2 Mixed hyperlipidemia (principal)
CPT/HCPCS: 36415; 80061; 84450; 84460

== ENCOUNTER → 2024-12-26 | Outpatient (CLI) | payer MEDICARE ==
[2024-12-26 15:48] LABS: African American GFR (CKD) >90 (>60 ml/min/1.73 sqM); Blood Urea Nitrogen 13 mg/dL (9-20); Non-African American GFR(CKD) >90 (>60 ml/min/1.73 sqM)
--- NOTE | 2024-12-26 17:05 | CT ---
EXAMINATION TYPE: CT soft tissue neck w con DATE OF EXAM: 12/26/2024 4:07 PM COMPARISON: 09/14/2023. CLINICAL INDICATION: Male, 74 years old with history of R22.1 LOCALIZED SWELLING, MASS AND LUMP, NECK ; [facility], SWELLING IN RIGHT SIDE ON NECK TECHNIQUE: Standard enhanced CT of the neck. Axial sections with coronal and sagittal reformats were obtained. Contrast used:100 ml mL of Isovue 300 with IV Contrast, (None if empty) Oral contrast used: (None if empty) CT DLP: 371.0 mGycm, Automated exposure control for dose reduction was used. FINDINGS: Brain: Visualized portions are grossly unremarkable. Orbits: Unremarkable Sinuses: Grossly unremarkable. Spaces of the neck: Clear and symmetric. No organizing fluid collection mass. Musculoskeletal: No acute osseous pathology. Lymph nodes: Multiple nonenlarged lymph nodes are seen along both anterior chains of the neck. Vascular structures: Patent with atherosclerotic plaque of the internal carotid arteries at the bifur cation. Asymmetrically enlarged right internal jugular vein compared to the left. The left vertebral artery terminates as a posterior-inferior cerebellar artery. Thoracic Inlet/airway: Airway is patent. The lung apices are clear. Soft tissues/Thyroid: Thyroid and remainder of the soft tissues are unremarkable. Other: none. IMPRESSION: No evidence for organizing fluid collection or mass. No lymphadenopathy Neck. Asymmetrically enlarged right internal jugular vein. [facility], , 12/26/2024 5:02 PM
== END | disposition home or self-care (01) ==
LOC: RADCTMAIN 14:40
PROVIDERS: ATTEND Otolaryngology
DX: R22.1 Localized swelling, mass and lump, neck (principal)
CPT/HCPCS: 82565; 84520; 70491; 36415; Q9967